=== PATIENT | female | born 1975 | race Caucasian/White ===

== ENCOUNTER 2016-03-02 18:58 | Emergency (ER) | payer MEDICARE, MEDICAID ==
--- NOTE | 2016-03-02 19:26 | Emergency Department Record ---
History of Present Illness - General Chief complaint: Female Urogenital Problem Stated complaint: R SIDE PAIN Time Seen by Provider: 03/02/16 19:21 Source: Patient Mode of Arrival: Ambulatory Limitations: No limitations - History of Present Illness Initial comments: 41 yo female presents to ED with a CC of "right sided pain". Patient reports that she was seen at [facility] yesterday, diagnosed with a kidney infection and started on Cipro, Pyridium, and Ibuprofen. Patient reports that she has not taken any of the Ibuprofen as she was [place] it would interfere with her other medications, and has not taken Ultram that she has at home for her migraines as she was unsure if it would help her symptoms. Patient denies fevers, chills, vomiting, or abdominal pain symptoms. MD Complaint: Other Onset/Timin -: Days(s) Radiation: R flank Severity: Mild Severity scale (1-10): 7 Quality: Sharp, Stabbing Consistency: Intermittent Improves with: Other Worsens with: None Associated Symptoms: Denies other symptoms - Related Data Home Medications Medication Instructions Recorded Confirmed Last Taken Bupropion HCl [Wellbutrin Sr] 150 mg PO QHS 12/17/14 03/02/16 02/17/16 Escitalopram Oxalate [Lexapro] 20 mg PO QHS 12/17/14 03/02/16 02/17/16 Loratadine [Claritin] 10 mg PO QHS 12/17/14 03/02/16 02/17/16 Tapentadol HCl [Nucynta] 75 mg PO BID PRN 06/08/15 03/02/16 02/17/16 Prazosin HCl [Minipress] 4 mg PO QHS 09/18/15 03/02/16 02/17/16 Previous Rx's Medication Instructions Recorded Azithromycin [Zithromax] 250 mg PO DAILY #4 tab 02/16/16 Allergies Allergy/AdvReac Type Severity Reaction Status Date / Time [id number] Antimigraine Allergy Severe HEADACHE Verified 03/02/16 19:07 Agents Pajfkpf-Rai-Dno Reductase Allergy Intermediate JOINT ACHES Verified 03/02/16 19: 07 Inhibitor medical tape AdvReac Mild RASH Uncoded 03/02/16 19:07 Travel Screening - Travel/Exposure Within Last 30 Days Have you traveled within the last 30 days?: No - Travel/Exposure Within Last Year Have you traveled outside the [place] in the last year?: No - Additonal Travel Details Have you been exposed to anyone with a communicable illness?: No - Travel Symptoms Symptom Screening: None Review of Systems Constitutional: Denies: Chills, Fever, Malaise, Night sweats Eyes: Denies: Eye discharge, Eye pain ENT: Denies: Congestion, Ear pain, Epistaxis Respiratory: Denies: Cough, Dyspnea Cardiovascular: Denies: Chest pain, Dyspnea on exertion, Palpitations Endocrine: Denies: Fatigue, Heat or cold intolerance Gastrointestinal: Denies: Abdominal pain, Nausea, Vomiting Genitourinary: Reports: Dysuria. Denies: Hematuria, Incontinence, Retention Musculoskeletal: Reports: Back pain (right sided flank pain). Denies: Arthralgia Skin: Denies: Bruising, Change in color Neurological: Denies: Abnormal gait, Headache Psychiatric: Denies: Anxiety Hematological/Lymphatic: Denies: Anemia, Blood Clots Past Medical History - SOCIAL HISTORY Smoking Status: Former smoker Alcohol Use: None Drug Use: None - RESPIRATORY Hx Respiratory Disorders: Yes Hx Bronchitis: Yes Hx Pneumonia: Yes Comment:: low O2 when sleeping - CARDIOVASCULAR Hx Cardio Disorders: Yes Hx Chest Pain: Yes Comment:: HYPERLIPIDEMIA - NEURO Hx Neuro Disorders: Yes Hx Headaches: Yes (complex migrane) - GI Hx GI Disorders: Yes Hx Diverticulitis: Yes Hx Reflux: Yes (upper GI) Hx Liver Disease: (Liver biopsy 7-16) Hx Nausea/Vomiting: Yes (with pain) Hx Ulcer: Yes Comment:: fatty liver - Hx Genitourinary Disorders: Yes Comment:: polycystic ovary syndrome - ENDOCRINE Hx Endocrine Disorders: Yes Hx Diabetes: Yes Hx Thyroid Disease: No - MUSCULOSKELETAL Hx Musculoskeletal Disorders: Yes Hx Fibromyalgia: Yes Hx Gout: Yes Comment:: Buldging disc in neck - PSYCH Hx Psych Problems: Yes Hx Anxiety: Yes Hx Depression: Yes Comment:: PTSD - HEMATOLOGY/ONCOLOGY Hx Hematology/Oncology Disorders: No Family Medical History Any Significant Family History?: No Hx Cancer: Mother, Grandparents *Diabetes Comment: aunt Hx Heart Disease: Brother/Sister *Heart Comment: Brother Hx Kidney Disease: Children Physical Exam - General General Appearance: Alert, Oriented x3, Cooperative, No acute distress Limitations: No limitations - Head Head exam: Atraumatic, Normocephalic, Normal inspection Head exam detail: negative: Abrasion, Contusion, Espinosa's sign, General tenderness, Hematoma, Laceration - Eye Eye exam: Normal appearance. negative: Conjunctival injection, Periorbital swelling, Periorbital tenderness, Scleral icterus - ENT Ear exam: negative: Auricular hematoma, Auricular trauma Nasal Exam: negative: Active bleeding, Discharge, Dried blood, Foreign body Mouth exam: negative: Drooling, Laceration, Muffled voice, Tongue elevation - Neck Neck exam: Normal inspection. negative: Meningismus, Tenderness - Respiratory Respiratory exam: Normal lung sounds bilaterally. negative: Rhonchi, Stridor, Wheezes - Cardiovascular Cardiovascular Exam: Regular rate, Normal rhythm, Normal heart sounds - GI/Abdominal GI/Abdominal exam: Soft. negative: Rebound, Rigid, Tenderness - Rectal Rectal exam: Deferred - exam: Deferred - Extremities Extremities exam: Normal inspection. negative: Pedal edema, Tenderness - Back Back exam: Reports: CVA tenderness (R). Denies: CVA tenderness (L) - Neurological Neurological exam: Alert, Normal gait, Oriented X3 - Psychiatric Psychiatric exam: Normal affect, Normal mood - Skin Skin exam: Normal color. negative: Abrasion Type of lesion: negative: abrasion Course Vital Signs 03/02/16 19:15 Temperature 98.0 F Pulse Rate [ 80 Pulse Ox Probe] Respiratory 20 Rate Blood Pressure 113/85 [Left Arm] Pulse Ox 96 - Reevaluation(s) Reevaluation #1: 03/02/16 19:37 UA reviewed, no bacteria, no WBCs, and no RBCs are present. Examination and UA results are not consistent with kidney stone, and CT imaging today is not felt to be indicated given the number of imaging studies the patient has undergone in the last one year alone. Patient was offered Toradol for her pain symptoms, declined stating that she will just take her Ultram at home. Patient appears stable for discharge at this time. Disposition Disposition: Discharge Clinical Impression: Acute Flank Pain Disposition: Home, Self-Care Condition: (2) Stable Instructions: Flank Pain (ED) Additional Instructions: Return to ED if your symptoms worsen or if you have any concerns. Continue your Cipro and Pyridum as directed. You may take Ultram that you have at home for your pain symptoms as directed. Follow-up with Dr. Jung in 3-5 days as directed. Forms: Patient Portal Access Time of Disposition: 19:40
[2016-03-02 19:30] LABS: URINE APPEARANCE CLEAR; URINE BILIRUBIN NEGATIVE (NEGATIVE); URINE BLOOD NEGATIVE (NEGATIVE); URINE GLUCOSE (UA) NEGATIVE (NEGATIVE); URINE KETONE NEGATIVE (NEGATIVE); URINE LEUKOCYTE ESTERASE NEGATIVE (NEGATIVE); URINE PROTEIN TRACE (NEGATIVE)
[2016-03-02 19:32] LABS: URINE BACTERIA NONE SEEN; URINE COLOR ORANGE; URINE NITRITE NEGATIVE (NEGATIVE); URINE RBC NONE SEEN (NONE SEEN); URINE WBC NONE SEEN (0-2/hpf)
== END 2016-03-02 19:49 | disposition home or self-care (01) ==
LOC: ER 18:58
DX: R10.9 Unspecified abdominal pain (principal)
CPT/HCPCS: 81001; 99282

== ENCOUNTER 2016-03-19 19:32 | Emergency (ER) | payer MEDICARE, MEDICAID ==
--- NOTE | 2016-03-19 20:15 | Emergency Department Record ---
History of Present Illness - General Chief Complaint: Headache Migraine Stated Complaint: SERVIN Time Seen by Provider: 03/19/16 20:05 Source: Patient Mode of Arrival: Ambulatory - History of Present Illness Initial Comments: Thepatient states that she gets migraine headaches about once a week for which she takes Fioricet benadryl and phenergan. This headache began around 5:30 this evening, and is associated with nausea, no vomiting, photophobia, and left sided head and neck pain, which she states is typical of her headache. She took her usual meds, but this time they have not helped. She denies f,c,unilateral weakness, vision changes, or other new complaints. MD Complaint: "Migraine" Onset/Timin -: Days(s) Location: Left, Neck, Temporal Severity scale (1-10): 10 Consistency: Constant Improves With: Nothing Worsens With: Light, Noise Associated Symptoms: Nausea, Photophobia - Related Data Home Medications Medication Instructions Recorded Confirmed Last Taken Bupropion HCl [Wellbutrin Sr] 150 mg PO QHS 12/17/14 03/19/16 02/17/16 Escitalopram Oxalate [Lexapro] 20 mg PO QHS 12/17/14 03/19/16 02/17/16 Loratadine [Claritin] 10 mg PO QHS 12/17/14 03/19/16 02/17/16 Tapentadol HCl [Nucynta] 75 mg PO BID PRN 06/08/15 03/19/16 02/17/16 Prazosin HCl [Minipress] 4 mg PO QHS 09/18/15 03/19/16 02/17/16 Clonazepam [Clonazepam] 1 mg PO QHS 03/02/16 03/19/16 Unknown Dextroamphetamine/Amphetamine 10 mg PO BID tab 03/11/16 03/19/16 Unknown [Adderall] Sulfasalazine [Sulfasalazine Dr] 500 mg PO BID tab. 03/11/16 03/19/16 Unknown Allergies Allergy/AdvReac Type Severity Reaction Status Date / Time [id number] Antimigraine Allergy Severe HEADACHE Unverified 03/19/16 13:42 Agents Gfpaluc-Qnz-Uyo Reductase Allergy Intermediate JOINT ACHES Unverified 03/19/16 13:42 Inhibitor medical tape AdvReac Mild RASH Uncoded 03/02/16 19:07 Travel Screening - Travel/Exposure Within Last 30 Days Have you traveled within the last 30 days?: No Review of Systems Reviewed: No additional complaints except as noted below Constitutional: Reports: As per HPI. Denies: Chills, Fever, Malaise, Night sweats, Weakness, Weight change Eyes: Reports: As per HPI. Denies: Eye discharge, Eye pain, Photophobia, Vision change ENT: Reports: As per HPI. Denies: Congestion, Dental pain, Ear pain, Epistaxis , Hearing loss, Throat pain Respiratory: Reports: As per HPI. Denies: Cough, Dyspnea, Hemoptysis, Stridor, Wheezes Cardiovascular: Reports: As per HPI. Denies: Arrhythmia, Chest pain, Dyspnea on exertion, Edema, Murmurs, Orthopnea, Palpitations, Paroxysmal nocturnal dyspnea, Rheumatic Fever, Syncope Endocrine: Reports: As per HPI. Denies: Fatigue, Heat or cold intolerance, Polydipsia, Polyuria Gastrointestinal: Reports: As per HPI. Denies: Abdominal pain, Constipation, Diarrhea, Hematemesis, Hematochezia, Melena, Nausea, Vomiting Genitourinary: Reports: As per HPI. Denies: Abnormal menses, Discharge, Dyspareunia, Dysuria, Frequency, Hematuria, Incontinence, Retention, Urgency Musculoskeletal: Reports: As per HPI. Denies: Arthralgia, Back pain, Gout, Joint swelling, Myalgia, Neck pain Skin: Reports: As per HPI. Denies: Bruising, Change in color, Change in hair/ nails, Lesions, Pruritus, Rash Neurological: Reports: As per HPI. Denies: Abnormal gait, Confusion, Headache, Numbness, Paresthesias, Seizure, Tingling, Tremors, Vertigo, Weakness Psychiatric: Reports: As per HPI. Denies: Anxiety, Auditory hallucinations, Depression, Homicidal thoughts, Suicidal thoughts, Visual hallucinations Hematological/Lymphatic: Reports: As per HPI. Denies: Anemia, Blood Clots, Easy bleeding, Easy bruising, Swollen glands Past Medical History - SOCIAL HISTORY Smoking Status: Former smoker Alcohol Use: None Drug Use: None - RESPIRATORY Hx Respiratory Disorders: Yes Hx Bronchitis: Yes Hx Pneumonia: Yes Comment:: low O2 when sleeping - CARDIOVASCULAR Hx Cardio Disorders: Yes Hx Chest Pain: Yes Comment:: HYPERLIPIDEMIA - NEURO Hx Neuro Disorders: Yes Hx Headaches: Yes (complex migrane) - GI Hx GI Disorders: Yes Hx Diverticulitis: Yes Hx Reflux: Yes (upper GI) Hx Liver Disease: (Liver biopsy 7-16) Hx Nausea/Vomiting: Yes (with pain) Hx Ulcer: Yes Comment:: fatty liver - Hx Genitourinary Disorders: Yes Comment:: polycystic ovary syndrome - ENDOCRINE Hx Endocrine Disorders: Yes Hx Diabetes: Yes Hx Thyroid Disease: No - MUSCULOSKELETAL Hx Musculoskeletal Disorders: Yes Hx Fibromyalgia: Yes Hx Gout: Yes Comment:: Buldging disc in neck - PSYCH Hx Psych Problems: Yes Hx Anxiety: Yes Hx Depression: Yes Comment:: PTSD - HEMATOLOGY/ONCOLOGY Hx Hematology/Oncology Disorders: No Family Medical History Any Significant Family History?: Yes Hx Cancer: Mother, Grandparents *Diabetes Comment: aunt Hx Heart Disease: Brother/Sister *Heart Comment: Brother Hx Kidney Disease: Children Physical Exam - General General Appearance: Alert, Oriented x3, Cooperative, Mild distress (holding her left head as she ambulates slowly to the bathroom) - Head Head exam: Normal inspection - Eye Eye exam: Normal appearance, PERRL Pupils: Normal accommodation - ENT ENT exam: Normal exam, Mucous membranes moist, Normal external ear exam, Normal orophraynx, TM's normal bilaterally Ear exam: Normal external inspection. negative: External canal tenderness Nasal Exam: Normal inspection. negative: Discharge, Sinus tenderness Mouth exam: Normal external inspection, Tongue normal Teeth exam: Normal inspection. negative: Dental caries Throat exam: Normal inspection. negative: Tonsillar erythema, Tonsillar exudate - Neck Neck exam: Normal inspection, Full ROM. negative: Lymphadenopathy, Meningismus , Tenderness - Respiratory Respiratory exam: Normal lung sounds bilaterally. negative: Respiratory distress - Cardiovascular Cardiovascular Exam: Regular rate, Normal rhythm - GI/Abdominal GI/Abdominal exam: Soft. negative: Tenderness - Rectal Rectal exam: Deferred - exam: Deferred - Extremities Extremities exam: Normal inspection, Full ROM, Normal capillary refill. negative: Tenderness - Back Back exam: Reports: Normal inspection, Full ROM. Denies: Muscle spasm, Rash noted, Tenderness - Neurological Neurological exam: Alert, Normal gait, Oriented X3, Reflexes normal - Psychiatric Psychiatric exam: Normal affect, Normal mood - Skin Skin exam: Dry, Intact, Normal color, Warm Course Vital Signs 03/19/16 19:41 Temperature 97.3 F L Pulse Rate [ 84 Pulse Ox Probe] Respiratory 18 Rate Blood Pressure 140/106 [Left Arm] Pulse Ox 95 - Reevaluation(s) Reevaluation #1: The patient states that her headache is still present but not as severe. Her nausea has improved. The pain goes down her left head into the left side of her neck and top of her shoulder/trap. 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 Home to bed. Take your home meds after 4 hours if still needed. Follow up blood pressure with PCP when you are not in pain. Follow up with PCP as needed. Forms: Patient Portal Access
[2016-03-19] MEDS ORDERED: DIPHENHYDRAMINE HCL IV 50 MG/ML VIAL IVP ONE (20:19)
[2016-03-19] MEDS ORDERED: KETOROLAC 30 MG/ML VIAL IVP ONE (20:19)
[2016-03-19] MEDS ORDERED: METOCLOPRAMIDE HCL 10 MG/2 ML VIAL IVP ONE (20:19)
[2016-03-19] MEDS ORDERED: 0.9 % SODIUM CHLORIDE 500ML 500 ML IV SCH (20:30)
[2016-03-19] MEDS ORDERED: ONDANSETRON HCL IV 4 MG/2 ML VIAL IVP ONE (20:51)
[2016-03-19] MEDS ORDERED: ORPHENADRINE CITRATE 60MG/2ML VIAL IM ONE (21:20)
== END 2016-03-19 22:01 | disposition home or self-care (01) ==
LOC: ER 19:32
DX: G43.009 Migraine without aura, not intractable, without status migrainosus (principal); R11.0 Nausea; M54.2 Cervicalgia
CPT/HCPCS: 99284 ×2; 96374; 96372; 96375; J1885; J2405; J1200; J2360; J2765; J7040

== ENCOUNTER 2016-03-28 22:38 | Emergency (ER) | payer MEDICARE, MEDICAID ==
[2016-03-28] MEDS ORDERED: KETOROLAC 30 MG/ML VIAL IVP ONE (23:16)
[2016-03-28] MEDS ORDERED: ORPHENADRINE CITRATE 60MG/2ML VIAL IM ONE (23:16)
[2016-03-28] MEDS ORDERED: METOCLOPRAMIDE HCL 10 MG/2 ML VIAL IVP ONE (23:16)
[2016-03-28] MEDS ORDERED: 0.9 % SODIUM CHLORIDE 1,000 ML BAG IV ONE (23:18)
--- NOTE | 2016-03-28 23:37 | Emergency Department Record ---
History of Present Illness - General Chief Complaint: Headache Migraine Stated Complaint: SERVIN Time Seen by Provider: 03/28/16 22:55 Source: Patient Mode of Arrival: Ambulatory Limitations: No limitations - History of Present Illness Initial Comments: pt has typical migraine. she states her ears also hurt. Complaint: "Migraine" Onset/Timin -: Hour(s) Onset Description: Gradual Location: Left Severity scale (1-10): 7 Quality: Similar to previous headaches Consistency: Constant Improves With: Nothing Worsens With: None Context: Other Associated Symptoms: Nausea Treatments Prior to Arrival: Migraine medication, Other - Related Data Home Medications Medication Instructions Recorded Confirmed Last Taken Bupropion HCl [Wellbutrin Sr] 150 mg PO QHS 12/17/14 03/19/16 02/17/16 Escitalopram Oxalate [Lexapro] 20 mg PO QHS 12/17/14 03/19/16 02/17/16 Loratadine [Claritin] 10 mg PO QHS 12/17/14 03/19/16 02/17/16 Tapentadol HCl [Nucynta] 75 mg PO BID PRN 06/08/15 03/19/16 02/17/16 Prazosin HCl [Minipress] 4 mg PO QHS 09/18/15 03/19/16 02/17/16 Clonazepam [Clonazepam] 1 mg PO QHS 03/02/16 03/19/16 Unknown Dextroamphetamine/Amphetamine 10 mg PO BID tab 03/11/16 03/19/16 Unknown [Adderall] Sulfasalazine [Sulfasalazine Dr] 500 mg PO BID tab. 03/11/16 03/19/16 Unknown Allergies Allergy/AdvReac Type Severity Reaction Status Date / Time [id number] Antimigraine Allergy Severe HEADACHE Unverified 03/19/16 13:42 Agents Focnkwh-Wpa-Fcq Reductase Allergy Intermediate JOINT ACHES Unverified 03/19/16 13:42 Inhibitor medical tape AdvReac Mild RASH Uncoded 03/02/16 19:07 Travel Screening - Travel/Exposure Within Last 30 Days Have you traveled within the last 30 days?: No - Travel/Exposure Within Last Year Have you traveled outside the [place] in the last year?: No - Additonal Travel Details Have you been exposed to anyone with a communicable illness?: No - Travel Symptoms Symptom Screening: None Review of Systems Reviewed: No additional complaints except as noted below Constitutional: Reports: As per HPI. Denies: Chills, Fever, Malaise, Night sweats, Weakness, Weight change Eyes: Reports: As per HPI. Denies: Eye discharge, Eye pain, Photophobia, Vision change ENT: Reports: As per HPI. Denies: Congestion, Dental pain, Ear pain, Epistaxis , Hearing loss, Throat pain Respiratory: Reports: As per HPI. Denies: Cough, Dyspnea, Hemoptysis, Stridor, Wheezes Cardiovascular: Reports: As per HPI. Denies: Arrhythmia, Chest pain, Dyspnea on exertion, Edema, Murmurs, Orthopnea, Palpitations, Paroxysmal nocturnal dyspnea, Rheumatic Fever, Syncope Endocrine: Reports: As per HPI. Denies: Fatigue, Heat or cold intolerance, Polydipsia, Polyuria Gastrointestinal: Reports: As per HPI. Denies: Abdominal pain, Constipation, Diarrhea, Hematemesis, Hematochezia, Melena, Nausea, Vomiting Genitourinary: Reports: As per HPI. Denies: Abnormal menses, Discharge, Dyspareunia, Dysuria, Frequency, Hematuria, Incontinence, Retention, Urgency Musculoskeletal: Reports: As per HPI. Denies: Arthralgia, Back pain, Gout, Joint swelling, Myalgia, Neck pain Skin: Reports: As per HPI. Denies: Bruising, Change in color, Change in hair/ nails, Lesions, Pruritus, Rash Neurological: Reports: As per HPI. Denies: Abnormal gait, Confusion, Headache, Numbness, Paresthesias, Seizure, Tingling, Tremors, Vertigo, Weakness Psychiatric: Reports: As per HPI. Denies: Anxiety, Auditory hallucinations, Depression, Homicidal thoughts, Suicidal thoughts, Visual hallucinations Hematological/Lymphatic: Reports: As per HPI. Denies: Anemia, Blood Clots, Easy bleeding, Easy bruising, Swollen glands Past Medical History - SOCIAL HISTORY Smoking Status: Former smoker Alcohol Use: None Drug Use: None - RESPIRATORY Hx Respiratory Disorders: Yes Hx Bronchitis: Yes Hx Pneumonia: Yes Comment:: low O2 when sleeping - CARDIOVASCULAR Hx Cardio Disorders: Yes Hx Chest Pain: Yes Comment:: HYPERLIPIDEMIA - NEURO Hx Neuro Disorders: Yes Hx Headaches: Yes (complex migrane) - GI Hx GI Disorders: Yes Hx Diverticulitis: Yes Hx Reflux: Yes (upper GI) Hx Liver Disease: (Liver biopsy 7-16) Hx Nausea/Vomiting: Yes (with pain) Hx Ulcer: Yes Comment:: fatty liver - Hx Genitourinary Disorders: Yes Comment:: polycystic ovary syndrome - ENDOCRINE Hx Endocrine Disorders: Yes Hx Diabetes: Yes Hx Thyroid Disease: No - MUSCULOSKELETAL Hx Musculoskeletal Disorders: Yes Hx Fibromyalgia: Yes Hx Gout: Yes Comment:: Buldging disc in neck - PSYCH Hx Psych Problems: Yes Hx Anxiety: Yes Hx Depression: Yes Comment:: PTSD - HEMATOLOGY/ONCOLOGY Hx Hematology/Oncology Disorders: No Family Medical History Any Significant Family History?: Yes Hx Cancer: Mother, Grandparents *Diabetes Comment: aunt Hx Heart Disease: Brother/Sister *Heart Comment: Brother Hx Kidney Disease: Children Physical Exam - General General Appearance: Alert, Oriented x3, Cooperative, No acute distress - Head Head exam: Normal inspection - Eye Eye exam: Normal appearance, PERRL, EOMI Pupils: Normal accommodation - ENT ENT exam: Normal exam, Mucous membranes moist, Normal external ear exam, Normal orophraynx, Other (l tm has slight erythema) Ear exam: Normal external inspection. negative: External canal tenderness Nasal Exam: Normal inspection. negative: Discharge, Sinus tenderness Mouth exam: Normal external inspection, Tongue normal Teeth exam: Normal inspection. negative: Dental caries Throat exam: Normal inspection. negative: Tonsillar erythema, Tonsillar exudate - Neck Neck exam: Normal inspection, Full ROM. negative: Tenderness - Respiratory Respiratory exam: Normal lung sounds bilaterally. negative: Respiratory distress - Cardiovascular Cardiovascular Exam: Regular rate, Normal rhythm, Normal heart sounds - GI/Abdominal GI/Abdominal exam: Soft, Normal bowel sounds. negative: Tenderness - Rectal Rectal exam: Deferred - exam: Deferred - Extremities Extremities exam: Normal inspection, Full ROM, Normal capillary refill. negative: Tenderness - Back Back exam: Reports: Normal inspection, Full ROM. Denies: Muscle spasm, Rash noted, Tenderness - Neurological Neurological exam: Alert, CN II-XII intact, Normal gait, Oriented X3 - Psychiatric Psychiatric exam: Normal affect, Normal mood - Skin Skin exam: Dry, Intact, Normal color, Warm Course Vital Signs 03/28/16 22:55 Temperature 97.9 F Pulse Rate [ 79 Pulse Ox Probe] Respiratory 16 Rate Blood Pressure 133/94 [Left Arm] Pulse Ox 97 Disposition Disposition: Discharge Clinical Impression: Migraine Qualifiers: Migraine type: unspecified Status migrainosus presence: without status migrainosus Intractability: not intractable Qualified Code(s): G43.909 - Migraine, unspecified, not intractable, without status migrainosus Disposition: Home, Self-Care Condition: (1) Good Instructions: Migraine Headache (ED) Additional Instructions: follow up with family doctor. return sooner if worse Forms: Patient Portal Access
[2016-03-29] MEDS ORDERED: DIPHENHYDRAMINE HCL IV 50 MG/ML VIAL IVP ONE (00:13)
== END 2016-03-29 00:54 | disposition home or self-care (01) ==
LOC: ER 22:38
DX: G43.909 Migraine, unspecified, not intractable, without status migrainosus (principal); R11.0 Nausea; H92.03 Otalgia, bilateral; H53.8 Other visual disturbances
CPT/HCPCS: 99284 ×2; 96374; 96372; 96375; 96361; J1885; J1200; J2360; J2765; J7030

== ENCOUNTER 2016-04-06 20:27 | Emergency (ER) | payer MEDICARE, MEDICAID ==
[2016-04-06] MEDS ORDERED: KETOROLAC 60 MG/2 ML VIAL IM STA (21:13)
[2016-04-06] MEDS ORDERED: PROMETHAZINE HCL 25 MG/ML VIAL IM ONE (21:13)
--- NOTE | 2016-04-06 21:19 | Emergency Department Record ---
History of Present Illness - General Chief Complaint: Headache Migraine Stated Complaint: HEADACHE Time Seen by Provider: 04/06/16 21:13 Source: Patient Mode of Arrival: Ambulatory Limitations: No limitations - History of Present Illness Initial Comments: 41 yo female presents to ED with a CC of "migraine headache". Patient reports that her symptoms began last night, took her phenergan, fiorcet, and benadryl last night which improved her symptoms, but patient's worsened tonight around 18 :30. Patient took benadryl at 18:30 tonight, did not help much at the time. Complaint: Headache Onset/Timin -: Days(s) Onset Description: Gradual, Awoke with symptoms Location: Diffuse Severity scale (1-10): 8 Quality: Similar to previous headaches Consistency: Constant Improves With: Nothing Worsens With: Light, Movement of head/neck, Noise Associated Symptoms: Nausea, Photophobia, Sensitivity to sound Treatments Prior to Arrival: Migraine medication, Prescription analgesic - Related Data Home Medications Medication Instructions Recorded Confirmed Last Taken Bupropion HCl [Wellbutrin Sr] 150 mg PO QHS 12/17/14 03/19/16 02/17/16 Escitalopram Oxalate [Lexapro] 20 mg PO QHS 12/17/14 03/19/16 02/17/16 Loratadine [Claritin] 10 mg PO QHS 12/17/14 03/19/16 02/17/16 Tapentadol HCl [Nucynta] 75 mg PO BID PRN 06/08/15 03/19/16 02/17/16 Prazosin HCl [Minipress] 4 mg PO QHS 09/18/15 03/19/16 02/17/16 Clonazepam [Clonazepam] 1 mg PO QHS 03/02/16 03/19/16 Unknown Dextroamphetamine/Amphetamine 10 mg PO BID tab 03/11/16 03/19/16 Unknown [Adderall] Sulfasalazine [Sulfasalazine Dr] 500 mg PO BID tab. 03/11/16 03/19/16 Unknown Allergies Allergy/AdvReac Type Severity Reaction Status Date / Time [id number] Antimigraine Allergy Severe HEADACHE Verified 04/06/16 20:55 Agents Gwyhsad-Wst-Uou Reductase Allergy Intermediate JOINT ACHES Verified 04/06/16 20: 55 Inhibitor medical tape AdvReac Mild RASH Uncoded 03/02/16 19:07 Travel Screening - Travel/Exposure Within Last 30 Days Have you traveled within the last 30 days?: No - Travel Symptoms Symptom Screening: None Review of Systems Constitutional: Denies: Chills, Fever, Malaise, Night sweats Eyes: Reports: Photophobia. Denies: Eye discharge, Eye pain ENT: Denies: Congestion, Ear pain, Epistaxis Respiratory: Denies: Cough, Dyspnea Cardiovascular: Denies: Chest pain, Dyspnea on exertion Endocrine: Denies: Fatigue, Heat or cold intolerance Gastrointestinal: Denies: Abdominal pain, Nausea, Vomiting Musculoskeletal: Denies: Arthralgia, Back pain, Neck pain Skin: Denies: Bruising, Change in color, Rash Neurological: Reports: Headache. Denies: Abnormal gait, Confusion, Seizure Psychiatric: Denies: Anxiety Hematological/Lymphatic: Denies: Anemia, Blood Clots Past Medical History - SOCIAL HISTORY Smoking Status: Former smoker - RESPIRATORY Hx Respiratory Disorders: Yes Hx Bronchitis: Yes Hx Pneumonia: Yes Comment:: low O2 when sleeping - CARDIOVASCULAR Hx Cardio Disorders: Yes Hx Chest Pain: Yes Comment:: HYPERLIPIDEMIA - NEURO Hx Neuro Disorders: Yes Hx Headaches: Yes (complex migrane) - GI Hx GI Disorders: Yes Hx Diverticulitis: Yes Hx Reflux: Yes (upper GI) Hx Liver Disease: (Liver biopsy 7-16) Hx Nausea/Vomiting: Yes (with pain) Hx Ulcer: Yes Comment:: fatty liver - Hx Genitourinary Disorders: Yes Comment:: polycystic ovary syndrome - ENDOCRINE Hx Endocrine Disorders: Yes Hx Diabetes: Yes Hx Thyroid Disease: No - MUSCULOSKELETAL Hx Musculoskeletal Disorders: Yes Hx Fibromyalgia: Yes Hx Gout: Yes Comment:: Buldging disc in neck - PSYCH Hx Psych Problems: Yes Hx Anxiety: Yes Hx Depression: Yes Comment:: PTSD - HEMATOLOGY/ONCOLOGY Hx Hematology/Oncology Disorders: No Family Medical History Any Significant Family History?: Yes Hx Cancer: Mother, Grandparents *Diabetes Comment: aunt Hx Heart Disease: Brother/Sister *Heart Comment: Brother Hx Kidney Disease: Children Physical Exam - General General Appearance: Alert, Oriented x3, Cooperative, Moderate distress Limitations: No limitations - Head Head exam: Atraumatic, Normocephalic, Normal inspection Head exam detail: negative: Abrasion, Contusion, Espinosa's sign, General tenderness, Hematoma, Laceration - Eye Eye exam: Normal appearance. negative: Conjunctival injection, Periorbital swelling, Periorbital tenderness, Scleral icterus - ENT Ear exam: negative: Auricular hematoma, Auricular trauma Nasal Exam: negative: Active bleeding, Discharge, Dried blood, Foreign body Mouth exam: negative: Drooling, Laceration, Muffled voice, Tongue elevation - Neck Neck exam: Normal inspection. negative: Meningismus, Tenderness - Respiratory Respiratory exam: Normal lung sounds bilaterally. negative: Rales, Respiratory distress, Rhonchi, Stridor - Cardiovascular Cardiovascular Exam: Regular rate, Normal rhythm, Normal heart sounds - GI/Abdominal GI/Abdominal exam: Soft. negative: Rebound, Rigid, Tenderness - Rectal Rectal exam: Deferred - exam: Deferred - Extremities Extremities exam: Normal inspection, Calf tenderness. negative: Tenderness - Back Back exam: Denies: CVA tenderness (R), CVA tenderness (L) - Neurological Neurological exam: Alert, Normal gait, Oriented X3. negative: Motor sensory deficit - Psychiatric Psychiatric exam: Anxious, Normal mood - Skin Skin exam: Normal color. negative: Abrasion Type of lesion: negative: abrasion Course Vital Signs 04/06/16 20:55 Temperature 97.8 F Pulse Rate 68 Respiratory 16 Rate Blood Pressure 135/92 Pulse Ox 98 - Reevaluation(s) Reevaluation #1: 04/06/16 21:59 Patient reassessed, reports no improvement in her headache symptoms although patient subjectively appears improved. Solumedrol ordered for continued headache pain symptoms. Reevaluation #2: 04/07/16 22:25 Patient reassessed, resting comfortably, and appears stable for discharge at this time. Disposition Disposition: Discharge Clinical Impression: Headache Qualifiers: Headache type: unspecified Headache chronicity pattern: acute headache Intractability: not intractable Qualified Code(s): R51 - Headache Disposition: Home, Self-Care Instructions: Acute Headache (ED) Additional Instructions: Return to ED if your symptoms worsen or if you have any concerns. Follow-up with Dr. Jung in 3-5 days without fail. Forms: Patient Portal Access Time of Disposition: 21:19
[2016-04-06] MEDS ORDERED: METHYLPREDNISOLONE PF 125MG/VIAL IM ONE (21:59)
== END 2016-04-06 22:29 | disposition home or self-care (01) ==
LOC: ER 20:27
DX: R51 Headache (principal); R11.0 Nausea; H53.149 Visual discomfort, unspecified
CPT/HCPCS: 96372; 99283; J1885; J2550; J2930

== ENCOUNTER 2016-04-07 11:40 | Emergency (ER) | payer MEDICARE, MEDICAID ==
--- NOTE | 2016-04-07 12:01 | Emergency Department Record ---
History of Present Illness - General Chief Complaint: Headache Migraine Stated Complaint: MIGRAINE Time Seen by Provider: 04/07/16 11:55 Source: Patient Mode of Arrival: Ambulatory Limitations: No limitations - History of Present Illness Initial Comments: pt here for migraine which she states she has had for 3 days. she was here last night as well. she states she is taking all her meds as rxd. this is just like previous migraines MD Complaint: "Migraine" Onset/Timin -: Days(s) Onset Description: Gradual Location: Frontal, Right Severity scale (1-10): 9 Quality: Aching Consistency: Constant Improves With: Nothing Worsens With: None Associated Symptoms: Nausea, Photophobia Treatments Prior to Arrival: Migraine medication - Related Data Home Medications Medication Instructions Recorded Confirmed Last Taken Bupropion HCl [Wellbutrin Sr] 150 mg PO QHS 12/17/14 04/07/16 1 Day Ago Escitalopram Oxalate [Lexapro] 20 mg PO QHS 12/17/14 04/07/16 1 Day Ago Loratadine [Claritin] 10 mg PO QHS 12/17/14 04/07/16 1 Day Ago Tapentadol HCl [Nucynta] 75 mg PO BID PRN 06/08/15 04/07/16 1 Day Ago Prazosin HCl [Minipress] 4 mg PO QHS 09/18/15 04/07/16 1 Day Ago Clonazepam [Clonazepam] 1 mg PO QHS 03/02/16 04/07/16 1 Day Ago Dextroamphetamine/Amphetamine 10 mg PO BID tab 03/11/16 04/07/16 1 Day Ago [Adderall] Sulfasalazine [Sulfasalazine Dr] 500 mg PO BID tab. 03/11/16 04/07/16 1 Day Ago Allergies Allergy/AdvReac Type Severity Reaction Status Date / Time [id number] Antimigraine Allergy Severe HEADACHE Verified 04/07/16 11:50 Agents Lvxbudo-Qrm-Xsr Reductase Allergy Intermediate JOINT ACHES Verified 04/07/16 11: 50 Inhibitor medical tape AdvReac Mild RASH Uncoded 04/07/16 11:50 Travel Screening - Travel/Exposure Within Last 30 Days Have you traveled within the last 30 days?: No - Travel/Exposure Within Last Year Have you traveled outside the [place] in the last year?: No - Additonal Travel Details Have you been exposed to anyone with a communicable illness?: No - Travel Symptoms Symptom Screening: None Review of Systems Reviewed: No additional complaints except as noted below Constitutional: Reports: As per HPI. Denies: Chills, Fever, Malaise, Night sweats, Weakness, Weight change Eyes: Reports: As per HPI. Denies: Eye discharge, Eye pain, Photophobia, Vision change ENT: Reports: As per HPI. Denies: Congestion, Dental pain, Ear pain, Epistaxis , Hearing loss, Throat pain Respiratory: Reports: As per HPI. Denies: Cough, Dyspnea, Hemoptysis, Stridor, Wheezes Cardiovascular: Reports: As per HPI. Denies: Arrhythmia, Chest pain, Dyspnea on exertion, Edema, Murmurs, Orthopnea, Palpitations, Paroxysmal nocturnal dyspnea, Rheumatic Fever, Syncope Endocrine: Reports: As per HPI. Denies: Fatigue, Heat or cold intolerance, Polydipsia, Polyuria Gastrointestinal: Reports: As per HPI. Denies: Abdominal pain, Constipation, Diarrhea, Hematemesis, Hematochezia, Melena, Nausea, Vomiting Genitourinary: Reports: As per HPI. Denies: Abnormal menses, Discharge, Dyspareunia, Dysuria, Frequency, Hematuria, Incontinence, Retention, Urgency Musculoskeletal: Reports: As per HPI. Denies: Arthralgia, Back pain, Gout, Joint swelling, Myalgia, Neck pain Skin: Reports: As per HPI. Denies: Bruising, Change in color, Change in hair/ nails, Lesions, Pruritus, Rash Neurological: Reports: As per HPI. Denies: Abnormal gait, Confusion, Headache, Numbness, Paresthesias, Seizure, Tingling, Tremors, Vertigo, Weakness Psychiatric: Reports: As per HPI. Denies: Anxiety, Auditory hallucinations, Depression, Homicidal thoughts, Suicidal thoughts, Visual hallucinations Hematological/Lymphatic: Reports: As per HPI. Denies: Anemia, Blood Clots, Easy bleeding, Easy bruising, Swollen glands Past Medical History - SOCIAL HISTORY Smoking Status: Former smoker Alcohol Use: None Drug Use: None - RESPIRATORY Hx Respiratory Disorders: Yes Hx Bronchitis: Yes Hx Pneumonia: Yes Comment:: low O2 when sleeping - CARDIOVASCULAR Hx Cardio Disorders: Yes Hx Chest Pain: Yes Comment:: HYPERLIPIDEMIA - NEURO Hx Neuro Disorders: Yes Hx Headaches: Yes (complex migrane) - GI Hx GI Disorders: Yes Hx Diverticulitis: Yes Hx Reflux: Yes (upper GI) Hx Liver Disease: (Liver biopsy 7-16) Hx Nausea/Vomiting: Yes (with pain) Hx Ulcer: Yes Comment:: fatty liver - Hx Genitourinary Disorders: Yes Comment:: polycystic ovary syndrome - ENDOCRINE Hx Endocrine Disorders: Yes Hx Diabetes: Yes Hx Thyroid Disease: No - MUSCULOSKELETAL Hx Musculoskeletal Disorders: Yes Hx Fibromyalgia: Yes Hx Gout: Yes Comment:: Buldging disc in neck - PSYCH Hx Psych Problems: Yes Hx Anxiety: Yes Hx Depression: Yes Comment:: PTSD - HEMATOLOGY/ONCOLOGY Hx Hematology/Oncology Disorders: No Family Medical History Any Significant Family History?: Yes Hx Cancer: Mother, Grandparents *Diabetes Comment: aunt Hx Heart Disease: Brother/Sister *Heart Comment: Brother Hx Kidney Disease: Children Physical Exam - General General Appearance: Alert, Oriented x3, Cooperative, Mild distress - Head Head exam: Normal inspection - Eye Eye exam: Normal appearance, PERRL, EOMI Pupils: Normal accommodation - ENT ENT exam: Normal exam, Mucous membranes moist, Normal external ear exam, Normal orophraynx, TM's normal bilaterally Ear exam: Normal external inspection. negative: External canal tenderness Nasal Exam: Normal inspection. negative: Discharge, Sinus tenderness Mouth exam: Normal external inspection, Tongue normal Teeth exam: Normal inspection. negative: Dental caries Throat exam: Normal inspection. negative: Tonsillar erythema, Tonsillar exudate - Neck Neck exam: Normal inspection, Full ROM. negative: Tenderness - Respiratory Respiratory exam: Normal lung sounds bilaterally. negative: Respiratory distress - Cardiovascular Cardiovascular Exam: Regular rate, Normal rhythm, Normal heart sounds - GI/Abdominal GI/Abdominal exam: Soft, Normal bowel sounds. negative: Tenderness - Rectal Rectal exam: Deferred - exam: Deferred - Extremities Extremities exam: Normal inspection, Full ROM, Normal capillary refill. negative: Tenderness - Back Back exam: Reports: Normal inspection, Full ROM. Denies: Muscle spasm, Rash noted, Tenderness - Neurological Neurological exam: Alert, CN II-XII intact, Normal gait, Oriented X3 - Psychiatric Psychiatric exam: Normal affect, Normal mood - Skin Skin exam: Dry, Intact, Normal color, Warm Course Vital Signs 04/07/16 11:45 Temperature 97.8 F Pulse Rate 89 Respiratory 18 Rate Blood Pressure 127/81 Pulse Ox 94 L Disposition Disposition: Discharge Clinical Impression: Migraine headache without aura Qualifiers: Status migrainosus presence: without status migrainosus Intractability: not intractable Qualified Code(s): G43.009 - Migraine without aura, not intractable , without status migrainosus Condition: (1) Good Instructions: Migraine Headache (ED) Additional Instructions: follow up with family doctor this week. return sooner if worse Forms: Patient Portal Access
[2016-04-07] MEDS ORDERED: ONDANSETRON HCL IV 4 MG/2 ML VIAL IM ONE (12:19)
[2016-04-07] MEDS ORDERED: ORPHENADRINE CITRATE 60MG/2ML VIAL IM ONE (12:19)
[2016-04-07] MEDS ORDERED: DIPHENHYDRAMINE HCL IV 50 MG/ML VIAL IM ONE (12:19)
== END 2016-04-07 12:59 | disposition home or self-care (01) ==
LOC: ER 11:40
DX: G43.009 Migraine without aura, not intractable, without status migrainosus (principal); R11.0 Nausea; H53.149 Visual discomfort, unspecified
CPT/HCPCS: 99283 ×2; 96372; J2405; J1200; J2360

== ENCOUNTER 2016-04-17 23:05 | Emergency (ER) | payer MEDICARE, MEDICAID ==
[2016-04-18] MEDS ORDERED: KETOROLAC 30 MG/ML VIAL IVP ONE (00:50)
[2016-04-18] MEDS ORDERED: METOCLOPRAMIDE HCL 10 MG/2 ML VIAL IVP ONE (00:50)
[2016-04-18] MEDS ORDERED: 0.9 % SODIUM CHLORIDE 1,000 ML BAG IV ONE (00:50)
[2016-04-18] MEDS ORDERED: DIPHENHYDRAMINE HCL IV 50 MG/ML VIAL IVP ONE (00:50)
--- NOTE | 2016-04-18 00:52 | Emergency Department Record ---
History of Present Illness - General Chief Complaint: Headache Migraine Stated Complaint: HEADACHE Time Seen by Provider: 04/18/16 00:44 Source: Patient Mode of Arrival: Ambulatory - History of Present Illness Initial Comments: The patient states that she developed "another typical migraine" just before 8 p.m. tonight. She took her usual benadryl, phenergan and fiorecet, but 4 hours later it still is bad. She denies f,c, cough, still neck, rashes. Her throat is a tiny bit sore and she thinks she is dehydrated. She is requesting an IV. MD Complaint: "Migraine" Onset/Timin -: Hour(s) Onset Description: Sudden, At rest Location: Other Severity: Severe Severity scale (1-10): 8 Quality: Sharp Consistency: Constant Improves With: Nothing, Eating Worsens With: Light, Noise Context: Occured at rest Associated Symptoms: Nausea, Sensitivity to sound Treatments Prior to Arrival: Migraine medication Treatment Prior to Arrival Comment:: Phenergan, Fiorcet, Benadryl - Related Data Home Medications Medication Instructions Recorded Confirmed Last Taken Bupropion HCl [Wellbutrin Sr] 150 mg PO QHS 12/17/14 04/07/16 1 Day Ago Escitalopram Oxalate [Lexapro] 20 mg PO QHS 12/17/14 04/07/16 1 Day Ago Loratadine [Claritin] 10 mg PO QHS 12/17/14 04/07/16 1 Day Ago Tapentadol HCl [Nucynta] 75 mg PO BID PRN 06/08/15 04/07/16 1 Day Ago Prazosin HCl [Minipress] 4 mg PO QHS 09/18/15 04/07/16 1 Day Ago Clonazepam [Clonazepam] 1 mg PO QHS 03/02/16 04/07/16 1 Day Ago Allergies Allergy/AdvReac Type Severity Reaction Status Date / Time [id number] Antimigraine Allergy Severe HEADACHE Verified 04/07/16 11:50 Agents Xjaowdu-Dti-Xca Reductase Allergy Intermediate JOINT ACHES Verified 04/07/16 11: 50 Inhibitor medical tape AdvReac Mild RASH Uncoded 04/07/16 11:50 Travel Screening - Travel/Exposure Within Last 30 Days Have you traveled within the last 30 days?: No - Travel/Exposure Within Last Year Have you traveled outside the [place] in the last year?: Yes Location Detail:: [place] - Additonal Travel Details Have you been exposed to anyone with a communicable illness?: No - Travel Symptoms Symptom Screening: Headache Review of Systems Reviewed: No additional complaints except as noted below Constitutional: Reports: As per HPI. Denies: Chills, Fever, Malaise, Night sweats, Weakness, Weight change Eyes: Reports: As per HPI. Denies: Eye discharge, Eye pain, Photophobia, Vision change ENT: Reports: As per HPI. Denies: Congestion, Dental pain, Ear pain, Epistaxis , Hearing loss, Throat pain Respiratory: Reports: As per HPI. Denies: Cough, Dyspnea, Hemoptysis, Stridor, Wheezes Cardiovascular: Reports: As per HPI. Denies: Arrhythmia, Chest pain, Dyspnea on exertion, Edema, Murmurs, Orthopnea, Palpitations, Paroxysmal nocturnal dyspnea, Rheumatic Fever, Syncope Endocrine: Reports: As per HPI. Denies: Fatigue, Heat or cold intolerance, Polydipsia, Polyuria Gastrointestinal: Reports: As per HPI. Denies: Abdominal pain, Constipation, Diarrhea, Hematemesis, Hematochezia, Melena, Nausea, Vomiting Genitourinary: Reports: As per HPI. Denies: Abnormal menses, Discharge, Dyspareunia, Dysuria, Frequency, Hematuria, Incontinence, Retention, Urgency Musculoskeletal: Reports: As per HPI. Denies: Arthralgia, Back pain, Gout, Joint swelling, Myalgia, Neck pain Skin: Reports: As per HPI. Denies: Bruising, Change in color, Change in hair/ nails, Lesions, Pruritus, Rash Neurological: Reports: As per HPI. Denies: Abnormal gait, Confusion, Headache, Numbness, Paresthesias, Seizure, Tingling, Tremors, Vertigo, Weakness Psychiatric: Reports: As per HPI. Denies: Anxiety, Auditory hallucinations, Depression, Homicidal thoughts, Suicidal thoughts, Visual hallucinations Hematological/Lymphatic: Reports: As per HPI. Denies: Anemia, Blood Clots, Easy bleeding, Easy bruising, Swollen glands Past Medical History - SOCIAL HISTORY Smoking Status: Former smoker Alcohol Use: None Drug Use: None - RESPIRATORY Hx Respiratory Disorders: Yes Hx Bronchitis: Yes Hx Pneumonia: Yes Comment:: low O2 when sleeping - CARDIOVASCULAR Hx Cardio Disorders: Yes Hx Chest Pain: Yes Comment:: HYPERLIPIDEMIA - NEURO Hx Neuro Disorders: Yes Hx Headaches: Yes (complex migrane) - GI Hx GI Disorders: Yes Hx Diverticulitis: Yes Hx Reflux: Yes (upper GI) Hx Liver Disease: (Liver biopsy 7-16) Hx Nausea/Vomiting: Yes (with pain) Hx Ulcer: Yes Comment:: fatty liver - Hx Genitourinary Disorders: Yes Comment:: polycystic ovary syndrome - ENDOCRINE Hx Endocrine Disorders: Yes Hx Diabetes: Yes Hx Thyroid Disease: No - MUSCULOSKELETAL Hx Musculoskeletal Disorders: Yes Hx Fibromyalgia: Yes Hx Gout: Yes Comment:: Buldging disc in neck - PSYCH Hx Psych Problems: Yes Hx Anxiety: Yes Hx Depression: Yes Comment:: PTSD - HEMATOLOGY/ONCOLOGY Hx Hematology/Oncology Disorders: No Family Medical History Any Significant Family History?: Yes Hx Cancer: Mother, Grandparents *Diabetes Comment: aunt Hx Heart Disease: Brother/Sister *Heart Comment: Brother Hx Kidney Disease: Children Physical Exam - General General Appearance: Alert, Oriented x3, Cooperative, Anxious (crying and talking in a very high pitched voice, crying) - Head Head exam: Normal inspection - Eye Eye exam: Normal appearance, PERRL Pupils: Normal accommodation - ENT ENT exam: Normal exam, Mucous membranes moist, Normal external ear exam, Normal orophraynx, TM's normal bilaterally Ear exam: Normal external inspection. negative: External canal tenderness Nasal Exam: Normal inspection. negative: Discharge, Sinus tenderness Mouth exam: Normal external inspection, Tongue normal Teeth exam: Normal inspection. negative: Dental caries Throat exam: Normal inspection. negative: Tonsillar erythema, Tonsillar exudate - Neck Neck exam: Normal inspection, Full ROM. negative: Tenderness - Respiratory Respiratory exam: Normal lung sounds bilaterally. negative: Respiratory distress - Cardiovascular Cardiovascular Exam: Regular rate, Normal rhythm, Normal heart sounds - GI/Abdominal GI/Abdominal exam: Soft, Normal bowel sounds. negative: Tenderness - Rectal Rectal exam: Deferred - exam: Deferred - Extremities Extremities exam: Normal inspection, Full ROM, Normal capillary refill. negative: Tenderness - Back Back exam: Reports: Normal inspection, Full ROM. Denies: Muscle spasm, Rash noted, Tenderness - Neurological Neurological exam: Alert, Normal gait, Oriented X3, Reflexes normal - Psychiatric Psychiatric exam: Normal affect, Normal mood - Skin Skin exam: Dry, Intact, Normal color, Warm Course Vital Signs 04/17/16 23:20 Temperature 98.2 F Pulse Rate 89 Respiratory 22 Rate Blood Pressure 132/80 Pulse Ox 96 - Reevaluation(s) Reevaluation #1: Feeling better. 04/18/16 01:23 Disposition Disposition: Discharge Clinical Impression: Migraine Qualifiers: Migraine type: unspecified Status migrainosus presence: without status migrainosus Intractability: not intractable Qualified Code(s): G43.909 - Migraine, unspecified, not intractable, without status migrainosus Disposition: Home, Self-Care Condition: (1) Good Instructions: Migraine Headache (ED) Additional Instructions: Home to bed. Follow up with PCP.
== END 2016-04-18 01:42 | disposition home or self-care (01) ==
LOC: ER 23:05
DX: G43.909 Migraine, unspecified, not intractable, without status migrainosus (principal); R11.0 Nausea
CPT/HCPCS: 99284 ×2; 96374; 96375; J1885; J1200; J2765

== ENCOUNTER 2016-04-21 22:46 | Emergency (ER) | payer MEDICARE, MEDICAID ==
[2016-04-21] MEDS ORDERED: ORPHENADRINE CITRATE 60MG/2ML VIAL IM ONE (23:16)
[2016-04-21] MEDS ORDERED: KETOROLAC 30 MG/ML VIAL IM ONE (23:16)
[2016-04-21] MEDS ORDERED: PROMETHAZINE HCL 25 MG/ML VIAL IM ONE (23:16)
[2016-04-21] MEDS ORDERED: AMOXICILLIN 500 MG TABLET PO ONE (23:19)
--- NOTE | 2016-04-22 | Emergency Department Record ---
History of Present Illness - General Chief Complaint: Headache Migraine Stated Complaint: HEADACHE Time Seen by Provider: 04/21/16 23:10 Mode of Arrival: Ambulatory - History of Present Illness Onset/Timin -: Hour(s) Onset Description: Sudden Location: Diffuse, Facial, Left, Neck Severity: Severe Severity scale (1-10): 8 Quality: Sharp Consistency: Constant Improves With: Nothing Worsens With: None Treatments Prior to Arrival: Migraine medication, Other Treatment Prior to Arrival Comment:: 25mg Benadryl - Related Data Home Medications Medication Instructions Recorded Confirmed Last Taken Bupropion HCl [Wellbutrin Sr] 150 mg PO QHS 12/17/14 04/07/16 1 Day Ago Escitalopram Oxalate [Lexapro] 20 mg PO QHS 12/17/14 04/07/16 1 Day Ago Loratadine [Claritin] 10 mg PO QHS 12/17/14 04/07/16 1 Day Ago Tapentadol HCl [Nucynta] 75 mg PO BID PRN 06/08/15 04/07/16 1 Day Ago Prazosin HCl [Minipress] 4 mg PO QHS 09/18/15 04/07/16 1 Day Ago Clonazepam [Clonazepam] 1 mg PO QHS 03/02/16 04/07/16 1 Day Ago Previous Rx's Medication Instructions Recorded Amoxicillin 500 mg PO BID #20 capsule 04/21/16 Allergies Allergy/AdvReac Type Severity Reaction Status Date / Time [id number] Antimigraine Allergy Severe HEADACHE Verified 04/07/16 11:50 Agents Fkzjrac-Qdl-Pln Reductase Allergy Intermediate JOINT ACHES Verified 04/07/16 11: 50 Inhibitor medical tape AdvReac Mild RASH Uncoded 04/07/16 11:50 Travel Screening - Travel/Exposure Within Last 30 Days Have you traveled within the last 30 days?: No - Travel/Exposure Within Last Year Have you traveled outside the [place] in the last year?: No - Additonal Travel Details Have you been exposed to anyone with a communicable illness?: No Review of Systems Reviewed: No additional complaints except as noted below Constitutional: Reports: As per HPI. Denies: Chills, Fever, Malaise, Night sweats, Weakness, Weight change Eyes: Reports: As per HPI. Denies: Eye discharge, Eye pain, Photophobia, Vision change ENT: Reports: As per HPI. Denies: Congestion, Dental pain, Ear pain, Epistaxis , Hearing loss, Throat pain Respiratory: Reports: As per HPI. Denies: Cough, Dyspnea, Hemoptysis, Stridor, Wheezes Cardiovascular: Reports: As per HPI. Denies: Arrhythmia, Chest pain, Dyspnea on exertion, Edema, Murmurs, Orthopnea, Palpitations, Paroxysmal nocturnal dyspnea, Rheumatic Fever, Syncope Endocrine: Reports: As per HPI. Denies: Fatigue, Heat or cold intolerance, Polydipsia, Polyuria Gastrointestinal: Reports: As per HPI. Denies: Abdominal pain, Constipation, Diarrhea, Hematemesis, Hematochezia, Melena, Nausea, Vomiting Genitourinary: Reports: As per HPI. Denies: Abnormal menses, Discharge, Dyspareunia, Dysuria, Frequency, Hematuria, Incontinence, Retention, Urgency Musculoskeletal: Reports: As per HPI. Denies: Arthralgia, Back pain, Gout, Joint swelling, Myalgia, Neck pain Skin: Reports: As per HPI. Denies: Bruising, Change in color, Change in hair/ nails, Lesions, Pruritus, Rash Neurological: Reports: As per HPI. Denies: Abnormal gait, Confusion, Headache, Numbness, Paresthesias, Seizure, Tingling, Tremors, Vertigo, Weakness Psychiatric: Reports: As per HPI. Denies: Anxiety, Auditory hallucinations, Depression, Homicidal thoughts, Suicidal thoughts, Visual hallucinations Hematological/Lymphatic: Reports: As per HPI. Denies: Anemia, Blood Clots, Easy bleeding, Easy bruising, Swollen glands Past Medical History - SOCIAL HISTORY Smoking Status: Former smoker - RESPIRATORY Hx Respiratory Disorders: Yes Hx Bronchitis: Yes Hx Pneumonia: Yes Comment:: low O2 when sleeping - CARDIOVASCULAR Hx Cardio Disorders: Yes Hx Chest Pain: Yes Comment:: HYPERLIPIDEMIA - NEURO Hx Neuro Disorders: Yes Hx Headaches: Yes (complex migrane) - GI Hx GI Disorders: Yes Hx Diverticulitis: Yes Hx Reflux: Yes (upper GI) Hx Liver Disease: (Liver biopsy 7-16) Hx Nausea/Vomiting: Yes (with pain) Hx Ulcer: Yes Comment:: fatty liver - Hx Genitourinary Disorders: Yes Comment:: polycystic ovary syndrome - ENDOCRINE Hx Endocrine Disorders: Yes Hx Diabetes: Yes Hx Thyroid Disease: No - MUSCULOSKELETAL Hx Musculoskeletal Disorders: Yes Hx Fibromyalgia: Yes Hx Gout: Yes Comment:: Buldging disc in neck - PSYCH Hx Psych Problems: Yes Hx Anxiety: Yes Hx Depression: Yes Comment:: PTSD - HEMATOLOGY/ONCOLOGY Hx Hematology/Oncology Disorders: No Family Medical History Any Significant Family History?: Yes Hx Cancer: Mother, Grandparents *Diabetes Comment: aunt Hx Heart Disease: Brother/Sister *Heart Comment: Brother Hx Kidney Disease: Children Physical Exam - General General Appearance: Alert, Oriented x3, Cooperative, Mild distress - Head Head exam: Normal inspection - Eye Eye exam: Normal appearance, PERRL, EOMI Pupils: Normal accommodation - ENT ENT exam: Normal exam, Mucous membranes moist, Normal external ear exam, Normal orophraynx, Other (ltm erythematous) Ear exam: Normal external inspection. negative: External canal tenderness Nasal Exam: Normal inspection. negative: Discharge, Sinus tenderness Mouth exam: Normal external inspection, Tongue normal Teeth exam: Normal inspection. negative: Dental caries Throat exam: Normal inspection. negative: Tonsillar erythema, Tonsillar exudate - Neck Neck exam: Normal inspection, Full ROM. negative: Tenderness - Respiratory Respiratory exam: Normal lung sounds bilaterally. negative: Respiratory distress - Cardiovascular Cardiovascular Exam: Regular rate, Normal rhythm, Normal heart sounds - GI/Abdominal GI/Abdominal exam: Soft, Normal bowel sounds. negative: Tenderness - Rectal Rectal exam: Deferred - exam: Deferred - Extremities Extremities exam: Normal inspection, Full ROM, Normal capillary refill. negative: Tenderness - Back Back exam: Reports: Normal inspection, Full ROM. Denies: Muscle spasm, Rash noted, Tenderness - Neurological Neurological exam: Alert, CN II-XII intact, Normal gait, Oriented X3 - Psychiatric Psychiatric exam: Normal affect, Normal mood - Skin Skin exam: Dry, Intact, Normal color, Warm Course Vital Signs 04/21/16 22:56 Temperature 98.4 F Pulse Rate 77 Respiratory 20 Rate Blood Pressure 137/88 Pulse Ox 97 Disposition Disposition: Discharge Clinical Impression: Migraine Qualifiers: Migraine type: unspecified Status migrainosus presence: without status migrainosus Intractability: not intractable Qualified Code(s): G43.909 - Migraine, unspecified, not intractable, without status migrainosus Otitis media Qualifiers: Otitis media type: unspecified Laterality: left Chronicity: unspecified Qualified Code(s): H66.92 - Otitis media, unspecified, left ear Disposition: Home, Self-Care Condition: (1) Good Instructions: Migraine Headache (ED), Otitis Media (ED) Additional Instructions: follow up with family doctor. return sooner if worse. Prescriptions: Amoxicillin 500 mg PO BID #20 capsule Forms: Patient Portal Access
--- NOTE | 2016-04-22 00:33 | Emergency Department Record ---
History of Present Illness - General Chief Complaint: Headache Migraine Stated Complaint: HEADACHE Time Seen by Provider: 04/21/16 23:10 Mode of Arrival: Ambulatory - History of Present Illness Onset/Timin -: Hour(s) Onset Description: Sudden Location: Diffuse, Facial, Left, Neck Severity: Severe Severity scale (1-10): 8 Quality: Sharp Consistency: Constant Improves With: Nothing Worsens With: None Treatments Prior to Arrival: Migraine medication, Other Treatment Prior to Arrival Comment:: 25mg Benadryl - Related Data Home Medications Medication Instructions Recorded Confirmed Last Taken Bupropion HCl [Wellbutrin Sr] 150 mg PO QHS 12/17/14 04/21/16 1 Day Ago Escitalopram Oxalate [Lexapro] 20 mg PO QHS 12/17/14 04/21/16 1 Day Ago Loratadine [Claritin] 10 mg PO QHS 12/17/14 04/21/16 1 Day Ago Tapentadol HCl [Nucynta] 75 mg PO BID PRN 06/08/15 04/21/16 1 Day Ago Prazosin HCl [Minipress] 4 mg PO QHS 09/18/15 04/21/16 1 Day Ago Clonazepam [Clonazepam] 1 mg PO QHS 03/02/16 04/21/16 1 Day Ago Previous Rx's Medication Instructions Recorded Amoxicillin 500 mg PO BID #20 capsule 04/21/16 Allergies Allergy/AdvReac Type Severity Reaction Status Date / Time [id number] Antimigraine Allergy Severe HEADACHE Verified 04/07/16 11:50 Agents Onqybeg-Ztk-Nns Reductase Allergy Intermediate JOINT ACHES Verified 04/07/16 11: 50 Inhibitor medical tape AdvReac Mild RASH Uncoded 04/07/16 11:50 Travel Screening - Travel/Exposure Within Last 30 Days Have you traveled within the last 30 days?: No - Travel/Exposure Within Last Year Have you traveled outside the [place] in the last year?: No - Additonal Travel Details Have you been exposed to anyone with a communicable illness?: No Review of Systems Constitutional: Reports: As per HPI. Denies: Chills, Fever, Malaise, Night sweats, Weakness, Weight change Eyes: Reports: As per HPI. Denies: Eye discharge, Eye pain, Photophobia, Vision change ENT: Reports: As per HPI. Denies: Congestion, Dental pain, Ear pain, Epistaxis , Hearing loss, Throat pain Respiratory: Reports: As per HPI. Denies: Cough, Dyspnea, Hemoptysis, Stridor, Wheezes Cardiovascular: Reports: As per HPI. Denies: Arrhythmia, Chest pain, Dyspnea on exertion, Edema, Murmurs, Orthopnea, Palpitations, Paroxysmal nocturnal dyspnea, Rheumatic Fever, Syncope Endocrine: Reports: As per HPI. Denies: Fatigue, Heat or cold intolerance, Polydipsia, Polyuria Gastrointestinal: Reports: As per HPI. Denies: Abdominal pain, Constipation, Diarrhea, Hematemesis, Hematochezia, Melena, Nausea, Vomiting Genitourinary: Reports: As per HPI. Denies: Abnormal menses, Discharge, Dyspareunia, Dysuria, Frequency, Hematuria, Incontinence, Retention, Urgency Musculoskeletal: Reports: As per HPI. Denies: Arthralgia, Back pain, Gout, Joint swelling, Myalgia, Neck pain Skin: Reports: As per HPI. Denies: Bruising, Change in color, Change in hair/ nails, Lesions, Pruritus, Rash Neurological: Reports: As per HPI. Denies: Abnormal gait, Confusion, Headache, Numbness, Paresthesias, Seizure, Tingling, Tremors, Vertigo, Weakness Psychiatric: Reports: As per HPI. Denies: Anxiety, Auditory hallucinations, Depression, Homicidal thoughts, Suicidal thoughts, Visual hallucinations Hematological/Lymphatic: Reports: As per HPI. Denies: Anemia, Blood Clots, Easy bleeding, Easy bruising, Swollen glands Past Medical History - SOCIAL HISTORY Smoking Status: Former smoker - RESPIRATORY Hx Respiratory Disorders: Yes Hx Bronchitis: Yes Hx Pneumonia: Yes Comment:: low O2 when sleeping - CARDIOVASCULAR Hx Cardio Disorders: Yes Hx Chest Pain: Yes Comment:: HYPERLIPIDEMIA - NEURO Hx Neuro Disorders: Yes Hx Headaches: Yes (complex migrane) - GI Hx GI Disorders: Yes Hx Diverticulitis: Yes Hx Reflux: Yes (upper GI) Hx Liver Disease: (Liver biopsy 7-16) Hx Nausea/Vomiting: Yes (with pain) Hx Ulcer: Yes Comment:: fatty liver - Hx Genitourinary Disorders: Yes Comment:: polycystic ovary syndrome - ENDOCRINE Hx Endocrine Disorders: Yes Hx Diabetes: Yes Hx Thyroid Disease: No - MUSCULOSKELETAL Hx Musculoskeletal Disorders: Yes Hx Fibromyalgia: Yes Hx Gout: Yes Comment:: Buldging disc in neck - PSYCH Hx Psych Problems: Yes Hx Anxiety: Yes Hx Depression: Yes Comment:: PTSD - HEMATOLOGY/ONCOLOGY Hx Hematology/Oncology Disorders: No Family Medical History Any Significant Family History?: Yes Hx Cancer: Mother, Grandparents *Diabetes Comment: aunt Hx Heart Disease: Brother/Sister *Heart Comment: Brother Hx Kidney Disease: Children Course Vital Signs 04/21/16 04/22/16 22:56 00:14 Temperature 98.4 F 97.6 F Pulse Rate 77 84 Respiratory 20 20 Rate Blood Pressure 137/88 108/77 Pulse Ox 97 97 - Reevaluation(s) Reevaluation #1: 04/22/16 00:24 pt given same meds she usually receives in ed for her migraines. she wanted them given in an iv. it was explained to pt that she didnt require an iv as she was not vomiting and was not dehydrated.pt wanted more meds then the 4 she received. she stated to nurse she was going to tell dr kelley and going to go home and take her husbands morphine. nurse advised her not to and to talk to her re this. pt has been here many many times and has been educated on the use of opiates and rebound headaches. Disposition Clinical Impression: Migraine Qualifiers: Migraine type: unspecified Status migrainosus presence: without status migrainosus Intractability: not intractable Qualified Code(s): G43.909 - Migraine, unspecified, not intractable, without status migrainosus Otitis media Qualifiers: Otitis media type: unspecified Laterality: left Chronicity: unspecified Qualified Code(s): H66.92 - Otitis media, unspecified, left ear Disposition: Home, Self-Care Instructions: Migraine Headache (ED), Otitis Media (ED) Additional Instructions: follow up with family doctor. return sooner if worse. Prescriptions: Amoxicillin 500 mg PO BID #20 capsule Forms: Patient Portal Access
== END 2016-04-22 00:18 | disposition home or self-care (01) ==
LOC: ER 22:46
DX: G43.909 Migraine, unspecified, not intractable, without status migrainosus (principal); H66.92 Otitis media, unspecified, left ear; M54.2 Cervicalgia
CPT/HCPCS: 99283 ×2; 96372; J1885; J2360; J2550

== ENCOUNTER 2016-04-23 13:39 | Emergency (ER) | payer MEDICARE, MEDICAID ==
--- NOTE | 2016-04-23 13:50 | Emergency Department Record ---
History of Present Illness - General Chief Complaint: Abdominal Pain Stated Complaint: RT SIDE ABD PAIN Time Seen by Provider: 04/23/16 13:49 Source: Patient Mode of Arrival: Ambulatory Limitations: No limitations - History of Present Illness Initial Comments: The patient is here due to a 5 hour hx of RUQ AP. The pain is sharp and crampy and she is nauseated and did vomit once. She also did have an episode of diarrhea this AM. She denies any fever, chills, dysuria, or back pain. The patient was over in the [facility] and was sent to the ER for further eval. 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 She has no hx of ulcer dz and has had an EGD recently. MD Complaint: Abdominal pain Onset/Timin -: Hour(s) Location: RUQ Radiation: Back Migration to: RUQ Severity: Mild Quality: Sharp Consistency: Intermittent Improves With: Nothing Worsens With: Nothing Associated Symptoms: Nausea - Related Data Patient : No Hx Age of Menopause: 37 Home Medications Medication Instructions Recorded Confirmed Last Taken Bupropion HCl [Wellbutrin Sr] 150 mg PO QHS 12/17/14 04/23/16 1 Day Ago Escitalopram Oxalate [Lexapro] 20 mg PO QHS 12/17/14 04/23/16 1 Day Ago Loratadine [Claritin] 10 mg PO QHS 12/17/14 04/23/16 1 Day Ago Tapentadol HCl [Nucynta] 75 mg PO BID PRN 06/08/15 04/23/16 1 Day Ago Prazosin HCl [Minipress] 4 mg PO QHS 09/18/15 04/23/16 1 Day Ago Clonazepam [Clonazepam] 1 mg PO QHS 03/02/16 04/23/16 1 Day Ago Previous Rx's Medication Instructions Recorded Amoxicillin 500 mg PO BID #20 capsule 04/21/16 Dicyclomine HCl [Bentyl] 10 mg PO Q8H #15 cap 04/23/16 Allergies Allergy/AdvReac Type Severity Reaction Status Date / Time [id number] Antimigraine Allergy Severe HEADACHE Verified 04/23/16 13:46 Agents Zxqsixu-Opp-Swn Reductase Allergy Intermediate JOINT ACHES Verified 04/23/16 13: 46 Inhibitor medical tape AdvReac Mild RASH Uncoded 04/07/16 11:50 Travel Screening - Travel/Exposure Within Last 30 Days Have you traveled within the last 30 days?: No Review of Systems Constitutional: Denies: Chills, Fever Eyes: Denies: Eye discharge ENT: Denies: Congestion Respiratory: Denies: Cough, Dyspnea Past Medical History - SOCIAL HISTORY Smoking Status: Former smoker Alcohol Use: None Drug Use: None - RESPIRATORY Hx Respiratory Disorders: Yes Hx Bronchitis: Yes Hx Pneumonia: Yes Comment:: low O2 when sleeping - CARDIOVASCULAR Hx Cardio Disorders: Yes Hx Chest Pain: Yes Comment:: HYPERLIPIDEMIA - NEURO Hx Neuro Disorders: Yes Hx Headaches: Yes (complex migrane) - GI Hx GI Disorders: Yes Hx Diverticulitis: Yes Hx Reflux: Yes (upper GI) Hx Liver Disease: (Liver biopsy 7-16) Hx Nausea/Vomiting: Yes (with pain) Hx Ulcer: Yes Comment:: fatty liver - Hx Genitourinary Disorders: Yes Comment:: polycystic ovary syndrome - ENDOCRINE Hx Endocrine Disorders: Yes Hx Diabetes: Yes Hx Thyroid Disease: No - MUSCULOSKELETAL Hx Musculoskeletal Disorders: Yes Hx Fibromyalgia: Yes Hx Gout: Yes Comment:: Buldging disc in neck - PSYCH Hx Psych Problems: Yes Hx Anxiety: Yes Hx Depression: Yes Comment:: PTSD - HEMATOLOGY/ONCOLOGY Hx Hematology/Oncology Disorders: No Family Medical History Any Significant Family History?: Yes Hx Cancer: Mother, Grandparents *Diabetes Comment: aunt Hx Heart Disease: Brother/Sister *Heart Comment: Brother Hx Kidney Disease: Children Physical Exam - General General Appearance: Alert, Oriented x3, Cooperative, No acute distress - Head Head exam: Atraumatic, Normocephalic, Normal inspection - Eye Eye exam: Normal appearance, PERRL - ENT ENT exam: Normal exam, Mucous membranes moist, Normal external ear exam, Normal orophraynx, TM's normal bilaterally - Neck Neck exam: Normal inspection, Full ROM. negative: Tenderness - Respiratory Respiratory exam: Normal lung sounds bilaterally. negative: Respiratory distress - Cardiovascular Cardiovascular Exam: Regular rate, Normal rhythm, Normal heart sounds - GI/Abdominal GI/Abdominal exam: Soft, Normal bowel sounds, Tenderness (There is mild RUQ tenderness.). negative: Diminished bowel sounds, Distended, Hypoactive bowel sounds, Rebound, Rigid Course Vital Signs 04/23/16 13:44 Temperature 97.7 F Pulse Rate [ 79 Pulse Ox Probe] Respiratory 18 Rate Blood Pressure 112/94 [Left Arm] Pulse Ox 97 - Reevaluation(s) Reevaluation #1: The patient is resting comfortably at this time but is still having pain. I explained to her that her tests are all WNL and that I do believe her issues are related to her chronic pain syndrome. I did discuss the case with her PCP Dr. Dominique and she would like the patient on Bentyl and will see her in the office next week. The patient is also to return to the ER if not better in 12 hours. 04/23/16 15:04 Medical Decision Making - Data Complexity MDM Data: Labs Ordered and/or Reviewed, X-Ray Ordered and/or Reviewed - Radiology Data Radiology results: Report reviewed (Abd CT: Neg per rad.) Disposition Disposition: Discharge Clinical Impression: Chronic pain Qualifiers: Chronic pain type: other chronic pain Qualified Code(s): G89.29 - Other chronic pain Disposition: Home, Self-Care Condition: (2) Stable Instructions: Abdominal Pain (ED) Additional Instructions: Please continue your regular medicines. Please add the Bentyl as directed. Please see your PCP next week for recheck and return to the ER in 12 hours for any persistent pain, fever, vomiting, or urinary issues. Prescriptions: Dicyclomine HCl [Bentyl] 10 mg PO Q8H #15 cap Forms: Patient Portal Access Time of Disposition: 15:08
[2016-04-23] MEDS ORDERED: ACETAMINOPHEN 325 MG TAB PO ONE (13:53)
[2016-04-23] MEDS ORDERED: SUCRALFATE 1 G/10 ML UD PO ONE (13:53)
[2016-04-23] MEDS ORDERED: ONDANSETRON 4 MG ODT TABLET SL ONE (13:53)
[2016-04-23 14:02] LABS: URINE APPEARANCE CLEAR; URINE BILIRUBIN NEGATIVE (NEGATIVE); URINE BLOOD NEGATIVE (NEGATIVE); URINE COLOR YELLOW; URINE GLUCOSE (UA) NEGATIVE (NEGATIVE); URINE KETONE NEGATIVE (NEGATIVE); URINE LEUKOCYTE ESTERASE NEGATIVE (NEGATIVE); URINE NITRITE NEGATIVE (NEGATIVE); URINE PROTEIN TRACE (NEGATIVE); URINE UROBILINOGEN 0.2 E.U./dL (0.20 - 1.00)
== END 2016-04-23 15:15 | disposition home or self-care (01) ==
LOC: ER 13:39
DX: G89.29 Other chronic pain (principal); R10.11 Right upper quadrant pain; R11.2 Nausea with vomiting, unspecified; R19.7 Diarrhea, unspecified; R35.0 Frequency of micturition
CPT/HCPCS: 74176; 80053; 81003; 82150; 83690; 85027; 99283; 99284

== ENCOUNTER 2016-04-27 23:45 | Emergency (ER) | payer MEDICARE, MEDICAID ==
[2016-04-28] MEDS ORDERED: KETOROLAC 60 MG/2 ML VIAL IM STA (00:08)
[2016-04-28] MEDS ORDERED: PROMETHAZINE HCL 25 MG/ML VIAL IM ONE (00:08)
[2016-04-28] MEDS ORDERED: DIPHENHYDRAMINE HCL IV 50 MG/ML VIAL IM ONE (00:08)
--- NOTE | 2016-04-28 00:15 | Emergency Department Record ---
History of Present Illness - General Chief Complaint: Headache Migraine Stated Complaint: HEADACHE Time Seen by Provider: 04/28/16 00:08 Source: Patient Mode of Arrival: Ambulatory Limitations: No limitations - History of Present Illness Initial Comments: 41 yo female presents to ED with a CC of recurrent headache. Patient reports daily headaches but has recently started medical marijuana for her symptoms which she reports has helped. Patient reports that the marijuana did not help today, but she did not take any of her home medications as she was not sure what was safe for her to take. Patient denies fevers, chills, neck stiffness, or numbness/tingling to the extremities. MD Complaint: Headache Onset/Timin -: Hour(s) Onset Description: Gradual Location: Diffuse, Neck Severity scale (1-10): 7 Quality: Similar to previous headaches Consistency: Constant Improves With: Other Worsens With: Light, Movement of head/neck, Noise Associated Symptoms: Nausea, Photophobia, Sensitivity to sound Treatments Prior to Arrival: Other Treatment Prior to Arrival Comment:: medical marijuana e-cig. - Related Data Home Medications Medication Instructions Recorded Confirmed Last Taken Bupropion HCl [Wellbutrin Sr] 150 mg PO QHS 12/17/14 04/23/16 1 Day Ago Escitalopram Oxalate [Lexapro] 20 mg PO QHS 12/17/14 04/23/16 1 Day Ago Loratadine [Claritin] 10 mg PO QHS 12/17/14 04/23/16 1 Day Ago Tapentadol HCl [Nucynta] 75 mg PO BID PRN 06/08/15 04/23/16 1 Day Ago Prazosin HCl [Minipress] 4 mg PO QHS 09/18/15 04/23/16 1 Day Ago Clonazepam [Clonazepam] 1 mg PO QHS 03/02/16 04/23/16 1 Day Ago Previous Rx's Medication Instructions Recorded Amoxicillin 500 mg PO BID #20 capsule 04/21/16 Dicyclomine HCl [Bentyl] 10 mg PO Q8H #15 cap 04/23/16 Allergies Allergy/AdvReac Type Severity Reaction Status Date / Time [id number] Antimigraine Allergy Severe HEADACHE Verified 04/23/16 13:46 Agents Fbzwpbj-Obv-Nrz Reductase Allergy Intermediate JOINT ACHES Verified 04/23/16 13: 46 Inhibitor medical tape AdvReac Mild RASH Uncoded 04/07/16 11:50 Travel Screening - Travel/Exposure Within Last 30 Days Have you traveled within the last 30 days?: No - Travel Symptoms Symptom Screening: None Review of Systems Constitutional: Denies: Chills, Fever, Malaise, Night sweats Eyes: Denies: Eye discharge, Eye pain ENT: Denies: Congestion, Ear pain, Epistaxis Respiratory: Denies: Cough, Dyspnea Cardiovascular: Denies: Chest pain, Dyspnea on exertion Endocrine: Denies: Fatigue, Heat or cold intolerance Gastrointestinal: Denies: Abdominal pain, Nausea, Vomiting Genitourinary: Denies: Dysuria, Hematuria Musculoskeletal: Denies: Arthralgia, Back pain, Gout, Joint swelling Skin: Denies: Bruising, Change in color, Rash Neurological: Reports: Headache. Denies: Abnormal gait, Confusion, Seizure Psychiatric: Denies: Anxiety Hematological/Lymphatic: Denies: Anemia, Blood Clots Past Medical History - SOCIAL HISTORY Smoking Status: Former smoker Drug Use Detail:: Marijuana - RESPIRATORY Hx Respiratory Disorders: Yes Hx Bronchitis: Yes Hx Pneumonia: Yes Comment:: low O2 when sleeping - CARDIOVASCULAR Hx Cardio Disorders: Yes Hx Chest Pain: Yes Comment:: HYPERLIPIDEMIA - NEURO Hx Neuro Disorders: Yes Hx Headaches: Yes (complex migrane) - GI Hx GI Disorders: Yes Hx Diverticulitis: Yes Hx Reflux: Yes (upper GI) Hx Liver Disease: (Liver biopsy 7-16) Hx Nausea/Vomiting: Yes (with pain) Hx Ulcer: Yes Comment:: fatty liver - Hx Genitourinary Disorders: Yes Comment:: polycystic ovary syndrome - ENDOCRINE Hx Endocrine Disorders: Yes Hx Diabetes: Yes Hx Thyroid Disease: No - MUSCULOSKELETAL Hx Musculoskeletal Disorders: Yes Hx Fibromyalgia: Yes Hx Gout: Yes Comment:: Buldging disc in neck - PSYCH Hx Psych Problems: Yes Hx Anxiety: Yes Hx Depression: Yes Comment:: PTSD - HEMATOLOGY/ONCOLOGY Hx Hematology/Oncology Disorders: No Family Medical History Any Significant Family History?: Yes Hx Cancer: Mother, Grandparents *Diabetes Comment: aunt Hx Heart Disease: Brother/Sister *Heart Comment: Brother Hx Kidney Disease: Children Physical Exam - General General Appearance: Alert, Oriented x3, Cooperative, No acute distress Limitations: No limitations - Head Head exam: Atraumatic, Normocephalic, Normal inspection Head exam detail: negative: Abrasion, Contusion, Espinosa's sign, General tenderness, Hematoma, Laceration - Eye Eye exam: Normal appearance. negative: Conjunctival injection, Periorbital swelling, Periorbital tenderness, Scleral icterus - ENT Ear exam: negative: Auricular hematoma, Auricular trauma Nasal Exam: negative: Active bleeding, Discharge, Dried blood, Foreign body Mouth exam: negative: Drooling, Laceration, Muffled voice, Tongue elevation - Neck Neck exam: Normal inspection. negative: Meningismus, Tenderness - Respiratory Respiratory exam: Normal lung sounds bilaterally. negative: Rales, Respiratory distress, Rhonchi, Stridor - Cardiovascular Cardiovascular Exam: Regular rate, Normal rhythm, Normal heart sounds - GI/Abdominal GI/Abdominal exam: Soft. negative: Rebound, Rigid, Tenderness - Rectal Rectal exam: Deferred - exam: Deferred - Extremities Extremities exam: Normal inspection. negative: Calf tenderness, Pedal edema, Tenderness - Neurological Neurological exam: Alert, Normal gait, Oriented X3 - Psychiatric Psychiatric exam: Normal affect, Normal mood - Skin Skin exam: Normal color. negative: Abrasion Type of lesion: negative: abrasion Course Vital Signs 04/27/16 23:49 Temperature 97.9 F Pulse Rate [ 86 Pulse Ox Probe] Respiratory 20 Rate Blood Pressure 147/92 [Left Arm] Pulse Ox 96 - Reevaluation(s) Reevaluation #1: 04/28/16 00:56 Patient reassessed, reports that her headache symptoms are improved and appears stable for discharge at this time. Disposition Disposition: Discharge Clinical Impression: Headache Qualifiers: Headache type: unspecified Headache chronicity pattern: acute headache Intractability: not intractable Qualified Code(s): R51 - Headache Disposition: Home, Self-Care Condition: (2) Stable Instructions: Acute Headache (ED) Additional Instructions: Return to ED if your symptoms worsen or if you have any concerns. Follow-up with Dr. Dominique in 1-3 days to determine what home medications are safe for you to take at home if your medical marijuana fails to help your chronic headache symptoms. Forms: Patient Portal Access Time of Disposition: 00:57
== END 2016-04-28 01:03 | disposition home or self-care (01) ==
LOC: ER 23:45
DX: R51 Headache (principal); R11.0 Nausea; H53.149 Visual discomfort, unspecified
CPT/HCPCS: 96372; 99283; J1200; J1885; J2550

== ENCOUNTER 2016-05-12 04:46 | Emergency (ER) | payer MEDICARE, MEDICAID ==
[2016-05-12] MEDS ORDERED: KETOROLAC 60 MG/2 ML VIAL IVP STA (05:29)
[2016-05-12 05:37] LABS: BASO % 0.3 % (0-6); EOS % 1.3 % (0-6); GRAN % 70.5 % (47-80); HEMATOCRIT 36.3 % (35.0-47.0); HEMOGLOBIN 12.4 gm/dl (11.6-16.0); MEAN CELL VOLUME 90.1 fl (81-97); MEAN CORPUSCULAR HEMOGLOBIN 30.8 pg (27-33); MEAN CORPUSCULAR HGB CONC 34.2 g/dl (32-36); MEAN PLATELET VOLUME 9.4 fl (7.4-10.4); MONO % 5.9 % (0-9); PLATELET COUNT 352 K/uL (130-400); RED BLOOD COUNT 4.03 M/uL (3.80-5.40); RED CELL DISTRIBUTION WIDTH 13.3 % (11.5-14.5)
--- NOTE | 2016-05-12 05:37 | Emergency Department Record ---
History of Present Illness - General Chief complaint: Nausea, Vomiting, Diarrhea Stated complaint: DEHYDRATION Time Seen by Provider: 05/12/16 05:18 Source: Patient Mode of Arrival: Ambulatory Limitations: No limitations - History of Present Illness Initial comments: pt state she has had nonstop vomiting and diarrhea since wednesday. pt states she cant even keep water down and then today she developed llq pain. she thought it might be her diverticulitis flaring up. she was unable to sleep because of the pain MD complaint: Abdominal pain, Diarrhea, Nausea, Vomiting Onset/Timin -: Days(s) Associated Abdominal Pain: Yes Location: LLQ Radiation: None Severity: Mild Severity scale (1-10): 7 Consistency: Intermittent Improves with: Rest Worsens with: None Associated Symptoms: Denies other symptoms, Nausea/vomiting, Weakness - Related Data Home Medications Medication Instructions Recorded Confirmed Last Taken Tapentadol HCl [Nucynta] 75 mg PO BID PRN 06/08/15 05/12/16 1 Day Ago Prazosin HCl [Minipress] 4 mg PO QHS 09/18/15 05/12/16 1 Day Ago Clonazepam [Clonazepam] 1 mg PO QHS 03/02/16 05/12/16 1 Day Ago Previous Rx's Medication Instructions Recorded Ondansetron [Zofran Odt] 4 mg PO Q8H #7 tab.rapdis 05/12/16 Allergies Allergy/AdvReac Type Severity Reaction Status Date / Time [id number] Antimigraine Allergy Severe HEADACHE Verified 05/12/16 04:58 Agents Qwcjxhh-Lfz-Kqr Reductase Allergy Intermediate JOINT ACHES Verified 05/12/16 04: 58 Inhibitor medical tape AdvReac Mild RASH Uncoded 05/12/16 04:58 Travel Screening - Travel/Exposure Within Last 30 Days Have you traveled within the last 30 days?: No - Travel/Exposure Within Last Year Have you traveled outside the [place] in the last year?: No - Additonal Travel Details Have you been exposed to anyone with a communicable illness?: No - Travel Symptoms Symptom Screening: None Review of Systems Reviewed: No additional complaints except as noted below Constitutional: Reports: As per HPI. Denies: Chills, Fever, Malaise, Night sweats, Weakness, Weight change Eyes: Reports: As per HPI. Denies: Eye discharge, Eye pain, Photophobia, Vision change ENT: Reports: As per HPI. Denies: Congestion, Dental pain, Ear pain, Epistaxis , Hearing loss, Throat pain Respiratory: Reports: As per HPI. Denies: Cough, Dyspnea, Hemoptysis, Stridor, Wheezes Cardiovascular: Reports: As per HPI. Denies: Arrhythmia, Chest pain, Dyspnea on exertion, Edema, Murmurs, Orthopnea, Palpitations, Paroxysmal nocturnal dyspnea, Rheumatic Fever, Syncope Endocrine: Reports: As per HPI. Denies: Fatigue, Heat or cold intolerance, Polydipsia, Polyuria Gastrointestinal: Reports: As per HPI. Denies: Abdominal pain, Constipation, Diarrhea, Hematemesis, Hematochezia, Melena, Nausea, Vomiting Genitourinary: Reports: As per HPI. Denies: Abnormal menses, Discharge, Dyspareunia, Dysuria, Frequency, Hematuria, Incontinence, Retention, Urgency Musculoskeletal: Reports: As per HPI. Denies: Arthralgia, Back pain, Gout, Joint swelling, Myalgia, Neck pain Skin: Reports: As per HPI. Denies: Bruising, Change in color, Change in hair/ nails, Lesions, Pruritus, Rash Neurological: Reports: As per HPI. Denies: Abnormal gait, Confusion, Headache, Numbness, Paresthesias, Seizure, Tingling, Tremors, Vertigo, Weakness Psychiatric: Reports: As per HPI. Denies: Anxiety, Auditory hallucinations, Depression, Homicidal thoughts, Suicidal thoughts, Visual hallucinations Hematological/Lymphatic: Reports: As per HPI. Denies: Anemia, Blood Clots, Easy bleeding, Easy bruising, Swollen glands Past Medical History - SOCIAL HISTORY Smoking Status: Current every day smoker Alcohol Use: None Drug Use: Occassional Drug Use Detail:: Marijuana - RESPIRATORY Hx Respiratory Disorders: Yes Hx Bronchitis: Yes Hx Pneumonia: Yes Comment:: low O2 when sleeping - CARDIOVASCULAR Hx Cardio Disorders: Yes Hx Chest Pain: Yes Comment:: HYPERLIPIDEMIA - NEURO Hx Neuro Disorders: Yes Hx Headaches: Yes (complex migrane) - GI Hx GI Disorders: Yes Hx Diverticulitis: Yes Hx Reflux: Yes (upper GI) Hx Liver Disease: (Liver biopsy 7-16) Hx Nausea/Vomiting: Yes (with pain) Hx Ulcer: Yes Comment:: fatty liver - Hx Genitourinary Disorders: Yes Comment:: polycystic ovary syndrome - ENDOCRINE Hx Endocrine Disorders: Yes Hx Diabetes: Yes Hx Thyroid Disease: No - MUSCULOSKELETAL Hx Musculoskeletal Disorders: Yes Hx Fibromyalgia: Yes Hx Gout: Yes Comment:: Buldging disc in neck - PSYCH Hx Psych Problems: Yes Hx Anxiety: Yes Hx Depression: Yes Comment:: PTSD - HEMATOLOGY/ONCOLOGY Hx Hematology/Oncology Disorders: No Family Medical History Any Significant Family History?: No Hx Cancer: Mother, Grandparents *Diabetes Comment: aunt Hx Heart Disease: Brother/Sister *Heart Comment: Brother Hx Kidney Disease: Children Physical Exam - General General Appearance: Alert, Oriented x3, Cooperative, Mild distress - Head Head exam: Normal inspection - Eye Eye exam: Normal appearance, PERRL, EOMI Pupils: Normal accommodation - ENT ENT exam: Normal exam, Mucous membranes moist, Normal external ear exam, Normal orophraynx, TM's normal bilaterally Ear exam: Normal external inspection. negative: External canal tenderness Nasal Exam: Normal inspection. negative: Discharge, Sinus tenderness Mouth exam: Normal external inspection, Tongue normal Teeth exam: Normal inspection. negative: Dental caries Throat exam: Normal inspection. negative: Tonsillar erythema, Tonsillar exudate - Neck Neck exam: Normal inspection, Full ROM. negative: Tenderness - Respiratory Respiratory exam: Normal lung sounds bilaterally. negative: Respiratory distress - Cardiovascular Cardiovascular Exam: Regular rate, Normal rhythm, Normal heart sounds - GI/Abdominal GI/Abdominal exam: Soft, Normal bowel sounds, Tenderness (llq) - Rectal Rectal exam: Deferred - exam: Deferred - Extremities Extremities exam: Normal inspection, Full ROM, Normal capillary refill. negative: Tenderness - Back Back exam: Reports: Normal inspection, Full ROM. Denies: Muscle spasm, Rash noted, Tenderness - Neurological Neurological exam: Alert, CN II-XII intact, Normal gait, Oriented X3 - Psychiatric Psychiatric exam: Normal affect, Normal mood - Skin Skin exam: Dry, Intact, Normal color, Warm Course Vital Signs 05/12/16 04:50 Temperature 97.4 F L Pulse Rate [ 88 Pulse Ox Probe] Respiratory 16 Rate Blood Pressure 115/74 [Left Arm] Pulse Ox 96 Medical Decision Making - Management Options MDM Management: No Additional Work-up Planned - Data Complexity MDM Data: Labs Ordered and/or Reviewed, X-Ray Ordered and/or Reviewed - Lab Data Result diagrams: 05/12/16 05:30 05/12/16 05:30 - Radiology Data Radiology results: Report reviewed, Image reviewed Disposition Disposition: Discharge Clinical Impression: Elevated liver enzymes Vomiting Qualifiers: Vomiting type: unspecified Vomiting Intractability: non-intractable Nausea presence: with nausea Qualified Code(s): R11.2 - Nausea with vomiting, unspecified Diarrhea Qualifiers: Diarrhea type: unspecified type Qualified Code(s): R19.7 - Diarrhea, unspecified Abdominal pain Qualifiers: Abdominal location: right upper quadrant Qualified Code(s): R10.11 - Right upper quadrant pain Disposition: Home, Self-Care Condition: (1) Good Instructions: Acute Nausea and Vomiting (ED), Acute Diarrhea (ED) Additional Instructions: follow up with family doctor. return sooner if worse. push fluids. avoid tylenol until liver enzymes improve. have liver enzymes rechecked. Prescriptions: Ondansetron [Zofran Odt] 4 mg PO Q8H #7 tab.rapdis Forms: Patient Portal Access
[2016-05-12] MEDS: ONDANSETRON HCL IV 4 MG/2 ML VIAL IVP ONE (05:39)
[2016-05-12] MEDS: KETOROLAC 30 MG/ML VIAL IVP ONE (05:39)
[2016-05-12] MEDS: 0.9 % SODIUM CHLORIDE 1,000 ML BAG IV ONE (05:39)
[2016-05-12 05:47] LABS: ALB/GLOB RATIO 1.5 (1.1-1.8); ALBUMIN 4.4 gm/dL (3.5-5.0); ALKALINE PHOSPHATASE 158 U/L (38-126); ALT/SGPT 102 U/L (9-52); ANION GAP 8.8 (7-16); AST/SGOT 77 U/L (14-36); BILIRUBIN,TOTAL 0.51 mg/dL (0.2-1.3); BLOOD UREA NITROGEN 10 mg/dL (7-17); CARBON DIOXIDE 20.2 mmol/L (22-30); CREATININE 0.8 mg/dL (0.52-1.04); EST GLOMERULAR FILTRATION RATE > 60 ml/min; GLUCOSE,RANDOM 146 mg/dL (70-110); LIPASE 89 U/L (23-300); TOTAL PROTEIN 7.3 gm/dL (6.3-8.2)
[2016-05-12 06:33] LABS: URINE APPEARANCE CLEAR; URINE BILIRUBIN SMALL (NEGATIVE); URINE BLOOD NEGATIVE (NEGATIVE); URINE COLOR YELLOW; URINE GLUCOSE (UA) NEGATIVE (NEGATIVE); URINE KETONE NEGATIVE (NEGATIVE); URINE LEUKOCYTE ESTERASE NEGATIVE (NEGATIVE); URINE NITRITE NEGATIVE (NEGATIVE); URINE PROTEIN TRACE (NEGATIVE); URINE UROBILINOGEN 0.2 E.U./dL (0.20 - 1.00)
[2016-05-12 06:46] LABS: URINE BACTERIA FEW; URINE MUCUS LIGHT; URINE RBC 0 - 2 (NONE SEEN); URINE SQUAMOUS EPITHELIAL CELL 0 - 2 /hpf; URINE WBC 0 - 2 (0-2/hpf)
--- NOTE | 2016-05-14 08:52 | CT SCAN REPORT ---
EXAM: ABDOMEN AND PELVIS CT WITHOUT CONTRAST HISTORY: ACUTE LEFT LOWER QUADRANT ABDOMINAL PAIN. TECHNIQUE: Contiguous axial images from the lung bases to the symphysis pubis were obtained without IV contrast. Comparison: Abdomen and pelvis CT 04/23/16. FINDINGS: The lung bases are clear. Evaluation of the solid abdominal visceral organs is compromised due to lack of IV contrast. Decreased attenuation throughout the liver consistent with mild fatty infiltration. The spleen is not enlarged and appears homogeneous. The kidneys, adrenals and pancreas are normal. The gallbladder is absent. The visualized loops of small bowel are of normal caliber with no bowel wall thickening. The colon is decompressed and not optimally evaluated. mild diverticulosis of the descending colon with no evidence of acute diverticulitis. The uterus is absent. No free intraperitoneal fluid or adenopathy. No lytic or blastic osseous lesion. IMPRESSION: NO ACUTE PROCESS OF THE ABDOMEN OR PELVIS. JOB NUMBER: [id number] [facility]
== END 2016-05-12 06:58 | disposition home or self-care (01) ==
LOC: ER 04:46
DX: R94.5 Abnormal results of liver function studies (principal); R11.2 Nausea with vomiting, unspecified; R19.7 Diarrhea, unspecified; R10.32 Left lower quadrant pain; G43.909 Migraine, unspecified, not intractable, without status migrainosus; H53.149 Visual discomfort, unspecified
CPT/HCPCS: 99283 ×2; 99284 ×2; 96374; 96372; 96375; 96361; 83690; 85025; 80053; 81001; 74176; J1885; J2405; J1200; J2360; J2550; J7030

== ENCOUNTER 2016-05-12 19:26 | Emergency (ER) | payer MEDICARE, MEDICAID ==
[2016-05-12] MEDS: KETOROLAC 30 MG/ML VIAL IM ONE (21:36)
--- NOTE | 2016-05-12 21:36 | Emergency Department Record ---
History of Present Illness - General Chief Complaint: Headache Migraine Stated Complaint: schreiber Time Seen by Provider: 05/12/16 21:21 Source: Patient Mode of Arrival: Ambulatory Limitations: No limitations - History of Present Illness Initial Comments: pt having her typical migraine that started shortly after she left the emergency dept this morning. she was here for abd pain and had a negative workup and then went home and slept a little while and then woke up with a migraine. she states she vomited. Complaint: "Migraine" -: Hour(s) Onset Description: Gradual Location: Occipital Quality: Similar to previous headaches Consistency: Constant Improves With: Nothing Worsens With: Light Associated Symptoms: Nausea, Photophobia, Vomiting Treatments Prior to Arrival: Migraine medication - Related Data Home Medications Medication Instructions Recorded Confirmed Last Taken Tapentadol HCl [Nucynta] 75 mg PO BID PRN 06/08/15 05/12/16 05/12/16 Prazosin HCl [Minipress] 4 mg PO QHS 09/18/15 05/12/16 05/12/16 Clonazepam [Clonazepam] 1 mg PO QHS 03/02/16 05/12/16 05/12/16 Previous Rx's Medication Instructions Recorded Ondansetron [Zofran Odt] 4 mg PO Q8H #7 tab.rapdis 05/12/16 Allergies Allergy/AdvReac Type Severity Reaction Status Date / Time [id number] Antimigraine Allergy Severe HEADACHE Verified 05/12/16 21:26 Agents Wkslfvl-Dzz-Fmd Reductase Allergy Intermediate JOINT ACHES Verified 05/12/16 21: 26 Inhibitor medical tape AdvReac Mild RASH Uncoded 05/12/16 21:26 Review of Systems Reviewed: No additional complaints except as noted below Constitutional: Reports: As per HPI. Denies: Chills, Fever, Malaise, Night sweats, Weakness, Weight change Eyes: Reports: As per HPI. Denies: Eye discharge, Eye pain, Photophobia, Vision change ENT: Reports: As per HPI. Denies: Congestion, Dental pain, Ear pain, Epistaxis , Hearing loss, Throat pain Respiratory: Reports: As per HPI. Denies: Cough, Dyspnea, Hemoptysis, Stridor, Wheezes Cardiovascular: Reports: As per HPI. Denies: Arrhythmia, Chest pain, Dyspnea on exertion, Edema, Murmurs, Orthopnea, Palpitations, Paroxysmal nocturnal dyspnea, Rheumatic Fever, Syncope Endocrine: Reports: As per HPI. Denies: Fatigue, Heat or cold intolerance, Polydipsia, Polyuria Gastrointestinal: Reports: As per HPI. Denies: Abdominal pain, Constipation, Diarrhea, Hematemesis, Hematochezia, Melena, Nausea, Vomiting Genitourinary: Reports: As per HPI. Denies: Abnormal menses, Discharge, Dyspareunia, Dysuria, Frequency, Hematuria, Incontinence, Retention, Urgency Musculoskeletal: Reports: As per HPI. Denies: Arthralgia, Back pain, Gout, Joint swelling, Myalgia, Neck pain Skin: Reports: As per HPI. Denies: Bruising, Change in color, Change in hair/ nails, Lesions, Pruritus, Rash Neurological: Reports: As per HPI. Denies: Abnormal gait, Confusion, Headache, Numbness, Paresthesias, Seizure, Tingling, Tremors, Vertigo, Weakness Psychiatric: Reports: As per HPI. Denies: Anxiety, Auditory hallucinations, Depression, Homicidal thoughts, Suicidal thoughts, Visual hallucinations Hematological/Lymphatic: Reports: As per HPI. Denies: Anemia, Blood Clots, Easy bleeding, Easy bruising, Swollen glands Past Medical History - SOCIAL HISTORY Smoking Status: Current every day smoker Drug Use: Occassional Drug Use Detail:: Marijuana - RESPIRATORY Hx Respiratory Disorders: Yes Hx Bronchitis: Yes Hx Pneumonia: Yes Comment:: low O2 when sleeping - CARDIOVASCULAR Hx Cardio Disorders: Yes Hx Chest Pain: Yes Comment:: HYPERLIPIDEMIA - NEURO Hx Neuro Disorders: Yes Hx Headaches: Yes (complex migrane) - GI Hx GI Disorders: Yes Hx Diverticulitis: Yes Hx Reflux: Yes (upper GI) Hx Liver Disease: (Liver biopsy 7-16) Hx Nausea/Vomiting: Yes (with pain) Hx Ulcer: Yes Comment:: fatty liver - Hx Genitourinary Disorders: Yes Comment:: polycystic ovary syndrome - ENDOCRINE Hx Endocrine Disorders: Yes Hx Diabetes: Yes Hx Thyroid Disease: No - MUSCULOSKELETAL Hx Musculoskeletal Disorders: Yes Hx Fibromyalgia: Yes Hx Gout: Yes Comment:: Buldging disc in neck - PSYCH Hx Psych Problems: Yes Hx Anxiety: Yes Hx Depression: Yes Comment:: PTSD - HEMATOLOGY/ONCOLOGY Hx Hematology/Oncology Disorders: No Family Medical History Hx Cancer: Mother, Grandparents *Diabetes Comment: aunt Hx Heart Disease: Brother/Sister *Heart Comment: Brother Hx Kidney Disease: Children Physical Exam - General General Appearance: Alert, Oriented x3, Cooperative, Mild distress - Head Head exam: Normal inspection - Eye Eye exam: Normal appearance, PERRL, EOMI Pupils: Normal accommodation - ENT ENT exam: Normal exam, Mucous membranes moist, Normal external ear exam, Normal orophraynx Ear exam: Normal external inspection. negative: External canal tenderness Nasal Exam: Normal inspection. negative: Discharge, Sinus tenderness Mouth exam: Normal external inspection, Tongue normal Teeth exam: Normal inspection. negative: Dental caries Throat exam: Normal inspection. negative: Tonsillar erythema, Tonsillar exudate - Neck Neck exam: Normal inspection, Full ROM. negative: Tenderness - Respiratory Respiratory exam: Normal lung sounds bilaterally. negative: Respiratory distress - Cardiovascular Cardiovascular Exam: Regular rate, Normal rhythm, Normal heart sounds - GI/Abdominal GI/Abdominal exam: Soft, Normal bowel sounds. negative: Tenderness - Rectal Rectal exam: Deferred - exam: Deferred - Extremities Extremities exam: Normal inspection, Full ROM, Normal capillary refill. negative: Tenderness - Back Back exam: Reports: Normal inspection, Full ROM. Denies: Muscle spasm, Rash noted, Tenderness - Neurological Neurological exam: Alert, CN II-XII intact, Normal gait, Oriented X3 - Psychiatric Psychiatric exam: Normal affect, Normal mood - Skin Skin exam: Dry, Intact, Normal color, Warm Course Vital Signs 05/12/16 21:12 Temperature 98.2 F Pulse Rate [ 69 Pulse Ox Probe] Respiratory 18 Rate Blood Pressure 133/86 [Left Arm] Pulse Ox 95 - Reevaluation(s) Reevaluation #1: 05/12/16 21:38 d/w dr kelley Disposition Disposition: Discharge Clinical Impression: Migraine Qualifiers: Migraine type: unspecified Status migrainosus presence: without status migrainosus Intractability: not intractable Qualified Code(s): G43.909 - Migraine, unspecified, not intractable, without status migrainosus Disposition: Home, Self-Care Condition: (1) Good Instructions: Migraine Headache (ED) Additional Instructions: follow up with family doctor. return sooner if worse Forms: Patient Portal Access
[2016-05-12] MEDS: ORPHENADRINE CITRATE 60MG/2ML VIAL IM ONE (21:37)
[2016-05-12] MEDS: PROMETHAZINE HCL 25 MG/ML VIAL IM ONE (21:37)
[2016-05-12] MEDS: DIPHENHYDRAMINE HCL IV 50 MG/ML VIAL IM ONE (21:37)
== END 2016-05-12 22:02 | disposition home or self-care (01) ==
LOC: ER 19:26
DX: G43.909 Migraine, unspecified, not intractable, without status migrainosus (principal); R11.2 Nausea with vomiting, unspecified; H53.149 Visual discomfort, unspecified
CPT/HCPCS: J1200; J1885; J2360; J2550

== ENCOUNTER 2016-06-20 03:19 | Emergency (ER) | payer MEDICARE, MEDICAID ==
[2016-06-20] MEDS ORDERED: HALOPERIDOL LACTATE 5 MG/ML VIAL IM ONE (03:26)
--- NOTE | 2016-06-20 03:29 | Emergency Department Record ---
Anxiety - General Chief Complaint: Anxiety Stated Complaint: ANXIETY Time Seen by Provider: 06/20/16 03:24 Source: Patient Mode of Arrival: Ambulatory Limitations: No limitations - History of Present Illness Initial Comments: 41 yo female presents to ED with a CC of "a panic attack that began 4 hours ago ", reports that she tool Klonopin x 2 at home that have not helped. Patient reports that she ran out of her Abilify 1 week ago and has not had it refilled by her psychiatrist. Patient reports that she has an appointment next with her psychiatrist. MD Complaint: Anxiety Onset/Timin -: Hour(s) Symptoms: Sense of impending doom Place: Home Previous History of Same: Yes Severity: Moderate Quality: Constant Provoking factors: Medication change Improves With: Nothing Worsens With: Nothing Associated symptoms: Denies other symptoms - Related Data Home Medications: Home Medications Medication Instructions Recorded Confirmed Last Taken Tapentadol HCl [Nucynta] 75 mg PO BID PRN 06/08/15 05/12/16 05/12/16 Prazosin HCl [Minipress] 4 mg PO QHS 09/18/15 05/12/16 05/12/16 Clonazepam [Clonazepam] 1 mg PO QHS 03/02/16 05/12/16 05/12/16 Previous Rx's Medication Instructions Recorded Ondansetron [Zofran Odt] 4 mg PO Q8H #7 tab.rapdis 05/12/16 Aripiprazole [Abilify] 10 mg PO QHS #5 tablet 06/20/16 Allergies/Adverse Reactions: Allergies Allergy/AdvReac Type Severity Reaction Status Date / Time [id number] Antimigraine Allergy Severe HEADACHE Verified 05/12/16 21:26 Agents Rgmolns-Yjs-Wcj Reductase Allergy Intermediate JOINT ACHES Verified 05/12/16 21: 26 Inhibitor medical tape AdvReac Mild RASH Uncoded 05/12/16 21:26 Review of Systems Constitutional: Denies: Chills, Fever, Malaise, Night sweats Eyes: Denies: Eye discharge, Eye pain ENT: Denies: Congestion, Ear pain, Epistaxis Respiratory: Denies: Cough, Dyspnea Cardiovascular: Denies: Chest pain, Dyspnea on exertion Endocrine: Denies: Fatigue, Heat or cold intolerance Gastrointestinal: Denies: Abdominal pain, Nausea, Vomiting Genitourinary: Denies: Dysuria, Frequency Musculoskeletal: Denies: Arthralgia, Back pain, Gout, Joint swelling Skin: Denies: Bruising, Change in color Neurological: Denies: Abnormal gait, Confusion, Headache, Seizure Psychiatric: Reports: Anxiety Hematological/Lymphatic: Denies: Anemia, Blood Clots Past Medical History - SOCIAL HISTORY Smoking Status: Current every day smoker Drug Use: Occassional Drug Use Detail:: Marijuana - RESPIRATORY Hx Respiratory Disorders: Yes Hx Bronchitis: Yes Hx Pneumonia: Yes Comment:: low O2 when sleeping - CARDIOVASCULAR Hx Cardio Disorders: Yes Hx Chest Pain: Yes Comment:: HYPERLIPIDEMIA - NEURO Hx Neuro Disorders: Yes Hx Headaches: Yes (complex migrane) - GI Hx GI Disorders: Yes Hx Diverticulitis: Yes Hx Reflux: Yes (upper GI) Hx Liver Disease: (Liver biopsy 7-16) Hx Nausea/Vomiting: Yes (with pain) Hx Ulcer: Yes Comment:: fatty liver - Hx Genitourinary Disorders: Yes Comment:: polycystic ovary syndrome - ENDOCRINE Hx Endocrine Disorders: Yes Hx Diabetes: Yes Hx Thyroid Disease: No - MUSCULOSKELETAL Hx Musculoskeletal Disorders: Yes Hx Fibromyalgia: Yes Hx Gout: Yes Comment:: Buldging disc in neck - PSYCH Hx Psych Problems: Yes Hx Anxiety: Yes Hx Depression: Yes Comment:: PTSD - HEMATOLOGY/ONCOLOGY Hx Hematology/Oncology Disorders: No Family Medical History Hx Cancer: Mother, Grandparents *Diabetes Comment: aunt Hx Heart Disease: Brother/Sister *Heart Comment: Brother Hx Kidney Disease: Children Physical Exam - General General Appearance: Alert, Oriented x3, Cooperative, Anxious, Other (patient is able to relax while talking with her, then becomes tearful again) Limitations: No limitations - Head Head exam: Atraumatic, Normocephalic, Normal inspection Head exam detail: negative: Abrasion, Contusion, General tenderness, Hematoma, Laceration - Eye Eye exam: Normal appearance. negative: Conjunctival injection, Periorbital swelling, Periorbital tenderness, Scleral icterus - ENT Ear exam: negative: Auricular hematoma, Auricular trauma Nasal Exam: negative: Active bleeding, Discharge, Dried blood, Foreign body Mouth exam: negative: Drooling, Laceration, Muffled voice, Tongue elevation - Neck Neck exam: Normal inspection. negative: Meningismus, Tenderness - Respiratory Respiratory exam: Normal lung sounds bilaterally. negative: Rales, Respiratory distress, Rhonchi, Stridor - Cardiovascular Cardiovascular Exam: Regular rate, Normal rhythm, Normal heart sounds - Rectal Rectal exam: Deferred - exam: Deferred - Extremities Extremities exam: negative: Calf tenderness, Pedal edema, Tenderness - Back Back exam: Denies: CVA tenderness (R), CVA tenderness (L) - Neurological Neurological exam: Alert, Normal gait, Oriented X3 - Psychiatric Psychiatric exam: Anxious - Skin Skin exam: Normal color. negative: Abrasion Type of lesion: negative: abrasion Course - Reevaluation(s) Reevaluation #1: 06/20/16 03:57 Patient reassessed following Haldol administration, reports that she is feeling much better and appears stable for discharge at this time. Will prescribe 5 days of Ability until the patient can follow-up with her psychiatrist. Disposition Disposition: Discharge Clinical Impression: Medication withdrawal Qualifiers: Substance type: sedative, hypnotic or anxiolytic Qualified Code(s): F13.239 - Sedative, hypnotic or anxiolytic dependence with withdrawal, unspecified Disposition: Home, Self-Care Condition: (2) Stable Instructions: Generalized Anxiety Disorder (ED) Additional Instructions: Return to ED if your symptoms worsen or if you have any concerns. Kirsten as directed. Follow-up with Dr. Dominique in 3-5 days as directed. Prescriptions: Aripiprazole [Abilify] 10 mg PO QHS #5 tablet Forms: Patient Portal Access Time of Disposition: 03:58
== END 2016-06-20 03:59 | disposition home or self-care (01) ==
LOC: ER 03:19
DX: F13.239 Sedative, hypnotic or anxiolytic dependence with withdrawal, unspecified (principal); F41.9 Anxiety disorder, unspecified; T42.6X5A Adverse effect of other antiepileptic and sedative-hypnotic drugs, initial encounter
CPT/HCPCS: 96372; 99283; J1630

== ENCOUNTER 2016-07-01 00:19 | Emergency (ER) | payer MEDICARE, MEDICAID ==
[2016-07-01] MEDS ORDERED: KETOROLAC 60 MG/2 ML VIAL IM STA (00:33)
[2016-07-01] MEDS ORDERED: PROMETHAZINE HCL 25 MG/ML VIAL IM ONE (00:33)
--- NOTE | 2016-07-01 00:38 | Emergency Department Record ---
History of Present Illness - General Chief Complaint: Headache Migraine Stated Complaint: HEADACHE Time Seen by Provider: 07/01/16 00:33 Source: Patient Mode of Arrival: Ambulatory Limitations: No limitations - History of Present Illness Initial Comments: 41 yo female presents to ED with a 6-7 hour history of "migraine headache" to the left side of the head and neck similar to previous. Patient denies fevers, chills, or recent illness. Patient denies neck pain or stiffness. Patient reports taking medical marijuana, fiorcet, and stadol prior to coming to the ED for evaluation. Complaint: Headache Onset/Timin -: Hour(s) Onset Description: Gradual Location: Left, Neck, Retro-orbital Severity: Moderate Severity scale (1-10): 7 Quality: Sharp Consistency: Constant Improves With: Nothing Worsens With: Light Treatments Prior to Arrival: Migraine medication - Related Data Home Medications Medication Instructions Recorded Confirmed Last Taken Tapentadol HCl [Nucynta] 75 mg PO BID PRN 06/08/15 05/12/16 05/12/16 Prazosin HCl [Minipress] 4 mg PO QHS 09/18/15 05/12/16 05/12/16 Clonazepam [Clonazepam] 1 mg PO QHS 03/02/16 05/12/16 05/12/16 Previous Rx's Medication Instructions Recorded Ondansetron [Zofran Odt] 4 mg PO Q8H #7 tab.rapdis 05/12/16 Aripiprazole [Abilify] 10 mg PO QHS #5 tablet 06/20/16 Allergies Allergy/AdvReac Type Severity Reaction Status Date / Time [id number] Antimigraine Allergy Severe HEADACHE Verified 05/12/16 21:26 Agents Nkbbziq-Vsb-Fdv Reductase Allergy Intermediate JOINT ACHES Verified 05/12/16 21: 26 Inhibitor medical tape AdvReac Mild RASH Uncoded 05/12/16 21:26 Travel Screening - Travel/Exposure Within Last 30 Days Have you traveled within the last 30 days?: No - Travel/Exposure Within Last Year Have you traveled outside the [place] in the last year?: No - Additonal Travel Details Have you been exposed to anyone with a communicable illness?: No - Travel Symptoms Symptom Screening: None Review of Systems Constitutional: Denies: Chills, Fever, Malaise, Night sweats Eyes: Denies: Eye discharge, Eye pain ENT: Denies: Congestion, Ear pain, Epistaxis Respiratory: Denies: Cough, Dyspnea Cardiovascular: Denies: Chest pain, Dyspnea on exertion Endocrine: Denies: Fatigue, Heat or cold intolerance Gastrointestinal: Denies: Abdominal pain, Nausea, Vomiting Genitourinary: Denies: Dysuria, Frequency, Hematuria, Incontinence Musculoskeletal: Reports: Neck pain. Denies: Arthralgia, Back pain, Gout, Joint swelling Skin: Denies: Bruising, Change in color, Rash Neurological: Reports: Headache. Denies: Abnormal gait, Confusion, Seizure Psychiatric: Denies: Anxiety Hematological/Lymphatic: Denies: Anemia, Blood Clots Past Medical History - SOCIAL HISTORY Smoking Status: Current every day smoker Alcohol Use: None Drug Use Detail:: Marijuana - RESPIRATORY Hx Respiratory Disorders: Yes Hx Bronchitis: Yes Hx Pneumonia: Yes Comment:: low O2 when sleeping - CARDIOVASCULAR Hx Cardio Disorders: Yes Hx Chest Pain: Yes Comment:: HYPERLIPIDEMIA - NEURO Hx Neuro Disorders: Yes Hx Headaches: Yes (complex migrane) - GI Hx GI Disorders: Yes Hx Diverticulitis: Yes Hx Reflux: Yes (upper GI) Hx Liver Disease: (Liver biopsy 7-16) Hx Nausea/Vomiting: Yes (with pain) Hx Ulcer: Yes Comment:: fatty liver - Hx Genitourinary Disorders: Yes Comment:: polycystic ovary syndrome - ENDOCRINE Hx Endocrine Disorders: Yes Hx Diabetes: Yes Hx Thyroid Disease: No - MUSCULOSKELETAL Hx Musculoskeletal Disorders: Yes Hx Fibromyalgia: Yes Hx Gout: Yes Comment:: Buldging disc in neck - PSYCH Hx Psych Problems: Yes Hx Anxiety: Yes Hx Depression: Yes Comment:: PTSD - HEMATOLOGY/ONCOLOGY Hx Hematology/Oncology Disorders: No Family Medical History Any Significant Family History?: No Hx Cancer: Mother, Grandparents *Diabetes Comment: aunt Hx Heart Disease: Brother/Sister *Heart Comment: Brother Hx Kidney Disease: Children Physical Exam - General General Appearance: Alert, Oriented x3, Cooperative, Mild distress Limitations: No limitations - Head Head exam: Atraumatic, Normocephalic, Normal inspection Head exam detail: negative: Abrasion, Contusion, Espinosa's sign, General tenderness, Hematoma, Laceration - Eye Eye exam: Normal appearance. negative: Conjunctival injection, Periorbital swelling, Periorbital tenderness, Scleral icterus - ENT Ear exam: negative: Auricular hematoma, Auricular trauma Nasal Exam: negative: Active bleeding, Discharge, Dried blood, Foreign body Mouth exam: negative: Drooling, Laceration, Muffled voice, Tongue elevation - Neck Neck exam: Normal inspection. negative: Meningismus, Tenderness - Respiratory Respiratory exam: Normal lung sounds bilaterally. negative: Rales, Respiratory distress, Rhonchi, Stridor - Cardiovascular Cardiovascular Exam: Regular rate, Normal rhythm, Normal heart sounds - GI/Abdominal GI/Abdominal exam: Soft. negative: Rebound, Rigid, Tenderness - Rectal Rectal exam: Deferred - exam: Deferred - Extremities Extremities exam: Normal inspection. negative: Pedal edema, Tenderness - Back Back exam: Denies: CVA tenderness (R), CVA tenderness (L) - Neurological Neurological exam: Alert, Normal gait, Oriented X3 - Psychiatric Psychiatric exam: Normal affect, Normal mood - Skin Skin exam: Normal color. negative: Abrasion Type of lesion: negative: abrasion Course Vital Signs 07/01/16 00:23 Temperature 98.2 F Pulse Rate 85 Respiratory 20 Rate Blood Pressure 113/74 Pulse Ox 96 - Reevaluation(s) Reevaluation #1: 07/01/16 01:18 Patient reports improvement in her headache symptoms, and appears stable for discharge at this time. Disposition Disposition: Discharge Clinical Impression: Headache Qualifiers: Headache type: unspecified Headache chronicity pattern: acute headache Intractability: not intractable Qualified Code(s): R51 - Headache Disposition: Home, Self-Care Condition: (2) Stable Instructions: Acute Headache (ED) Additional Instructions: Return to ED if your symptoms worsen or if you have any concerns. Follow-up with Dr. Dominique in 3-5 days as directed. Forms: Patient Portal Access Time of Disposition: :19
== END 2016-07-01 01:29 | disposition home or self-care (01) ==
LOC: ER 00:19
DX: R51 Headache (principal); M54.2 Cervicalgia
CPT/HCPCS: 96372; 99283; J1885; J2550

== ENCOUNTER 2016-07-20 18:26 | Emergency (ER) | payer MEDICARE, MEDICAID ==
--- NOTE | 2016-07-20 18:38 | Emergency Department Record ---
History of Present Illness - General Chief complaint: Rash Stated complaint: RASH Time Seen by Provider: 07/20/16 18:31 Source: Patient Mode of Arrival: Ambulatory Limitations: No limitations - History of Present Illness Initial comments: 41 yo female presents with a rash on the left breast for about 2 weeks. Is is annular in nature and very slowly increasing in size. It has central clearing. No pus or drainage. No fevers or chills. No pain. Mild itch. MD complaint: Rash -: Week(s) (2) Hx Tetanus Toxoid Vaccination: No Year of Tetanus Vaccination: unknown Severity: Mild Consistency: Constant Improves with: None Worsens with: None Associated symptoms: Denies other symptoms Treatments Prior to Arrival: None - Related Data Home Medications Medication Instructions Recorded Confirmed Last Taken Tapentadol HCl [Nucynta] 75 mg PO BID PRN 06/08/15 07/20/16 1 Day Ago ~07/19/16 Prazosin HCl [Minipress] 4 mg PO QHS 09/18/15 07/20/16 1 Day Ago ~07/19/16 Clonazepam [Clonazepam] 1 mg PO QHS 03/02/16 07/20/16 1 Day Ago ~07/19/16 Previous Rx's Medication Instructions Recorded Ondansetron [Zofran Odt] 4 mg PO Q8H #7 tab.rapdis 05/12/16 Aripiprazole [Abilify] 10 mg PO QHS #5 tablet 06/20/16 Clotrimazole [Lotrimin AF] 1 gm TP BID #1 tube 07/20/16 Allergies Allergy/AdvReac Type Severity Reaction Status Date / Time [id number] Antimigraine Allergy Severe HEADACHE Verified 07/20/16 18:33 Agents Guflfes-Wsf-Uba Reductase Allergy Intermediate JOINT ACHES Verified 07/20/16 18: 33 Inhibitor medical tape AdvReac Mild RASH Uncoded 07/20/16 18:33 Review of Systems Constitutional: Denies: Chills, Fever, Malaise, Weakness Eyes: Denies: Eye discharge ENT: Denies: Congestion, Throat pain Respiratory: Denies: Cough Cardiovascular: Denies: Syncope Endocrine: Denies: Fatigue Gastrointestinal: Denies: Abdominal pain, Diarrhea, Nausea, Vomiting Genitourinary: Denies: Dysuria, Urgency Skin: Reports: As per HPI, Change in color, Rash. Denies: Bruising Neurological: Denies: Headache Psychiatric: Denies: Anxiety Hematological/Lymphatic: Denies: Easy bleeding, Easy bruising, Swollen glands Past Medical History - SOCIAL HISTORY Smoking Status: Current every day smoker Drug Use Detail:: Marijuana - RESPIRATORY Hx Respiratory Disorders: Yes Hx Bronchitis: Yes Hx Pneumonia: Yes Comment:: low O2 when sleeping - CARDIOVASCULAR Hx Cardio Disorders: Yes Hx Chest Pain: Yes Comment:: HYPERLIPIDEMIA - NEURO Hx Neuro Disorders: Yes Hx Headaches: Yes (complex migrane) - GI Hx GI Disorders: Yes Hx Diverticulitis: Yes Hx Reflux: Yes (upper GI) Hx Liver Disease: (Liver biopsy 7-16) Hx Nausea/Vomiting: Yes (with pain) Hx Ulcer: Yes Comment:: fatty liver - Hx Genitourinary Disorders: Yes Comment:: polycystic ovary syndrome - ENDOCRINE Hx Endocrine Disorders: Yes Hx Diabetes: Yes Hx Thyroid Disease: No - MUSCULOSKELETAL Hx Musculoskeletal Disorders: Yes Hx Fibromyalgia: Yes Hx Gout: Yes Comment:: Buldging disc in neck - PSYCH Hx Psych Problems: Yes Hx Anxiety: Yes Hx Depression: Yes Comment:: PTSD - HEMATOLOGY/ONCOLOGY Hx Hematology/Oncology Disorders: No Family Medical History Hx Cancer: Mother, Grandparents *Diabetes Comment: aunt Hx Heart Disease: Brother/Sister *Heart Comment: Brother Hx Kidney Disease: Children Physical Exam - General General Appearance: Alert, Oriented x3, Cooperative, No acute distress - Head Head exam: Normal inspection - Eye Eye exam: Normal appearance - ENT ENT exam: Normal exam - Neck Neck exam: Normal inspection - Rectal Rectal exam: Deferred - exam: Deferred - Extremities Extremities exam: Normal inspection Image of Full Body: 1 - 3cm rash, ring shaped, annular with central clearing - Back Back exam: Reports: Normal inspection - Neurological Neurological exam: Alert, Normal gait, Oriented X3. negative: Altered - Psychiatric Psychiatric exam: negative: Agitated, Anxious - Skin Skin exam: Erythema Distribution of rash: Chest Description of rash: Erythematous, Macular (annular ring with central clearing consistent CW tinea). negative: Blisters, Bullous, Confluent, Crusting, Discharge, Fluctuant, Indurated, Papular, Petechial, Swelling, Tenderness, Urticarial, Vesicular Disposition Disposition: Discharge Clinical Impression: Tinea corporis Disposition: Home, Self-Care Condition: (1) Good Instructions: Tinea Corporis (ED) Additional Instructions: Keep the area clean and dry apply the anti-fungal cream as directed return if worse, fever, drainage or concerns follow up with your doctor to ensure it resolves Prescriptions: Clotrimazole [Lotrimin AF] 1 gm TP BID #1 tube Forms: Patient Portal Access Time of Disposition: 18:39
== END 2016-07-20 18:46 | disposition home or self-care (01) ==
LOC: ER 18:26
DX: B35.4 Tinea corporis (principal)
CPT/HCPCS: 99282

== ENCOUNTER 2016-07-28 21:51 | Emergency (ER) | payer MEDICARE, MEDICAID ==
[2016-07-28] MEDS ORDERED: PROMETHAZINE HCL 25 MG/ML VIAL IM ONE (21:59)
[2016-07-28] MEDS ORDERED: KETOROLAC 60 MG/2 ML VIAL IM STA (21:59)
--- NOTE | 2016-07-28 22:05 | Emergency Department Record ---
History of Present Illness - General Chief Complaint: Headache Migraine Stated Complaint: SERVIN Time Seen by Provider: 07/28/16 21:53 Source: Patient Mode of Arrival: Ambulatory Limitations: No limitations - History of Present Illness Initial Comments: 41 yo female presents with a migraine headache that started at 6pm. She took her Benadryl and Fioricet without relief. She has light and noise sensitivity. She has nausea without vomiting. No fevers or trauma. No vision changes. She has been in her usual state of health. She gets a few migraines a month. She has a long history of migraines. This is typical. Her PCP is Dr Dominique. Complaint: "Migraine" -: Hour(s) (4) Onset Description: Gradual Location: Left Severity: Severe Quality: Aching Consistency: Constant Improves With: Nothing Worsens With: Light, Noise Associated Symptoms: Nausea Treatments Prior to Arrival: Migraine medication - Related Data Home Medications Medication Instructions Recorded Confirmed Last Taken Tapentadol HCl [Nucynta] 75 mg PO BID PRN 06/08/15 07/28/16 1 Day Ago ~07/19/16 Prazosin HCl [Minipress] 4 mg PO QHS 09/18/15 07/28/16 1 Day Ago ~07/19/16 Clonazepam [Clonazepam] 1 mg PO QHS 03/02/16 07/28/16 1 Day Ago ~07/19/16 Previous Rx's Medication Instructions Recorded Ondansetron [Zofran Odt] 4 mg PO Q8H #7 tab.rapdis 05/12/16 Aripiprazole [Abilify] 10 mg PO QHS #5 tablet 06/20/16 Clotrimazole [Lotrimin AF] 1 gm TP BID #1 tube 07/20/16 Allergies Allergy/AdvReac Type Severity Reaction Status Date / Time [id number] Antimigraine Allergy Severe HEADACHE Verified 07/20/16 18:33 Agents Lzecxbt-Pye-Joh Reductase Allergy Intermediate JOINT ACHES Verified 07/20/16 18: 33 Inhibitor medical tape AdvReac Mild RASH Uncoded 07/20/16 18:33 Review of Systems Constitutional: Denies: Chills, Fever, Malaise, Weakness Eyes: Reports: Photophobia. Denies: Eye discharge, Eye pain, Vision change ENT: Denies: Congestion, Throat pain Respiratory: Denies: Cough, Dyspnea, Hemoptysis, Stridor, Wheezes Cardiovascular: Denies: Chest pain, Palpitations, Syncope Endocrine: Denies: Fatigue, Polydipsia, Polyuria Gastrointestinal: Reports: Nausea. Denies: Abdominal pain, Diarrhea, Vomiting Genitourinary: Denies: Dysuria, Urgency Musculoskeletal: Denies: Arthralgia, Back pain, Myalgia, Neck pain, Other Skin: Denies: Bruising, Change in color, Rash Neurological: Reports: Headache. Denies: Confusion, Numbness, Paresthesias, Seizure, Tingling, Tremors, Vertigo, Weakness Psychiatric: Reports: Anxiety Hematological/Lymphatic: Denies: Blood Clots, Easy bleeding, Easy bruising, Swollen glands Past Medical History - SOCIAL HISTORY Smoking Status: Current every day smoker Drug Use Detail:: Marijuana - RESPIRATORY Hx Respiratory Disorders: Yes Hx Bronchitis: Yes Hx Pneumonia: Yes Comment:: low O2 when sleeping - CARDIOVASCULAR Hx Cardio Disorders: Yes Hx Chest Pain: Yes Comment:: HYPERLIPIDEMIA - NEURO Hx Neuro Disorders: Yes Hx Headaches: Yes (complex migrane) - GI Hx GI Disorders: Yes Hx Diverticulitis: Yes Hx Reflux: Yes (upper GI) Hx Liver Disease: (Liver biopsy 7-16) Hx Nausea/Vomiting: Yes (with pain) Hx Ulcer: Yes Comment:: fatty liver - Hx Genitourinary Disorders: Yes Comment:: polycystic ovary syndrome - ENDOCRINE Hx Endocrine Disorders: Yes Hx Diabetes: Yes Hx Thyroid Disease: No - MUSCULOSKELETAL Hx Musculoskeletal Disorders: Yes Hx Fibromyalgia: Yes Hx Gout: Yes Comment:: Buldging disc in neck - PSYCH Hx Psych Problems: Yes Hx Anxiety: Yes Hx Depression: Yes Comment:: PTSD - HEMATOLOGY/ONCOLOGY Hx Hematology/Oncology Disorders: No Family Medical History Hx Cancer: Mother, Grandparents *Diabetes Comment: aunt Hx Heart Disease: Brother/Sister *Heart Comment: Brother Hx Kidney Disease: Children Physical Exam - General General Appearance: Alert, Oriented x3, Cooperative, No acute distress Limitations: No limitations - Head Head exam: Atraumatic, Normocephalic, Normal inspection - Eye Eye exam: Normal appearance, PERRL. negative: Conjunctival injection, Periorbital swelling - ENT ENT exam: Normal exam, Mucous membranes moist Ear exam: Normal external inspection Nasal Exam: Normal inspection Mouth exam: Normal external inspection Teeth exam: Normal inspection Throat exam: Normal inspection - Neck Neck exam: Normal inspection, Full ROM. negative: Tenderness - Respiratory Respiratory exam: Normal lung sounds bilaterally. negative: Respiratory distress - Cardiovascular Cardiovascular Exam: Regular rate, Normal rhythm, Normal heart sounds Peripheral Pulses: 2+: Radial (R), Radial (L) - GI/Abdominal GI/Abdominal exam: Soft. negative: Tenderness - Rectal Rectal exam: Deferred - exam: Deferred - Extremities Extremities exam: Normal inspection, Full ROM, Normal capillary refill. negative: Joint swelling, Pedal edema, Tenderness - Back Back exam: Reports: Normal inspection, Full ROM. Denies: CVA tenderness (R), CVA tenderness (L), Muscle spasm, Rash noted, Tenderness - Neurological Neurological exam: Alert, CN II-XII intact, Normal gait, Oriented X3. negative : Motor sensory deficit - Psychiatric Psychiatric exam: Normal affect, Normal mood - Skin Skin exam: Dry, Intact, Normal color, Warm Course Vital Signs 07/28/16 21:56 Temperature 98.4 F Pulse Rate [ 89 Pulse Ox Probe] Respiratory 18 Rate Blood Pressure 136/90 [Left Arm] Pulse Ox 96 Disposition Disposition: Discharge Clinical Impression: Migraines Qualifiers: Migraine type: unspecified Status migrainosus presence: without status migrainosus Intractability: not intractable Qualified Code(s): G43.909 - Migraine, unspecified, not intractable, without status migrainosus Disposition: Home, Self-Care Condition: (1) Good Instructions: Migraine Headache (ED) Additional Instructions: Rest and stay well hydrated Call your doctor tomorrow to discuss your recent ER visits for migraines Forms: Patient Portal Access Time of Disposition: 22:21
[2016-07-28] MEDS ORDERED: DIPHENHYDRAMINE HCL IV 50 MG/ML VIAL IM ONE (22:37)
== END 2016-07-28 23:04 | disposition home or self-care (01) ==
LOC: ER 21:51
DX: G43.909 Migraine, unspecified, not intractable, without status migrainosus (principal)
CPT/HCPCS: 96372; 99283; J1200; J1885; J2550

== ENCOUNTER 2016-07-29 22:17 | Emergency (ER) | payer MEDICARE, MEDICAID ==
[2016-07-29 23:12] LABS: URINE APPEARANCE CLEAR; URINE BILIRUBIN NEGATIVE (NEGATIVE); URINE BLOOD NEGATIVE (NEGATIVE); URINE COLOR YELLOW; URINE GLUCOSE (UA) NEGATIVE (NEGATIVE); URINE KETONE NEGATIVE (NEGATIVE); URINE LEUKOCYTE ESTERASE NEGATIVE (NEGATIVE); URINE NITRITE NEGATIVE (NEGATIVE); URINE PROTEIN NEGATIVE (NEGATIVE); URINE UROBILINOGEN 0.2 E.U./dL (0.20 - 1.00)
[2016-07-29] MEDS ORDERED: 0.9 % SODIUM CHLORIDE 1,000 ML BAG IV ONE (23:17)
[2016-07-29] MEDS ORDERED: KETOROLAC 30 MG/ML VIAL IVP ONE (23:21)
[2016-07-29 23:49] LABS: BASO % 0.4 % (0-6); EOS % 1.2 % (0-6); HEMATOCRIT 38.5 % (35.0-47.0); HEMOGLOBIN 12.3 gm/dl (11.6-16.0); LYMPH % 25.6 % (16-45); MEAN CELL VOLUME 90.2 fl (81-97); MEAN CORPUSCULAR HEMOGLOBIN 28.8 pg (27-33); MEAN CORPUSCULAR HGB CONC 31.9 g/dl (32-36); MEAN PLATELET VOLUME 9.5 fl (7.4-10.4); MONO % 5.8 % (0-9); PLATELET COUNT 412 K/uL (130-400); RED BLOOD COUNT 4.27 M/uL (3.80-5.40); RED CELL DISTRIBUTION WIDTH 13.3 % (11.5-14.5); WHITE BLOOD COUNT W/O DIFF 11.3 K/uL (4.2-12.2)
[2016-07-29 23:58] LABS: ALB/GLOB RATIO 1.4 (1.1-1.8); ALBUMIN 4.2 gm/dL (3.5-5.0); ALKALINE PHOSPHATASE 138 U/L (38-126); ALT/SGPT 56 U/L (9-52); ANION GAP 8.4 (7-16); AST/SGOT 37 U/L (14-36); BILIRUBIN,TOTAL 0.38 mg/dL (0.2-1.3); BLOOD UREA NITROGEN 7 mg/dL (7-17); CARBON DIOXIDE 20.6 mmol/L (22-30); CREATININE 0.8 mg/dL (0.52-1.04); EST GLOMERULAR FILTRATION RATE > 60 ml/min; GLUCOSE,RANDOM 96 mg/dL (70-110); LIPASE 119 U/L (23-300); TOTAL PROTEIN 7.3 gm/dL (6.3-8.2)
--- NOTE | 2016-07-30 01:04 | Emergency Department Record ---
History of Present Illness - General Chief Complaint: Abdominal Pain Stated Complaint: SIDE PAIN Time Seen by Provider: 07/29/16 23:10 Source: Patient Mode of Arrival: Ambulatory Limitations: No limitations - History of Present Illness Initial Comments: pt has r sided abd pain that is constant for 5 hrs and is getting worse. no n/v /c. nothing makes it better or worse. Complaint: Abdominal pain Onset/Timin -: Hour(s) Location: RLQ Radiation: None Migration to: No migration Quality: Sharp, Stabbing Consistency: Constant, Getting worse Improves With: Nothing Worsens With: Movement, Other Associated Symptoms: Denies other symptoms - Related Data Patient : No Hx Age of Menopause: 37 Home Medications Medication Instructions Recorded Confirmed Last Taken Tapentadol HCl [Nucynta] 75 mg PO BID PRN 06/08/15 07/28/16 1 Day Ago ~07/19/16 Prazosin HCl [Minipress] 4 mg PO QHS 09/18/15 07/28/16 1 Day Ago ~07/19/16 Clonazepam [Clonazepam] 1 mg PO QHS 03/02/16 07/28/16 1 Day Ago ~07/19/16 Previous Rx's Medication Instructions Recorded Ondansetron [Zofran Odt] 4 mg PO Q8H #7 tab.rapdis 05/12/16 Aripiprazole [Abilify] 10 mg PO QHS #5 tablet 06/20/16 Clotrimazole [Lotrimin AF] 1 gm TP BID #1 tube 07/20/16 Allergies Allergy/AdvReac Type Severity Reaction Status Date / Time [id number] Antimigraine Allergy Severe HEADACHE Verified 07/20/16 18:33 Agents Hlmqsri-Wix-Bcn Reductase Allergy Intermediate JOINT ACHES Verified 07/20/16 18: 33 Inhibitor medical tape AdvReac Mild RASH Uncoded 07/20/16 18:33 Travel Screening - Travel/Exposure Within Last 30 Days Have you traveled within the last 30 days?: No - Travel Symptoms Symptom Screening: None Review of Systems Reviewed: No additional complaints except as noted below Constitutional: Reports: As per HPI. Denies: Chills, Fever, Malaise, Night sweats, Weakness, Weight change Eyes: Reports: As per HPI. Denies: Eye discharge, Eye pain, Photophobia, Vision change ENT: Reports: As per HPI. Denies: Congestion, Dental pain, Ear pain, Epistaxis , Hearing loss, Throat pain Respiratory: Reports: As per HPI. Denies: Cough, Dyspnea, Hemoptysis, Stridor, Wheezes Cardiovascular: Reports: As per HPI. Denies: Arrhythmia, Chest pain, Dyspnea on exertion, Edema, Murmurs, Orthopnea, Palpitations, Paroxysmal nocturnal dyspnea, Rheumatic Fever, Syncope Endocrine: Reports: As per HPI. Denies: Fatigue, Heat or cold intolerance, Polydipsia, Polyuria Gastrointestinal: Reports: As per HPI. Denies: Abdominal pain, Constipation, Diarrhea, Hematemesis, Hematochezia, Melena, Nausea, Vomiting Genitourinary: Reports: As per HPI. Denies: Abnormal menses, Discharge, Dyspareunia, Dysuria, Frequency, Hematuria, Incontinence, Retention, Urgency Musculoskeletal: Reports: As per HPI. Denies: Arthralgia, Back pain, Gout, Joint swelling, Myalgia, Neck pain Skin: Reports: As per HPI. Denies: Bruising, Change in color, Change in hair/ nails, Lesions, Pruritus, Rash Neurological: Reports: As per HPI. Denies: Abnormal gait, Confusion, Headache, Numbness, Paresthesias, Seizure, Tingling, Tremors, Vertigo, Weakness Psychiatric: Reports: As per HPI. Denies: Anxiety, Auditory hallucinations, Depression, Homicidal thoughts, Suicidal thoughts, Visual hallucinations Hematological/Lymphatic: Reports: As per HPI. Denies: Anemia, Blood Clots, Easy bleeding, Easy bruising, Swollen glands Past Medical History - SOCIAL HISTORY Smoking Status: Current every day smoker - RESPIRATORY Hx Respiratory Disorders: Yes Hx Bronchitis: Yes Hx Pneumonia: Yes Comment:: low O2 when sleeping - CARDIOVASCULAR Hx Cardio Disorders: Yes Hx Chest Pain: Yes Comment:: HYPERLIPIDEMIA - NEURO Hx Neuro Disorders: Yes Hx Headaches: Yes (complex migrane) - GI Hx GI Disorders: Yes Hx Diverticulitis: Yes Hx Reflux: Yes (upper GI) Hx Liver Disease: (Liver biopsy 7-16) Hx Nausea/Vomiting: Yes (with pain) Hx Ulcer: Yes Comment:: fatty liver - Hx Genitourinary Disorders: Yes Comment:: polycystic ovary syndrome - ENDOCRINE Hx Endocrine Disorders: Yes Hx Diabetes: Yes Hx Thyroid Disease: No - MUSCULOSKELETAL Hx Musculoskeletal Disorders: Yes Hx Fibromyalgia: Yes Hx Gout: Yes Comment:: Buldging disc in neck - PSYCH Hx Psych Problems: Yes Hx Anxiety: Yes Hx Depression: Yes Comment:: PTSD - HEMATOLOGY/ONCOLOGY Hx Hematology/Oncology Disorders: No Family Medical History Any Significant Family History?: Yes Hx Cancer: Mother, Grandparents *Diabetes Comment: aunt Hx Heart Disease: Brother/Sister *Heart Comment: Brother Hx Kidney Disease: Children Physical Exam - General General Appearance: Alert, Oriented x3, Cooperative - Head Head exam: Normal inspection - Eye Eye exam: Normal appearance, PERRL, EOMI Pupils: Normal accommodation - ENT ENT exam: Normal exam, Mucous membranes moist, Normal external ear exam, Normal orophraynx Ear exam: Normal external inspection. negative: External canal tenderness Nasal Exam: Normal inspection. negative: Discharge, Sinus tenderness Mouth exam: Normal external inspection, Tongue normal Teeth exam: Normal inspection. negative: Dental caries Throat exam: Normal inspection. negative: Tonsillar erythema, Tonsillar exudate - Neck Neck exam: Normal inspection, Full ROM. negative: Tenderness - Respiratory Respiratory exam: Normal lung sounds bilaterally. negative: Respiratory distress - Cardiovascular Cardiovascular Exam: Regular rate, Normal rhythm, Normal heart sounds - GI/Abdominal GI/Abdominal exam: Soft, Normal bowel sounds, Tenderness - Rectal Rectal exam: Deferred - exam: Deferred - Extremities Extremities exam: Normal inspection, Full ROM, Normal capillary refill. negative: Tenderness - Back Back exam: Reports: Normal inspection, Full ROM. Denies: Muscle spasm, Rash noted, Tenderness - Neurological Neurological exam: Alert, CN II-XII intact, Normal gait, Oriented X3 - Psychiatric Psychiatric exam: Normal affect, Normal mood - Skin Skin exam: Dry, Intact, Normal color, Warm Course Vital Signs 07/29/16 07/30/16 22:40 00:45 Temperature 97.9 F 98.1 F Pulse Rate [ 81 79 Pulse Ox Probe] Respiratory 24 18 Rate Blood Pressure 148/97 111/90 [Left Arm] Pulse Ox 96 98 Medical Decision Making - Lab Data Result diagrams: 07/29/16 23:40 07/29/16 23:40 Lab Results 07/29/16 07/29/16 07/29/16 Range/Units 22:15 23:40 23:40 WBC 11.3 (4.2-12.2) K/uL RBC 4.27 (3.80-5.40) M/uL Hgb 12.3 (11.6-16.0) gm/dl Hct 38.5 (35.0-47.0) % MCV 90.2 (81-97) fl MCH 28.8 (27-33) pg MCHC 31.9 L (32-36) g/dl RDW 13.3 (11.5-14.5) % Plt Count 412 H (130-400) K/uL MPV 9.5 (7.4-10.4) fl Gran % 67.0 (47-80) % Lymphocytes % 25.6 (16-45) % Monocytes % 5.8 (0-9) % Eosinophils % 1.2 (0-6) % Basophils % 0.4 (0-6) % Sodium 143 (136-145) mmol/L Potassium 3.9 (3.5-5.1) mmol/L Chloride 114 H (98-107) mmol/L Carbon Dioxide 20.6 L (22-30) mmol/L Anion Gap 8.4 (7-16) BUN 7 (7-17) mg/dL Creatinine 0.8 (0.52-1.04) mg/dL Estimated GFR > 60 ml/min Random Glucose 96 (70-110) mg/dL Calcium 9.0 (8.5-10.1) mg/dL Total Bilirubin 0.38 (0.2-1.3) mg/dL AST 37 H (14-36) U/L ALT 56 H (9-52) U/L Alkaline Phosphatase 138 H (38-126) U/L Total Protein 7.3 (6.3-8.2) gm/dL Albumin 4.2 (3.5-5.0) gm/dL Globulin 3.1 (1.4-4.8) gm/dL Albumin/Globulin Ratio 1.4 (1.1-1.8) Lipase 119 (23-300) U/L Urine Color Yellow Urine Appearance Clear Urine pH 6.5 (5.0-8.0) Ur Specific [place] <= 1.005 (1.002-1.030) Urine Protein Negative (NEGATIVE) Urine Glucose (UA) Negative (NEGATIVE) Urine Ketones Negative (NEGATIVE) Urine Blood Negative (NEGATIVE) Urine Nitrite Negative (NEGATIVE) Urine Bilirubin Negative (NEGATIVE) Urine Urobilinogen 0.2 (0.20 - 1.00) E.U./dL Ur Leukocyte Esterase Negative (NEGATIVE) Disposition Disposition: Discharge Clinical Impression: Abdominal pain Qualifiers: Abdominal location: right lower quadrant Qualified Code(s): R10.31 - Right lower quadrant pain Disposition: Home, Self-Care Condition: (1) Good Instructions: Abdominal Pain (ED) Additional Instructions: follow up with family doctor. return sooner if worse. Forms: Patient Portal Access
--- NOTE | 2016-08-01 08:16 | CT SCAN REPORT ---
EXAM: CT SCAN ABDOMEN/PELVIS WO CONTRAST HISTORY: RIGHT UPPER QUADRANT PAIN. TECHNIQUE: CT of the abdomen and pelvis was performed without oral or IV contrast. This limits evaluation of bowel and solid visceral organs. COMPARISON: 05/12/16 CT. FINDINGS: Limited evaluation of the lung bases is unremarkable. Osseous structures are grossly intact. Probable fatty infiltrative change to the liver. Status post cholecystectomy. The visualized spleen, adrenal glands, pancreas, and kidneys are unremarkable. Negative for urinary tract calculus or hydronephrosis. No gross evidence for bowel obstruction. No free air or free fluid. Status post appendectomy and hysterectomy. IMPRESSION: PROBABLY FAINT INFILTRATIVE CHANGE TO THE LIVER. POST SURGICAL CHANGES. NEGATIVE FOR URINARY TRACT CALCULUS OR HYDRONEPHROSIS. JOB NUMBER: [id number] [facility]
== END 2016-07-30 01:16 | disposition home or self-care (01) ==
LOC: ER 22:17
DX: R10.31 Right lower quadrant pain (principal)
CPT/HCPCS: 99283 ×2; 96374; 83690; 85025; 80053; 81003; 74176; J1885; J7030

== ENCOUNTER 2016-08-11 23:48 | Emergency (ER) | payer MEDICARE, MEDICAID ==
[2016-08-12] MEDS ORDERED: KETOROLAC 30 MG/ML VIAL IVP ONE (00:56)
[2016-08-12] MEDS ORDERED: DICYCLOMINE HCL 10 MG/ML AMPUL IM ONE ×2 (00:56→01:55)
[2016-08-12] MEDS ORDERED: 0.9 % SODIUM CHLORIDE 1,000 ML BAG IV ONE (00:56)
[2016-08-12 01:24] LABS: BASO % 0.3 % (0-6); EOS % 0.8 % (0-6); GRAN % 69.3 % (47-80); HEMATOCRIT 39.4 % (35.0-47.0); HEMOGLOBIN 12.8 gm/dl (11.6-16.0); LYMPH % 23.4 % (16-45); MEAN CELL VOLUME 89.1 fl (81-97); MEAN CORPUSCULAR HGB CONC 32.5 g/dl (32-36); MEAN PLATELET VOLUME 9.3 fl (7.4-10.4); MONO % 6.2 % (0-9); PLATELET COUNT 484 K/uL (130-400); RED BLOOD COUNT 4.42 M/uL (3.80-5.40); RED CELL DISTRIBUTION WIDTH 13.2 % (11.5-14.5); WHITE BLOOD COUNT W/O DIFF 13.9 K/uL (4.2-12.2)
[2016-08-12 01:26] LABS: URINE APPEARANCE CLEAR; URINE BILIRUBIN NEGATIVE (NEGATIVE); URINE BLOOD NEGATIVE (NEGATIVE); URINE COLOR YELLOW; URINE GLUCOSE (UA) NEGATIVE (NEGATIVE); URINE KETONE NEGATIVE (NEGATIVE); URINE LEUKOCYTE ESTERASE NEGATIVE (NEGATIVE); URINE NITRITE NEGATIVE (NEGATIVE); URINE PROTEIN NEGATIVE (NEGATIVE); URINE UROBILINOGEN 0.2 E.U./dL (0.20 - 1.00)
[2016-08-12 01:35] LABS: ALB/GLOB RATIO 1.4 (1.1-1.8); ALBUMIN 4.5 gm/dL (3.5-5.0); ALKALINE PHOSPHATASE 134 U/L (38-126); ALT/SGPT 39 U/L (9-52); AST/SGOT 23 U/L (14-36); BILIRUBIN,TOTAL 0.32 mg/dL (0.2-1.3); BLOOD UREA NITROGEN 16 mg/dL (7-17); CREATININE 0.9 mg/dL (0.52-1.04); EST GLOMERULAR FILTRATION RATE > 60 ml/min; GLUCOSE,RANDOM 155 mg/dL (70-110); LIPASE 139 U/L (23-300); TOTAL PROTEIN 7.8 gm/dL (6.3-8.2)
[2016-08-12] MEDS ORDERED: PROMETHAZINE HCL 25 MG/ML VIAL IVP ONE (01:55)
--- NOTE | 2016-08-12 02:40 | Emergency Department Record ---
History of Present Illness - General Chief Complaint: Abdominal Pain Stated Complaint: ABDOMINAL PAIN Time Seen by Provider: 08/12/16 00:50 Source: Patient Mode of Arrival: Ambulatory Limitations: No limitations - History of Present Illness Initial Comments: pt had ice cream at 10 tonight and then developed rug abd pain. pt denies lactose intolerance. she has had a cholecystectomy.she has had no n/v/c. she had 1 bout of diarrhea but that is not unusual MD Complaint: Abdominal pain Onset/Timin -: Hour(s) Location: RUQ Radiation: None Migration to: No migration Severity: Moderate Quality: Sharp, Stabbing Consistency: Constant Improves With: Nothing Worsens With: Nothing Context: Other Associated Symptoms: Nausea - Related Data LMP (females 10-50): other Patient : No Hx Age of Menopause: 37 Home Medications Medication Instructions Recorded Confirmed Last Taken Tapentadol HCl [Nucynta] 75 mg PO BID PRN 06/08/15 07/28/16 1 Day Ago ~07/19/16 Prazosin HCl [Minipress] 4 mg PO QHS 09/18/15 07/28/16 1 Day Ago ~07/19/16 Clonazepam [Clonazepam] 1 mg PO QHS 03/02/16 07/28/16 1 Day Ago ~07/19/16 Previous Rx's Medication Instructions Recorded Clotrimazole [Lotrimin AF] 1 gm TP BID #1 tube 07/20/16 Allergies Allergy/AdvReac Type Severity Reaction Status Date / Time [id number] Antimigraine Allergy Severe HEADACHE Unverified 08/04/16 17:15 Agents Lkbfdvd-Wub-Wxb Reductase Allergy Intermediate JOINT ACHES Unverified 08/04/16 17:15 Inhibitor medical tape AdvReac Mild RASH Uncoded 07/20/16 18:33 Travel Screening - Travel/Exposure Within Last 30 Days Have you traveled within the last 30 days?: No - Travel/Exposure Within Last Year Have you traveled outside the [place] in the last year?: No - Additonal Travel Details Have you been exposed to anyone with a communicable illness?: No - Travel Symptoms Symptom Screening: None Review of Systems Reviewed: No additional complaints except as noted below Constitutional: Reports: As per HPI. Denies: Chills, Fever, Malaise, Night sweats, Weakness, Weight change Eyes: Reports: As per HPI. Denies: Eye discharge, Eye pain, Photophobia, Vision change ENT: Reports: As per HPI. Denies: Congestion, Dental pain, Ear pain, Epistaxis , Hearing loss, Throat pain Respiratory: Reports: As per HPI. Denies: Cough, Dyspnea, Hemoptysis, Stridor, Wheezes Cardiovascular: Reports: As per HPI. Denies: Arrhythmia, Chest pain, Dyspnea on exertion, Edema, Murmurs, Orthopnea, Palpitations, Paroxysmal nocturnal dyspnea, Rheumatic Fever, Syncope Endocrine: Reports: As per HPI. Denies: Fatigue, Heat or cold intolerance, Polydipsia, Polyuria Gastrointestinal: Reports: As per HPI. Denies: Abdominal pain, Constipation, Diarrhea, Hematemesis, Hematochezia, Melena, Nausea, Vomiting Genitourinary: Reports: As per HPI. Denies: Abnormal menses, Discharge, Dyspareunia, Dysuria, Frequency, Hematuria, Incontinence, Retention, Urgency Musculoskeletal: Reports: As per HPI. Denies: Arthralgia, Back pain, Gout, Joint swelling, Myalgia, Neck pain Skin: Reports: As per HPI. Denies: Bruising, Change in color, Change in hair/ nails, Lesions, Pruritus, Rash Neurological: Reports: As per HPI. Denies: Abnormal gait, Confusion, Headache, Numbness, Paresthesias, Seizure, Tingling, Tremors, Vertigo, Weakness Psychiatric: Reports: As per HPI. Denies: Anxiety, Auditory hallucinations, Depression, Homicidal thoughts, Suicidal thoughts, Visual hallucinations Hematological/Lymphatic: Reports: As per HPI. Denies: Anemia, Blood Clots, Easy bleeding, Easy bruising, Swollen glands Past Medical History - SOCIAL HISTORY Smoking Status: Current every day smoker Alcohol Use: None Drug Use: None - RESPIRATORY Hx Respiratory Disorders: Yes Hx Bronchitis: Yes Hx Pneumonia: Yes Comment:: low O2 when sleeping - CARDIOVASCULAR Hx Cardio Disorders: Yes Hx Chest Pain: Yes Comment:: HYPERLIPIDEMIA - NEURO Hx Neuro Disorders: Yes Hx Headaches: Yes (complex migrane) - GI Hx GI Disorders: Yes Hx Diverticulitis: Yes Hx Reflux: Yes (upper GI) Hx Liver Disease: (Liver biopsy 7-16) Hx Nausea/Vomiting: Yes (with pain) Hx Ulcer: Yes Comment:: fatty liver - Hx Genitourinary Disorders: Yes Comment:: polycystic ovary syndrome - ENDOCRINE Hx Endocrine Disorders: Yes Hx Diabetes: Yes Hx Thyroid Disease: No - MUSCULOSKELETAL Hx Musculoskeletal Disorders: Yes Hx Fibromyalgia: Yes Hx Gout: Yes Comment:: Buldging disc in neck - PSYCH Hx Psych Problems: Yes Hx Anxiety: Yes Hx Depression: Yes Comment:: PTSD - HEMATOLOGY/ONCOLOGY Hx Hematology/Oncology Disorders: No Family Medical History Any Significant Family History?: Yes Hx Cancer: Mother, Grandparents *Diabetes Comment: aunt Hx Heart Disease: Brother/Sister *Heart Comment: Brother Hx Kidney Disease: Children Physical Exam - General General Appearance: Alert, Oriented x3, Cooperative, Mild distress - Head Head exam: Normal inspection - Eye Eye exam: Normal appearance, PERRL, EOMI Pupils: Normal accommodation - ENT ENT exam: Normal exam, Mucous membranes moist, Normal external ear exam, Normal orophraynx, TM's normal bilaterally Ear exam: Normal external inspection. negative: External canal tenderness Nasal Exam: Normal inspection. negative: Discharge, Sinus tenderness Mouth exam: Normal external inspection, Tongue normal Teeth exam: Normal inspection. negative: Dental caries Throat exam: Normal inspection. negative: Tonsillar erythema, Tonsillar exudate - Neck Neck exam: Normal inspection, Full ROM. negative: Tenderness - Respiratory Respiratory exam: Normal lung sounds bilaterally. negative: Respiratory distress - Cardiovascular Cardiovascular Exam: Regular rate, Normal rhythm, Normal heart sounds - GI/Abdominal GI/Abdominal exam: Soft, Normal bowel sounds, Tenderness - Rectal Rectal exam: Deferred - exam: Deferred - Extremities Extremities exam: Normal inspection, Full ROM, Normal capillary refill. negative: Tenderness - Back Back exam: Reports: Normal inspection, Full ROM. Denies: Muscle spasm, Rash noted, Tenderness - Neurological Neurological exam: Alert, Normal gait, Oriented X3, Reflexes normal - Psychiatric Psychiatric exam: Normal affect, Normal mood - Skin Skin exam: Dry, Intact, Normal color, Warm Course Vital Signs 08/12/16 00:00 Temperature 98.8 F Pulse Rate 82 Respiratory 22 Rate Blood Pressure 105/77 Pulse Ox 96 - Reevaluation(s) Reevaluation #1: 08/12/16 02:53 pt feels better Medical Decision Making - Lab Data Result diagrams: 08/12/16 01:15 08/12/16 01:15 Lab Results 08/12/16 08/12/16 08/12/16 Range/Units 01:15 01:15 01:15 WBC 13.9 H (4.2-12.2) K/uL RBC 4.42 (3.80-5.40) M/uL Hgb 12.8 (11.6-16.0) gm/dl Hct 39.4 (35.0-47.0) % MCV 89.1 (81-97) fl MCH 29.0 (27-33) pg MCHC 32.5 (32-36) g/dl RDW 13.2 (11.5-14.5) % Plt Count 484 H (130-400) K/uL MPV 9.3 (7.4-10.4) fl Gran % 69.3 (47-80) % Lymphocytes % 23.4 (16-45) % Monocytes % 6.2 (0-9) % Eosinophils % 0.8 (0-6) % Basophils % 0.3 (0-6) % Sodium 141 (136-145) mmol/L Potassium 3.9 (3.5-5.1) mmol/L Chloride 108 H (98-107) mmol/L Carbon Dioxide 20.0 L (22-30) mmol/L Anion Gap 13.0 (7-16) BUN 16 (7-17) mg/dL Creatinine 0.9 (0.52-1.04) mg/dL Estimated GFR > 60 ml/min Random Glucose 155 H (70-110) mg/dL Calcium 9.4 (8.5-10.1) mg/dL Total Bilirubin 0.32 (0.2-1.3) mg/dL AST 23 (14-36) U/L ALT 39 (9-52) U/L Alkaline Phosphatase 134 H (38-126) U/L Total Protein 7.8 (6.3-8.2) gm/dL Albumin 4.5 (3.5-5.0) gm/dL Globulin 3.3 (1.4-4.8) gm/dL Albumin/Globulin Ratio 1.4 (1.1-1.8) Lipase 139 (23-300) U/L Urine Color Yellow Urine Appearance Clear Urine pH 6.0 (5.0-8.0) Ur Specific [place] 1.010 (1.002-1.030) Urine Protein Negative (NEGATIVE) Urine Glucose (UA) Negative (NEGATIVE) Urine Ketones Negative (NEGATIVE) Urine Blood Negative (NEGATIVE) Urine Nitrite Negative (NEGATIVE) Urine Bilirubin Negative (NEGATIVE) Urine Urobilinogen 0.2 (0.20 - 1.00) E.U./dL Ur Leukocyte Esterase Negative (NEGATIVE) Disposition Disposition: Discharge Clinical Impression: Abdominal pain Qualifiers: Abdominal location: generalized Qualified Code(s): R10.84 - Generalized abdominal pain Disposition: Home, Self-Care Condition: (1) Good Instructions: Abdominal Pain (ED) Additional Instructions: follow up with family doctor. return sooner if worse. recheck in 12-24 hrs if still having abd pain Forms: Patient Portal Access
--- NOTE | 2016-08-13 12:33 | RADIOLOGY REPORT ---
EXAM: ABDOMEN, TWO VIEWS HISTORY: PATIENT HAS A SHARP STABBING PAIN IN THE RIGHT UPPER QUADRANT WHICH BEGAN ABOUT FOUR HOURS AGO. TECHNIQUE: Two views of the abdomen were provided along with the CT scan of the abdomen and pelvis dated 07/29/16. FINDINGS: The bowel gas pattern is nonspecific and nonobstructive. There is no radiographic evidence of free intraperitoneal air. No abnormal calculi are noted. Post surgical changes are identified within the right upper quadrant of the abdomen. IMPRESSION: NONSPECIFIC, NONOBSTRUCTIVE BOWEL GAS PATTERN. JOB NUMBER: [id number] [facility]
== END 2016-08-12 03:05 | disposition home or self-care (01) ==
LOC: ER 23:48
DX: R10.11 Right upper quadrant pain (principal); R11.0 Nausea; R19.7 Diarrhea, unspecified
CPT/HCPCS: 99284 ×2; 96374; 96372; 96375; 96361; 83605; 83690; 85025; 80053; 81003; 74000; J1885; J2550; J7030

== ENCOUNTER 2016-08-15 21:42 | Emergency (ER) | payer MEDICARE, MEDICAID ==
--- NOTE | 2016-08-15 22:19 | Emergency Department Record ---
History of Present Illness - General Chief Complaint: Abdominal Pain Stated Complaint: R SIDE ABD PAIN Time Seen by Provider: 08/15/16 22:04 Source: Patient Mode of Arrival: Ambulatory Limitations: No limitations - History of Present Illness Initial Comments: The patient is here due to worsening of her chronic R sided AP. She has had the pain multiple times and has been to the ER dozens of times for the same issues. She last were here at [facility] on 08/11 and 07/29 for the same thing and had normal labs, plain xray films and a CT on 07/29. Now the pain has returned along with nausea. She denies any vomiting or diarrhea. The patient has had a GILL, APPY, and CHOLY. MD Complaint: Abdominal pain Onset/Timin -: Hour(s) Location: RLQ Radiation: None Migration to: No migration Severity: Moderate Quality: Dull, Sharp, Stabbing Consistency: Constant, Getting worse Improves With: Nothing Worsens With: Nothing Associated Symptoms: Denies other symptoms - Related Data Hx Age of Menopause: 37 Home Medications Medication Instructions Recorded Confirmed Last Taken Tapentadol HCl [Nucynta] 75 mg PO BID PRN 06/08/15 08/15/16 08/14/16 Prazosin HCl [Minipress] 4 mg PO QHS 09/18/15 08/15/16 08/14/16 Clonazepam [Clonazepam] 1 mg PO QHS 03/02/16 08/15/16 08/14/16 Previous Rx's Medication Instructions Recorded Clotrimazole [Lotrimin AF] 1 gm TP BID #1 tube 07/20/16 Allergies Allergy/AdvReac Type Severity Reaction Status Date / Time [id number] Antimigraine Allergy Severe HEADACHE Verified 08/15/16 21:56 Agents Hbdokfh-Apu-Yzz Reductase Allergy Intermediate JOINT ACHES Verified 08/15/16 21: 56 Inhibitor medical tape AdvReac Mild RASH Uncoded 07/20/16 18:33 Travel Screening - Travel/Exposure Within Last 30 Days Have you traveled within the last 30 days?: No - Travel/Exposure Within Last Year Have you traveled outside the [place] in the last year?: No - Additonal Travel Details Have you been exposed to anyone with a communicable illness?: No - Travel Symptoms Symptom Screening: None Review of Systems Constitutional: Denies: Chills, Fever Eyes: Denies: Eye discharge ENT: Denies: Congestion Respiratory: Denies: Cough, Dyspnea Past Medical History - SOCIAL HISTORY Smoking Status: Current every day smoker Alcohol Use: None Drug Use: Occassional Drug Use Detail:: Marijuana - RESPIRATORY Hx Respiratory Disorders: Yes Hx Bronchitis: Yes Hx Pneumonia: Yes Comment:: low O2 when sleeping - CARDIOVASCULAR Hx Cardio Disorders: Yes Hx Chest Pain: Yes Comment:: HYPERLIPIDEMIA - NEURO Hx Neuro Disorders: Yes Hx Headaches: Yes (complex migrane) - GI Hx GI Disorders: Yes Hx Diverticulitis: Yes Hx Reflux: Yes (upper GI) Hx Liver Disease: (Liver biopsy 7-16) Hx Nausea/Vomiting: Yes (with pain) Hx Ulcer: Yes Comment:: fatty liver - Hx Genitourinary Disorders: Yes Comment:: polycystic ovary syndrome - ENDOCRINE Hx Endocrine Disorders: Yes Hx Diabetes: Yes Hx Thyroid Disease: No - MUSCULOSKELETAL Hx Musculoskeletal Disorders: Yes Hx Fibromyalgia: Yes Hx Gout: Yes Comment:: Buldging disc in neck - PSYCH Hx Psych Problems: Yes Hx Anxiety: Yes Hx Depression: Yes Comment:: PTSD - HEMATOLOGY/ONCOLOGY Hx Hematology/Oncology Disorders: No Family Medical History Any Significant Family History?: No Hx Cancer: Mother, Grandparents *Diabetes Comment: aunt Hx Heart Disease: Brother/Sister *Heart Comment: Brother Hx Kidney Disease: Children Physical Exam - General General Appearance: Alert, Oriented x3, Cooperative, No acute distress - Head Head exam: Atraumatic, Normocephalic, Normal inspection - Eye Eye exam: Normal appearance, PERRL - Neck Neck exam: Normal inspection, Full ROM. negative: Tenderness - Respiratory Respiratory exam: Normal lung sounds bilaterally. negative: Respiratory distress - Cardiovascular Cardiovascular Exam: Regular rate, Normal rhythm, Normal heart sounds - GI/Abdominal GI/Abdominal exam: Soft, Normal bowel sounds, Tenderness (There is mild RLQ tenderness.). negative: Distended, Guarding, Rebound, Rigid - Extremities Extremities exam: Normal inspection, Full ROM, Normal capillary refill. negative: Tenderness Course Vital Signs 08/15/16 22:04 Temperature 97.9 F Pulse Rate [ 82 Pulse Ox Probe] Respiratory 18 Rate Blood Pressure 127/89 [Left Arm] Pulse Ox 93 L - Reevaluation(s) Reevaluation #1: The patient is doing better at this time. She feels her pain is resolving and would like to go home. On exam her abdomen is very soft and nontender in all 4 quads. She denies any new issues or problems. 08/15/16 23:08 Medical Decision Making - Lab Data Result diagrams: 08/15/16 22:31 08/15/16 22:31 Disposition Disposition: Discharge Clinical Impression: Chronic pain Qualifiers: Chronic pain type: other chronic pain Qualified Code(s): G89.29 - Other chronic pain Disposition: Home, Self-Care Condition: (1) Good Instructions: Abdominal Pain (ED) Additional Instructions: Please continue your regular medicines and rest. Please see your PCP next week if not better. Return to the ER for any increasing pain, fever, or vomiting. Forms: Patient Portal Access Time of Disposition: 23:08
[2016-08-15] MEDS ORDERED: PROMETHAZINE HCL 25 MG/ML VIAL IVP ONE (22:22)
[2016-08-15] MEDS ORDERED: 0.9 % SODIUM CHLORIDE 1,000 ML BAG IV ONE (22:22)
[2016-08-15] MEDS ORDERED: KETOROLAC 30 MG/ML VIAL IVP ONE (22:22)
[2016-08-15] MEDS ORDERED: DICYCLOMINE HCL 10 MG/ML AMPUL IM ONE (22:22)
[2016-08-15 22:48] LABS: BASO % 0.4 % (0-6); GRAN % 69.7 % (47-80); HEMOGLOBIN 12.5 gm/dl (11.6-16.0); LYMPH % 22.6 % (16-45); MEAN CELL VOLUME 90.3 fl (81-97); MEAN CORPUSCULAR HEMOGLOBIN 28.9 pg (27-33); MEAN CORPUSCULAR HGB CONC 32.1 g/dl (32-36); MEAN PLATELET VOLUME 9.5 fl (7.4-10.4); MONO % 6.3 % (0-9); PLATELET COUNT 488 K/uL (130-400); RED BLOOD COUNT 4.32 M/uL (3.80-5.40); RED CELL DISTRIBUTION WIDTH 13.4 % (11.5-14.5); WHITE BLOOD COUNT W/O DIFF 13.9 K/uL (4.2-12.2)
[2016-08-15 22:49] LABS: URINE APPEARANCE CLEAR; URINE BILIRUBIN NEGATIVE (NEGATIVE); URINE BLOOD NEGATIVE (NEGATIVE); URINE COLOR YELLOW; URINE GLUCOSE (UA) NEGATIVE (NEGATIVE); URINE KETONE NEGATIVE (NEGATIVE); URINE LEUKOCYTE ESTERASE NEGATIVE (NEGATIVE); URINE NITRITE NEGATIVE (NEGATIVE); URINE PROTEIN NEGATIVE (NEGATIVE); URINE UROBILINOGEN 0.2 E.U./dL (0.20 - 1.00)
[2016-08-15 22:55] LABS: ALBUMIN 4.6 gm/dL (3.5-5.0); ALKALINE PHOSPHATASE 141 U/L (38-126); ALT/SGPT 37 U/L (9-52); ANION GAP 10.8 (7-16); AST/SGOT 23 U/L (14-36); BILIRUBIN,TOTAL 0.31 mg/dL (0.2-1.3); BLOOD UREA NITROGEN 12 mg/dL (7-17); CARBON DIOXIDE 23.2 mmol/L (22-30); CREATININE 0.9 mg/dL (0.52-1.04); EST GLOMERULAR FILTRATION RATE > 60 ml/min; GLUCOSE,RANDOM 100 mg/dL (70-110); LIPASE 171 U/L (23-300)
== END 2016-08-15 23:27 | disposition home or self-care (01) ==
LOC: ER 21:42
DX: G89.29 Other chronic pain (principal); R10.31 Right lower quadrant pain; R11.0 Nausea
CPT/HCPCS: 99284 ×2; 96374; 96372; 96375; 83690; 85025; 80076; 80048; 81003; J1885; J2550; J7030

== ENCOUNTER 2016-08-21 22:41 | Emergency (ER) | payer MEDICARE, MEDICAID ==
--- NOTE | 2016-08-21 22:48 | Emergency Department Record ---
History of Present Illness - General Chief Complaint: Abdominal Pain Stated Complaint: RT SIDE ABD CRAMPS Source: Patient - History of Present Illness Initial Comments: The patient states she has more pain of the exact type and location for which she was just recently seen and had a CT scan for. She is not sure what is causing the pain, "they didn't tell me." She denies f,c,n,v,constipation, cp, ana or other problems. She has been seen at this facility this month 5 times now for the same complaint. She has had numerous CT scans for her abdominal pain. Complaint: Abdominal pain - Related Data Hx Age of Menopause: 37 Home Medications Medication Instructions Recorded Confirmed Last Taken Tapentadol HCl [Nucynta] 75 mg PO BID PRN 06/08/15 08/15/16 08/14/16 Prazosin HCl [Minipress] 4 mg PO QHS 09/18/15 08/15/16 08/14/16 Clonazepam [Clonazepam] 1 mg PO QHS 03/02/16 08/15/16 08/14/16 Previous Rx's Medication Instructions Recorded Clotrimazole [Lotrimin AF] 1 gm TP BID #1 tube 07/20/16 Allergies Allergy/AdvReac Type Severity Reaction Status Date / Time [id number] Antimigraine Allergy Severe HEADACHE Verified 08/15/16 21:56 Agents Rdyunba-Dmy-Voy Reductase Allergy Intermediate JOINT ACHES Verified 08/15/16 21: 56 Inhibitor medical tape AdvReac Mild RASH Uncoded 07/20/16 18:33 Review of Systems Reviewed: No additional complaints except as noted below Constitutional: Reports: As per HPI. Denies: Chills, Fever, Malaise, Night sweats, Weakness, Weight change Eyes: Reports: As per HPI. Denies: Eye discharge, Eye pain, Photophobia, Vision change ENT: Reports: As per HPI. Denies: Congestion, Dental pain, Ear pain, Epistaxis , Hearing loss, Throat pain Respiratory: Reports: As per HPI. Denies: Cough, Dyspnea, Hemoptysis, Stridor, Wheezes Cardiovascular: Reports: As per HPI. Denies: Arrhythmia, Chest pain, Dyspnea on exertion, Edema, Murmurs, Orthopnea, Palpitations, Paroxysmal nocturnal dyspnea, Rheumatic Fever, Syncope Endocrine: Reports: As per HPI. Denies: Fatigue, Heat or cold intolerance, Polydipsia, Polyuria Gastrointestinal: Reports: As per HPI. Denies: Abdominal pain, Constipation, Diarrhea, Hematemesis, Hematochezia, Melena, Nausea, Vomiting Genitourinary: Reports: As per HPI. Denies: Abnormal menses, Discharge, Dyspareunia, Dysuria, Frequency, Hematuria, Incontinence, Retention, Urgency Musculoskeletal: Reports: As per HPI. Denies: Arthralgia, Back pain, Gout, Joint swelling, Myalgia, Neck pain Skin: Reports: As per HPI. Denies: Bruising, Change in color, Change in hair/ nails, Lesions, Pruritus, Rash Neurological: Reports: As per HPI. Denies: Abnormal gait, Confusion, Headache, Numbness, Paresthesias, Seizure, Tingling, Tremors, Vertigo, Weakness Psychiatric: Reports: As per HPI. Denies: Anxiety, Auditory hallucinations, Depression, Homicidal thoughts, Suicidal thoughts, Visual hallucinations Hematological/Lymphatic: Reports: As per HPI. Denies: Anemia, Blood Clots, Easy bleeding, Easy bruising, Swollen glands Past Medical History - SOCIAL HISTORY Smoking Status: Current every day smoker Drug Use: Occassional Drug Use Detail:: Marijuana - RESPIRATORY Hx Respiratory Disorders: Yes Hx Bronchitis: Yes Hx Pneumonia: Yes Comment:: low O2 when sleeping - CARDIOVASCULAR Hx Cardio Disorders: Yes Hx Chest Pain: Yes Comment:: HYPERLIPIDEMIA - NEURO Hx Neuro Disorders: Yes Hx Headaches: Yes (complex migrane) - GI Hx GI Disorders: Yes Hx Diverticulitis: Yes Hx Reflux: Yes (upper GI) Hx Liver Disease: (Liver biopsy 7-16) Hx Nausea/Vomiting: Yes (with pain) Hx Ulcer: Yes Comment:: fatty liver - Hx Genitourinary Disorders: Yes Comment:: polycystic ovary syndrome - ENDOCRINE Hx Endocrine Disorders: Yes Hx Diabetes: Yes Hx Thyroid Disease: No - MUSCULOSKELETAL Hx Musculoskeletal Disorders: Yes Hx Fibromyalgia: Yes Hx Gout: Yes Comment:: Buldging disc in neck - PSYCH Hx Psych Problems: Yes Hx Anxiety: Yes Hx Depression: Yes Comment:: PTSD - HEMATOLOGY/ONCOLOGY Hx Hematology/Oncology Disorders: No Family Medical History Hx Cancer: Mother, Grandparents *Diabetes Comment: aunt Hx Heart Disease: Brother/Sister *Heart Comment: Brother Hx Kidney Disease: Children Physical Exam - General General Appearance: Alert, Oriented x3, Cooperative, No acute distress - Head Head exam: Normal inspection - Eye Eye exam: Normal appearance, PERRL Pupils: Normal accommodation - ENT ENT exam: Normal exam, Mucous membranes moist, Normal external ear exam, Normal orophraynx, TM's normal bilaterally Ear exam: Normal external inspection. negative: External canal tenderness Nasal Exam: Normal inspection. negative: Discharge, Sinus tenderness Mouth exam: Normal external inspection, Tongue normal Teeth exam: Normal inspection. negative: Dental caries Throat exam: Normal inspection. negative: Tonsillar erythema, Tonsillar exudate - Neck Neck exam: Normal inspection, Full ROM. negative: Tenderness - Respiratory Respiratory exam: Normal lung sounds bilaterally. negative: Respiratory distress - Cardiovascular Cardiovascular Exam: Regular rate, Normal rhythm, Normal heart sounds - GI/Abdominal GI/Abdominal exam: Soft, Normal bowel sounds, Tenderness (RUQ and RMQ abdominal tenderness on palpation). negative: Distended, Guarding, Hernia, Pulsatile mass , Rebound, Rigid - Rectal Rectal exam: Deferred - exam: Deferred - Extremities Extremities exam: Normal inspection, Full ROM, Normal capillary refill. negative: Tenderness - Back Back exam: Reports: Normal inspection, Full ROM. Denies: Muscle spasm, Rash noted, Tenderness - Neurological Neurological exam: Alert, Normal gait, Oriented X3, Reflexes normal - Psychiatric Psychiatric exam: Normal affect, Normal mood - Skin Skin exam: Dry, Intact, Normal color, Warm Course - Reevaluation(s) Reevaluation #1: all labs normal, nausea has improved. Still hurts right side. 08/21/16 23:44 Reevaluation #2: Patient states she will take a bentyl shot and have her drive her home. She will call him. All labs normal. Nausea resolved. 08/22/16 01:38 08/22/16 01:38 Medical Decision Making - Management Options MDM Management: No Additional Work-up Planned - Data Complexity MDM Data: Labs Ordered and/or Reviewed, Decision to Obtain Old Record, Review and Summary of Old Record Discussed - Lab Data Result diagrams: 08/21/16 23:17 08/21/16 23:17 Disposition Disposition: Discharge Clinical Impression: Abdominal pain, recurrent Disposition: Home, Self-Care Condition: (2) Stable Instructions: Abdominal Pain (ED) Additional Instructions: Follow up with your PCP for further care. Push fluids. Continue present meds as before. Forms: Patient Portal Access
[2016-08-21] MEDS ORDERED: 0.9 % SODIUM CHLORIDE 1,000 ML BAG IV ONE (22:55)
[2016-08-21] MEDS ORDERED: ONDANSETRON HCL IV 4 MG/2 ML VIAL IV ONE (22:55)
[2016-08-21 23:29] LABS: BASO % 0.4 % (0-6); EOS % 1.1 % (0-6); GRAN % 65.9 % (47-80); LYMPH % 24.9 % (16-45); MEAN CELL VOLUME 89.8 fl (81-97); MEAN CORPUSCULAR HEMOGLOBIN 29.1 pg (27-33); MEAN CORPUSCULAR HGB CONC 32.4 g/dl (32-36); MEAN PLATELET VOLUME 9.3 fl (7.4-10.4); MONO % 7.7 % (0-9); PLATELET COUNT 442 K/uL (130-400); RED BLOOD COUNT 4.12 M/uL (3.80-5.40); RED CELL DISTRIBUTION WIDTH 13.1 % (11.5-14.5); WHITE BLOOD COUNT W/O DIFF 10.5 K/uL (4.2-12.2)
[2016-08-21 23:39] LABS: ALBUMIN 4.4 gm/dL (3.5-5.0); ALKALINE PHOSPHATASE 128 U/L (38-126); ALT/SGPT 31 U/L (9-52); AST/SGOT 19 U/L (14-36); BILIRUBIN,TOTAL 0.34 mg/dL (0.2-1.3); BLOOD UREA NITROGEN 12 mg/dL (7-17); EST GLOMERULAR FILTRATION RATE > 60 ml/min; GLUCOSE,RANDOM 114 mg/dL (70-110); LIPASE 127 U/L (23-300); TOTAL PROTEIN 7.4 gm/dL (6.3-8.2)
[2016-08-21] MEDS ORDERED: KETOROLAC 30 MG/ML VIAL IVP ONE (23:44)
[2016-08-21] MEDS ORDERED: PROMETHAZINE HCL 25 MG in 0.9 % SODIUM CHLORIDE 100ML 50 ML IVP ONE (23:44)
[2016-08-22] MEDS ORDERED: DICYCLOMINE HCL 10 MG/ML AMPUL IM ONE (01:33)
== END 2016-08-22 02:05 | disposition home or self-care (01) ==
LOC: ER 22:41
DX: R10.9 Unspecified abdominal pain (principal); R11.0 Nausea
CPT/HCPCS: 99284 ×2; 96374; 96372; 96375; 83690; 85025; 80076; 80048; J1885; J2405; J2550; J7030

== ENCOUNTER 2016-08-26 23:44 | Emergency (ER) | payer MEDICARE, MEDICAID ==
[2016-08-27] MEDS ORDERED: PROMETHAZINE HCL 25 MG/ML VIAL IM ONE (00:48)
[2016-08-27] MEDS ORDERED: KETOROLAC 30 MG/ML VIAL IM ONE (00:48)
[2016-08-27] MEDS ORDERED: ORPHENADRINE CITRATE 60MG/2ML VIAL IM ONE (00:48)
--- NOTE | 2016-08-27 01:15 | Emergency Department Record ---
History of Present Illness - General Chief Complaint: Headache Migraine Stated Complaint: MIGRAINE SINCE YESTERDAY AFTERNOON Time Seen by Provider: 08/27/16 00:36 Source: Patient Mode of Arrival: Ambulatory Limitations: No limitations - History of Present Illness Initial Comments: pt has had a migraine since yesterday which is getting worse. it is just like her typical migraine. she has taken her home meds without relief Complaint: "Migraine" Onset/Timin -: Hour(s) Location: Left Severity: Moderate Severity scale (1-10): 8 Quality: Similar to previous headaches Consistency: Constant Improves With: Nothing Worsens With: None Associated Symptoms: Nausea, Vomiting Treatments Prior to Arrival: Migraine medication - Related Data Home Medications Medication Instructions Recorded Confirmed Last Taken Tapentadol HCl [Nucynta] 75 mg PO BID PRN 06/08/15 08/15/16 08/14/16 Prazosin HCl [Minipress] 4 mg PO QHS 09/18/15 08/15/16 08/14/16 Clonazepam [Clonazepam] 1 mg PO QHS 03/02/16 08/15/16 08/14/16 Previous Rx's Medication Instructions Recorded Clotrimazole [Lotrimin AF] 1 gm TP BID #1 tube 07/20/16 Allergies Allergy/AdvReac Type Severity Reaction Status Date / Time [id number] Antimigraine Allergy Severe HEADACHE Verified 08/15/16 21:56 Agents Wiplsgb-Gbw-Wvd Reductase Allergy Intermediate JOINT ACHES Verified 08/15/16 21: 56 Inhibitor medical tape AdvReac Mild RASH Uncoded 07/20/16 18:33 Travel Screening - Travel/Exposure Within Last 30 Days Have you traveled within the last 30 days?: No - Travel/Exposure Within Last Year Have you traveled outside the [place] in the last year?: No - Additonal Travel Details Have you been exposed to anyone with a communicable illness?: No - Travel Symptoms Symptom Screening: None Review of Systems Reviewed: No additional complaints except as noted below Constitutional: Reports: As per HPI. Denies: Chills, Fever, Malaise, Night sweats, Weakness, Weight change Eyes: Reports: As per HPI. Denies: Eye discharge, Eye pain, Photophobia, Vision change ENT: Reports: As per HPI. Denies: Congestion, Dental pain, Ear pain, Epistaxis , Hearing loss, Throat pain Respiratory: Reports: As per HPI. Denies: Cough, Dyspnea, Hemoptysis, Stridor, Wheezes Cardiovascular: Reports: As per HPI. Denies: Arrhythmia, Chest pain, Dyspnea on exertion, Edema, Murmurs, Orthopnea, Palpitations, Paroxysmal nocturnal dyspnea, Rheumatic Fever, Syncope Endocrine: Reports: As per HPI. Denies: Fatigue, Heat or cold intolerance, Polydipsia, Polyuria Gastrointestinal: Reports: As per HPI. Denies: Abdominal pain, Constipation, Diarrhea, Hematemesis, Hematochezia, Melena, Nausea, Vomiting Genitourinary: Reports: As per HPI. Denies: Abnormal menses, Discharge, Dyspareunia, Dysuria, Frequency, Hematuria, Incontinence, Retention, Urgency Musculoskeletal: Reports: As per HPI. Denies: Arthralgia, Back pain, Gout, Joint swelling, Myalgia, Neck pain Skin: Reports: As per HPI. Denies: Bruising, Change in color, Change in hair/ nails, Lesions, Pruritus, Rash Neurological: Reports: As per HPI. Denies: Abnormal gait, Confusion, Headache, Numbness, Paresthesias, Seizure, Tingling, Tremors, Vertigo, Weakness Psychiatric: Reports: As per HPI. Denies: Anxiety, Auditory hallucinations, Depression, Homicidal thoughts, Suicidal thoughts, Visual hallucinations Hematological/Lymphatic: Reports: As per HPI. Denies: Anemia, Blood Clots, Easy bleeding, Easy bruising, Swollen glands Past Medical History - SOCIAL HISTORY Smoking Status: Current every day smoker Alcohol Use: None Drug Use: None - RESPIRATORY Hx Respiratory Disorders: Yes Hx Bronchitis: Yes Hx Pneumonia: Yes Comment:: low O2 when sleeping - CARDIOVASCULAR Hx Cardio Disorders: Yes Hx Chest Pain: Yes Comment:: HYPERLIPIDEMIA - NEURO Hx Neuro Disorders: Yes Hx Headaches: Yes (complex migrane) - GI Hx GI Disorders: Yes Hx Diverticulitis: Yes Hx Reflux: Yes (upper GI) Hx Liver Disease: (Liver biopsy 7-16) Hx Nausea/Vomiting: Yes (with pain) Hx Ulcer: Yes Comment:: fatty liver - Hx Genitourinary Disorders: Yes Comment:: polycystic ovary syndrome - ENDOCRINE Hx Endocrine Disorders: Yes Hx Diabetes: Yes Hx Thyroid Disease: No - MUSCULOSKELETAL Hx Musculoskeletal Disorders: Yes Hx Fibromyalgia: Yes Hx Gout: Yes Comment:: Buldging disc in neck - PSYCH Hx Psych Problems: Yes Hx Anxiety: Yes Hx Depression: Yes Comment:: PTSD - HEMATOLOGY/ONCOLOGY Hx Hematology/Oncology Disorders: No Family Medical History Any Significant Family History?: Yes Hx Cancer: Mother, Grandparents *Diabetes Comment: aunt Hx Heart Disease: Brother/Sister *Heart Comment: Brother Hx Kidney Disease: Children Physical Exam - General General Appearance: Alert, Oriented x3, Cooperative, Mild distress - Head Head exam: Normal inspection - Eye Eye exam: Normal appearance, PERRL, EOMI Pupils: Normal accommodation - ENT ENT exam: Normal exam, Mucous membranes moist, Normal external ear exam, Normal orophraynx Ear exam: Normal external inspection. negative: External canal tenderness Nasal Exam: Normal inspection. negative: Discharge, Sinus tenderness Mouth exam: Normal external inspection, Tongue normal Teeth exam: Normal inspection. negative: Dental caries Throat exam: Normal inspection. negative: Tonsillar erythema, Tonsillar exudate - Neck Neck exam: Normal inspection, Full ROM. negative: Tenderness - Respiratory Respiratory exam: Normal lung sounds bilaterally. negative: Respiratory distress - Cardiovascular Cardiovascular Exam: Regular rate, Normal rhythm, Normal heart sounds - GI/Abdominal GI/Abdominal exam: Soft, Normal bowel sounds. negative: Tenderness - Rectal Rectal exam: Deferred - exam: Deferred - Extremities Extremities exam: Normal inspection, Full ROM, Normal capillary refill. negative: Tenderness - Back Back exam: Reports: Normal inspection, Full ROM. Denies: Muscle spasm, Rash noted, Tenderness - Neurological Neurological exam: Alert, CN II-XII intact, Normal gait, Oriented X3 - Psychiatric Psychiatric exam: Normal affect, Normal mood - Skin Skin exam: Dry, Intact, Normal color, Warm Course Vital Signs 08/26/16 08/27/16 23:57 00:00 Temperature 98.3 F 98.3 F Pulse Rate [ 82 Pulse Ox Probe] Respiratory 24 24 Rate Blood Pressure 141/95 [Left Arm] Pulse Ox 99 99 Disposition Disposition: Discharge Clinical Impression: Migraine Qualifiers: Migraine type: unspecified Status migrainosus presence: without status migrainosus Intractability: not intractable Qualified Code(s): G43.909 - Migraine, unspecified, not intractable, without status migrainosus Disposition: Home, Self-Care Condition: (1) Good Instructions: Migraine Headache (ED) Additional Instructions: follow up with family doctor. return sooner if worse Forms: Patient Portal Access
== END 2016-08-27 01:46 | disposition home or self-care (01) ==
LOC: ER 23:44
DX: G43.909 Migraine, unspecified, not intractable, without status migrainosus (principal); R11.2 Nausea with vomiting, unspecified
CPT/HCPCS: 99283 ×2; 96372; J1885; J2360; J2550

== ENCOUNTER 2016-08-29 21:45 | Emergency (ER) | payer MEDICARE, MEDICAID ==
[2016-08-29] MEDS ORDERED: PROMETHAZINE HCL 25 MG in 0.9 % SODIUM CHLORIDE 100ML 50 ML IVP ONE (23:51)
[2016-08-29] MEDS ORDERED: 0.9 % SODIUM CHLORIDE 1,000 ML BAG IV ONE (23:51)
[2016-08-30 00:24] LABS: BASO % 0.4 % (0-6); EOS % 1.2 % (0-6); GRAN % 71.8 % (47-80); HEMATOCRIT 36.7 % (35.0-47.0); HEMOGLOBIN 12.3 gm/dl (11.6-16.0); LYMPH % 21.2 % (16-45); MEAN CELL VOLUME 90.2 fl (81-97); MEAN CORPUSCULAR HEMOGLOBIN 30.2 pg (27-33); MEAN CORPUSCULAR HGB CONC 33.5 g/dl (32-36); MEAN PLATELET VOLUME 9.7 fl (7.4-10.4); MONO % 5.4 % (0-9); PLATELET COUNT 371 K/uL (130-400); RED BLOOD COUNT 4.07 M/uL (3.80-5.40); RED CELL DISTRIBUTION WIDTH 13.5 % (11.5-14.5); WHITE BLOOD COUNT W/O DIFF 13.7 K/uL (4.2-12.2)
[2016-08-30 00:33] LABS: ANION GAP 10.3 (7-16); BLOOD UREA NITROGEN 10 mg/dL (7-17); CARBON DIOXIDE 21.7 mmol/L (22-30); CREATININE 0.9 mg/dL (0.52-1.04); EST GLOMERULAR FILTRATION RATE > 60 ml/min; GLUCOSE,RANDOM 94 mg/dL (70-110)
[2016-08-30] MEDS ORDERED: KETOROLAC 30 MG/ML VIAL IVP ONE (01:01)
--- NOTE | 2016-08-30 01:03 | Emergency Department Record ---
History of Present Illness - General Chief Complaint: Headache Migraine Stated Complaint: MIGRAINE Time Seen by Provider: 08/29/16 23:32 Source: Patient Mode of Arrival: Ambulatory Limitations: No limitations - History of Present Illness Initial Comments: pt states she has had a migraine since 08/25. she was here earlier in the week for it. she states this is lasting longer then usual and feels different as it goes down her neck. she has dry heaves. Complaint: "Migraine" Onset/Timin -: Days(s) Onset Description: Gradual, Other Location: Diffuse Severity scale (1-10): 10 Quality: Aching Consistency: Constant Improves With: Nothing Worsens With: Light, Movement of head/neck, Noise Associated Symptoms: Nausea, Photophobia Treatments Prior to Arrival: Prescription analgesic - Related Data Home Medications Medication Instructions Recorded Confirmed Last Taken Tapentadol HCl [Nucynta] 75 mg PO BID PRN 06/08/15 08/29/16 08/14/16 Prazosin HCl [Minipress] 4 mg PO QHS 09/18/15 08/29/16 08/14/16 Clonazepam [Clonazepam] 1 mg PO QHS 03/02/16 08/29/16 08/14/16 Previous Rx's Medication Instructions Recorded Clotrimazole [Lotrimin AF] 1 gm TP BID #1 tube 07/20/16 Allergies Allergy/AdvReac Type Severity Reaction Status Date / Time [id number] Antimigraine Allergy Severe HEADACHE Verified 08/29/16 23:33 Agents Qbhaodl-Wpb-Irc Reductase Allergy Intermediate JOINT ACHES Verified 08/29/16 23: 33 Inhibitor medical tape AdvReac Mild RASH Uncoded 08/29/16 23:33 Travel Screening - Travel/Exposure Within Last 30 Days Have you traveled within the last 30 days?: No - Travel/Exposure Within Last Year Have you traveled outside the [place] in the last year?: No - Additonal Travel Details Have you been exposed to anyone with a communicable illness?: No - Travel Symptoms Symptom Screening: None Review of Systems Reviewed: No additional complaints except as noted below Constitutional: Reports: As per HPI. Denies: Chills, Fever, Malaise, Night sweats, Weakness, Weight change Eyes: Reports: As per HPI. Denies: Eye discharge, Eye pain, Photophobia, Vision change ENT: Reports: As per HPI. Denies: Congestion, Dental pain, Ear pain, Epistaxis , Hearing loss, Throat pain Respiratory: Reports: As per HPI. Denies: Cough, Dyspnea, Hemoptysis, Stridor, Wheezes Cardiovascular: Reports: As per HPI. Denies: Arrhythmia, Chest pain, Dyspnea on exertion, Edema, Murmurs, Orthopnea, Palpitations, Paroxysmal nocturnal dyspnea, Rheumatic Fever, Syncope Endocrine: Reports: As per HPI. Denies: Fatigue, Heat or cold intolerance, Polydipsia, Polyuria Gastrointestinal: Reports: As per HPI. Denies: Abdominal pain, Constipation, Diarrhea, Hematemesis, Hematochezia, Melena, Nausea, Vomiting Genitourinary: Reports: As per HPI. Denies: Abnormal menses, Discharge, Dyspareunia, Dysuria, Frequency, Hematuria, Incontinence, Retention, Urgency Musculoskeletal: Reports: As per HPI. Denies: Arthralgia, Back pain, Gout, Joint swelling, Myalgia, Neck pain Skin: Reports: As per HPI. Denies: Bruising, Change in color, Change in hair/ nails, Lesions, Pruritus, Rash Neurological: Reports: As per HPI. Denies: Abnormal gait, Confusion, Headache, Numbness, Paresthesias, Seizure, Tingling, Tremors, Vertigo, Weakness Psychiatric: Reports: As per HPI. Denies: Anxiety, Auditory hallucinations, Depression, Homicidal thoughts, Suicidal thoughts, Visual hallucinations Hematological/Lymphatic: Reports: As per HPI. Denies: Anemia, Blood Clots, Easy bleeding, Easy bruising, Swollen glands Past Medical History - SOCIAL HISTORY Smoking Status: Current every day smoker Alcohol Use: None Drug Use: None - RESPIRATORY Hx Respiratory Disorders: Yes Hx Bronchitis: Yes Hx Pneumonia: Yes Comment:: low O2 when sleeping - CARDIOVASCULAR Hx Cardio Disorders: Yes Hx Chest Pain: Yes Comment:: HYPERLIPIDEMIA - NEURO Hx Neuro Disorders: Yes Hx Headaches: Yes (complex migrane) - GI Hx GI Disorders: Yes Hx Diverticulitis: Yes Hx Reflux: Yes (upper GI) Hx Liver Disease: (Liver biopsy 7-16) Hx Nausea/Vomiting: Yes (with pain) Hx Ulcer: Yes Comment:: fatty liver - Hx Genitourinary Disorders: Yes Comment:: polycystic ovary syndrome - ENDOCRINE Hx Endocrine Disorders: Yes Hx Diabetes: Yes Hx Thyroid Disease: No - MUSCULOSKELETAL Hx Musculoskeletal Disorders: Yes Hx Fibromyalgia: Yes Hx Gout: Yes Comment:: Buldging disc in neck - PSYCH Hx Psych Problems: Yes Hx Anxiety: Yes Hx Depression: Yes Comment:: PTSD - HEMATOLOGY/ONCOLOGY Hx Hematology/Oncology Disorders: No Family Medical History Any Significant Family History?: No Hx Cancer: Mother, Grandparents *Diabetes Comment: aunt Hx Heart Disease: Brother/Sister *Heart Comment: Brother Hx Kidney Disease: Children Physical Exam - General General Appearance: Alert, Oriented x3, Cooperative, Mild distress - Head Head exam: Normal inspection - Eye Eye exam: Normal appearance, PERRL, EOMI Pupils: Normal accommodation - ENT ENT exam: Normal exam, Mucous membranes moist, Normal external ear exam, Normal orophraynx Ear exam: Normal external inspection. negative: External canal tenderness Nasal Exam: Normal inspection. negative: Discharge, Sinus tenderness Mouth exam: Normal external inspection, Tongue normal Teeth exam: Normal inspection. negative: Dental caries Throat exam: Normal inspection. negative: Tonsillar erythema, Tonsillar exudate - Neck Neck exam: Normal inspection, Full ROM. negative: Tenderness - Respiratory Respiratory exam: Normal lung sounds bilaterally. negative: Respiratory distress - Cardiovascular Cardiovascular Exam: Regular rate, Normal rhythm, Normal heart sounds - GI/Abdominal GI/Abdominal exam: Soft, Normal bowel sounds. negative: Tenderness - Rectal Rectal exam: Deferred - exam: Deferred - Extremities Extremities exam: Normal inspection, Full ROM, Normal capillary refill. negative: Tenderness - Back Back exam: Reports: Normal inspection, Full ROM. Denies: Muscle spasm, Rash noted, Tenderness - Neurological Neurological exam: Alert, CN II-XII intact, Normal gait, Oriented X3 - Psychiatric Psychiatric exam: Normal affect, Normal mood - Skin Skin exam: Dry, Intact, Normal color, Warm Course Vital Signs 08/29/16 08/30/16 23:11 00:47 Temperature 97.7 F Pulse Rate [ 72 78 Pulse Ox Probe] Respiratory 20 18 Rate Blood Pressure 131/86 121/73 [Left Arm] Pulse Ox 97 95 - Reevaluation(s) Reevaluation #1: 08/30/16 01:46 cts neg. pt conts to have schreiber. d/w pt lp for further eval. pt refused Medical Decision Making - Lab Data Result diagrams: 08/30/16 00:00 08/30/16 00:00 Lab Results 08/30/16 08/30/16 Range/Units 00:00 00:00 WBC 13.7 H (4.2-12.2) K/uL RBC 4.07 (3.80-5.40) M/uL Hgb 12.3 (11.6-16.0) gm/dl Hct 36.7 (35.0-47.0) % MCV 90.2 (81-97) fl MCH 30.2 (27-33) pg MCHC 33.5 (32-36) g/dl RDW 13.5 (11.5-14.5) % Plt Count 371 (130-400) K/uL MPV 9.7 (7.4-10.4) fl Gran % 71.8 (47-80) % Lymphocytes % 21.2 (16-45) % Monocytes % 5.4 (0-9) % Eosinophils % 1.2 (0-6) % Basophils % 0.4 (0-6) % Sodium 142 (136-145) mmol/L Potassium 3.7 (3.5-5.1) mmol/L Chloride 110 H (98-107) mmol/L Carbon Dioxide 21.7 L (22-30) mmol/L Anion Gap 10.3 (7-16) BUN 10 (7-17) mg/dL Creatinine 0.9 (0.52-1.04) mg/dL Estimated GFR > 60 ml/min Random Glucose 94 (70-110) mg/dL Calcium 9.1 (8.5-10.1) mg/dL Disposition Disposition: Discharge Clinical Impression: Migraine Qualifiers: Migraine type: unspecified Status migrainosus presence: with status migrainosus Intractability: intractable Qualified Code(s): G43.911 - Migraine, unspecified, intractable, with status migrainosus Disposition: Home, Self-Care Condition: (1) Good Instructions: Migraine Headache (ED) Additional Instructions: follow up with family doctor on wednesday. return sooner if worse Forms: Patient Portal Access Quality - Quality Measures Quality Measures: Headache - Headache: Neuroimaging Quality Measure: Measure #419: Overuse of Neuroimaging Headache: Use of Neuroimaging: CTA, CT, MRA or MRI Ordered w/Medical Reason [ G9536] Neurological Exam: Patient had a normal neurological exam. [G9535] Medical Reason for Exam: Change in Type of Headache, Recent Onset of Severe Headache - Blood Pressure Screening Blood Pressure Classification: Normal BP Reading Systolic Measurement: 110 Diastolic Measurement: 66 Screening for High Blood Pressure: < Normal BP, F/U Not Required > [G8783] Normal BP Follow-up Interventions: No follow-up required
[2016-08-30] MEDS ORDERED: 0.9 % SODIUM CHLORIDE 1,000 ML BAG IV ONE (01:18)
[2016-08-30] MEDS ORDERED: ORPHENADRINE CITRATE 60MG/2ML VIAL IM ONE (01:18)
[2016-08-30] MEDS ORDERED: DIPHENHYDRAMINE HCL IV 50 MG/ML VIAL IVP ONE (01:48)
--- NOTE | 2016-09-01 06:05 | CT SCAN REPORT ---
DATE: 08/29/2016. EXAM: CT OF THE CERVICAL SPINE. HISTORY: Neck pain. TECHNIQUE: Axial CT images of the cervical spine with coronal and sagittal reconstructions. COMPARISON: None. FINDINGS: The C7 level was not entirely included on the examination. Evaluation of spinal canal contents limited due to CT technique. However, as visualized, vertebral body height and alignment is preserved. The atlantoaxial space is preserved. The lateral masses are not displaced. Limited evaluation of extraspinal anatomic structures is unremarkable. IMPRESSION: NEGATIVE FOR ACUTE CERVICAL SPINE ABNORMALITY. JOB NUMBER: [id number] [facility]
--- NOTE | 2016-09-01 06:12 | CT SCAN REPORT ---
DATE: 08/29/2016. EXAM: CT OF THE BRAIN. HISTORY: Injury. TECHNIQUE: CT of the brain without contrast. COMPARISON: Prior CT of the brain from 10/18/2014. FINDINGS: The globes are intact. The paranasal sinuses and mastoid air cells are unremarkable. No displaced or depressed skull fracture. No intra- or extraaxial hemorrhage. CT is limited for the evaluation of acute infarct. No CT evidence for large or territorial acute infarct. No mass, mass effect, or midline shift. The ventricles are symmetric. IMPRESSION: NEGATIVE EXAMINATION. JOB NUMBER: [id number] [facility]
== END 2016-08-30 02:57 | disposition home or self-care (01) ==
LOC: ER 21:45
DX: G43.911 Migraine, unspecified, intractable, with status migrainosus (principal); R11.0 Nausea; H53.149 Visual discomfort, unspecified
CPT/HCPCS: 99284 ×2; 96374; 96372; 96375; 85025; 80048; 72125; 70450; J1885; J1200; J2360; J2550; J7030

== ENCOUNTER 2016-08-31 20:08 | Emergency (ER) | payer MEDICARE, MEDICAID ==
[2016-08-31] MEDS ORDERED: PROMETHAZINE HCL 25 MG/ML VIAL IM ONE (20:32)
[2016-08-31] MEDS ORDERED: HALOPERIDOL LACTATE 5 MG/ML VIAL IM ONE (20:32)
--- NOTE | 2016-08-31 20:39 | Emergency Department Record ---
History of Present Illness - General Chief Complaint: Headache Migraine Stated Complaint: SERVIN Time Seen by Provider: 08/31/16 20:28 Source: Patient Mode of Arrival: Ambulatory Limitations: No limitations - History of Present Illness Initial Comments: 41 yo female returns to ED for recurrent headache symptoms, reports that her migraine headache has been present since August 25. Patient denies fevers, chills, or neck stiffness symptoms. Patient underwent CT imaging 08/30/16 of the head and cervical spine which were grossly unremarkable for an acute process. Patient reports that her headache symptoms are similar to previous. MD Complaint: "Migraine" Onset/Timin -: Days(s) Onset Description: Gradual Location: Diffuse Severity scale (1-10): 10 Quality: Sharp, Throbbing Consistency: Constant Improves With: Nothing Worsens With: Light, Movement of head/neck, Noise Associated Symptoms: Sensitivity to sound Treatments Prior to Arrival: Migraine medication, Prescription analgesic - Symptoms of Stroke Baseline State: Baseline State - Related Data Home Medications Medication Instructions Recorded Confirmed Last Taken Tapentadol HCl [Nucynta] 75 mg PO BID PRN 06/08/15 08/31/16 08/14/16 Prazosin HCl [Minipress] 4 mg PO QHS 09/18/15 08/31/16 08/14/16 Clonazepam [Clonazepam] 1 mg PO QHS 03/02/16 08/31/16 08/14/16 Previous Rx's Medication Instructions Recorded Clotrimazole [Lotrimin AF] 1 gm TP BID #1 tube 07/20/16 Allergies Allergy/AdvReac Type Severity Reaction Status Date / Time [id number] Antimigraine Allergy Severe HEADACHE Verified 08/31/16 20:14 Agents Xrkdoct-Uys-Bsc Reductase Allergy Intermediate JOINT ACHES Verified 08/31/16 20: 14 Inhibitor medical tape AdvReac Mild RASH Uncoded 08/31/16 20:14 Travel Screening - Travel/Exposure Within Last 30 Days Have you traveled within the last 30 days?: No - Travel/Exposure Within Last Year Have you traveled outside the [place] in the last year?: No - Additonal Travel Details Have you been exposed to anyone with a communicable illness?: No - Travel Symptoms Symptom Screening: None Review of Systems Constitutional: Denies: Chills, Fever, Malaise, Night sweats Eyes: Denies: Eye discharge, Eye pain ENT: Denies: Congestion, Ear pain Respiratory: Denies: Cough, Dyspnea Cardiovascular: Denies: Chest pain, Dyspnea on exertion Endocrine: Denies: Fatigue, Heat or cold intolerance Gastrointestinal: Reports: Nausea. Denies: Abdominal pain, Vomiting Genitourinary: Denies: Incontinence, Retention Musculoskeletal: Denies: Arthralgia, Back pain, Gout, Joint swelling Skin: Denies: Bruising, Change in color Neurological: Reports: Headache. Denies: Abnormal gait, Confusion, Seizure Psychiatric: Denies: Anxiety Hematological/Lymphatic: Denies: Anemia, Blood Clots Past Medical History - SOCIAL HISTORY Smoking Status: Current every day smoker Alcohol Use: None Drug Use: Occassional Drug Use Detail:: Marijuana - RESPIRATORY Hx Respiratory Disorders: Yes Hx Bronchitis: Yes Hx Pneumonia: Yes Comment:: low O2 when sleeping - CARDIOVASCULAR Hx Cardio Disorders: Yes Hx Chest Pain: Yes Comment:: HYPERLIPIDEMIA - NEURO Hx Neuro Disorders: Yes Hx Headaches: Yes (complex migrane) - GI Hx GI Disorders: Yes Hx Diverticulitis: Yes Hx Reflux: Yes (upper GI) Hx Liver Disease: (Liver biopsy 7-16) Hx Nausea/Vomiting: Yes (with pain) Hx Ulcer: Yes Comment:: fatty liver - Hx Genitourinary Disorders: Yes Comment:: polycystic ovary syndrome - ENDOCRINE Hx Endocrine Disorders: Yes Hx Diabetes: Yes Hx Thyroid Disease: No - MUSCULOSKELETAL Hx Musculoskeletal Disorders: Yes Hx Fibromyalgia: Yes Hx Gout: Yes Comment:: Buldging disc in neck - PSYCH Hx Psych Problems: Yes Hx Anxiety: Yes Hx Depression: Yes Comment:: PTSD - HEMATOLOGY/ONCOLOGY Hx Hematology/Oncology Disorders: No Family Medical History Any Significant Family History?: No Hx Cancer: Mother, Grandparents *Diabetes Comment: aunt Hx Heart Disease: Brother/Sister *Heart Comment: Brother Hx Kidney Disease: Children Physical Exam - General General Appearance: Alert, Oriented x3, Cooperative, Other (patient is tearful on examination, emotional regarding her headache pain symptoms) Limitations: No limitations - Head Head exam: Atraumatic, Normocephalic, Normal inspection Head exam detail: negative: Abrasion, Contusion, Espinosa's sign, General tenderness, Hematoma, Laceration - Eye Eye exam: Normal appearance. negative: Conjunctival injection, Periorbital swelling, Periorbital tenderness, Scleral icterus - ENT Ear exam: negative: Auricular hematoma, Auricular trauma Nasal Exam: negative: Active bleeding, Discharge, Dried blood, Foreign body Mouth exam: negative: Drooling, Laceration, Muffled voice, Tongue elevation - Neck Neck exam: Normal inspection. negative: Meningismus, Tenderness - Respiratory Respiratory exam: Normal lung sounds bilaterally. negative: Rales, Respiratory distress, Rhonchi, Stridor - Cardiovascular Cardiovascular Exam: Regular rate, Normal rhythm, Normal heart sounds - GI/Abdominal GI/Abdominal exam: Soft. negative: Rebound, Rigid, Tenderness - Rectal Rectal exam: Deferred - exam: Deferred - Extremities Extremities exam: Normal inspection. negative: Pedal edema, Tenderness - Back Back exam: Denies: CVA tenderness (R), CVA tenderness (L) - Neurological Neurological exam: Alert, Normal gait, Oriented X3 - Psychiatric Psychiatric exam: Normal affect, Normal mood - Skin Skin exam: Normal color. negative: Abrasion Type of lesion: negative: abrasion Course Vital Signs 08/31/16 20:12 Temperature 98.4 F Pulse Rate 77 Respiratory 20 Rate Blood Pressure 126/85 Pulse Ox 99 - Reevaluation(s) Reevaluation #1: 08/31/16 22:17 Patient reassessed and reports that she is feeling much better. Patient appears stable for discharge at this time with instructions to follow-up with her PCP in 3-5 days as directed. Disposition Disposition: Discharge Clinical Impression: Headache Qualifiers: Headache type: unspecified Headache chronicity pattern: acute headache Intractability: not intractable Qualified Code(s): R51 - Headache Disposition: Home, Self-Care Condition: (2) Stable Instructions: Acute Headache (ED) Additional Instructions: Return to ED if your symptoms worsen or if you have any concerns. Follow-up with Dr. Dominique in 3-5 days as directed. Forms: Patient Portal Access Time of Disposition: 20:39 Quality - Quality Measures Quality Measures: N/A - Blood Pressure Screening Blood Pressure Classification: Pre-Hypertensive BP Reading Systolic Measurement: 126 Diastolic Measurement: 85 Screening for High Blood Pressure: < Pre-Hypertensive BP, F/U Documented > [ G8950] Pre-Hypertensive Follow-up Interventions: Referral to alternative/primary care provider.
[2016-08-31] MEDS ORDERED: KETOROLAC 30 MG/ML VIAL IM ONE (21:25)
== END 2016-08-31 22:22 | disposition home or self-care (01) ==
LOC: ER 20:08
DX: R51 Headache (principal)
CPT/HCPCS: 99283 ×2; 96372; J1885; J1630; J2550

== ENCOUNTER 2016-09-04 02:46 | Emergency (ER) | payer MEDICARE, MEDICAID ==
[2016-09-04] MEDS ORDERED: HYOSCYAMINE SULFATE ODT 0.125 MG TAB.SUBL SL ONE (02:55)
--- NOTE | 2016-09-04 03:02 | Emergency Department Record ---
History of Present Illness - General Chief Complaint: Abdominal Pain Stated Complaint: RIGHT SIDE PAIN Time Seen by Provider: 09/04/16 02:47 Source: Patient Mode of Arrival: Ambulatory Limitations: No limitations - History of Present Illness Initial Comments: 41 yo female presents with right sided pain after a bowel movement. She reports having a bowel movement at 00:30. A crampy right sided pain started after that. No fever or vomiting. No diarrhea. No blood in the stools. She has had prior appy, cholecystectomy, histerectiomy. She had a CT in July that was normal at that time. She has IBS. MD Complaint: Abdominal pain -: Hour(s) (2) Location: RUQ Radiation: RUQ Migration to: RUQ Severity: Moderate Quality: Cramping Consistency: Constant Improves With: Nothing Worsens With: Other (bowel movement) Associated Symptoms: Denies other symptoms - Related Data Hx Age of Menopause: 37 Home Medications Medication Instructions Recorded Confirmed Last Taken Tapentadol HCl [Nucynta] 75 mg PO BID PRN 06/08/15 09/04/16 08/14/16 Prazosin HCl [Minipress] 4 mg PO QHS 09/18/15 09/04/16 08/14/16 Clonazepam [Clonazepam] 1 mg PO QHS 03/02/16 09/04/16 08/14/16 Previous Rx's Medication Instructions Recorded Clotrimazole [Lotrimin AF] 1 gm TP BID #1 tube 07/20/16 Allergies Allergy/AdvReac Type Severity Reaction Status Date / Time [id number] Antimigraine Allergy Severe HEADACHE Verified 08/31/16 20:14 Agents Wrmfilv-Smd-Xzj Reductase Allergy Intermediate JOINT ACHES Verified 08/31/16 20: 14 Inhibitor medical tape AdvReac Mild RASH Uncoded 08/31/16 20:14 Review of Systems Constitutional: Denies: Chills, Fever, Malaise, Weakness Eyes: Denies: Eye discharge ENT: Denies: Congestion, Throat pain Respiratory: Denies: Cough, Dyspnea, Wheezes Cardiovascular: Denies: Chest pain, Palpitations, Syncope Endocrine: Denies: Fatigue Gastrointestinal: Reports: As per HPI, Abdominal pain. Denies: Constipation, Diarrhea, Hematemesis, Hematochezia, Nausea, Vomiting Genitourinary: Denies: Dysuria, Hematuria Musculoskeletal: Denies: Arthralgia, Back pain, Neck pain Skin: Denies: Bruising, Change in color, Rash Neurological: Denies: Headache, Numbness, Vertigo, Weakness Psychiatric: Reports: Anxiety Hematological/Lymphatic: Denies: Blood Clots, Easy bleeding, Easy bruising, Swollen glands Past Medical History - SOCIAL HISTORY Drug Use: Occasional - RESPIRATORY Hx Respiratory Disorders: Yes Hx Bronchitis: Yes Hx Pneumonia: Yes Comment:: low O2 when sleeping - CARDIOVASCULAR Hx Cardio Disorders: Yes Hx Chest Pain: Yes Comment:: HYPERLIPIDEMIA - NEURO Hx Neuro Disorders: Yes Hx Headaches: Yes (complex migrane) - GI Hx GI Disorders: Yes Hx Diverticulitis: Yes Hx Reflux: Yes (upper GI) Hx Liver Disease: (Liver biopsy 7-16) Hx Nausea/Vomiting: Yes (with pain) Hx Ulcer: Yes Comment:: fatty liver - Hx Genitourinary Disorders: Yes Comment:: polycystic ovary syndrome - ENDOCRINE Hx Endocrine Disorders: Yes Hx Diabetes: Yes Hx Thyroid Disease: No - MUSCULOSKELETAL Hx Musculoskeletal Disorders: Yes Hx Fibromyalgia: Yes Hx Gout: Yes Comment:: Buldging disc in neck - PSYCH Hx Psych Problems: Yes Hx Anxiety: Yes Hx Depression: Yes Comment:: PTSD - HEMATOLOGY/ONCOLOGY Hx Hematology/Oncology Disorders: No Family Medical History Hx Cancer: Mother, Grandparents *Diabetes Comment: aunt Hx Heart Disease: Brother/Sister *Heart Comment: Brother Hx Kidney Disease: Children Physical Exam - General General Appearance: Alert, Oriented x3, Cooperative, No acute distress Limitations: No limitations - Head Head exam: Normal inspection - Eye Eye exam: Normal appearance. negative: Conjunctival injection, Scleral icterus - ENT ENT exam: Normal exam Ear exam: Normal external inspection Nasal Exam: Normal inspection Mouth exam: Normal external inspection - Neck Neck exam: Normal inspection, Full ROM. negative: Tenderness - Respiratory Respiratory exam: Normal lung sounds bilaterally. negative: Respiratory distress - Cardiovascular Cardiovascular Exam: Regular rate, Normal rhythm, Normal heart sounds - GI/Abdominal GI/Abdominal exam: Soft, Normal bowel sounds. negative: Diminished bowel sounds , Distended, Guarding, Hernia, Hyperactive bowel sounds, Hypoactive bowel sounds , Rigid, Tenderness - Rectal Rectal exam: Deferred - exam: Deferred - Extremities Extremities exam: Normal inspection, Full ROM, Normal capillary refill. negative: Tenderness - Neurological Neurological exam: Alert, Normal gait, Oriented X3 - Psychiatric Psychiatric exam: Normal affect, Normal mood. negative: Agitated, Anxious - Skin Skin exam: Dry, Intact, Normal color, Warm Course - Reevaluation(s) Reevaluation #1: EMR reviewed Most recent of [address]'s was in July. No acute process. No stones at that time. Vitals reviewed No fever. 09/04/16 03:01 09/04/16 03:03 I discusses with the patient labs and UA initially Given her prior CT radiation exposure this should only be performed with great caution or if high risk signs develop Reevaluation #2: 09/04/16 03:40 The labs were reviewed On the CBC the WBC is 11 The CMP and lipase were reviewed Alk Phos is 140 Medical Decision Making - Lab Data Result diagrams: 09/04/16 03:05 09/04/16 03:05 Disposition Disposition: Discharge Clinical Impression: Abdominal pain Qualifiers: Abdominal location: right upper quadrant Qualified Code(s): R10.11 - Right upper quadrant pain Condition: (1) Good Instructions: Abdominal Pain (ED) Additional Instructions: Call your doctor tomorrow morning to schedule a close follow up Return to the ER if worse, fever, vomiting or concerns Avoid fried or fatty foods for the next 1-2 days. Stay well hydrated. Forms: Patient Portal Access Time of Disposition: 03:51 Quality - Quality Measures Quality Measures: N/A - Blood Pressure Screening View Details: Yes Blood Pressure Classification: Pre-Hypertensive BP Reading Systolic Measurement: 130 Diastolic Measurement: 85 Screening for High Blood Pressure: < Pre-Hypertensive BP, F/U Documented > [ G8950] Pre-Hypertensive Follow-up Interventions: Referral to alternative/primary care provider.
[2016-09-04 03:23] LABS: BASO % 0.3 % (0-6); GRAN % 68.5 % (47-80); HEMOGLOBIN 12.8 gm/dl (11.6-16.0); LYMPH % 24.5 % (16-45); MEAN CELL VOLUME 89.8 fl (81-97); MEAN CORPUSCULAR HEMOGLOBIN 30.3 pg (27-33); MEAN CORPUSCULAR HGB CONC 33.7 g/dl (32-36); MEAN PLATELET VOLUME 9.2 fl (7.4-10.4); MONO % 5.7 % (0-9); PLATELET COUNT 447 K/uL (130-400); RED BLOOD COUNT 4.23 M/uL (3.80-5.40); RED CELL DISTRIBUTION WIDTH 13.5 % (11.5-14.5); WHITE BLOOD COUNT W/O DIFF 11.4 K/uL (4.2-12.2)
[2016-09-04 03:35] LABS: ALB/GLOB RATIO 1.4 (1.1-1.8); ALBUMIN 4.5 gm/dL (3.5-5.0); ALKALINE PHOSPHATASE 140 U/L (38-126); ALT/SGPT 47 U/L (9-52); ANION GAP 14.9 (7-16); AST/SGOT 22 U/L (14-36); BILIRUBIN,TOTAL 0.67 mg/dL (0.2-1.3); BLOOD UREA NITROGEN 8 mg/dL (7-17); CARBON DIOXIDE 21.1 mmol/L (22-30); CREATININE 0.8 mg/dL (0.52-1.04); EST GLOMERULAR FILTRATION RATE > 60 ml/min; GLUCOSE,RANDOM 105 mg/dL (70-110); LIPASE 81 U/L (23-300); TOTAL PROTEIN 7.7 gm/dL (6.3-8.2)
[2016-09-04 03:38] LABS: URINE APPEARANCE CLEAR; URINE BILIRUBIN NEGATIVE (NEGATIVE); URINE BLOOD NEGATIVE (NEGATIVE); URINE COLOR YELLOW; URINE GLUCOSE (UA) NEGATIVE (NEGATIVE); URINE KETONE NEGATIVE (NEGATIVE); URINE LEUKOCYTE ESTERASE NEGATIVE (NEGATIVE); URINE NITRITE NEGATIVE (NEGATIVE); URINE PROTEIN NEGATIVE (NEGATIVE); URINE UROBILINOGEN 0.2 E.U./dL (0.20 - 1.00)
[2016-09-04] MEDS ORDERED: KETOROLAC 30 MG/ML VIAL IM ONE (03:53)
== END 2016-09-04 04:13 | disposition home or self-care (01) ==
LOC: ER 02:46
DX: R10.11 Right upper quadrant pain (principal)
CPT/HCPCS: 99283; 96372; 99284; 83690; 85025; 80053; 81003; J1980; J1885

== ENCOUNTER 2016-09-11 02:18 | Emergency (ER) | payer MEDICARE, MEDICAID ==
[2016-09-11] MEDS ORDERED: PROMETHAZINE HCL 25 MG/ML VIAL IM ONE (02:32)
--- NOTE | 2016-09-11 02:32 | Emergency Department Record ---
History of Present Illness - General Chief complaint: Nausea, Vomiting, Diarrhea Stated complaint: NAUSEA/VOMITING Time Seen by Provider: 09/11/16 02:19 Source: Patient, Family Mode of Arrival: Ambulatory Limitations: No limitations - History of Present Illness Initial comments: 41 yo female presents with nausea and vomiting this morning. She expresses a worry that she ate bad chocolate snickers bar. No blood in the vomit. The onset was about 1 hour prior to arrival. No diarrhea. No other sick contacts at home. She did not try any treatments at home prior to arrival. The snicker bars did were not but had an odd dried appearance. She was asymptomatic prior to eating the bar. PCP Catina. complaint: Nausea, Vomiting Description of Vomiting: Watery Location: Epigastric Radiation: None Severity: Moderate Quality: Aching, Cramping Consistency: Constant Improves with: None Worsens with: Eating Context: Possible food poisoning, Other Associated Symptoms: Nausea/vomiting - Related Data Home Medications Medication Instructions Recorded Confirmed Last Taken Tapentadol HCl [Nucynta] 75 mg PO BID PRN 06/08/15 09/11/16 08/14/16 Prazosin HCl [Minipress] 4 mg PO QHS 09/18/15 09/11/16 08/14/16 Clonazepam [Clonazepam] 1 mg PO QHS 03/02/16 09/11/16 08/14/16 Previous Rx's Medication Instructions Recorded Clotrimazole [Lotrimin AF] 1 gm TP BID #1 tube 07/20/16 Promethazine HCl [Phenergan] 12.5 mg PO 1-2XD PRN #30 tab 09/11/16 Allergies Allergy/AdvReac Type Severity Reaction Status Date / Time [id number] Antimigraine Allergy Severe HEADACHE Verified 08/31/16 20:14 Agents Turyfpr-Kdh-Cim Reductase Allergy Intermediate JOINT ACHES Verified 08/31/16 20: 14 Inhibitor medical tape AdvReac Mild RASH Uncoded 08/31/16 20:14 Review of Systems Constitutional: Denies: Chills, Fever, Malaise, Weakness Eyes: Denies: Eye discharge, Eye pain, Photophobia ENT: Denies: Congestion, Throat pain Respiratory: Denies: Cough, Dyspnea, Hemoptysis, Stridor, Wheezes Cardiovascular: Denies: Chest pain, Syncope Endocrine: Denies: Fatigue Gastrointestinal: Reports: Nausea, Vomiting Genitourinary: Denies: Dysuria, Urgency Musculoskeletal: Denies: Arthralgia, Back pain, Myalgia, Neck pain Skin: Denies: Bruising, Change in color, Rash Neurological: Reports: Headache (migraine W[place]ell frequently). Denies: Numbness, Weakness Psychiatric: Reports: Anxiety Hematological/Lymphatic: Denies: Blood Clots, Easy bleeding, Easy bruising, Swollen glands Past Medical History - SOCIAL HISTORY Drug Use: Occasional - RESPIRATORY Hx Respiratory Disorders: Yes Hx Bronchitis: Yes Hx Pneumonia: Yes Comment:: low O2 when sleeping - CARDIOVASCULAR Hx Cardio Disorders: Yes Hx Chest Pain: Yes Comment:: HYPERLIPIDEMIA - NEURO Hx Neuro Disorders: Yes Hx Headaches: Yes (complex migrane) - GI Hx GI Disorders: Yes Hx Diverticulitis: Yes Hx Reflux: Yes (upper GI) Hx Liver Disease: (Liver biopsy 7-16) Hx Nausea/Vomiting: Yes (with pain) Hx Ulcer: Yes Comment:: fatty liver - Hx Genitourinary Disorders: Yes Comment:: polycystic ovary syndrome - ENDOCRINE Hx Endocrine Disorders: Yes Hx Diabetes: Yes Hx Thyroid Disease: No - MUSCULOSKELETAL Hx Musculoskeletal Disorders: Yes Hx Fibromyalgia: Yes Hx Gout: Yes Comment:: Buldging disc in neck - PSYCH Hx Psych Problems: Yes Hx Anxiety: Yes Hx Depression: Yes Comment:: PTSD - HEMATOLOGY/ONCOLOGY Hx Hematology/Oncology Disorders: No Family Medical History Hx Cancer: Mother, Grandparents *Diabetes Comment: aunt Hx Heart Disease: Brother/Sister *Heart Comment: Brother Hx Kidney Disease: Children Physical Exam - General General Appearance: Alert, Oriented x3, Cooperative, No acute distress Limitations: No limitations - Head Head exam: Atraumatic, Normal inspection - Eye Eye exam: Normal appearance. negative: Conjunctival injection, Scleral icterus - ENT ENT exam: Normal exam, Mucous membranes moist Ear exam: Normal external inspection Nasal Exam: Normal inspection Mouth exam: Normal external inspection Teeth exam: Normal inspection - Neck Neck exam: Normal inspection, Full ROM. negative: Tenderness - Respiratory Respiratory exam: Normal lung sounds bilaterally. negative: Respiratory distress - Cardiovascular Cardiovascular Exam: Regular rate, Normal rhythm, Normal heart sounds - GI/Abdominal GI/Abdominal exam: Soft, Normal bowel sounds. negative: Distended, Guarding, Rebound - Rectal Rectal exam: Deferred - exam: Deferred - Extremities Extremities exam: Normal inspection, Full ROM, Normal capillary refill. negative: Tenderness - Back Back exam: Reports: Normal inspection, Full ROM. Denies: Muscle spasm, Rash noted, Tenderness - Neurological Neurological exam: Alert, Normal gait, Oriented X3, Reflexes normal - Psychiatric Psychiatric exam: Normal affect, Normal mood - Skin Skin exam: Dry, Intact, Normal color, Warm Course - Reevaluation(s) Reevaluation #1: IM Phenergan given. The patient typically has Phenergan at home but had run out. Rx for a refill of her Phenergan was sent 09/11/16 02:54 Reevaluation #2: The patient is dong much better without nausea. She tolerated PO without bring on the symptoms. DC home with one Zofran SL if needed and her Phenergan Rx 09/11/16 03:10 Disposition Disposition: Discharge Clinical Impression: Vomiting Qualifiers: Vomiting type: unspecified Vomiting Intractability: non-intractable Nausea presence: with nausea Qualified Code(s): R11.2 - Nausea with vomiting, unspecified Disposition: Home, Self-Care Condition: (1) Good Instructions: Acute Nausea and Vomiting (ED) Additional Instructions: Call your doctor today for close follow up Return if worse, unable to keep down fluids, fever, blood in the vomit or stools Rest and stay well hydrated Prescriptions: Promethazine HCl [Phenergan] 12.5 mg PO 1-2XD PRN #30 tab PRN Reason: Nausea Forms: Patient Portal Access Time of Disposition: 03:10 Quality - Quality Measures Quality Measures: N/A - Blood Pressure Screening Blood Pressure Classification: Pre-Hypertensive BP Reading Systolic Measurement: 134 Diastolic Measurement: 80 Screening for High Blood Pressure: < Pre-Hypertensive BP, F/U Documented > [ G8950] Pre-Hypertensive Follow-up Interventions: Referral to alternative/primary care provider.
[2016-09-11] MEDS ORDERED: ONDANSETRON 4 MG ODT TABLET SL ONE (03:09)
== END 2016-09-11 03:15 | disposition home or self-care (01) ==
LOC: ER 02:18
DX: R11.2 Nausea with vomiting, unspecified (principal); R10.13 Epigastric pain
CPT/HCPCS: 96372; 99283; J2550

== ENCOUNTER 2016-09-26 00:08 | Emergency (ER) | payer MEDICARE, MEDICAID ==
[2016-09-26] MEDS ORDERED: PREDNISONE 20 MG TAB PO ONE (00:50)
--- NOTE | 2016-09-26 00:53 | Emergency Department Record ---
History of Present Illness - General Chief complaint: Rash Stated complaint: BUG BITE/RASH ON NECK Time Seen by Provider: 09/26/16 00:50 Source: Patient Mode of Arrival: Ambulatory Limitations: No limitations - History of Present Illness Initial comments: 41 yo female presents to ED for evaluation of a bug bite to the right neck that occurred 6 days ago, patient reports "swelling and hives" to the neck since that time. Patient reports taking Benadryl for her symptoms that have not improved. Patient denies fevers, chills, or recent illness. MD complaint: Insect bite/sting Onset/Timin -: Days(s) Hx Tetanus Toxoid Vaccination: No Year of Tetanus Vaccination: unknown Location: Neck Severity: Moderate Consistency: Constant Improves with: None Worsens with: None Context: None Associated symptoms: Denies other symptoms Treatments Prior to Arrival: Benadryl Treatment Prior to Arrival Comment:: pt took benedryl last dose 09/25/16 - Related Data Home Medications Medication Instructions Recorded Confirmed Last Taken Tapentadol HCl [Nucynta] 75 mg PO BID PRN 06/08/15 09/11/16 08/14/16 Prazosin HCl [Minipress] 4 mg PO QHS 09/18/15 09/11/16 08/14/16 Clonazepam [Clonazepam] 1 mg PO QHS 03/02/16 09/11/16 08/14/16 Previous Rx's Medication Instructions Recorded Clotrimazole [Lotrimin AF] 1 gm TP BID #1 tube 07/20/16 Prednisone [Prednisone 20Mg] 20 mg PO TID #14 tab 09/26/16 Allergies Allergy/AdvReac Type Severity Reaction Status Date / Time [id number] Antimigraine Allergy Severe HEADACHE Verified 09/26/16 00:21 Agents Bubszsy-Qbb-Lgi Reductase Allergy Intermediate JOINT ACHES Verified 09/26/16 00: 21 Inhibitor medical tape AdvReac Mild RASH Uncoded 09/26/16 00:21 Travel Screening - Travel/Exposure Within Last 30 Days Have you traveled within the last 30 days?: No Review of Systems Constitutional: Denies: Chills, Fever, Malaise, Night sweats Eyes: Denies: Eye discharge, Eye pain ENT: Denies: Congestion, Ear pain, Epistaxis Respiratory: Denies: Cough, Dyspnea Cardiovascular: Denies: Chest pain, Dyspnea on exertion Endocrine: Denies: Fatigue, Heat or cold intolerance Gastrointestinal: Denies: Abdominal pain, Nausea, Vomiting Genitourinary: Denies: Incontinence, Retention Musculoskeletal: Denies: Arthralgia, Back pain, Gout, Joint swelling Skin: Reports: Rash. Denies: Bruising, Change in color Neurological: Denies: Abnormal gait, Confusion, Headache, Seizure Psychiatric: Denies: Anxiety Hematological/Lymphatic: Denies: Anemia, Blood Clots Past Medical History - SOCIAL HISTORY Smoking Status: Current every day smoker Alcohol Use: None Drug Use: Rare Drug Use Detail:: Marijuana - RESPIRATORY Hx Respiratory Disorders: Yes Hx Bronchitis: Yes Hx Pneumonia: Yes Comment:: low O2 when sleeping - CARDIOVASCULAR Hx Cardio Disorders: Yes Hx Chest Pain: Yes Comment:: HYPERLIPIDEMIA - NEURO Hx Neuro Disorders: Yes Hx Headaches: Yes (complex migrane) - GI Hx GI Disorders: Yes Hx Diverticulitis: Yes Hx Reflux: Yes (upper GI) Hx Liver Disease: (Liver biopsy 7-16) Hx Nausea/Vomiting: Yes (with pain) Hx Ulcer: Yes Comment:: fatty liver - Hx Genitourinary Disorders: Yes Comment:: polycystic ovary syndrome - ENDOCRINE Hx Endocrine Disorders: Yes Hx Diabetes: Yes Hx Thyroid Disease: No - MUSCULOSKELETAL Hx Musculoskeletal Disorders: Yes Hx Fibromyalgia: Yes Hx Gout: Yes Comment:: Buldging disc in neck - PSYCH Hx Psych Problems: Yes Hx Anxiety: Yes Hx Depression: Yes Comment:: PTSD - HEMATOLOGY/ONCOLOGY Hx Hematology/Oncology Disorders: No Family Medical History Any Significant Family History?: Yes Hx Cancer: Mother, Grandparents *Diabetes Comment: aunt Hx Heart Disease: Brother/Sister *Heart Comment: Brother Hx Kidney Disease: Children Physical Exam - General General Appearance: Alert, Oriented x3, Cooperative, No acute distress Limitations: No limitations - Head Head exam: Atraumatic, Normocephalic, Normal inspection Head exam detail: negative: Abrasion, Contusion, Espinosa's sign, General tenderness, Hematoma, Laceration - Eye Eye exam: Normal appearance. negative: Conjunctival injection, Periorbital swelling, Periorbital tenderness, Scleral icterus - ENT Ear exam: negative: Auricular hematoma, Auricular trauma Nasal Exam: negative: Active bleeding, Discharge, Dried blood, Foreign body Mouth exam: negative: Drooling, Laceration, Muffled voice, Tongue elevation - Neck Neck exam: Normal inspection. negative: Meningismus, Tenderness - Respiratory Respiratory exam: Normal lung sounds bilaterally. negative: Rales, Respiratory distress, Rhonchi, Stridor - Cardiovascular Cardiovascular Exam: Regular rate, Normal rhythm, Normal heart sounds - GI/Abdominal GI/Abdominal exam: Soft. negative: Rebound, Rigid, Tenderness - Rectal Rectal exam: Deferred - exam: Deferred - Extremities Extremities exam: Normal inspection. negative: Calf tenderness, Pedal edema, Tenderness - Back Back exam: Denies: CVA tenderness (R), CVA tenderness (L) - Neurological Neurological exam: Alert, Normal gait, Oriented X3 - Psychiatric Psychiatric exam: Normal affect, Normal mood - Skin Skin exam: Normal color. negative: Abrasion Type of lesion: Other (? mild hives to the neck on examination) Course - Reevaluation(s) Reevaluation #1: 09/26/16 01:12 On examination, patient appears to have a localized reaction/possible small hives to the neck area. Will treat with prednisone for possible localized reaction. Patient appears stable for discharge at this time. Disposition Disposition: Discharge Clinical Impression: Insect bite Qualifiers: Encounter type: initial encounter Qualified Code(s): W57.XXXA - Bitten or stung by nonvenomous insect and other nonvenomous arthropods, initial encounter Disposition: Home, Self-Care Condition: (2) Stable Instructions: Insect Bite or Sting (ED) Additional Instructions: Return to ED if your symptoms worsen or if you have any concerns. Prednisone as directed. Follow-up with your family doctor in 3-5 days as directed. Prescriptions: Prednisone [Prednisone 20Mg] 20 mg PO TID #14 tab Forms: Patient Portal Access Time of Disposition: 00:52 Quality - Quality Measures Quality Measures: N/A - Blood Pressure Screening Blood Pressure Classification: Pre-Hypertensive BP Reading Systolic Measurement: 121 Diastolic Measurement: 83 Screening for High Blood Pressure: < Pre-Hypertensive BP, F/U Documented > [ G8950] Pre-Hypertensive Follow-up Interventions: Referral to alternative/primary care provider.
== END 2016-09-26 01:01 | disposition home or self-care (01) ==
LOC: ER 00:08
DX: S10.96XA Insect bite of unspecified part of neck, initial encounter (principal); L50.0 Allergic urticaria; W57.XXXA Bitten or stung by nonvenomous insect and other nonvenomous arthropods, initial encounter
CPT/HCPCS: 99282; J7512

== ENCOUNTER 2016-09-30 21:32 | Emergency (ER) | payer MEDICARE, MEDICAID ==
[2016-09-30] MEDS ORDERED: PROMETHAZINE HCL 25 MG/ML VIAL IM ONE (22:39)
[2016-09-30] MEDS ORDERED: KETOROLAC 30 MG/ML VIAL IM ONE (22:39)
[2016-09-30] MEDS ORDERED: ORPHENADRINE CITRATE 60MG/2ML VIAL IM ONE (22:39)
--- NOTE | 2016-09-30 23:19 | Emergency Department Record ---
History of Present Illness - General Chief Complaint: Headache Migraine Stated Complaint: SERVIN Time Seen by Provider: 09/30/16 22:27 Source: Patient Mode of Arrival: Ambulatory Limitations: No limitations - History of Present Illness Initial Comments: pt is having typical migraine MD Complaint: "Migraine" Onset/Timin -: Hour(s) Onset Description: Gradual Location: Diffuse Severity scale (1-10): 8 Quality: Similar to previous headaches Consistency: Constant Improves With: Nothing Worsens With: Light Treatments Prior to Arrival: Antiemetic, Migraine medication, Prescription analgesic Treatment Prior to Arrival Comment:: took fiorecet, benadryl and phenergan FORECLOSURE PAR[place]GAL - Symptoms of Stroke Onset of Symptoms Date: 09/30/16 Onset of Symptoms Time: 18:00 - Related Data Home Medications Medication Instructions Recorded Confirmed Last Taken Tapentadol HCl [Nucynta] 75 mg PO BID PRN 06/08/15 09/11/16 08/14/16 Prazosin HCl [Minipress] 4 mg PO QHS 09/18/15 09/11/16 08/14/16 Clonazepam [Clonazepam] 1 mg PO QHS 03/02/16 09/11/16 08/14/16 Previous Rx's Medication Instructions Recorded Clotrimazole [Lotrimin AF] 1 gm TP BID #1 tube 07/20/16 Prednisone [Prednisone 20Mg] 20 mg PO TID #14 tab 09/26/16 Allergies Allergy/AdvReac Type Severity Reaction Status Date / Time [id number]-8-[id number] Antimigraine Allergy Severe HEADACHE Verified 09/30/16 22:10 Agents Fatawud-Iic-Gog Reductase Allergy Intermediate JOINT ACHES Verified 09/30/16 22: 10 Inhibitor medical tape AdvReac Mild RASH Uncoded 09/30/16 22:10 Travel Screening - Travel/Exposure Within Last 30 Days Have you traveled within the last 30 days?: No - Travel/Exposure Within Last Year Have you traveled outside the [place] in the last year?: No - Additonal Travel Details Have you been exposed to anyone with a communicable illness?: No Review of Systems Reviewed: No additional complaints except as noted below Constitutional: Reports: As per HPI. Denies: Chills, Fever, Malaise, Night sweats, Weakness, Weight change Eyes: Reports: As per HPI. Denies: Eye discharge, Eye pain, Photophobia, Vision change ENT: Reports: As per HPI. Denies: Congestion, Dental pain, Ear pain, Epistaxis , Hearing loss, Throat pain Respiratory: Reports: As per HPI. Denies: Cough, Dyspnea, Hemoptysis, Stridor, Wheezes Cardiovascular: Reports: As per HPI. Denies: Arrhythmia, Chest pain, Dyspnea on exertion, Edema, Murmurs, Orthopnea, Palpitations, Paroxysmal nocturnal dyspnea, Rheumatic Fever, Syncope Endocrine: Reports: As per HPI. Denies: Fatigue, Heat or cold intolerance, Polydipsia, Polyuria Gastrointestinal: Reports: As per HPI. Denies: Abdominal pain, Constipation, Diarrhea, Hematemesis, Hematochezia, Melena, Nausea, Vomiting Genitourinary: Reports: As per HPI. Denies: Abnormal menses, Discharge, Dyspareunia, Dysuria, Frequency, Hematuria, Incontinence, Retention, Urgency Musculoskeletal: Reports: As per HPI. Denies: Arthralgia, Back pain, Gout, Joint swelling, Myalgia, Neck pain Skin: Reports: As per HPI. Denies: Bruising, Change in color, Change in hair/ nails, Lesions, Pruritus, Rash Neurological: Reports: As per HPI. Denies: Abnormal gait, Confusion, Headache, Numbness, Paresthesias, Seizure, Tingling, Tremors, Vertigo, Weakness Psychiatric: Reports: As per HPI. Denies: Anxiety, Auditory hallucinations, Depression, Homicidal thoughts, Suicidal thoughts, Visual hallucinations Hematological/Lymphatic: Reports: As per HPI. Denies: Anemia, Blood Clots, Easy bleeding, Easy bruising, Swollen glands Past Medical History - SOCIAL HISTORY Smoking Status: Current every day smoker Alcohol Use: None Drug Use: Rare Drug Use Detail:: Marijuana - RESPIRATORY Hx Respiratory Disorders: Yes Hx Bronchitis: Yes Hx Pneumonia: Yes Comment:: low O2 when sleeping - CARDIOVASCULAR Hx Cardio Disorders: Yes Hx Chest Pain: Yes Comment:: HYPERLIPIDEMIA - NEURO Hx Neuro Disorders: Yes Hx Headaches: Yes (complex migrane) - GI Hx GI Disorders: Yes Hx Diverticulitis: Yes Hx Reflux: Yes (upper GI) Hx Liver Disease: (Liver biopsy 7-16) Hx Nausea/Vomiting: Yes (with pain) Hx Ulcer: Yes Comment:: fatty liver - Hx Genitourinary Disorders: Yes Comment:: polycystic ovary syndrome - ENDOCRINE Hx Endocrine Disorders: Yes Hx Diabetes: Yes Hx Thyroid Disease: No - MUSCULOSKELETAL Hx Musculoskeletal Disorders: Yes Hx Fibromyalgia: Yes Hx Gout: Yes Comment:: Buldging disc in neck - PSYCH Hx Psych Problems: Yes Hx Anxiety: Yes Hx Depression: Yes Comment:: PTSD - HEMATOLOGY/ONCOLOGY Hx Hematology/Oncology Disorders: No Family Medical History Any Significant Family History?: No Hx Cancer: Mother, Grandparents *Diabetes Comment: aunt Hx Heart Disease: Brother/Sister *Heart Comment: Brother Hx Kidney Disease: Children Physical Exam - General General Appearance: Alert, Oriented x3, Cooperative, Mild distress - Head Head exam: Normal inspection - Eye Eye exam: Normal appearance, PERRL, EOMI Pupils: Normal accommodation - ENT ENT exam: Normal exam, Mucous membranes moist, Normal external ear exam, Normal orophraynx Ear exam: Normal external inspection. negative: External canal tenderness Nasal Exam: Normal inspection. negative: Discharge, Sinus tenderness Mouth exam: Normal external inspection, Tongue normal Teeth exam: Normal inspection. negative: Dental caries Throat exam: Normal inspection. negative: Tonsillar erythema, Tonsillar exudate - Neck Neck exam: Normal inspection, Full ROM. negative: Tenderness - Respiratory Respiratory exam: Normal lung sounds bilaterally. negative: Respiratory distress - Cardiovascular Cardiovascular Exam: Regular rate, Normal rhythm, Normal heart sounds - GI/Abdominal GI/Abdominal exam: Soft, Normal bowel sounds. negative: Tenderness - Rectal Rectal exam: Deferred - exam: Deferred - Extremities Extremities exam: Normal inspection, Full ROM, Normal capillary refill. negative: Tenderness - Back Back exam: Reports: Normal inspection, Full ROM. Denies: Muscle spasm, Rash noted, Tenderness - Neurological Neurological exam: Alert, Normal gait, Oriented X3, Reflexes normal - Psychiatric Psychiatric exam: Normal affect, Normal mood - Skin Skin exam: Dry, Intact, Normal color, Warm Course Vital Signs 09/30/16 09/30/16 21:47 22:45 Temperature 98.3 F 98.1 F Pulse Rate [ 70 75 [employer] ] Respiratory 16 18 Rate Blood Pressure 123/82 113/81 [Right Arm] Pulse Ox 98 96 Disposition Disposition: Discharge Clinical Impression: Migraine Qualifiers: Migraine type: unspecified Status migrainosus presence: without status migrainosus Intractability: not intractable Qualified Code(s): G43.909 - Migraine, unspecified, not intractable, without status migrainosus Disposition: Home, Self-Care Condition: (1) Good Instructions: Migraine Headache (ED) Additional Instructions: follow up with family doctor. return sooner if worse Forms: Patient Portal Access Quality - Quality Measures Quality Measures: N/A - Blood Pressure Screening Does Patient Have Any of the Following: No Blood Pressure Classification: Pre-Hypertensive BP Reading Systolic Measurement: 113 Diastolic Measurement: 81 Screening for High Blood Pressure: < Pre-Hypertensive BP, F/U Documented > [ G8950] Pre-Hypertensive Follow-up Interventions: Follow-up with rescreen every year.
[2016-09-30] MEDS ORDERED: HALOPERIDOL LACTATE 5 MG/ML VIAL IM ONE (23:38)
== END 2016-10-01 00:10 | disposition home or self-care (01) ==
LOC: ER 21:32
DX: G43.909 Migraine, unspecified, not intractable, without status migrainosus (principal)
CPT/HCPCS: 96372; 99283; J1630; J1885; J2360; J2550

== ENCOUNTER 2016-10-05 12:05 | Emergency (ER) | payer MEDICARE, MEDICAID ==
--- NOTE | 2016-10-05 12:31 | Emergency Department Record ---
History of Present Illness - General Chief Complaint: Headache Migraine Stated Complaint: migraine Time Seen by Provider: 10/05/16 12:20 Source: Patient Mode of Arrival: Ambulatory Limitations: No limitations - History of Present Illness Initial Comments: The patient woke up with her typical migraine SERVIN 3 hours ago. The pain is sharp and throbbing over the L eye and head. She is nauseated and the light does bother her eyes. The patient denies any weakness, numbness, or balance issues. She has a LONG hx of migraines and states this is her typical migraine SERVIN. Complaint: Headache Onset/Timin -: Hour(s) Onset Description: Gradual Location: Left Severity: Moderate Severity scale (1-10): 8 Quality: Sharp, Similar to previous headaches Consistency: Constant Treatments Prior to Arrival: Migraine medication, Other Treatment Prior to Arrival Comment:: rita - Symptoms of Stroke Onset of Symptoms Date: 10/05/16 Onset of Symptoms Time: 09:45 Symptom Onset Unknown: No - Related Data Home Medications Medication Instructions Recorded Confirmed Last Taken Tapentadol HCl [Nucynta] 75 mg PO BID PRN 06/08/15 10/05/16 08/14/16 Prazosin HCl [Minipress] 4 mg PO QHS 09/18/15 10/05/16 08/14/16 Clonazepam [Clonazepam] 1 mg PO QHS 03/02/16 10/05/16 08/14/16 Previous Rx's Medication Instructions Recorded Clotrimazole [Lotrimin AF] 1 gm TP BID #1 tube 07/20/16 Prednisone [Prednisone 20Mg] 20 mg PO TID #14 tab 09/26/16 Allergies Allergy/AdvReac Type Severity Reaction Status Date / Time Vspgsgfz-[id number] Antimigraine Allergy Severe HEADACHE Verified 10/05/16 12:43 Agents Baekqcv-Psw-Jai Reductase Allergy Intermediate JOINT ACHES Verified 10/05/16 12: 43 Inhibitor medical tape AdvReac Mild RASH Uncoded 10/05/16 12:43 Travel Screening - Travel/Exposure Within Last 30 Days Have you traveled within the last 30 days?: No - Travel/Exposure Within Last Year Have you traveled outside the [place] in the last year?: No Review of Systems Constitutional: Denies: Chills, Fever Eyes: Denies: Eye discharge ENT: Denies: Congestion Respiratory: Denies: Cough, Dyspnea Past Medical History - SOCIAL HISTORY Smoking Status: Current every day smoker Drug Use: Occasional - RESPIRATORY Hx Respiratory Disorders: Yes Hx Bronchitis: Yes Hx Pneumonia: Yes Comment:: low O2 when sleeping - CARDIOVASCULAR Hx Cardio Disorders: Yes Hx Chest Pain: Yes Comment:: HYPERLIPIDEMIA - NEURO Hx Neuro Disorders: Yes Hx Headaches: Yes (complex migrane) - GI Hx GI Disorders: Yes Hx Diverticulitis: Yes Hx Reflux: Yes (upper GI) Hx Liver Disease: (Liver biopsy 7-16) Hx Nausea/Vomiting: Yes (with pain) Hx Ulcer: Yes Comment:: fatty liver - Hx Genitourinary Disorders: Yes Comment:: polycystic ovary syndrome - ENDOCRINE Hx Endocrine Disorders: Yes Hx Diabetes: Yes Hx Thyroid Disease: No - MUSCULOSKELETAL Hx Musculoskeletal Disorders: Yes Hx Fibromyalgia: Yes Hx Gout: Yes Comment:: Buldging disc in neck - PSYCH Hx Psych Problems: Yes Hx Anxiety: Yes Hx Depression: Yes Comment:: PTSD - HEMATOLOGY/ONCOLOGY Hx Hematology/Oncology Disorders: No Family Medical History Any Significant Family History?: No Hx Cancer: Mother, Grandparents *Diabetes Comment: aunt Hx Heart Disease: Brother/Sister *Heart Comment: Brother Hx Kidney Disease: Children Physical Exam - General General Appearance: Alert, Oriented x3, Cooperative, Mild distress (due to the SERVIN.) - Head Head exam: Atraumatic, Normocephalic, Normal inspection - Eye Eye exam: Normal appearance, PERRL, EOMI. negative: Nystagmus - Neck Neck exam: Normal inspection, Full ROM. negative: Lymphadenopathy, Meningismus (The neck is very supple.), Tenderness - Respiratory Respiratory exam: Normal lung sounds bilaterally. negative: Respiratory distress - Cardiovascular Cardiovascular Exam: Regular rate, Normal rhythm, Normal heart sounds - GI/Abdominal GI/Abdominal exam: Soft, Normal bowel sounds. negative: Tenderness - Extremities Extremities exam: Normal inspection, Full ROM, Normal capillary refill. negative: Tenderness - Neurological Neurological exam: Alert, Normal gait, Oriented X3, Other (Neg Drift and [place]omberg.). negative: Abnormal gait, Altered, Motor sensory deficit - Psychiatric Psychiatric exam: negative: Anxious, Depressed Course Vital Signs 10/05/16 12:09 Temperature 97.8 F Pulse Rate 83 Respiratory 20 Rate Blood Pressure 111/75 Pulse Ox 95 - Reevaluation(s) Reevaluation #1: The patient is doing a lot better at this time. Her pain is resolving and she would like to go home. 10/05/16 13:14 Disposition Disposition: Discharge Clinical Impression: Migraines Qualifiers: Migraine type: unspecified Status migrainosus presence: without status migrainosus Intractability: not intractable Qualified Code(s): G43.909 - Migraine, unspecified, not intractable, without status migrainosus Disposition: Home, Self-Care Condition: (1) Good Instructions: Migraine Headache (ED) Additional Instructions: Please continue your regular medicines. Please see your PCP if needed this week. Return to the ER if worse. Forms: Patient Portal Access Time of Disposition: 13:15 Quality - Quality Measures Quality Measures: N/A - Blood Pressure Screening View Details: Yes Does Patient Have Any of the Following: No Blood Pressure Classification: Normal BP Reading Systolic Measurement: 111 Diastolic Measurement: 75 Screening for High Blood Pressure: < Normal BP, F/U Not Required > [G8783] Pre-Hypertensive Follow-up Interventions: Referral to alternative/primary care provider.
[2016-10-05] MEDS: PROMETHAZINE HCL 25 MG/ML VIAL IM ONE (12:34)
[2016-10-05] MEDS: KETOROLAC 30 MG/ML VIAL IM ONE (12:35)
== END 2016-10-05 13:32 | disposition home or self-care (01) ==
LOC: ER 12:05
DX: G43.909 Migraine, unspecified, not intractable, without status migrainosus (principal); R11.0 Nausea; H53.149 Visual discomfort, unspecified
CPT/HCPCS: 99283 ×2; 96372; J1885; J2550

== ENCOUNTER 2016-10-09 18:17 | Emergency (ER) | payer MEDICARE, MEDICAID ==
[2016-10-09] MEDS ORDERED: PROMETHAZINE HCL 25 MG/ML VIAL IM ONE (19:26)
[2016-10-09] MEDS ORDERED: KETOROLAC 30 MG/ML VIAL IM ONE (19:26)
--- NOTE | 2016-10-09 19:28 | Emergency Department Record ---
History of Present Illness - General Chief Complaint: Headache Migraine Stated Complaint: SERVIN Time Seen by Provider: 10/09/16 19:21 Source: Patient Mode of Arrival: Ambulatory Limitations: No limitations - History of Present Illness Initial Comments: 41 yo female presents with a migraine since 3pm. She has frequent headaches. This is left sided with some ear pain. She is light sensitive as well. No fever. No trauma. This is typical for her. She has nausea without vomiting. She has been referred for Botox but it is too expensive to treat her migraines. PCP Hers[place]. LOVETT Complaint: "Migraine" Onset/Timin -: Hour(s) Onset Description: Gradual Severity: Moderate Severity scale (1-10): 9 Quality: Similar to previous headaches Consistency: Constant Improves With: Nothing Worsens With: Light Associated Symptoms: Nausea, Photophobia Other Symptoms: Other (ear pain) Treatment Prior to Arrival Comment:: benadryl fiorocet and phenergan at 3pm - Related Data Home Medications Medication Instructions Recorded Confirmed Last Taken Tapentadol HCl [Nucynta] 75 mg PO BID PRN 06/08/15 10/05/16 08/14/16 Prazosin HCl [Minipress] 4 mg PO QHS 09/18/15 10/05/16 08/14/16 Clonazepam [Clonazepam] 1 mg PO QHS 03/02/16 10/05/16 08/14/16 Previous Rx's Medication Instructions Recorded Clotrimazole [Lotrimin AF] 1 gm TP BID #1 tube 07/20/16 Prednisone [Prednisone 20Mg] 20 mg PO TID #14 tab 09/26/16 Allergies Allergy/AdvReac Type Severity Reaction Status Date / Time [id number] Antimigraine Allergy Severe HEADACHE Verified 10/05/16 12:43 Agents Awyvnpx-Sno-Sdp Reductase Allergy Intermediate JOINT ACHES Verified 10/05/16 12: 43 Inhibitor medical tape AdvReac Mild RASH Uncoded 10/05/16 12:43 Travel Screening - Travel/Exposure Within Last 30 Days Have you traveled within the last 30 days?: No - Travel/Exposure Within Last Year Have you traveled outside the [place] in the last year?: No - Additonal Travel Details Have you been exposed to anyone with a communicable illness?: No - Travel Symptoms Symptom Screening: None Review of Systems Constitutional: Denies: Chills, Fever, Malaise, Weakness Eyes: Denies: Eye discharge ENT: Reports: Ear pain. Denies: Congestion, Throat pain Respiratory: Denies: Cough, Hemoptysis, Stridor, Wheezes Cardiovascular: Denies: Chest pain, Syncope Endocrine: Denies: Fatigue Gastrointestinal: Denies: Abdominal pain, Diarrhea, Nausea, Vomiting Genitourinary: Denies: Dysuria, Urgency Musculoskeletal: Denies: Arthralgia, Back pain, Myalgia Skin: Denies: Bruising, Change in color, Rash Neurological: Reports: Headache. Denies: Abnormal gait, Confusion, Numbness, Paresthesias, Tingling, Tremors, Vertigo, Weakness Psychiatric: Reports: Anxiety Hematological/Lymphatic: Denies: Blood Clots, Easy bleeding, Easy bruising Past Medical History - SOCIAL HISTORY Smoking Status: Current every day smoker Alcohol Use: None Drug Use: None - RESPIRATORY Hx Respiratory Disorders: Yes Hx Bronchitis: Yes Hx Pneumonia: Yes Comment:: low O2 when sleeping - CARDIOVASCULAR Hx Cardio Disorders: Yes Hx Chest Pain: Yes Comment:: HYPERLIPIDEMIA - NEURO Hx Neuro Disorders: Yes Hx Headaches: Yes (complex migrane) - GI Hx GI Disorders: Yes Hx Diverticulitis: Yes Hx Reflux: Yes (upper GI) Hx Liver Disease: (Liver biopsy 7-16) Hx Nausea/Vomiting: Yes (with pain) Hx Ulcer: Yes Comment:: fatty liver - Hx Genitourinary Disorders: Yes Comment:: polycystic ovary syndrome - ENDOCRINE Hx Endocrine Disorders: Yes Hx Diabetes: Yes Hx Thyroid Disease: No - MUSCULOSKELETAL Hx Musculoskeletal Disorders: Yes Hx Fibromyalgia: Yes Hx Gout: Yes Comment:: Buldging disc in neck - PSYCH Hx Psych Problems: Yes Hx Anxiety: Yes Hx Depression: Yes Comment:: PTSD - HEMATOLOGY/ONCOLOGY Hx Hematology/Oncology Disorders: No Family Medical History Any Significant Family History?: Yes Hx Cancer: Mother, Grandparents *Diabetes Comment: aunt Hx Heart Disease: Brother/Sister *Heart Comment: Brother Hx Kidney Disease: Children Physical Exam - General General Appearance: Alert, Oriented x3, Cooperative, No acute distress Limitations: No limitations - Head Head exam: Atraumatic, Normocephalic, Normal inspection - Eye Eye exam: Normal appearance, PERRL, EOMI. negative: Conjunctival injection, Periorbital swelling, Scleral icterus - ENT ENT exam: Normal exam. negative: Mucous membranes moist Ear exam: Normal external inspection Nasal Exam: Normal inspection Mouth exam: Normal external inspection Teeth exam: Normal inspection - Neck Neck exam: Normal inspection, Full ROM. negative: Tenderness - Respiratory Respiratory exam: Normal lung sounds bilaterally. negative: Respiratory distress - Cardiovascular Cardiovascular Exam: Regular rate, Normal rhythm, Normal heart sounds Peripheral Pulses: 2+: Radial (R), Radial (L) - GI/Abdominal GI/Abdominal exam: Soft. negative: Tenderness - Rectal Rectal exam: Deferred - exam: Deferred - Extremities Extremities exam: Normal inspection, Full ROM, Normal capillary refill. negative: Pedal edema, Tenderness - Back Back exam: Reports: Normal inspection, Full ROM. Denies: Muscle spasm, Rash noted, Tenderness - Neurological Neurological exam: Alert, CN II-XII intact, Normal gait, Oriented X3, Reflexes normal. negative: Altered, Motor sensory deficit - Psychiatric Psychiatric exam: Normal affect, Normal mood - Skin Skin exam: Dry, Intact, Normal color, Warm Course Vital Signs 10/09/16 19:18 Temperature 97.6 F Pulse Rate [ 79 Pulse Ox Probe] Respiratory 18 Rate Blood Pressure 108/61 [Left Arm] Pulse Ox 99 Disposition Disposition: Discharge Clinical Impression: Migraines Qualifiers: Migraine type: unspecified Status migrainosus presence: without status migrainosus Intractability: not intractable Qualified Code(s): G43.909 - Migraine, unspecified, not intractable, without status migrainosus Disposition: Home, Self-Care Condition: (1) Good Instructions: Migraine Headache (ED) Additional Instructions: Call your doctor Wednesday for close follow up Return if you have any concerns or uncontrolled symptoms Forms: Patient Portal Access Time of Disposition: 20:38 Quality - Quality Measures Quality Measures: N/A - Blood Pressure Screening Does Patient Have Any of the Following: No Blood Pressure Classification: Normal BP Reading Systolic Measurement: 91 Diastolic Measurement: 61 Screening for High Blood Pressure: < Normal BP, F/U Not Required > [G8783]
[2016-10-09] MEDS ORDERED: ORPHENADRINE CITRATE 60MG/2ML VIAL IM ONE (20:26)
== END 2016-10-09 20:50 | disposition home or self-care (01) ==
LOC: ER 18:17
DX: G43.909 Migraine, unspecified, not intractable, without status migrainosus (principal); R11.0 Nausea
CPT/HCPCS: 99283 ×2; 96372; J1885; J2360; J2550

== ENCOUNTER 2016-10-12 03:52 | Emergency (ER) | payer MEDICARE, MEDICAID ==
--- NOTE | 2016-10-12 04:14 | Emergency Department Record ---
History of Present Illness - General Chief Complaint: Abdominal Pain Stated Complaint: LEFT SIDE PAIN Time Seen by Provider: 10/12/16 04:05 Source: Patient Mode of Arrival: Ambulatory - History of Present Illness Initial Comments: The patient states that around 12 midnight her LMQ abdomen began to hurt. She is having frequency and oliguria. The pain does not radiate to her back, and is not associated with f,c, nausea, vomiting, diarrhea, or constipation. Onset/Timin -: Hour(s) Location: LUQ Radiation: None Migration to: No migration Severity: Mild Quality: Dull Consistency: Constant Improves With: Nothing Worsens With: Nothing Associated Symptoms: Denies other symptoms - Related Data LMP (females 10-50): other Hx Age of Menopause: 37 Home Medications Medication Instructions Recorded Confirmed Last Taken Tapentadol HCl [Nucynta] 75 mg PO BID PRN 06/08/15 10/05/16 08/14/16 Prazosin HCl [Minipress] 4 mg PO QHS 09/18/15 10/05/16 08/14/16 Clonazepam [Clonazepam] 1 mg PO QHS 03/02/16 10/05/16 08/14/16 Previous Rx's Medication Instructions Recorded Clotrimazole [Lotrimin AF] 1 gm TP BID #1 tube 07/20/16 Prednisone [Prednisone 20Mg] 20 mg PO TID #14 tab 09/26/16 Allergies Allergy/AdvReac Type Severity Reaction Status Date / Time [id number] Antimigraine Allergy Severe HEADACHE Verified 10/05/16 12:43 Agents Qxlhdhm-Drx-Ddi Reductase Allergy Intermediate JOINT ACHES Verified 10/05/16 12: 43 Inhibitor medical tape AdvReac Mild RASH Uncoded 10/05/16 12:43 Travel Screening - Travel/Exposure Within Last 30 Days Have you traveled within the last 30 days?: No - Travel/Exposure Within Last Year Have you traveled outside the [place] in the last year?: No - Additonal Travel Details Have you been exposed to anyone with a communicable illness?: No - Travel Symptoms Symptom Screening: None Review of Systems Reviewed: No additional complaints except as noted below Constitutional: Reports: As per HPI. Denies: Chills, Fever, Malaise, Night sweats, Weakness, Weight change Eyes: Reports: As per HPI. Denies: Eye discharge, Eye pain, Photophobia, Vision change ENT: Reports: As per HPI. Denies: Congestion, Dental pain, Ear pain, Epistaxis , Hearing loss, Throat pain Respiratory: Reports: As per HPI. Denies: Cough, Dyspnea, Hemoptysis, Stridor, Wheezes Cardiovascular: Reports: As per HPI. Denies: Arrhythmia, Chest pain, Dyspnea on exertion, Edema, Murmurs, Orthopnea, Palpitations, Paroxysmal nocturnal dyspnea, Rheumatic Fever, Syncope Endocrine: Reports: As per HPI. Denies: Fatigue, Heat or cold intolerance, Polydipsia, Polyuria Gastrointestinal: Reports: As per HPI. Denies: Abdominal pain, Constipation, Diarrhea, Hematemesis, Hematochezia, Melena, Nausea, Vomiting Genitourinary: Reports: As per HPI. Denies: Abnormal menses, Discharge, Dyspareunia, Dysuria, Frequency, Hematuria, Incontinence, Retention, Urgency Musculoskeletal: Reports: As per HPI. Denies: Arthralgia, Back pain, Gout, Joint swelling, Myalgia, Neck pain Skin: Reports: As per HPI. Denies: Bruising, Change in color, Change in hair/ nails, Lesions, Pruritus, Rash Neurological: Reports: As per HPI. Denies: Abnormal gait, Confusion, Headache, Numbness, Paresthesias, Seizure, Tingling, Tremors, Vertigo, Weakness Psychiatric: Reports: As per HPI. Denies: Anxiety, Auditory hallucinations, Depression, Homicidal thoughts, Suicidal thoughts, Visual hallucinations Hematological/Lymphatic: Reports: As per HPI. Denies: Anemia, Blood Clots, Easy bleeding, Easy bruising, Swollen glands Past Medical History - SOCIAL HISTORY Smoking Status: Current every day smoker Alcohol Use: None Drug Use: None - RESPIRATORY Hx Respiratory Disorders: Yes Hx Bronchitis: Yes Hx Pneumonia: Yes Comment:: low O2 when sleeping - CARDIOVASCULAR Hx Cardio Disorders: Yes Hx Chest Pain: Yes Comment:: HYPERLIPIDEMIA - NEURO Hx Neuro Disorders: Yes Hx Headaches: Yes (complex migrane) - GI Hx GI Disorders: Yes Hx Diverticulitis: Yes Hx Reflux: Yes (upper GI) Hx Liver Disease: (Liver biopsy 7-16) Hx Nausea/Vomiting: Yes (with pain) Hx Ulcer: Yes Comment:: fatty liver - Hx Genitourinary Disorders: Yes Comment:: polycystic ovary syndrome - ENDOCRINE Hx Endocrine Disorders: Yes Hx Diabetes: Yes Hx Thyroid Disease: No - MUSCULOSKELETAL Hx Musculoskeletal Disorders: Yes Hx Fibromyalgia: Yes Hx Gout: Yes Comment:: Buldging disc in neck - PSYCH Hx Psych Problems: Yes Hx Anxiety: Yes Hx Depression: Yes Comment:: PTSD - HEMATOLOGY/ONCOLOGY Hx Hematology/Oncology Disorders: No Family Medical History Any Significant Family History?: Yes Hx Cancer: Mother, Grandparents *Diabetes Comment: aunt Hx Heart Disease: Brother/Sister *Heart Comment: Brother Hx Kidney Disease: Children Physical Exam - General General Appearance: Alert, Oriented x3, Cooperative, Mild distress - Head Head exam: Normal inspection - Eye Eye exam: Normal appearance, PERRL Pupils: Normal accommodation - ENT ENT exam: Normal exam, Mucous membranes moist, Normal external ear exam, Normal orophraynx, TM's normal bilaterally Ear exam: Normal external inspection. negative: External canal tenderness Nasal Exam: Normal inspection. negative: Discharge, Sinus tenderness Mouth exam: Normal external inspection, Tongue normal Teeth exam: Normal inspection. negative: Dental caries Throat exam: Normal inspection. negative: Tonsillar erythema, Tonsillar exudate - Neck Neck exam: Normal inspection, Full ROM. negative: Tenderness - Respiratory Respiratory exam: Normal lung sounds bilaterally. negative: Respiratory distress - Cardiovascular Cardiovascular Exam: Regular rate, Normal rhythm, Normal heart sounds - GI/Abdominal GI/Abdominal exam: Soft, Normal bowel sounds, Tenderness (LMQ tender on palpation). negative: Distended, Rebound, Rigid - Rectal Rectal exam: Deferred - exam: Deferred - Extremities Extremities exam: Normal inspection, Full ROM, Normal capillary refill. negative: Calf tenderness, Pedal edema, Tenderness - Back Back exam: Reports: Normal inspection, Full ROM. Denies: CVA tenderness (R), CVA tenderness (L), Muscle spasm, Rash noted, Tenderness - Neurological Neurological exam: Alert, Normal gait, Oriented X3, Reflexes normal - Psychiatric Psychiatric exam: Normal affect, Normal mood - Skin Skin exam: Dry, Intact, Normal color, Warm Course Vital Signs 10/12/16 03:57 Temperature 97.9 F Pulse Rate [ 70 Pulse Ox Probe] Respiratory 22 Rate Blood Pressure 119/57 [Left Arm] Pulse Ox 97 - Reevaluation(s) Reevaluation #1: Patient holding a fleets enema and awaiting results. 10/12/16 06:34 Reevaluation #2: No results with fleets. Will try mgcitrate bottle for home. Agrees to call PCP this morning for recheck tomorrow if not improved. Also aware she may return here if worse. 10/12/16 06:52 Medical Decision Making - Management Options MDM Management: No Additional Work-up Planned - Data Complexity MDM Data: Labs Ordered and/or Reviewed, X-Ray Ordered and/or Reviewed ( Abdominal series: Moderate stool in colon, no free air, no obstructive pattern, few AF levels small bowel.) - Lab Data Result diagrams: 10/12/16 04:50 10/12/16 04:50 Disposition Disposition: Discharge Clinical Impression: Abdominal pain, left lateral Constipation Qualifiers: Constipation type: unspecified constipation type Qualified Code(s): K59.00 - Constipation, unspecified Disposition: Home, Self-Care Condition: (1) Good Instructions: Constipation (ED), Abdominal Pain (ED) Additional Instructions: Magnesium citrate for home for constipation. Drink 1/2 bottle when you get home , and repeat in 6-12 hours if no results. Increase fluids. High fiber diet. Miralax as directed. Follow up with PCP in office tomorrow if pain persists. Call today to make that appointment. Quality - Quality Measures Quality Measures: N/A - Blood Pressure Screening Does Patient Have Any of the Following: No Blood Pressure Classification: Normal BP Reading Systolic Measurement: 119 Diastolic Measurement: 57 Screening for High Blood Pressure: < Normal BP, F/U Not Required > [G8783]
[2016-10-12 04:26] LABS: URINE APPEARANCE CLEAR; URINE BILIRUBIN NEGATIVE (NEGATIVE); URINE BLOOD NEGATIVE (NEGATIVE); URINE COLOR YELLOW; URINE GLUCOSE (UA) NEGATIVE (NEGATIVE); URINE KETONE NEGATIVE (NEGATIVE); URINE LEUKOCYTE ESTERASE NEGATIVE (NEGATIVE); URINE NITRITE NEGATIVE (NEGATIVE); URINE PROTEIN NEGATIVE (NEGATIVE); URINE UROBILINOGEN 0.2 E.U./dL (0.20 - 1.00)
[2016-10-12] MEDS ORDERED: ONDANSETRON 4 MG ODT TABLET SL ONE (04:32)
[2016-10-12] MEDS ORDERED: 0.9 % SODIUM CHLORIDE 1,000 ML BAG IV ONE (04:44)
[2016-10-12 04:59] LABS: BASO % 0.4 % (0-6); EOS % 1.2 % (0-6); GRAN % 67.5 % (47-80); LYMPH % 24.8 % (16-45); MEAN CELL VOLUME 90.7 fl (81-97); MEAN CORPUSCULAR HEMOGLOBIN 30.2 pg (27-33); MEAN CORPUSCULAR HGB CONC 33.3 g/dl (32-36); MEAN PLATELET VOLUME 9.1 fl (7.4-10.4); MONO % 6.1 % (0-9); PLATELET COUNT 424 K/uL (130-400); RED BLOOD COUNT 3.97 M/uL (3.80-5.40); RED CELL DISTRIBUTION WIDTH 13.6 % (11.5-14.5); WHITE BLOOD COUNT W/O DIFF 12.1 K/uL (4.2-12.2)
[2016-10-12 05:10] LABS: ALBUMIN 4.2 gm/dL (3.5-5.0); ALKALINE PHOSPHATASE 118 U/L (38-126); ALT/SGPT 56 U/L (9-52); ANION GAP 10.4 (7-16); AST/SGOT 30 U/L (14-36); BILIRUBIN,TOTAL 0.29 mg/dL (0.2-1.3); BLOOD UREA NITROGEN 15 mg/dL (7-17); CARBON DIOXIDE 21.6 mmol/L (22-30); EST GLOMERULAR FILTRATION RATE > 60 ml/min; GLUCOSE,RANDOM 123 mg/dL (70-110); LIPASE 121 U/L (23-300); TOTAL PROTEIN 7.1 gm/dL (6.3-8.2)
[2016-10-12] MEDS ORDERED: DICYCLOMINE HCL 10 MG/ML AMPUL IM ONE (05:46)
[2016-10-12] MEDS ORDERED: PROMETHAZINE HCL 25 MG/ML VIAL IM ONE (05:46)
[2016-10-12] MEDS ORDERED: MAGNESIUM CITRATE 296 ML BTL PO ONE (06:50)
--- NOTE | 2016-10-13 11:30 | RADIOLOGY REPORT ---
EXAM: ACUTE ABDOMEN SERIES HISTORY: ABDOMINAL PAIN. TECHNIQUE: A single PA view of the chest and supine and upright views of the abdomen were performed. FINDINGS: The heart size is normal. The lung sifuentes are clear. Nonspecific, nonobstructive bowel gas pattern. No evidence of free air. Postop surgical clips in the right upper quadrant. There is degenerative change in the sclerotic curvature of the thoracolumbar spine. IMPRESSION: NEGATIVE ACUTE ABDOMEN SERIES. JOB NUMBER: [id number] MTDD
== END 2016-10-12 07:02 | disposition home or self-care (01) ==
LOC: ER 03:52
DX: K59.00 Constipation, unspecified (principal); R10.12 Left upper quadrant pain; R35.0 Frequency of micturition
CPT/HCPCS: 74022; 80048; 80076; 81003; 83690; 85025; 96372; 99283; 99284; J2550; J7030

== ENCOUNTER 2016-11-02 22:54 | Emergency (ER) | payer MEDICARE, MEDICAID ==
[2016-11-02] MEDS ORDERED: KETOROLAC 30 MG/ML VIAL IM ONE (23:03)
[2016-11-02] MEDS ORDERED: PROMETHAZINE HCL 25 MG/ML VIAL IM ONE (23:03)
--- NOTE | 2016-11-02 23:10 | Emergency Department Record ---
History of Present Illness - General Chief Complaint: Headache Migraine Stated Complaint: SERVIN Source: Patient Mode of Arrival: Ambulatory Limitations: No limitations - History of Present Illness Initial Comments: 41 yo female presents to ED with a CC of headache that began 1.5 hours prior to arrival, denies taking anything at home for her symptoms prior to arrival as the headache symptoms "hit me like a wall". Patient reports that her headache symptoms are similar to previous, denies fevers, chills, or recent illness. MD Complaint: Headache Onset/Timin -: Minutes(s) Onset Description: Sudden Location: Diffuse Severity: Moderate Quality: Aching Consistency: Constant Improves With: Nothing Worsens With: None Associated Symptoms: Nausea, Vomiting (x 1) - Related Data Previous Rx's Medication Instructions Recorded Clotrimazole [Lotrimin AF] 1 gm TP BID #1 tube 07/20/16 Allergies Allergy/AdvReac Type Severity Reaction Status Date / Time [id number] Antimigraine Allergy Severe HEADACHE Unverified 10/27/16 10:22 Agents Jdodilh-Lly-Bih Reductase Allergy Intermediate JOINT ACHES Unverified 10/27/16 10:22 Inhibitor medical tape AdvReac Mild RASH Uncoded 10/05/16 12:43 Review of Systems Constitutional: Denies: Chills, Fever, Malaise, Night sweats Eyes: Denies: Eye discharge, Eye pain ENT: Denies: Congestion, Ear pain, Epistaxis Respiratory: Denies: Cough, Dyspnea Cardiovascular: Denies: Chest pain, Dyspnea on exertion Endocrine: Denies: Fatigue, Heat or cold intolerance Gastrointestinal: Reports: Nausea, Vomiting (x 1). Denies: Abdominal pain Genitourinary: Denies: Incontinence, Retention Musculoskeletal: Denies: Arthralgia, Back pain, Gout, Joint swelling Skin: Denies: Bruising, Change in color Neurological: Reports: Headache. Denies: Abnormal gait, Confusion, Seizure Psychiatric: Denies: Anxiety Hematological/Lymphatic: Denies: Anemia, Blood Clots Past Medical History - SOCIAL HISTORY Smoking Status: Current every day smoker Drug Use: None - RESPIRATORY Hx Respiratory Disorders: Yes Hx Bronchitis: Yes Hx Pneumonia: Yes Comment:: low O2 when sleeping - CARDIOVASCULAR Hx Cardio Disorders: Yes Hx Chest Pain: Yes Comment:: HYPERLIPIDEMIA - NEURO Hx Neuro Disorders: Yes Hx Headaches: Yes (complex migrane) - GI Hx GI Disorders: Yes Hx Diverticulitis: Yes Hx Reflux: Yes (upper GI) Hx Liver Disease: (Liver biopsy 7-16) Hx Nausea/Vomiting: Yes (with pain) Hx Ulcer: Yes Comment:: fatty liver - Hx Genitourinary Disorders: Yes Comment:: polycystic ovary syndrome - ENDOCRINE Hx Endocrine Disorders: Yes Hx Diabetes: Yes Hx Thyroid Disease: No - MUSCULOSKELETAL Hx Musculoskeletal Disorders: Yes Hx Fibromyalgia: Yes Hx Gout: Yes Comment:: Buldging disc in neck - PSYCH Hx Psych Problems: Yes Hx Anxiety: Yes Hx Depression: Yes Comment:: PTSD - HEMATOLOGY/ONCOLOGY Hx Hematology/Oncology Disorders: No Family Medical History Hx Cancer: Mother, Grandparents *Diabetes Comment: aunt Hx Heart Disease: Brother/Sister *Heart Comment: Brother Hx Kidney Disease: Children Physical Exam - General General Appearance: Alert, Oriented x3, Cooperative, Moderate distress Limitations: No limitations - Head Head exam: Atraumatic, Normocephalic, Normal inspection Head exam detail: negative: Abrasion, Contusion, Espinosa's sign, General tenderness, Hematoma, Laceration - Eye Eye exam: Normal appearance. negative: Conjunctival injection, Periorbital swelling, Periorbital tenderness, Scleral icterus - ENT Ear exam: negative: Auricular hematoma, Auricular trauma Nasal Exam: negative: Active bleeding, Discharge, Dried blood, Foreign body Mouth exam: negative: Drooling, Laceration, Muffled voice, Tongue elevation - Neck Neck exam: Normal inspection. negative: Meningismus, Tenderness - Respiratory Respiratory exam: Normal lung sounds bilaterally. negative: Rales, Respiratory distress, Rhonchi, Stridor - Cardiovascular Cardiovascular Exam: Regular rate, Normal rhythm, Normal heart sounds - GI/Abdominal GI/Abdominal exam: Soft. negative: Rebound, Rigid, Tenderness - Rectal Rectal exam: Deferred - exam: Deferred - Extremities Extremities exam: Normal inspection. negative: Pedal edema, Tenderness - Back Back exam: Denies: CVA tenderness (R), CVA tenderness (L) - Neurological Neurological exam: Alert, Normal gait, Oriented X3 - Psychiatric Psychiatric exam: Normal affect, Normal mood - Skin Skin exam: Normal color. negative: Abrasion Type of lesion: negative: abrasion Course Vital Signs 11/02/16 23:01 Temperature 98.3 F Pulse Rate [ 82 Pulse Ox Probe] Respiratory 20 Rate Blood Pressure 127/85 [Left Arm] Pulse Ox 96 - Reevaluation(s) Reevaluation #1: 11/02/16 23:52 Patient reassessed and reports that her symptoms have improved, appears stable for discharge at this time. Disposition Disposition: Discharge Clinical Impression: Headache Qualifiers: Headache type: unspecified Headache chronicity pattern: acute headache Intractability: not intractable Qualified Code(s): R51 - Headache Disposition: Home, Self-Care Condition: (2) Stable Instructions: Acute Headache (ED) Additional Instructions: Return to ED if your symptoms worsen or if you have any concerns. Call Dr. Dominique tomorrow for a follow-up appointment in 1-3 days. Forms: Patient Portal Access Time of Disposition: 23:53 Quality - Quality Measures Quality Measures: N/A - Blood Pressure Screening Does Patient Have Any of the Following: No Blood Pressure Classification: Pre-Hypertensive BP Reading Systolic Measurement: 121 Diastolic Measurement: 82 Screening for High Blood Pressure: < Pre-Hypertensive BP, F/U Documented > [ G8950] Pre-Hypertensive Follow-up Interventions: Referral to alternative/primary care provider.
== END 2016-11-03 00:15 | disposition home or self-care (01) ==
LOC: ER 22:54
DX: R51 Headache (principal); R11.2 Nausea with vomiting, unspecified
CPT/HCPCS: 99283 ×2; 96372; J1885; J2550

== ENCOUNTER 2016-11-30 17:57 | Emergency (ER) | payer MEDICARE, MEDICAID ==
[2016-11-30] MEDS: KETOROLAC 30 MG/ML VIAL IM ONE (18:36)
[2016-11-30] MEDS: ORPHENADRINE CITRATE 60MG/2ML VIAL IM ONE (18:36)
--- NOTE | 2016-11-30 18:37 | Emergency Department Record ---
History of Present Illness - General Chief Complaint: Neck Injury/Pain Stated Complaint: PAIN IN NECK/SHOULDERS, SHOTS DISK OUT 6DAYS AGO Time Seen by Provider: 11/30/16 18:28 Source: Patient Mode of Arrival: Ambulatory Limitations: No limitations - History of Present Illness Initial Comments: 41 yo female presents with neck pain. She has chronic neck pain. She has known disc disease. She had injections on the 4th. She has not gotten relief from her chronic machuca at this point. The pain is in the neck and goes to the shoulders. No fevers. No redness at the injection sites. No numbness or tingling. No other new or atypical symptoms. No nausea, vomiting. Her pain specialist is Dr Reinoso at [facility] [place]. Her PCP is the [facility]. She has otherwise been in her usual state of health. MD Complaint: Neck pain Onset/Timin -: Days(s) Place: Other Radiation: Head, Left shoulder, Right shoulder Severity: Severe Severity scale (1-10): 10 Quality: Aching Consistency: Constant Improves With: None Worsens With: None Associated Symptoms: None Treatments Prior to Arrival: None - Related Data Previous Rx's Medication Instructions Recorded Clotrimazole [Lotrimin AF] 1 gm TP BID #1 tube 07/20/16 Allergies Allergy/AdvReac Type Severity Reaction Status Date / Time [id number] Antimigraine Allergy Severe HEADACHE Verified 11/30/16 18:26 Agents Agatill-Idn-Zgr Reductase Allergy Intermediate JOINT ACHES Verified 11/30/16 18: 26 Inhibitor medical tape AdvReac Mild RASH Uncoded 10/05/16 12:43 Travel Screening - Travel/Exposure Within Last 30 Days Have you traveled within the last 30 days?: No Review of Systems Constitutional: Denies: Chills, Fever, Malaise, Weakness Eyes: Denies: Eye discharge, Eye pain ENT: Denies: Congestion, Dental pain, Ear pain, Epistaxis, Hearing loss Respiratory: Denies: Cough, Dyspnea, Hemoptysis, Stridor, Wheezes Cardiovascular: Denies: Chest pain, Palpitations, Syncope Endocrine: Denies: Fatigue Gastrointestinal: Denies: Diarrhea Genitourinary: Denies: Dysuria, Urgency Musculoskeletal: Reports: As per HPI, Arthralgia, Back pain, Neck pain. Denies : Myalgia Skin: Denies: Change in color Neurological: Denies: Confusion, Headache, Numbness, Paresthesias, Tingling, Tremors, Vertigo, Weakness Psychiatric: Reports: Anxiety (chronic intermittent) Hematological/Lymphatic: Denies: Blood Clots, Easy bleeding, Easy bruising Past Medical History - SOCIAL HISTORY Smoking Status: Current every day smoker Alcohol Use: None Drug Use: None - RESPIRATORY Hx Respiratory Disorders: Yes Hx Bronchitis: Yes Hx Pneumonia: Yes Comment:: low O2 when sleeping - CARDIOVASCULAR Hx Cardio Disorders: Yes Hx Chest Pain: Yes Comment:: HYPERLIPIDEMIA - NEURO Hx Neuro Disorders: Yes Hx Headaches: Yes (complex migrane) - GI Hx GI Disorders: Yes Hx Diverticulitis: Yes Hx Reflux: Yes (upper GI) Hx Liver Disease: (Liver biopsy 7-16) Hx Nausea/Vomiting: Yes (with pain) Hx Ulcer: Yes Comment:: fatty liver - Hx Genitourinary Disorders: Yes Comment:: polycystic ovary syndrome - ENDOCRINE Hx Endocrine Disorders: Yes Hx Diabetes: Yes Hx Thyroid Disease: No - MUSCULOSKELETAL Hx Musculoskeletal Disorders: Yes Hx Fibromyalgia: Yes Hx Gout: Yes Comment:: Buldging disc in neck - PSYCH Hx Psych Problems: Yes Hx Anxiety: Yes Hx Depression: Yes Comment:: PTSD - HEMATOLOGY/ONCOLOGY Hx Hematology/Oncology Disorders: No Family Medical History Any Significant Family History?: Yes Hx Cancer: Mother, Grandparents *Diabetes Comment: aunt Hx Heart Disease: Brother/Sister *Heart Comment: Brother Hx Kidney Disease: Children Physical Exam - General General Appearance: Alert, Oriented x3, Cooperative, No acute distress Limitations: No limitations - Head Head exam: Atraumatic, Normocephalic, Normal inspection - Eye Eye exam: Normal appearance, PERRL. negative: Conjunctival injection, Periorbital swelling - ENT ENT exam: Normal exam, Mucous membranes moist Ear exam: Normal external inspection Nasal Exam: Normal inspection Mouth exam: Normal external inspection - Neck Neck exam: Normal inspection, Full ROM, Tenderness, Other (normal inspection, no redness or swelling, full ROM without limitation). negative: Lymphadenopathy , Meningismus, Thyromegaly - Respiratory Respiratory exam: Normal lung sounds bilaterally. negative: Respiratory distress - Cardiovascular Cardiovascular Exam: Regular rate, Normal rhythm, Normal heart sounds Peripheral Pulses: 2+: Radial (R), Radial (L) - GI/Abdominal GI/Abdominal exam: Soft - Rectal Rectal exam: Deferred - exam: Deferred - Extremities Extremities exam: Normal inspection, Full ROM, Normal capillary refill. negative: Pedal edema, Tenderness - Back Back exam: Reports: Normal inspection, Full ROM. Denies: CVA tenderness (R), CVA tenderness (L), Muscle spasm, Paraspinal tenderness, Rash noted, Tenderness , Vertebral tenderness - Neurological Neurological exam: Alert, CN II-XII intact, Normal gait, Oriented X3, Reflexes normal, Other (card filer and biceps with 5/5, no PND, sensation intact, reflexed of biceps and triceps 2/2 and symmentric). negative: Motor sensory deficit - Psychiatric Psychiatric exam: Normal affect, Normal mood - Skin Skin exam: Dry, Intact, Normal color, Warm. negative: Cyanosis, Diaphoretic, Erythema, Mottled Course Vital Signs 11/30/16 18:22 Temperature 98.4 F Pulse Rate 82 Respiratory 18 Rate Blood Pressure 109/75 Pulse Ox 96 - Reevaluation(s) Reevaluation #1: 11/30/16 18:37 The vitals were reviewed No acute changes The examination was unremarkable for signs of infection or neurologic involvement 11/30/16 18:38 EMR August [address] was negative for acute process. Prior MRI not on [facility] system 11/30/16 18:47 The patient has follow up with Dr Reinoso Starr I do not see any emergent problems or complications No signs of infection or neurologic signs or symptoms I feel she is OK for DC home to follow up in the morning She is to return or go directly to [facility] if the symptoms increase or any new symptoms prior to tomorrow AM. Disposition Disposition: Discharge Clinical Impression: Neck pain, chronic Disposition: Home, Self-Care Condition: (1) Good Instructions: Cervical Sprain (ED) Additional Instructions: Call your pain specialist tomorrow to discuss your continued pain since the injections Return or go to the hospital immediately if you have fever, weak, numb, tingling or any new concerns Forms: Patient Portal Access Time of Disposition: 18:41 Quality - Quality Measures Quality Measures: N/A - Blood Pressure Screening Does Patient Have Any of the Following: No Blood Pressure Classification: Normal BP Reading Systolic Measurement: 109 Diastolic Measurement: 75 Screening for High Blood Pressure: < Normal BP, F/U Not Required > [G8783]
[2016-11-30] MEDS: DIAZEPAM 5 MG TABLET PO ONE (18:56)
== END 2016-11-30 19:03 | disposition home or self-care (01) ==
LOC: ER 17:57
DX: G89.29 Other chronic pain (principal); M50.30 Other cervical disc degeneration, unspecified cervical region; R51 Headache; M25.512 Pain in left shoulder; M25.511 Pain in right shoulder; E11.9 Type 2 diabetes mellitus without complications
CPT/HCPCS: 99283; 96372; 99284; J3490; J1885; J2360

== ENCOUNTER 2016-12-16 20:58 | Emergency (ER) | payer MEDICARE, MEDICAID ==
--- NOTE | 2016-12-16 22:28 | Emergency Department Record ---
History of Present Illness - General Chief Complaint: Headache Migraine Stated Complaint: MIGRAINE,VOMITTING BLOOD Time Seen by Provider: 12/16/16 22:27 Source: Patient Mode of Arrival: Ambulatory Limitations: No limitations - History of Present Illness Initial Comments: 41 yo female presents with a migraine headache that lead to nausea and vomiting. The migraine started early this morning. The nausea and vomiting started later in the day. She did see what she thought was streaked of blood with the emesis. No blood in the stools. PCP is the [facility] MD Complaint: "Migraine", Other (nausea vomiting) Onset/Timin -: Days(s) Onset Description: Gradual Location: Diffuse Severity: Moderate Severity scale (1-10): 8 Quality: Other Consistency: Constant, Getting worse Improves With: Nothing Worsens With: None Context: Other Associated Symptoms: Vomiting Treatment Prior to Arrival Comment:: NUCENTA/FIOROCET/PHENERGAN - Related Data Home Medications Medication Instructions Recorded Confirmed Last Taken Cyclobenzaprine HCl [Flexeril] 10 mg PO TID 12/16/16 12/16/16 Unknown Previous Rx's Medication Instructions Recorded Clotrimazole [Lotrimin AF] 1 gm TP BID #1 tube 07/20/16 Allergies Allergy/AdvReac Type Severity Reaction Status Date / Time [id number] Antimigraine Allergy Severe HEADACHE Verified 11/30/16 18:26 Agents Qvpcmmn-Wfz-Luu Reductase Allergy Intermediate JOINT ACHES Verified 11/30/16 18: 26 Inhibitor medical tape AdvReac Mild RASH Uncoded 10/05/16 12:43 Travel Screening - Travel/Exposure Within Last 30 Days Have you traveled within the last 30 days?: No - Travel/Exposure Within Last Year Have you traveled outside the [place] in the last year?: No - Additonal Travel Details Have you been exposed to anyone with a communicable illness?: No - Travel Symptoms Symptom Screening: None Review of Systems Constitutional: Denies: Chills, Fever, Malaise, Weakness Eyes: Denies: Eye discharge ENT: Denies: Congestion, Throat pain Respiratory: Denies: Cough Cardiovascular: Denies: Chest pain, Syncope Endocrine: Denies: Fatigue, Polydipsia, Polyuria Gastrointestinal: Reports: Abdominal pain, Hematochezia, Nausea, Vomiting Genitourinary: Denies: Dysuria, Frequency, Urgency Musculoskeletal: Denies: Arthralgia, Back pain, Myalgia Skin: Denies: Bruising, Change in color, Rash Neurological: Reports: As per HPI, Headache Psychiatric: Denies: Anxiety Hematological/Lymphatic: Denies: Anemia, Blood Clots, Easy bleeding, Easy bruising, Swollen glands Past Medical History - SOCIAL HISTORY Smoking Status: Current every day smoker Alcohol Use: None Drug Use: None - RESPIRATORY Hx Respiratory Disorders: Yes Hx Bronchitis: Yes Hx Pneumonia: Yes Comment:: low O2 when sleeping - CARDIOVASCULAR Hx Cardio Disorders: Yes Hx Chest Pain: Yes Comment:: HYPERLIPIDEMIA - NEURO Hx Neuro Disorders: Yes Hx Headaches: Yes (complex migrane) - GI Hx GI Disorders: Yes Hx Diverticulitis: Yes Hx Reflux: Yes (upper GI) Hx Liver Disease: (Liver biopsy 7-16) Hx Nausea/Vomiting: Yes (with pain) Hx Ulcer: Yes Comment:: fatty liver - Hx Genitourinary Disorders: Yes Comment:: polycystic ovary syndrome - ENDOCRINE Hx Endocrine Disorders: Yes Hx Diabetes: Yes Hx Thyroid Disease: No - MUSCULOSKELETAL Hx Musculoskeletal Disorders: Yes Hx Fibromyalgia: Yes Hx Gout: Yes Comment:: Buldging disc in neck - PSYCH Hx Psych Problems: Yes Hx Anxiety: Yes Hx Depression: Yes Comment:: PTSD - HEMATOLOGY/ONCOLOGY Hx Hematology/Oncology Disorders: No Family Medical History Any Significant Family History?: Yes Hx Cancer: Mother, Grandparents *Diabetes Comment: aunt Hx Heart Disease: Brother/Sister *Heart Comment: Brother Hx Kidney Disease: Children Physical Exam - General General Appearance: Alert, Oriented x3, Cooperative, No acute distress - Head Head exam: Atraumatic, Normal inspection - Eye Eye exam: Normal appearance, PERRL. negative: Conjunctival injection, Scleral icterus - ENT ENT exam: Normal exam, Mucous membranes moist Ear exam: Normal external inspection Nasal Exam: Normal inspection Mouth exam: Normal external inspection - Neck Neck exam: Normal inspection, Full ROM. negative: Tenderness - Respiratory Respiratory exam: Normal lung sounds bilaterally. negative: Respiratory distress - Cardiovascular Cardiovascular Exam: Regular rate, Normal rhythm, Normal heart sounds - GI/Abdominal GI/Abdominal exam: Soft, Tenderness. negative: Distended, Guarding, Rebound, Rigid - Rectal Rectal exam: Deferred - exam: Deferred - Extremities Extremities exam: Normal inspection, Full ROM, Normal capillary refill. negative: Tenderness - Back Back exam: Reports: Normal inspection, Full ROM. Denies: CVA tenderness (R), CVA tenderness (L), Muscle spasm, Rash noted, Tenderness - Neurological Neurological exam: Alert, CN II-XII intact, Normal gait, Oriented X3, Reflexes normal. negative: Motor sensory deficit - Psychiatric Psychiatric exam: Normal affect, Normal mood - Skin Skin exam: Dry, Intact, Normal color, Warm Course Vital Signs 12/16/16 22:15 Temperature 99.0 F Pulse Rate 75 Respiratory 20 Rate Blood Pressure 106/75 Pulse Ox 95 - Reevaluation(s) Reevaluation #1: 12/16/16 23:15 No acute changes on the patient's labs The Hgb is 13.2 The patient is on Omeprazole already She is to continue this. If she has any return of symptoms or ongoing symptoms she may require GI referral. Medical Decision Making - Lab Data Result diagrams: 12/16/16 22:54 12/16/16 22:54 Disposition Disposition: Discharge Clinical Impression: Migraine, Nausea & vomiting Disposition: Home, Self-Care Condition: (1) Good Instructions: Gastritis (ED), Migraine Headache (ED) Additional Instructions: Call your doctor for close follow up this week Return if the vomiting returns with any blood Continue your Omeprazole daily Forms: Patient Portal Access Time of Disposition: 23:15 Quality - Quality Measures Quality Measures: N/A - Blood Pressure Screening Does Patient Have Any of the Following: No Blood Pressure Classification: Normal BP Reading Systolic Measurement: 93 Diastolic Measurement: 57 Screening for High Blood Pressure: < Normal BP, F/U Not Required > [G8783]
[2016-12-16] MEDS: SODIUM CHLORIDE 0.9% 500 ML IV ONE (22:49)
[2016-12-16] MEDS: PROMETHAZINE HCL 25 MG/ML VIAL IVP ONE (22:49)
[2016-12-16] MEDS: PANTOPRAZOLE SODIUM IV 40 MG VIAL IVP ONE (22:50)
[2016-12-16 22:55] LABS: BASO % 0.4 % (0-6); EOS % 1.3 % (0-6); HEMATOCRIT 39.3 % (35.0-47.0); HEMOGLOBIN 13.2 gm/dl (11.6-16.0); LYMPH % 29.2 % (16-45); MEAN CELL VOLUME 88.3 fl (81-97); MEAN CORPUSCULAR HEMOGLOBIN 29.7 pg (27-33); MEAN CORPUSCULAR HGB CONC 33.6 g/dl (32-36); MEAN PLATELET VOLUME 9.3 fl (7.4-10.4); MONO % 8.1 % (0-9); PLATELET COUNT 487 K/uL (130-400); RED BLOOD COUNT 4.45 M/uL (3.80-5.40); RED CELL DISTRIBUTION WIDTH 13.4 % (11.5-14.5); WHITE BLOOD COUNT W/O DIFF 10.2 K/uL (4.2-12.2)
[2016-12-16 23:11] LABS: ALB/GLOB RATIO 1.3 (1.1-1.8); ALBUMIN 4.2 g/dL (4.0-5.0); ALKALINE PHOSPHATASE 147 U/L (35-104); ALT/SGPT 27 U/L (<33); AST/SGOT 22 U/L (10.0-35.0); BLOOD UREA NITROGEN 8 mg/dL (6-20); CREATININE 0.8 mg/dL (0.5-0.9); EST GLOMERULAR FILTRATION RATE > 60 mL/min; GLUCOSE,RANDOM 102 mg/dL (74-109); TOTAL PROTEIN 7.4 g/dL (6.6-8.7)
[2016-12-16] MEDS: ORPHENADRINE CITRATE 60MG/2ML VIAL IM ONE (23:30)
== END 2016-12-16 23:54 | disposition home or self-care (01) ==
LOC: ER 20:58
DX: G43.909 Migraine, unspecified, not intractable, without status migrainosus (principal); R11.2 Nausea with vomiting, unspecified
CPT/HCPCS: 80053; 85025; 96361; 96372; 96374; 96375; 99284; C9113; J2360; J2550

== ENCOUNTER 2016-12-18 20:22 | Emergency (ER) | payer MEDICARE, MEDICAID ==
[2016-12-18] MEDS ORDERED: PROMETHAZINE HCL 25 MG/ML VIAL IM ONE (20:33)
[2016-12-18] MEDS ORDERED: ORPHENADRINE CITRATE 60MG/2ML VIAL IM ONE (20:33)
--- NOTE | 2016-12-18 20:39 | Emergency Department Record ---
History of Present Illness - General Chief Complaint: Headache Migraine Stated Complaint: HEAD/NECK PAIN Time Seen by Provider: 12/18/16 20:23 Source: Patient Mode of Arrival: Ambulatory Limitations: No limitations - History of Present Illness Initial Comments: 41 yo female presents to ED with a CC of recurrent headache symptoms that began this morning upon awakening. Patient reports taking [place], Phenergan, Benadryl , and Nucinta without improvement. Patient denies fevers, chills, or recent illness. Patient reports that her headache symptoms are similar to previous. Patient reports that Norflex and Phenergan improved her symptoms several days ago. Complaint: Headache Onset/Timin -: Hour(s) Onset Description: Awoke with symptoms Location: Neck, Temporal Severity: Severe Severity scale (1-10): 10 Quality: Similar to previous headaches Consistency: Constant Improves With: Nothing Worsens With: Light, Movement of head/neck, Noise Associated Symptoms: Photophobia, Sensitivity to sound Treatments Prior to Arrival: Antiemetic, Migraine medication, Prescription analgesic - Symptoms of Stroke Baseline State: Baseline State - Related Data Previous Rx's Medication Instructions Recorded Clotrimazole [Lotrimin AF] 1 gm TP BID #1 tube 07/20/16 Allergies Allergy/AdvReac Type Severity Reaction Status Date / Time [id number] Antimigraine Allergy Severe HEADACHE Verified 11/30/16 18:26 Agents Voquglc-Euc-Ghr Reductase Allergy Intermediate JOINT ACHES Verified 11/30/16 18: 26 Inhibitor medical tape AdvReac Mild RASH Uncoded 10/05/16 12:43 Travel Screening - Travel/Exposure Within Last 30 Days Have you traveled within the last 30 days?: No - Travel/Exposure Within Last Year Have you traveled outside the [place] in the last year?: No - Additonal Travel Details Have you been exposed to anyone with a communicable illness?: No - Travel Symptoms Symptom Screening: None Review of Systems Constitutional: Denies: Chills, Fever, Malaise, Night sweats Eyes: Denies: Eye discharge, Eye pain ENT: Denies: Congestion, Ear pain, Epistaxis Respiratory: Denies: Cough, Dyspnea Cardiovascular: Denies: Chest pain, Dyspnea on exertion Endocrine: Denies: Fatigue, Heat or cold intolerance Gastrointestinal: Reports: Nausea. Denies: Abdominal pain, Constipation Genitourinary: Denies: Incontinence, Retention Musculoskeletal: Reports: Neck pain. Denies: Arthralgia, Back pain, Gout, Joint swelling Skin: Denies: Bruising, Change in color Neurological: Reports: Headache. Denies: Abnormal gait, Confusion, Seizure Psychiatric: Denies: Anxiety Hematological/Lymphatic: Denies: Anemia, Blood Clots Past Medical History - SOCIAL HISTORY Smoking Status: Current every day smoker Alcohol Use: None Drug Use: None - RESPIRATORY Hx Respiratory Disorders: Yes Hx Bronchitis: Yes Hx Pneumonia: Yes Comment:: low O2 when sleeping - CARDIOVASCULAR Hx Cardio Disorders: Yes Hx Chest Pain: Yes Comment:: HYPERLIPIDEMIA - NEURO Hx Neuro Disorders: Yes Hx Headaches: Yes (complex migrane) - GI Hx GI Disorders: Yes Hx Diverticulitis: Yes Hx Reflux: Yes (upper GI) Hx Liver Disease: (Liver biopsy 7-16) Hx Nausea/Vomiting: Yes (with pain) Hx Ulcer: Yes Comment:: fatty liver - Hx Genitourinary Disorders: Yes Comment:: polycystic ovary syndrome - ENDOCRINE Hx Endocrine Disorders: Yes Hx Diabetes: Yes Hx Thyroid Disease: No - MUSCULOSKELETAL Hx Musculoskeletal Disorders: Yes Hx Fibromyalgia: Yes Hx Gout: Yes Comment:: Buldging disc in neck - PSYCH Hx Psych Problems: Yes Hx Anxiety: Yes Hx Depression: Yes Comment:: PTSD - HEMATOLOGY/ONCOLOGY Hx Hematology/Oncology Disorders: No Family Medical History Any Significant Family History?: No Hx Cancer: Mother, Grandparents *Diabetes Comment: aunt Hx Heart Disease: Brother/Sister *Heart Comment: Brother Hx Kidney Disease: Children Physical Exam - General General Appearance: Alert, Oriented x3, Cooperative, Moderate distress, Anxious , Other (tearful on examination but is calms when speaking with her further) Limitations: No limitations - Head Head exam: Atraumatic, Normocephalic, Normal inspection Head exam detail: negative: Abrasion, Contusion, Espinosa's sign, General tenderness, Hematoma, Laceration - Eye Eye exam: Normal appearance. negative: Conjunctival injection, Periorbital swelling, Periorbital tenderness, Scleral icterus - ENT Ear exam: negative: Auricular hematoma, Auricular trauma Nasal Exam: negative: Active bleeding, Discharge, Dried blood, Foreign body Mouth exam: negative: Drooling, Laceration, Muffled voice, Tongue elevation - Neck Neck exam: Normal inspection. negative: Meningismus, Tenderness - Respiratory Respiratory exam: Normal lung sounds bilaterally. negative: Rales, Respiratory distress, Rhonchi, Stridor - Cardiovascular Cardiovascular Exam: Regular rate, Normal rhythm, Normal heart sounds - GI/Abdominal GI/Abdominal exam: Soft. negative: Rebound, Rigid, Tenderness - Rectal Rectal exam: Deferred - exam: Deferred - Extremities Extremities exam: Normal inspection. negative: Calf tenderness, Pedal edema, Tenderness - Back Back exam: Denies: CVA tenderness (R), CVA tenderness (L) - Neurological Neurological exam: Alert, Normal gait, Oriented X3 - Psychiatric Psychiatric exam: Anxious - Skin Skin exam: Normal color. negative: Abrasion Type of lesion: negative: abrasion Course Vital Signs 12/18/16 20:25 Temperature 98.6 F Pulse Rate [ 64 Pulse Ox Probe] Respiratory 22 Rate Blood Pressure 151/84 [Left Arm] Pulse Ox 98 - Reevaluation(s) Reevaluation #1: 12/18/16 22:02 Patient reassessed and reports that her symptoms are improved following Toradol and Norflex. Patient appears stable for discharge at this time, Disposition Disposition: Discharge Clinical Impression: Headache Qualifiers: Headache type: unspecified Headache chronicity pattern: acute headache Intractability: not intractable Qualified Code(s): R51 - Headache Disposition: Home, Self-Care Condition: (2) Stable Instructions: Acute Headache (ED) Additional Instructions: Return to ED if your symptoms worsen or if you have any concerns. Follow-up with your family doctor in 3-5 days as directed. Forms: Patient Portal Access Time of Disposition: 22:03 Quality - Quality Measures Quality Measures: N/A - Blood Pressure Screening Does Patient Have Any of the Following: No Blood Pressure Classification: Pre-Hypertensive BP Reading Systolic Measurement: 125 Diastolic Measurement: 71 Screening for High Blood Pressure: < Pre-Hypertensive BP, F/U Documented > [ G8950] Pre-Hypertensive Follow-up Interventions: Referral to alternative/primary care provider.
[2016-12-18] MEDS ORDERED: KETOROLAC 30 MG/ML VIAL IM ONE (21:24)
== END 2016-12-18 22:08 | disposition home or self-care (01) ==
LOC: ER 20:22
DX: R51 Headache (principal); M54.2 Cervicalgia; H53.149 Visual discomfort, unspecified
CPT/HCPCS: 99283 ×2; 96372; J1885; J2360; J2550

== ENCOUNTER 2016-12-31 20:42 | Emergency (ER) | payer MEDICARE, MEDICAID ==
--- NOTE | 2016-12-31 21:04 | Emergency Department Record ---
History of Present Illness - General Chief Complaint: Headache Migraine Stated Complaint: SERVIN Time Seen by Provider: 12/31/16 20:58 Source: Patient Mode of Arrival: Ambulatory Limitations: No limitations - History of Present Illness Initial Comments: 41 yo female returns to ED for evaluation of her headache symptoms which began around 12 hours ago, worsened into a "migraine" 4 hours ago. Patient reports that her symptoms are similar to previous headaches. Patient denies fevers, chills, or neck stiffness symptoms, and does not take anticoagulation medications. Patient reports taking her Fiorcet, phenergan, and Benadryl without improvement. Complaint: Headache Onset/Timin -: Hour(s) Onset Description: Awoke with symptoms Location: Retro-orbital, Right, Temporal Severity scale (1-10): 8 Quality: Sharp, Similar to previous headaches Consistency: Constant, Getting worse Improves With: Nothing Worsens With: Light, Movement of head/neck, Noise Associated Symptoms: Photophobia, Sensitivity to sound Treatments Prior to Arrival: Migraine medication - Related Data Previous Rx's Medication Instructions Recorded Clotrimazole [Lotrimin AF] 1 gm TP BID #1 tube 07/20/16 Allergies Allergy/AdvReac Type Severity Reaction Status Date / Time [id number] Antimigraine Allergy Severe HEADACHE Verified 11/30/16 18:26 Agents Qfdsphl-Fda-Nob Reductase Allergy Intermediate JOINT ACHES Verified 11/30/16 18: 26 Inhibitor medical tape AdvReac Mild RASH Uncoded 10/05/16 12:43 Travel Screening - Travel/Exposure Within Last 30 Days Have you traveled within the last 30 days?: No - Travel Symptoms Symptom Screening: None Review of Systems Constitutional: Denies: Chills, Fever, Malaise, Night sweats Eyes: Reports: Photophobia. Denies: Eye discharge, Eye pain ENT: Denies: Congestion, Ear pain, Epistaxis Respiratory: Denies: Cough, Dyspnea Cardiovascular: Denies: Chest pain, Dyspnea on exertion Endocrine: Denies: Fatigue, Heat or cold intolerance Gastrointestinal: Denies: Abdominal pain, Nausea, Vomiting Genitourinary: Denies: Incontinence, Retention Musculoskeletal: Denies: Arthralgia, Joint swelling Skin: Denies: Bruising, Change in color Neurological: Reports: Headache. Denies: Abnormal gait, Confusion, Seizure Psychiatric: Denies: Anxiety Hematological/Lymphatic: Denies: Anemia, Blood Clots Past Medical History - SOCIAL HISTORY Smoking Status: Current every day smoker - RESPIRATORY Hx Respiratory Disorders: Yes Hx Bronchitis: Yes Hx Pneumonia: Yes Comment:: low O2 when sleeping - CARDIOVASCULAR Hx Cardio Disorders: Yes Hx Chest Pain: Yes Comment:: HYPERLIPIDEMIA - NEURO Hx Neuro Disorders: Yes Hx Headaches: Yes (complex migrane) - GI Hx GI Disorders: Yes Hx Diverticulitis: Yes Hx Reflux: Yes (upper GI) Hx Liver Disease: (Liver biopsy 7-16) Hx Nausea/Vomiting: Yes (with pain) Hx Ulcer: Yes Comment:: fatty liver - Hx Genitourinary Disorders: Yes Comment:: polycystic ovary syndrome - ENDOCRINE Hx Endocrine Disorders: Yes Hx Diabetes: Yes Hx Thyroid Disease: No - MUSCULOSKELETAL Hx Musculoskeletal Disorders: Yes Hx Fibromyalgia: Yes Hx Gout: Yes Comment:: Buldging disc in neck - PSYCH Hx Psych Problems: Yes Hx Anxiety: Yes Hx Depression: Yes Comment:: PTSD - HEMATOLOGY/ONCOLOGY Hx Hematology/Oncology Disorders: No Family Medical History Any Significant Family History?: Yes Hx Cancer: Mother, Grandparents *Diabetes Comment: aunt Hx Heart Disease: Brother/Sister *Heart Comment: Brother Hx Kidney Disease: Children Physical Exam - General General Appearance: Alert, Oriented x3, Cooperative, Moderate distress Limitations: No limitations - Head Head exam: Atraumatic, Normocephalic, Normal inspection Head exam detail: negative: Abrasion, Contusion, Espinosa's sign, General tenderness, Hematoma, Laceration - Eye Eye exam: Normal appearance. negative: Conjunctival injection, Periorbital swelling, Periorbital tenderness, Scleral icterus - ENT Ear exam: negative: Auricular hematoma, Auricular trauma Nasal Exam: negative: Active bleeding, Discharge, Dried blood, Foreign body Mouth exam: negative: Drooling, Laceration, Muffled voice, Tongue elevation - Neck Neck exam: Normal inspection. negative: Meningismus, Tenderness - Respiratory Respiratory exam: Normal lung sounds bilaterally. negative: Rales, Respiratory distress, Rhonchi, Stridor - Cardiovascular Cardiovascular Exam: Regular rate, Normal rhythm, Normal heart sounds - GI/Abdominal GI/Abdominal exam: Soft. negative: Rebound, Rigid, Tenderness - Rectal Rectal exam: Deferred - exam: Deferred - Extremities Extremities exam: Normal inspection. negative: Calf tenderness, Pedal edema, Tenderness - Back Back exam: Reports: Normal inspection. Denies: CVA tenderness (R), CVA tenderness (L) - Neurological Neurological exam: Alert, Normal gait, Oriented X3 - Psychiatric Psychiatric exam: Anxious - Skin Skin exam: Normal color. negative: Abrasion Type of lesion: negative: abrasion Course Vital Signs 12/31/16 20:47 Temperature 98.3 F Pulse Rate [ 85 Pulse Ox Probe] Respiratory 20 Rate Blood Pressure 123/82 [Left Arm] Pulse Ox 99 - Reevaluation(s) Reevaluation #1: 12/31/16 21:31 Patient reassessed, reports that her headache pain symptoms are improved however patient still complains of neck spasms. Will place a lidoderm patch for continued symptoms, but appears stable for discharge following administration. Disposition Disposition: Discharge Clinical Impression: Headache Qualifiers: Headache type: unspecified Headache chronicity pattern: acute headache Intractability: not intractable Qualified Code(s): R51 - Headache Disposition: Home, Self-Care Condition: (2) Stable Instructions: Acute Headache (ED) Additional Instructions: Return to ED if your symptoms worsen or if you have any concerns. Follow-up with your family doctor in 3-5 days as directed. Forms: Patient Portal Access Time of Disposition: 21:32 Quality - Quality Measures Quality Measures: N/A - Blood Pressure Screening Does Patient Have Any of the Following: No Blood Pressure Classification: Pre-Hypertensive BP Reading Systolic Measurement: 123 Diastolic Measurement: 82 Screening for High Blood Pressure: < Pre-Hypertensive BP, F/U Documented > [ G8950] Pre-Hypertensive Follow-up Interventions: Referral to alternative/primary care provider.
[2016-12-31] MEDS: PROCHLORPERAZINE 10 MG/2 ML VIAL IM ONE (21:12)
[2016-12-31] MEDS: KETOROLAC 60 MG/2 ML VIAL IM STA (21:12)
[2016-12-31] MEDS: LIDOCAINE 5% PATCH TOP ONE (21:45)
== END 2016-12-31 21:47 | disposition home or self-care (01) ==
LOC: ER 20:42
DX: R51 Headache (principal); H53.149 Visual discomfort, unspecified
CPT/HCPCS: 96372; 99283; J0780; J1885

== ENCOUNTER 2017-01-06 21:47 | Emergency (ER) | payer MEDICARE, MEDICAID ==
[2017-01-06] MEDS: PROMETHAZINE HCL 25 MG/ML VIAL IM ONE (22:19)
[2017-01-06] MEDS: ORPHENADRINE CITRATE 60MG/2ML VIAL IM ONE (22:19)
[2017-01-06] MEDS: KETOROLAC 30 MG/ML VIAL IM ONE (22:20)
--- NOTE | 2017-01-06 22:42 | Emergency Department Record ---
History of Present Illness - General Chief Complaint: Headache Migraine Stated Complaint: MIGRAINE,SORE NECK Time Seen by Provider: 01/06/17 21:59 Source: Patient Mode of Arrival: Ambulatory Limitations: No limitations - History of Present Illness Initial Comments: pt c/o of neck pain and a migraine. she states she has had neck pain ever since she had injections in it. she has an appt with the dr again tomorrow and she has seen him since she had the injections and has told him about the neck pain. she states the migraine is her typical migraine MD Complaint: "Migraine" Onset/Timin -: Hour(s) Onset Description: Gradual Location: Diffuse, Neck Quality: Similar to previous headaches Consistency: Constant Improves With: Nothing Worsens With: Light Associated Symptoms: Photophobia Treatments Prior to Arrival: Migraine medication - Related Data Previous Rx's Medication Instructions Recorded Clotrimazole [Lotrimin AF] 1 gm TP BID #1 tube 07/20/16 Allergies Allergy/AdvReac Type Severity Reaction Status Date / Time [id number] Antimigraine Allergy Severe HEADACHE Verified 11/30/16 18:26 Agents Zuxwcug-Oet-Fdk Reductase Allergy Intermediate JOINT ACHES Verified 11/30/16 18: 26 Inhibitor medical tape AdvReac Mild RASH Uncoded 10/05/16 12:43 Travel Screening - Travel/Exposure Within Last 30 Days Have you traveled within the last 30 days?: No - Travel/Exposure Within Last Year Have you traveled outside the [place] in the last year?: No - Additonal Travel Details Have you been exposed to anyone with a communicable illness?: No - Travel Symptoms Symptom Screening: None Review of Systems Reviewed: No additional complaints except as noted below Constitutional: Reports: As per HPI. Denies: Chills, Fever, Malaise, Night sweats, Weakness, Weight change Eyes: Reports: As per HPI. Denies: Eye discharge, Eye pain, Photophobia, Vision change ENT: Reports: As per HPI. Denies: Congestion, Dental pain, Ear pain, Epistaxis , Hearing loss, Throat pain Respiratory: Reports: As per HPI. Denies: Cough, Dyspnea, Hemoptysis, Stridor, Wheezes Cardiovascular: Reports: As per HPI. Denies: Arrhythmia, Chest pain, Dyspnea on exertion, Edema, Murmurs, Orthopnea, Palpitations, Paroxysmal nocturnal dyspnea, Rheumatic Fever, Syncope Endocrine: Reports: As per HPI. Denies: Fatigue, Heat or cold intolerance, Polydipsia, Polyuria Gastrointestinal: Reports: As per HPI. Denies: Abdominal pain, Constipation, Diarrhea, Hematemesis, Hematochezia, Melena, Nausea, Vomiting Genitourinary: Reports: As per HPI. Denies: Abnormal menses, Discharge, Dyspareunia, Dysuria, Frequency, Hematuria, Incontinence, Retention, Urgency Musculoskeletal: Reports: As per HPI. Denies: Arthralgia, Back pain, Gout, Joint swelling, Myalgia, Neck pain Skin: Reports: As per HPI. Denies: Bruising, Change in color, Change in hair/ nails, Lesions, Pruritus, Rash Neurological: Reports: As per HPI. Denies: Abnormal gait, Confusion, Headache, Numbness, Paresthesias, Seizure, Tingling, Tremors, Vertigo, Weakness Psychiatric: Reports: As per HPI. Denies: Anxiety, Auditory hallucinations, Depression, Homicidal thoughts, Suicidal thoughts, Visual hallucinations Hematological/Lymphatic: Reports: As per HPI. Denies: Anemia, Blood Clots, Easy bleeding, Easy bruising, Swollen glands Past Medical History - SOCIAL HISTORY Smoking Status: Current every day smoker Alcohol Use: None Drug Use: None - RESPIRATORY Hx Respiratory Disorders: Yes Hx Bronchitis: Yes Hx Pneumonia: Yes Comment:: low O2 when sleeping - CARDIOVASCULAR Hx Cardio Disorders: Yes Hx Chest Pain: Yes Comment:: HYPERLIPIDEMIA - NEURO Hx Neuro Disorders: Yes Hx Headaches: Yes (complex migrane) - GI Hx GI Disorders: Yes Hx Diverticulitis: Yes Hx Reflux: Yes (upper GI) Hx Liver Disease: (Liver biopsy 7-16) Hx Nausea/Vomiting: Yes (with pain) Hx Ulcer: Yes Comment:: fatty liver - Hx Genitourinary Disorders: Yes Comment:: polycystic ovary syndrome - ENDOCRINE Hx Endocrine Disorders: Yes Hx Diabetes: Yes Hx Thyroid Disease: No - MUSCULOSKELETAL Hx Musculoskeletal Disorders: Yes Hx Fibromyalgia: Yes Hx Gout: Yes Comment:: Buldging disc in neck - PSYCH Hx Psych Problems: Yes Hx Anxiety: Yes Hx Depression: Yes Comment:: PTSD - HEMATOLOGY/ONCOLOGY Hx Hematology/Oncology Disorders: No Family Medical History Any Significant Family History?: No Hx Cancer: Mother, Grandparents *Diabetes Comment: aunt Hx Heart Disease: Brother/Sister *Heart Comment: Brother Hx Kidney Disease: Children Physical Exam - General General Appearance: Alert, Oriented x3, Cooperative, Mild distress - Head Head exam: Normal inspection - Eye Eye exam: Normal appearance, PERRL, EOMI Pupils: Normal accommodation - ENT ENT exam: Normal exam, Mucous membranes moist, Normal external ear exam, Normal orophraynx Ear exam: Normal external inspection. negative: External canal tenderness Nasal Exam: Normal inspection. negative: Discharge, Sinus tenderness Mouth exam: Normal external inspection, Tongue normal Teeth exam: Normal inspection. negative: Dental caries Throat exam: Normal inspection. negative: Tonsillar erythema, Tonsillar exudate - Neck Neck exam: Normal inspection, Full ROM. negative: Tenderness - Respiratory Respiratory exam: Normal lung sounds bilaterally. negative: Respiratory distress - Cardiovascular Cardiovascular Exam: Regular rate, Normal rhythm, Normal heart sounds - GI/Abdominal GI/Abdominal exam: Soft, Normal bowel sounds. negative: Tenderness - Rectal Rectal exam: Deferred - exam: Deferred - Extremities Extremities exam: Normal inspection, Full ROM, Normal capillary refill. negative: Tenderness - Back Back exam: Reports: Normal inspection, Full ROM. Denies: Muscle spasm, Rash noted, Tenderness - Neurological Neurological exam: Alert, CN II-XII intact, Normal gait, Oriented X3 - Psychiatric Psychiatric exam: Normal affect, Normal mood - Skin Skin exam: Dry, Intact, Normal color, Warm Course Vital Signs 01/06/17 21:54 Temperature 97.6 F Pulse Rate [ 82 Pulse Ox Probe] Respiratory 20 Rate Blood Pressure 119/76 [Left Arm] Pulse Ox 99 Disposition Disposition: Discharge Clinical Impression: Migraine Qualifiers: Migraine type: unspecified Status migrainosus presence: without status migrainosus Intractability: not intractable Qualified Code(s): G43.909 - Migraine, unspecified, not intractable, without status migrainosus Disposition: Home, Self-Care Condition: (1) Good Instructions: Migraine Headache (ED) Additional Instructions: follow up with family doctor. return sooner if worse. Forms: Patient Portal Access Quality - Quality Measures Quality Measures: N/A - Blood Pressure Screening Does Patient Have Any of the Following: No Blood Pressure Classification: Normal BP Reading Systolic Measurement: 118 Diastolic Measurement: 64 Screening for High Blood Pressure: < Normal BP, F/U Not Required > [G8783]
[2017-01-06] MEDS: METHYLPREDNISOLONE PF 125MG/VIAL IVP ONE (23:00)
[2017-01-06] MEDS: 0.9 % SODIUM CHLORIDE 1,000 ML BAG IV ONE (23:00)
[2017-01-06] MEDS: DIPHENHYDRAMINE HCL IV 50 MG/ML VIAL IVP ONE (23:09)
== END 2017-01-06 23:58 | disposition home or self-care (01) ==
LOC: ER 21:47
DX: G43.909 Migraine, unspecified, not intractable, without status migrainosus (principal); M54.2 Cervicalgia; H53.149 Visual discomfort, unspecified
CPT/HCPCS: 99284 ×2; 96374; 96372; 96375; 96361; J1885; J1200; J2360; J2550; J2930; J7030

== ENCOUNTER 2017-01-11 02:00 | Emergency (ER) | payer MEDICARE, MEDICAID ==
[2017-01-11] MEDS ORDERED: PROMETHAZINE HCL 25 MG/ML VIAL IM ONE (02:16)
[2017-01-11] MEDS ORDERED: ORPHENADRINE CITRATE 60MG/2ML VIAL IM ONE (02:16)
[2017-01-11] MEDS ORDERED: HALOPERIDOL LACTATE 5 MG/ML VIAL IM ONE (02:16)
--- NOTE | 2017-01-11 02:23 | Emergency Department Record ---
History of Present Illness - General Chief Complaint: Headache Migraine Stated Complaint: HEADACHE Time Seen by Provider: 01/11/17 02:01 Source: Patient Mode of Arrival: Ambulatory Limitations: No limitations - History of Present Illness Initial Comments: 42 yo female returns to ED for evaluation of her chronic headache symptoms. Patient reports that her symptoms began approximately 4 hours ago, reports taking her home migraine therapy without improvement. Patient reports that her headache symptoms are affecting the left face, left head, and left neck. Patient denies fevers, chills, or neck stiffness symptoms. Patient had been seeing Dr. Reinoso (pain specialist) for cervical injections, was supposed to follow -up with him last week but did not have "the $20.00 to see him". Patient will be seeing Dr. Friedman later this week. Complaint: Headache Onset/Timin -: Hour(s) Onset Description: Sudden Location: Facial, Left, Neck, Retro-orbital, Temporal Severity scale (1-10): 8 Quality: Sharp, Similar to previous headaches Consistency: Constant, Getting worse Improves With: Nothing Worsens With: Light, Movement of head/neck, Noise Associated Symptoms: Nausea, Photophobia, Sensitivity to sound Treatments Prior to Arrival: Migraine medication - Related Data Previous Rx's Medication Instructions Recorded Clotrimazole [Lotrimin AF] 1 gm TP BID #1 tube 07/20/16 Allergies Allergy/AdvReac Type Severity Reaction Status Date / Time [id number] Antimigraine Allergy Severe HEADACHE Verified 11/30/16 18:26 Agents Tveeopy-Whv-Jbi Reductase Allergy Intermediate JOINT ACHES Verified 11/30/16 18: 26 Inhibitor medical tape AdvReac Mild RASH Uncoded 10/05/16 12:43 Travel Screening - Travel/Exposure Within Last 30 Days Have you traveled within the last 30 days?: No - Travel Symptoms Symptom Screening: None Review of Systems Constitutional: Denies: Chills, Fever, Malaise, Night sweats Eyes: Denies: Eye discharge, Eye pain ENT: Denies: Congestion, Ear pain, Epistaxis Respiratory: Denies: Cough, Dyspnea Cardiovascular: Denies: Chest pain, Dyspnea on exertion Endocrine: Denies: Fatigue, Heat or cold intolerance Gastrointestinal: Reports: Nausea. Denies: Abdominal pain, Vomiting Genitourinary: Denies: Incontinence, Retention Musculoskeletal: Reports: Neck pain. Denies: Arthralgia, Back pain, Gout, Joint swelling Skin: Denies: Bruising, Change in color Neurological: Reports: Headache. Denies: Abnormal gait, Confusion, Seizure Psychiatric: Denies: Anxiety Hematological/Lymphatic: Denies: Anemia, Blood Clots Past Medical History - SOCIAL HISTORY Smoking Status: Current every day smoker - RESPIRATORY Hx Respiratory Disorders: Yes Hx Bronchitis: Yes Hx Pneumonia: Yes Comment:: low O2 when sleeping - CARDIOVASCULAR Hx Cardio Disorders: Yes Hx Chest Pain: Yes Comment:: HYPERLIPIDEMIA - NEURO Hx Neuro Disorders: Yes Hx Headaches: Yes (complex migrane) - GI Hx GI Disorders: Yes Hx Diverticulitis: Yes Hx Reflux: Yes (upper GI) Hx Liver Disease: (Liver biopsy 7-16) Hx Nausea/Vomiting: Yes (with pain) Hx Ulcer: Yes Comment:: fatty liver - Hx Genitourinary Disorders: Yes Comment:: polycystic ovary syndrome - ENDOCRINE Hx Endocrine Disorders: Yes Hx Diabetes: Yes Hx Thyroid Disease: No - MUSCULOSKELETAL Hx Musculoskeletal Disorders: Yes Hx Fibromyalgia: Yes Hx Gout: Yes Comment:: Buldging disc in neck - PSYCH Hx Psych Problems: Yes Hx Anxiety: Yes Hx Depression: Yes Comment:: PTSD - HEMATOLOGY/ONCOLOGY Hx Hematology/Oncology Disorders: No Family Medical History Any Significant Family History?: Yes Hx Cancer: Mother, Grandparents *Diabetes Comment: aunt Hx Heart Disease: Brother/Sister *Heart Comment: Brother Hx Kidney Disease: Children Physical Exam - General General Appearance: Alert, Oriented x3, Cooperative, Moderate distress, Other ( tearful on examination) Limitations: No limitations - Head Head exam: Atraumatic, Normocephalic, Normal inspection Head exam detail: negative: Abrasion, Contusion, Espinosa's sign, General tenderness, Hematoma, Laceration - Eye Eye exam: Normal appearance. negative: Conjunctival injection, Periorbital swelling, Periorbital tenderness, Scleral icterus - ENT Ear exam: negative: Auricular hematoma, Auricular trauma Nasal Exam: negative: Active bleeding, Discharge, Dried blood, Foreign body Mouth exam: negative: Drooling, Laceration, Muffled voice, Tongue elevation - Neck Neck exam: Normal inspection. negative: Meningismus, Tenderness - Respiratory Respiratory exam: Normal lung sounds bilaterally. negative: Rales, Respiratory distress, Rhonchi, Stridor, Wheezes - Cardiovascular Cardiovascular Exam: Regular rate, Normal rhythm, Normal heart sounds - GI/Abdominal GI/Abdominal exam: Soft. negative: Rebound, Rigid, Tenderness - Rectal Rectal exam: Deferred - exam: Deferred - Extremities Extremities exam: Normal inspection. negative: Calf tenderness, Pedal edema, Tenderness - Back Back exam: Denies: CVA tenderness (R), CVA tenderness (L) - Neurological Neurological exam: Alert, Normal gait, Oriented X3 - Psychiatric Psychiatric exam: Normal affect, Normal mood - Skin Skin exam: Normal color. negative: Abrasion Type of lesion: negative: abrasion Course Vital Signs 01/11/17 02:04 Temperature 97.9 F Pulse Rate [ 78 Pulse Ox Probe] Respiratory 20 Rate Blood Pressure 125/85 [Left Arm] Pulse Ox 99 - Reevaluation(s) Reevaluation #1: 01/11/17 03:24 Patient reassessed and reports that her pain symptoms are down to a "low 5", appears much more relaxed and stable for discharge at this time. Disposition Disposition: Discharge Clinical Impression: Headache Qualifiers: Headache type: unspecified Headache chronicity pattern: acute headache Intractability: not intractable Qualified Code(s): R51 - Headache Disposition: Home, Self-Care Condition: (2) Stable Instructions: Acute Headache (ED) Additional Instructions: Return to ED if your symptoms worsen or if you have any concerns. Follow-up with Dr. Friedman as scheduled this week. Forms: Patient Portal Access Time of Disposition: 02:24 Quality - Quality Measures Quality Measures: N/A - Blood Pressure Screening Does Patient Have Any of the Following: No Blood Pressure Classification: Pre-Hypertensive BP Reading Systolic Measurement: 125 Diastolic Measurement: 85 Screening for High Blood Pressure: < Pre-Hypertensive BP, F/U Documented > [ G8950] Pre-Hypertensive Follow-up Interventions: Referral to alternative/primary care provider.
== END 2017-01-11 03:29 | disposition home or self-care (01) ==
LOC: ER 02:00
DX: R51 Headache (principal); M54.2 Cervicalgia; R11.0 Nausea; F17.210 Nicotine dependence, cigarettes, uncomplicated
CPT/HCPCS: 96372; 99283; J1630; J2360; J2550

== ENCOUNTER 2017-01-17 03:40 | Emergency (ER) | payer MEDICARE, MEDICAID ==
[2017-01-17] MEDS ORDERED: HALOPERIDOL LACTATE 5 MG/ML VIAL IM ONE (04:10)
[2017-01-17] MEDS ORDERED: PROMETHAZINE HCL 25 MG/ML VIAL IM ONE (04:10)
[2017-01-17] MEDS ORDERED: ORPHENADRINE CITRATE 60MG/2ML VIAL IM ONE (04:10)
[2017-01-17] MEDS ORDERED: KETOROLAC 30 MG/ML VIAL IM ONE (04:10)
--- NOTE | 2017-01-17 04:18 | Emergency Department Record ---
History of Present Illness - General Chief Complaint: Headache Migraine Stated Complaint: BACK PAIN, MIGRAIN, VOMITING Time Seen by Provider: 01/17/17 03:58 Source: Patient Mode of Arrival: Ambulatory Limitations: No limitations - History of Present Illness Initial Comments: pt is having her typical migraine and a backache. she couldnt get comfortable so she came in. she has nausea and vomited so she couldnt keep her oral meds down. she started vomiting in the last few hours. Onset/Timin -: Hour(s) Onset Description: Gradual, At rest Location: Left, Right Severity scale (1-10): 7 Quality: Sharp, Similar to previous headaches Consistency: Constant Improves With: Rest Worsens With: Noise Associated Symptoms: Nausea, Photophobia, Vomiting Treatments Prior to Arrival: Migraine medication, Prescription analgesic - Symptoms of Stroke Baseline State: Baseline State - Related Data Previous Rx's Medication Instructions Recorded Clotrimazole [Lotrimin AF] 1 gm TP BID #1 tube 07/20/16 Allergies Allergy/AdvReac Type Severity Reaction Status Date / Time [id number] Antimigraine Allergy Severe HEADACHE Verified 01/17/17 03:44 Agents Cqtajnf-Vzl-Pns Reductase Allergy Intermediate JOINT ACHES Verified 01/17/17 03: 44 Inhibitor medical tape AdvReac Mild RASH Uncoded 01/17/17 03:44 Travel Screening - Travel/Exposure Within Last 30 Days Have you traveled within the last 30 days?: No - Travel/Exposure Within Last Year Have you traveled outside the [place] in the last year?: No - Additonal Travel Details Have you been exposed to anyone with a communicable illness?: No - Travel Symptoms Symptom Screening: None Review of Systems Reviewed: No additional complaints except as noted below Constitutional: Reports: As per HPI. Denies: Chills, Fever, Malaise, Night sweats, Weakness, Weight change Eyes: Reports: As per HPI. Denies: Eye discharge, Eye pain, Photophobia, Vision change ENT: Reports: As per HPI. Denies: Congestion, Dental pain, Ear pain, Epistaxis , Hearing loss, Throat pain Respiratory: Reports: As per HPI. Denies: Cough, Dyspnea, Hemoptysis, Stridor, Wheezes Cardiovascular: Reports: As per HPI. Denies: Arrhythmia, Chest pain, Dyspnea on exertion, Edema, Murmurs, Orthopnea, Palpitations, Paroxysmal nocturnal dyspnea, Rheumatic Fever, Syncope Endocrine: Reports: As per HPI. Denies: Fatigue, Heat or cold intolerance, Polydipsia, Polyuria Gastrointestinal: Reports: As per HPI. Denies: Abdominal pain, Constipation, Diarrhea, Hematemesis, Hematochezia, Melena, Nausea, Vomiting Genitourinary: Reports: As per HPI. Denies: Abnormal menses, Discharge, Dyspareunia, Dysuria, Frequency, Hematuria, Incontinence, Retention, Urgency Musculoskeletal: Reports: As per HPI. Denies: Arthralgia, Back pain, Gout, Joint swelling, Myalgia, Neck pain Skin: Reports: As per HPI. Denies: Bruising, Change in color, Change in hair/ nails, Lesions, Pruritus, Rash Neurological: Reports: As per HPI. Denies: Abnormal gait, Confusion, Headache, Numbness, Paresthesias, Seizure, Tingling, Tremors, Vertigo, Weakness Psychiatric: Reports: As per HPI. Denies: Anxiety, Auditory hallucinations, Depression, Homicidal thoughts, Suicidal thoughts, Visual hallucinations Hematological/Lymphatic: Reports: As per HPI. Denies: Anemia, Blood Clots, Easy bleeding, Easy bruising, Swollen glands Past Medical History - SOCIAL HISTORY Smoking Status: Current every day smoker Alcohol Use: None Drug Use: None - RESPIRATORY Hx Respiratory Disorders: Yes Hx Bronchitis: Yes Hx Pneumonia: Yes Comment:: low O2 when sleeping - CARDIOVASCULAR Hx Cardio Disorders: Yes Hx Chest Pain: Yes Comment:: HYPERLIPIDEMIA - NEURO Hx Neuro Disorders: Yes Hx Headaches: Yes (complex migrane) - GI Hx GI Disorders: Yes Hx Diverticulitis: Yes Hx Reflux: Yes (upper GI) Hx Liver Disease: (Liver biopsy 7-16) Hx Nausea/Vomiting: Yes (with pain) Hx Ulcer: Yes Comment:: fatty liver - Hx Genitourinary Disorders: Yes Comment:: polycystic ovary syndrome - ENDOCRINE Hx Endocrine Disorders: Yes Hx Diabetes: Yes Hx Thyroid Disease: No - MUSCULOSKELETAL Hx Musculoskeletal Disorders: Yes Hx Fibromyalgia: Yes Hx Gout: Yes Comment:: Buldging disc in neck - PSYCH Hx Psych Problems: Yes Hx Anxiety: Yes Hx Depression: Yes Comment:: PTSD - HEMATOLOGY/ONCOLOGY Hx Hematology/Oncology Disorders: No Family Medical History Any Significant Family History?: No Hx Cancer: Mother, Grandparents *Diabetes Comment: aunt Hx Heart Disease: Brother/Sister *Heart Comment: Brother Hx Kidney Disease: Children Course Vital Signs 01/17/17 03:48 Temperature 97.5 F L Pulse Rate [ 69 Pulse Ox Probe] Respiratory 18 Rate Blood Pressure 124/90 [Left Arm] Pulse Ox 96 Disposition Disposition: Discharge Clinical Impression: Migraine Qualifiers: Migraine type: without aura Status migrainosus presence: without status migrainosus Intractability: not intractable Qualified Code(s): G43.009 - Migraine without aura, not intractable, without status migrainosus Disposition: Home, Self-Care Condition: (1) Good Instructions: Migraine Headache (ED) Additional Instructions: follow up with family doctor. return sooner if worse. rest Quality - Quality Measures Quality Measures: Headache - Headache: Neuroimaging Quality Measure: Measure #419: Overuse of Neuroimaging Neurological Exam: Patient had a normal neurological exam. [G9535] Headache: Use of Neuroimaging: < CTA, CT, MRA or MRI was NOT ordered > [G9534] - Blood Pressure Screening Does Patient Have Any of the Following: No Blood Pressure Classification: Hypertensive Reading Systolic Measurement: 124 Diastolic Measurement: 90 Screening for High Blood Pressure: < Pre-Hypertensive BP, F/U Documented > [ G8950] Pre-Hypertensive Follow-up Interventions: Follow-up with rescreen every year.
== END 2017-01-17 05:22 | disposition home or self-care (01) ==
LOC: ER 03:40
DX: G43.009 Migraine without aura, not intractable, without status migrainosus (principal); R11.2 Nausea with vomiting, unspecified; M54.2 Cervicalgia
CPT/HCPCS: 99283 ×2; 96372; J1885; J1630; J2360; J2550

== ENCOUNTER 2017-01-23 16:36 | Emergency (ER) | payer MEDICARE, MEDICAID ==
[2017-01-23] MEDS ORDERED: 0.9 % SODIUM CHLORIDE 1,000 ML BAG IV ONE (17:16)
[2017-01-23] MEDS ORDERED: ONDANSETRON HCL IV 4 MG/2 ML VIAL IV ONE (17:16)
--- NOTE | 2017-01-23 17:20 | Emergency Department Record ---
History of Present Illness - General Chief complaint: Vomiting Stated complaint: CHILLS,VOMITING Time Seen by Provider: 01/23/17 17:09 Source: Patient Mode of Arrival: Ambulatory Limitations: No limitations - History of Present Illness Initial comments: The patient is here due to a 4 day hx of mild nausea, vomiting and diarrhea. The vomiting was only 4 days ago and since she has had watery diarrhea multiple times a day. She denies any AP, fever, blood in the stools, or recent Abx use. She has been very nauseated but that is a chronic problem. She believes she is dehydrated and needs fluid in the IV. MD complaint: Diarrhea, Nausea Onset/Timin -: Days(s) Description of Vomiting: Watery Description of Diarrhea: Mucous, Water Severity: Moderate Severity scale (1-10): 2 Quality: Aching - Related Data Home Medications Medication Instructions Recorded Confirmed Last Taken Aripiprazole [Abilify] 2 mg PO DAILY 01/23/17 01/23/17 1 Day Ago ~01/22/17 Previous Rx's Medication Instructions Recorded Clotrimazole [Lotrimin AF] 1 gm TP BID #1 tube 07/20/16 Allergies Allergy/AdvReac Type Severity Reaction Status Date / Time [id number] Antimigraine Allergy Severe HEADACHE Verified 01/23/17 17:09 Agents Vfakulj-Yzf-Xyk Reductase Allergy Intermediate JOINT ACHES Verified 01/23/17 17: 09 Inhibitor medical tape AdvReac Mild RASH Uncoded 01/23/17 17:09 Travel Screening - Travel/Exposure Within Last 30 Days Have you traveled within the last 30 days?: No - Travel/Exposure Within Last Year Have you traveled outside the [place] in the last year?: No - Additonal Travel Details Have you been exposed to anyone with a communicable illness?: No - Travel Symptoms Symptom Screening: None Review of Systems Constitutional: Reports: Chills, Malaise. Denies: Fever Eyes: Denies: Eye discharge ENT: Denies: Congestion Respiratory: Denies: Cough, Dyspnea Cardiovascular: Denies: Arrhythmia, Chest pain Endocrine: Reports: Fatigue Past Medical History - SOCIAL HISTORY Smoking Status: Current every day smoker Alcohol Use: None Drug Use: None - RESPIRATORY Hx Respiratory Disorders: Yes Hx Bronchitis: Yes Hx Pneumonia: Yes Comment:: low O2 when sleeping - CARDIOVASCULAR Hx Cardio Disorders: Yes Hx Chest Pain: Yes Comment:: HYPERLIPIDEMIA - NEURO Hx Neuro Disorders: Yes Hx Headaches: Yes (complex migrane) - GI Hx GI Disorders: Yes Hx Diverticulitis: Yes Hx Reflux: Yes (upper GI) Hx Liver Disease: (Liver biopsy 7-16) Hx Nausea/Vomiting: Yes (with pain) Hx Ulcer: Yes Comment:: fatty liver - Hx Genitourinary Disorders: Yes Comment:: polycystic ovary syndrome - ENDOCRINE Hx Endocrine Disorders: Yes Hx Diabetes: Yes Hx Thyroid Disease: No - MUSCULOSKELETAL Hx Musculoskeletal Disorders: Yes Hx Fibromyalgia: Yes Hx Gout: Yes Comment:: Buldging disc in neck - PSYCH Hx Psych Problems: Yes Hx Anxiety: Yes Hx Depression: Yes Comment:: PTSD - HEMATOLOGY/ONCOLOGY Hx Hematology/Oncology Disorders: No Family Medical History Any Significant Family History?: Yes Hx Cancer: Mother, Grandparents *Diabetes Comment: aunt Hx Heart Disease: Brother/Sister *Heart Comment: Brother Hx Kidney Disease: Children Physical Exam - General General Appearance: Alert, Oriented x3, Cooperative, No acute distress - Head Head exam: Atraumatic, Normocephalic, Normal inspection - Eye Eye exam: Normal appearance, PERRL - ENT Throat exam: Normal inspection. negative: Tonsillar erythema, Tonsillar exudate - Neck Neck exam: Normal inspection, Full ROM. negative: Tenderness - Respiratory Respiratory exam: Normal lung sounds bilaterally. negative: Respiratory distress - Cardiovascular Cardiovascular Exam: Regular rate, Normal rhythm, Normal heart sounds - GI/Abdominal GI/Abdominal exam: Soft, Normal bowel sounds. negative: Tenderness - Extremities Extremities exam: Normal inspection, Full ROM, Normal capillary refill. negative: Tenderness - Neurological Neurological exam: Alert, Normal gait. negative: Abnormal gait, Motor sensory deficit Course Vital Signs 01/23/17 17:00 Temperature 98.1 F Pulse Rate 91 H Respiratory 18 Rate Blood Pressure 109/68 Pulse Ox 99 - Reevaluation(s) Reevaluation #1: The patient is doing very well. She has had no further vomiting or diarrhea in the ED. She feels improved and ready for home. 01/23/17 18:29 Medical Decision Making - Lab Data Result diagrams: 01/23/17 17:27 01/23/17 17:27 Disposition Disposition: Discharge Clinical Impression: Diarrhea Qualifiers: Diarrhea type: unspecified type Qualified Code(s): R19.7 - Diarrhea, unspecified Disposition: Home, Self-Care Condition: (2) Stable Instructions: Acute Nausea and Vomiting (ED) Additional Instructions: Please drink plenty of fluids. Please see your PCP next week if not better and return to the ER for any worsening symptoms. Forms: Patient Portal Access Time of Disposition: 18:30 Quality - Quality Measures Quality Measures: N/A - Blood Pressure Screening View Details: Yes Does Patient Have Any of the Following: No Blood Pressure Classification: Normal BP Reading Systolic Measurement: 109 Diastolic Measurement: 68 Screening for High Blood Pressure: < Normal BP, F/U Not Required > [G8783]
[2017-01-23 17:48] LABS: BASO % 0.3 % (0-6); EOS % 0.8 % (0-6); GRAN % 69.8 % (47-80); HEMATOCRIT 37.3 % (35.0-47.0); HEMOGLOBIN 12.6 gm/dl (11.6-16.0); LYMPH % 22.3 % (16-45); MEAN CELL VOLUME 88.8 fl (81-97); MEAN CORPUSCULAR HGB CONC 33.8 g/dl (32-36); MEAN PLATELET VOLUME 9.5 fl (7.4-10.4); MONO % 6.8 % (0-9); PLATELET COUNT 461 K/uL (130-400); RED CELL DISTRIBUTION WIDTH 13.7 % (11.5-14.5); WHITE BLOOD COUNT W/O DIFF 10.7 K/uL (4.2-12.2)
[2017-01-23 18:19] LABS: ALB/GLOB RATIO 1.4 (1.1-1.8); ALBUMIN 4.2 g/dL (4.0-5.0); ALKALINE PHOSPHATASE 152 U/L (35-104); ALT/SGPT 57 U/L (<33); AST/SGOT 31 U/L (10.0-35.0); BLOOD UREA NITROGEN 9 mg/dL (6-20); CREATININE 0.8 mg/dL (0.5-0.9); EST GLOMERULAR FILTRATION RATE > 60 mL/min; GLUCOSE,RANDOM 113 mg/dL (74-109); TOTAL PROTEIN 7.2 g/dL (6.6-8.7)
== END 2017-01-23 18:48 | disposition home or self-care (01) ==
LOC: ER 16:36
DX: R19.7 Diarrhea, unspecified (principal); R11.2 Nausea with vomiting, unspecified
CPT/HCPCS: 80053; 85025; 96361; 96374; 99284; J2405; J7030

== ENCOUNTER 2017-03-16 22:18 | Emergency (ER) | payer MEDICARE, MEDICAID ==
[2017-03-16] MEDS ORDERED: KETOROLAC 60 MG/2 ML VIAL IM STA (22:41)
--- NOTE | 2017-03-16 22:47 | Emergency Department Record ---
History of Present Illness - General Chief Complaint: Back Pain/Injury Stated Complaint: BACK PAIN Time Seen by Provider: 03/16/17 22:41 Source: Patient Mode of Arrival: Ambulatory Limitations: No limitations - History of Present Illness Initial Comments: 89 yo female presents to ED for evaluation of right sided low back pain after helping her flipping a kadie-size mattress 90 minutes ago. Patient reports "tingling" to the right leg, denies groin numbness, weakness to the lower extremities, or urinary retention symptoms. Patient reports taking Flexeril for her pain symptoms without improvement in her pain symptoms. MD Complaint: Back pain Onset/Timin -: Minutes(s) Similar Symptoms Previously: No Place: Home Radiation: Right leg Severity: Severe Severity scale (1-10): 10 Quality: Sharp Consistency: Constant, Getting worse Improves With: None Worsens With: Movement, Walking Context: Turning/twisting, While lifting Associated Symptoms: Difficulty walking Treatments Prior to Arrival: Cold therapy, Other medications Treatment Prior to Arrival Comment:: flexeril - Related Data Previous Rx's Medication Instructions Recorded Clotrimazole [Lotrimin AF] 1 gm TP BID #1 tube 07/20/16 Ibuprofen [Motrin] 800 mg PO Q6H PRN #30 tab 03/16/17 Allergies Allergy/AdvReac Type Severity Reaction Status Date / Time [id number] Antimigraine Allergy Severe HEADACHE Unverified 02/05/17 13:00 Agents Qzufktc-Acu-Wwy Reductase Allergy Intermediate JOINT ACHES Unverified 02/05/17 13:00 Inhibitor medical tape AdvReac Mild RASH Uncoded 01/23/17 17:09 Travel Screening - Travel/Exposure Within Last 30 Days Have you traveled within the last 30 days?: No - Travel Symptoms Symptom Screening: None Review of Systems Constitutional: Denies: Chills, Fever, Malaise, Night sweats Eyes: Denies: Eye discharge, Eye pain ENT: Denies: Congestion, Ear pain, Epistaxis Respiratory: Denies: Cough, Dyspnea Cardiovascular: Denies: Chest pain, Dyspnea on exertion Endocrine: Denies: Fatigue, Heat or cold intolerance Gastrointestinal: Denies: Abdominal pain, Nausea, Vomiting Genitourinary: Denies: Incontinence, Retention Musculoskeletal: Reports: Back pain. Denies: Arthralgia, Gout Skin: Denies: Bruising, Change in color Neurological: Denies: Abnormal gait, Confusion, Headache, Seizure Psychiatric: Denies: Anxiety Hematological/Lymphatic: Denies: Anemia, Blood Clots Past Medical History - SOCIAL HISTORY Smoking Status: Current every day smoker Drug Use: None - RESPIRATORY Hx Respiratory Disorders: Yes Hx Bronchitis: Yes Hx Pneumonia: Yes Comment:: low O2 when sleeping - CARDIOVASCULAR Hx Cardio Disorders: Yes Hx Chest Pain: Yes Comment:: HYPERLIPIDEMIA - NEURO Hx Neuro Disorders: Yes Hx Headaches: Yes (complex migrane) - GI Hx GI Disorders: Yes Hx Diverticulitis: Yes Hx Reflux: Yes (upper GI) Hx Liver Disease: (Liver biopsy 7-16) Hx Nausea/Vomiting: Yes (with pain) Hx Ulcer: Yes Comment:: fatty liver - Hx Genitourinary Disorders: Yes Comment:: polycystic ovary syndrome - ENDOCRINE Hx Endocrine Disorders: Yes Hx Diabetes: Yes Hx Thyroid Disease: No - MUSCULOSKELETAL Hx Musculoskeletal Disorders: Yes Hx Fibromyalgia: Yes Hx Gout: Yes Comment:: Buldging disc in neck - PSYCH Hx Psych Problems: Yes Hx Anxiety: Yes Hx Depression: Yes Comment:: PTSD - HEMATOLOGY/ONCOLOGY Hx Hematology/Oncology Disorders: No Family Medical History Hx Cancer: Mother, Grandparents *Diabetes Comment: aunt Hx Heart Disease: Brother/Sister *Heart Comment: Brother Hx Kidney Disease: Children Physical Exam - General General Appearance: Alert, Oriented x3, Cooperative, Moderate distress Limitations: No limitations - Head Head exam: Atraumatic, Normocephalic, Normal inspection Head exam detail: negative: Abrasion, Contusion, Espinosa's sign, General tenderness, Hematoma, Laceration - Eye Eye exam: Normal appearance. negative: Conjunctival injection, Periorbital swelling, Periorbital tenderness, Scleral icterus - ENT Ear exam: negative: Auricular hematoma, Auricular trauma Nasal Exam: negative: Active bleeding, Discharge, Dried blood, Foreign body Mouth exam: negative: Drooling, Laceration, Muffled voice, Tongue elevation - Neck Neck exam: Normal inspection. negative: Meningismus, Tenderness - Respiratory Respiratory exam: Normal lung sounds bilaterally. negative: Rales, Respiratory distress, Rhonchi, Stridor - Cardiovascular Cardiovascular Exam: Regular rate, Normal rhythm, Normal heart sounds - GI/Abdominal GI/Abdominal exam: Soft. negative: Rebound, Rigid, Tenderness - Rectal Rectal exam: Deferred - exam: Deferred - Extremities Extremities exam: Normal inspection. negative: Calf tenderness, Pedal edema, Tenderness - Back Back exam: Reports: Paraspinal tenderness (TTP over the right SI joint on examination, no midline TTP on examination.). Denies: CVA tenderness (R), CVA tenderness (L) - Neurological Neurological exam: Alert, Normal gait, Oriented X3 - Psychiatric Psychiatric exam: Normal affect, Normal mood - Skin Skin exam: Normal color. negative: Abrasion Type of lesion: negative: abrasion Course Vital Signs 03/16/17 22:21 Pulse Rate 74 Respiratory 20 Rate Blood Pressure 117/77 Pulse Ox 97 - Reevaluation(s) Reevaluation #1: 03/16/17 22:46 Patient was seen and examined, no direct blow/high velocity injury to the back, patient is <50 years of age, radiographs are not indicated given her history and examination. Will treat symptomatically and reassess. Reevaluation #2: 03/16/17 23:20 Patient reassessed and reports improvement in her pain symptoms, patient appears stable for discharge at this time with Motrin 800 for her recurrent back pain symptoms. Disposition Disposition: Discharge Clinical Impression: Lumbar strain Qualifiers: Encounter type: initial encounter Qualified Code(s): S39.012A - Strain of muscle, fascia and tendon of lower back, initial encounter Disposition: Home, Self-Care Condition: (2) Stable Instructions: Low Back Strain (ED) Additional Instructions: Return to ED if your symptoms worsen or if you have any concerns. Motrin 800 mg as directed. Follow-up with you family doctor in 3-5 days as directed. Prescriptions: Ibuprofen [Motrin] 800 mg PO Q6H PRN #30 tab PRN Reason: Pain - Moderate (5-7) Forms: Patient Portal Access Time of Disposition: 22:49 Quality - Quality Measures Quality Measures: N/A - Blood Pressure Screening Does Patient Have Any of the Following: No Blood Pressure Classification: Normal BP Reading Systolic Measurement: 117 Diastolic Measurement: 77 Screening for High Blood Pressure: < Normal BP, F/U Not Required > [G8783]
== END 2017-03-16 23:28 | disposition home or self-care (01) ==
LOC: ER 22:18
DX: S39.012A Strain of muscle, fascia and tendon of lower back, initial encounter (principal); X50.0XXA Overexertion from strenuous movement or load, initial encounter; Y92.003 Bedroom of unspecified non-institutional (private) residence as the place of occurrence of the external cause
CPT/HCPCS: 96372; 99283; J1885

== ENCOUNTER 2017-04-04 19:10 | Emergency (ER) | payer MEDICARE, MEDICAID ==
[2017-04-04] MEDS ORDERED: METHYLPREDNISOLONE PF 125MG/VIAL IVP ONE (19:37)
--- NOTE | 2017-04-04 19:43 | Emergency Department Record ---
History of Present Illness - General Chief Complaint: Back Pain/Injury Stated Complaint: LOWER BACK PAIN Time Seen by Provider: 04/04/17 19:37 Source: Patient Mode of Arrival: Ambulatory Limitations: No limitations - History of Present Illness Initial Comments: 42 yo female returns to ED for re-evaluation of her back pain symptoms after helping her flip a mattress several weeks ago. Patient reports that she has taken her Ultram and Motrin without relief. Patient reports that she has seen her hand paint mixer for her symptoms, reports that her sciatic nerve is inflamed and the patient is scheduled for a nerve block in 4 days. Patient denies urinary retention symptoms, lower extremity weakness, or groin numbness symptoms. MD Complaint: Back pain Onset/Timin -: Week(s) Similar Symptoms Previously: Yes Place: Home Radiation: None Severity: Moderate Quality: Aching Consistency: Constant Improves With: None Worsens With: None Context: Unknown Associated Symptoms: Denies other symptoms Treatments Prior to Arrival: NSAIDS - Related Data Home Medications Medication Instructions Recorded Confirmed Last Taken Tramadol HCl [Tramadol HCl] 50 mg PO TID PRN 04/04/17 04/04/17 Unknown Previous Rx's Medication Instructions Recorded Ibuprofen [Motrin] 800 mg PO Q6H PRN #30 tab 03/16/17 Prednisone [Prednisone 20Mg] 20 mg PO TID #15 tab 04/04/17 Allergies Allergy/AdvReac Type Severity Reaction Status Date / Time [id number]-5-[id number] Antimigraine Allergy Severe HEADACHE Unverified 02/05/17 13:00 Agents Jdprvgr-Lvj-Abm Reductase Allergy Intermediate JOINT ACHES Unverified 02/05/17 13:00 Inhibitor medical tape AdvReac Mild RASH Uncoded 01/23/17 17:09 Review of Systems Constitutional: Denies: Chills, Fever, Malaise, Night sweats Eyes: Denies: Eye discharge, Eye pain ENT: Denies: Congestion, Ear pain, Epistaxis Respiratory: Denies: Cough, Dyspnea Cardiovascular: Denies: Chest pain, Dyspnea on exertion Endocrine: Denies: Fatigue, Heat or cold intolerance Gastrointestinal: Denies: Abdominal pain, Vomiting Genitourinary: Denies: Abnormal menses, Incontinence, Retention Musculoskeletal: Reports: Back pain. Denies: Arthralgia, Gout, Joint swelling Skin: Denies: Bruising, Change in color Neurological: Denies: Abnormal gait, Confusion, Headache, Seizure Psychiatric: Denies: Anxiety Hematological/Lymphatic: Denies: Anemia, Blood Clots Past Medical History - SOCIAL HISTORY Smoking Status: Current every day smoker Drug Use: None - RESPIRATORY Hx Respiratory Disorders: Yes Hx Bronchitis: Yes Hx Pneumonia: Yes Comment:: low O2 when sleeping - CARDIOVASCULAR Hx Cardio Disorders: Yes Hx Chest Pain: Yes Comment:: HYPERLIPIDEMIA - NEURO Hx Neuro Disorders: Yes Hx Headaches: Yes (complex migrane) - GI Hx GI Disorders: Yes Hx Diverticulitis: Yes Hx Reflux: Yes (upper GI) Hx Liver Disease: (Liver biopsy 7-16) Hx Nausea/Vomiting: Yes (with pain) Hx Ulcer: Yes Comment:: fatty liver - Hx Genitourinary Disorders: Yes Comment:: polycystic ovary syndrome - ENDOCRINE Hx Endocrine Disorders: Yes Hx Diabetes: Yes Hx Thyroid Disease: No - MUSCULOSKELETAL Hx Musculoskeletal Disorders: Yes Hx Fibromyalgia: Yes Hx Gout: Yes Comment:: Buldging disc in neck - PSYCH Hx Psych Problems: Yes Hx Anxiety: Yes Hx Depression: Yes Comment:: PTSD - HEMATOLOGY/ONCOLOGY Hx Hematology/Oncology Disorders: No Family Medical History Hx Cancer: Mother, Grandparents *Diabetes Comment: aunt Hx Heart Disease: Brother/Sister *Heart Comment: Brother Hx Kidney Disease: Children Physical Exam - General General Appearance: Alert, Oriented x3, Cooperative Limitations: No limitations - Head Head exam: Atraumatic, Normocephalic, Normal inspection Head exam detail: negative: Abrasion, Contusion, Espinosa's sign, General tenderness, Hematoma, Laceration - Eye Eye exam: Normal appearance. negative: Conjunctival injection, Periorbital swelling, Periorbital tenderness, Scleral icterus - ENT Ear exam: negative: Auricular hematoma, Auricular trauma Nasal Exam: negative: Active bleeding, Discharge, Dried blood, Foreign body Mouth exam: negative: Drooling, Laceration, Muffled voice, Tongue elevation - Neck Neck exam: Normal inspection. negative: Meningismus, Tenderness - Respiratory Respiratory exam: Normal lung sounds bilaterally. negative: Rales, Respiratory distress, Rhonchi, Stridor - Cardiovascular Cardiovascular Exam: Regular rate, Normal rhythm, Normal heart sounds - GI/Abdominal GI/Abdominal exam: Soft. negative: Rebound, Rigid, Tenderness - Rectal Rectal exam: Deferred - exam: Deferred - Extremities Extremities exam: Normal inspection. negative: Calf tenderness, Pedal edema, Tenderness - Back Back exam: Reports: Paraspinal tenderness (TTP over the right side SI joint). Denies: CVA tenderness (R), CVA tenderness (L) - Neurological Neurological exam: Alert, Normal gait, Oriented X3 - Psychiatric Psychiatric exam: Normal affect, Normal mood - Skin Skin exam: Normal color. negative: Abrasion Type of lesion: negative: abrasion Course Vital Signs 04/04/17 19:26 Temperature 98.4 F Pulse Rate [ 75 Pulse Ox Probe] Respiratory 20 Rate Blood Pressure 115/72 [Left Arm] Pulse Ox 97 - Reevaluation(s) Reevaluation #1: 04/04/17 20:11 Patient reassessed and reports that her symptoms are improved, appears stable for discharge at this time. Disposition Disposition: Discharge Clinical Impression: Lumbar strain Qualifiers: Encounter type: subsequent encounter Qualified Code(s): S39.012D - Strain of muscle, fascia and tendon of lower back, subsequent encounter Disposition: Home, Self-Care Condition: (2) Stable Instructions: Low Back Strain (ED) Additional Instructions: Return to ED if your symptoms worsen or if you have any concerns. Prednisone as directed. Follow-up with your family doctor in 3-5 days as directed. Prescriptions: Prednisone [Prednisone 20Mg] 20 mg PO TID #15 tab Forms: Patient Portal Access Time of Disposition: 20:12 Quality - Quality Measures Quality Measures: N/A - Blood Pressure Screening Does Patient Have Any of the Following: No Blood Pressure Classification: Normal BP Reading Systolic Measurement: 115 Diastolic Measurement: 72 Screening for High Blood Pressure: < Normal BP, F/U Not Required > [G8783]
== END 2017-04-04 20:17 | disposition home or self-care (01) ==
LOC: ER 19:10
DX: S39.012A Strain of muscle, fascia and tendon of lower back, initial encounter (principal); F17.210 Nicotine dependence, cigarettes, uncomplicated; X50.0XXA Overexertion from strenuous movement or load, initial encounter; Y92.009 Unspecified place in unspecified non-institutional (private) residence as the place of occurrence of the external cause
CPT/HCPCS: 96374; 99284; J2930

== ENCOUNTER 2017-04-13 05:39 | Emergency (ER) | payer MEDICARE, MEDICAID ==
[2017-04-13] MEDS ORDERED: PROMETHAZINE HCL 25 MG/ML VIAL IM ONE (05:49)
[2017-04-13] MEDS ORDERED: KETOROLAC 30 MG/ML VIAL IM ONE (05:49)
--- NOTE | 2017-04-13 05:55 | Emergency Department Record ---
History of Present Illness - General Chief Complaint: Headache Migraine Stated Complaint: MIGRAINE Time Seen by Provider: 04/13/17 05:49 Source: Patient Mode of Arrival: Ambulatory Limitations: No limitations - History of Present Illness Initial Comments: 42 yo female presents to ED for evaluation of a headache that began 1.5 hours ago. Patient reports that her headache symptoms are similar to previous, denies fevers, chills, or neck stiffness symptoms. Patient reports taking Fiorcet and Ultram for her symptoms without relief. Complaint: Headache Onset/Timin -: Hour(s) Onset Description: Sudden Location: Diffuse Severity: Moderate Severity scale (1-10): 8 Quality: Similar to previous headaches Consistency: Constant Improves With: Nothing Worsens With: Light, Noise Treatments Prior to Arrival: None - Related Data Home Medications Medication Instructions Recorded Confirmed Last Taken Tramadol HCl [Tramadol HCl] 50 mg PO ASDIR PRN 04/13/17 04/13/17 Unknown Previous Rx's Medication Instructions Recorded Ibuprofen [Motrin] 800 mg PO Q6H PRN #30 tab 03/16/17 Prednisone [Prednisone 20Mg] 20 mg PO TID #15 tab 04/04/17 Allergies Allergy/AdvReac Type Severity Reaction Status Date / Time [id number] Antimigraine Allergy Severe HEADACHE Unverified 02/05/17 13:00 Agents Aceugsu-Jbz-Vwb Reductase Allergy Intermediate JOINT ACHES Unverified 02/05/17 13:00 Inhibitor medical tape AdvReac Mild RASH Uncoded 01/23/17 17:09 Travel Screening - Travel/Exposure Within Last 30 Days Have you traveled within the last 30 days?: No Review of Systems Constitutional: Denies: Chills, Fever, Malaise, Night sweats Eyes: Denies: Eye discharge, Eye pain ENT: Denies: Congestion, Ear pain, Epistaxis Respiratory: Denies: Cough, Dyspnea Cardiovascular: Denies: Chest pain, Dyspnea on exertion Endocrine: Denies: Fatigue, Heat or cold intolerance Gastrointestinal: Denies: Abdominal pain, Nausea, Vomiting Genitourinary: Denies: Incontinence, Retention Musculoskeletal: Denies: Arthralgia, Back pain, Gout, Joint swelling Skin: Denies: Bruising, Change in color Neurological: Reports: Headache. Denies: Abnormal gait, Confusion, Seizure Psychiatric: Denies: Anxiety Hematological/Lymphatic: Denies: Anemia, Blood Clots Past Medical History - SOCIAL HISTORY Smoking Status: Current every day smoker Alcohol Use: None Drug Use: None - RESPIRATORY Hx Respiratory Disorders: Yes Hx Bronchitis: Yes Hx Pneumonia: Yes Comment:: low O2 when sleeping - CARDIOVASCULAR Hx Cardio Disorders: Yes Hx Chest Pain: Yes Comment:: HYPERLIPIDEMIA - NEURO Hx Neuro Disorders: Yes Hx Headaches: Yes (complex migrane) - GI Hx GI Disorders: Yes Hx Diverticulitis: Yes Hx Reflux: Yes (upper GI) Hx Liver Disease: (Liver biopsy 7-16) Hx Nausea/Vomiting: Yes (with pain) Hx Ulcer: Yes Comment:: fatty liver - Hx Genitourinary Disorders: Yes Comment:: polycystic ovary syndrome - ENDOCRINE Hx Endocrine Disorders: Yes Hx Diabetes: Yes Hx Thyroid Disease: No - MUSCULOSKELETAL Hx Musculoskeletal Disorders: Yes Hx Fibromyalgia: Yes Hx Gout: Yes Comment:: Buldging disc in neck - PSYCH Hx Psych Problems: Yes Hx Anxiety: Yes Hx Depression: Yes Comment:: PTSD - HEMATOLOGY/ONCOLOGY Hx Hematology/Oncology Disorders: No Family Medical History Any Significant Family History?: Yes Hx Cancer: Mother, Grandparents *Diabetes Comment: aunt Hx Heart Disease: Brother/Sister *Heart Comment: Brother Hx Kidney Disease: Children Physical Exam - General General Appearance: Alert, Oriented x3, Cooperative, Mild distress, Other ( Patient appears sleepy on examination, resting calmly on exam) Limitations: No limitations - Head Head exam: Atraumatic, Normocephalic, Normal inspection Head exam detail: negative: Abrasion, Contusion, Espinosa's sign, General tenderness, Hematoma, Laceration - Eye Eye exam: Normal appearance. negative: Conjunctival injection, Periorbital swelling, Periorbital tenderness, Scleral icterus - ENT Ear exam: negative: Auricular hematoma, Auricular trauma Nasal Exam: negative: Active bleeding, Discharge, Dried blood, Foreign body Mouth exam: negative: Drooling, Laceration, Tongue elevation - Neck Neck exam: Normal inspection. negative: Meningismus, Tenderness - Respiratory Respiratory exam: Normal lung sounds bilaterally. negative: Rales, Respiratory distress, Rhonchi, Stridor - Cardiovascular Cardiovascular Exam: Regular rate, Normal rhythm, Normal heart sounds - GI/Abdominal GI/Abdominal exam: Soft. negative: Rebound, Rigid, Tenderness - Rectal Rectal exam: Deferred - exam: Deferred - Extremities Extremities exam: Normal inspection. negative: Calf tenderness, Pedal edema, Tenderness - Back Back exam: Denies: CVA tenderness (R), CVA tenderness (L) - Neurological Neurological exam: Alert, Normal gait, Oriented X3 - Psychiatric Psychiatric exam: Normal affect, Normal mood - Skin Skin exam: Normal color. negative: Abrasion Type of lesion: negative: abrasion Course Vital Signs 04/13/17 05:46 Temperature 98 F Pulse Rate [ 89 Pulse Ox Probe] Respiratory 18 Rate Blood Pressure 113/81 [Left Arm] Pulse Ox 95 - Reevaluation(s) Reevaluation #1: 04/13/17 06:21 Patient reassessed and is sleeping, easily arouses stating that her symptoms have improved. Patient appears stable for discharge at this time. Disposition Disposition: Discharge Clinical Impression: Headache Qualifiers: Headache type: unspecified Headache chronicity pattern: acute headache Intractability: not intractable Qualified Code(s): R51 - Headache Disposition: Home, Self-Care Condition: (2) Stable Instructions: Acute Headache (ED) Additional Instructions: Return to ED if your symptoms worsen or if you have any concerns. Follow-up with your family doctor in 3-5 days as directed. Forms: Patient Portal Access Time of Disposition: 05:54 Quality - Quality Measures Quality Measures: N/A - Blood Pressure Screening Does Patient Have Any of the Following: No Blood Pressure Classification: Pre-Hypertensive BP Reading Systolic Measurement: 113 Diastolic Measurement: 81 Screening for High Blood Pressure: < Pre-Hypertensive BP, F/U Documented > [ G8950] Pre-Hypertensive Follow-up Interventions: Referral to alternative/primary care provider.
== END 2017-04-13 06:28 | disposition home or self-care (01) ==
LOC: ER 05:39
DX: R51 Headache (principal); F17.210 Nicotine dependence, cigarettes, uncomplicated
CPT/HCPCS: 96372; 99283; J1885; J2550

== ENCOUNTER 2017-04-30 19:34 | Emergency (ER) | payer MEDICARE, MEDICAID ==
[2017-04-30] MEDS ORDERED: KETOROLAC 30 MG/ML VIAL IM ONE (19:53)
[2017-04-30] MEDS ORDERED: ORPHENADRINE CITRATE 60MG/2ML VIAL IM ONE (19:53)
--- NOTE | 2017-04-30 19:58 | Emergency Department Record ---
History of Present Illness - General Chief Complaint: Neck Injury/Pain Stated Complaint: NECK PAIN Time Seen by Provider: 04/30/17 19:46 Source: Patient Mode of Arrival: Ambulatory Limitations: No limitations - History of Present Illness Initial Comments: The patient is here due to worsening of her chronic neck pain. The patient states she has a long hx of chronic pain and has had epidural steroid infections in the past. Now due to her insurance changing her Nucynta was recently stopped and now her chronic neck pain is worse. The pain is in the low posterior cervical area. It is worse with any movement or twisting. She denies any fall, trauma, injury, or radiation of pain down the arms or legs. She also denies any arm or leg weakness or numbness. MD Complaint: Neck pain Onset/Timin -: Hour(s) Severity scale (1-10): 9 Consistency: Constant Improves With: None Worsens With: Movement of neck Associated Symptoms: None Treatments Prior to Arrival: Prescription pain med - Related Data Previous Rx's Medication Instructions Recorded Ibuprofen [Motrin] 800 mg PO Q6H PRN #30 tab 03/16/17 Allergies Allergy/AdvReac Type Severity Reaction Status Date / Time [id number] Antimigraine Allergy Severe HEADACHE Verified 04/30/17 19:38 Agents Mynpind-Zwu-Lps Reductase Allergy Intermediate JOINT ACHES Verified 04/30/17 19: 38 Inhibitor medical tape AdvReac Mild RASH Uncoded 01/23/17 17:09 Travel Screening - Travel/Exposure Within Last 30 Days Have you traveled within the last 30 days?: No - Travel Symptoms Symptom Screening: None Review of Systems Constitutional: Denies: Chills, Fever Eyes: Denies: Eye discharge ENT: Denies: Congestion, Dental pain Respiratory: Denies: Cough Past Medical History - SOCIAL HISTORY Smoking Status: Current every day smoker - RESPIRATORY Hx Respiratory Disorders: Yes Hx Bronchitis: Yes Hx Pneumonia: Yes Comment:: low O2 when sleeping - CARDIOVASCULAR Hx Cardio Disorders: Yes Hx Chest Pain: Yes Comment:: HYPERLIPIDEMIA - NEURO Hx Neuro Disorders: Yes Hx Headaches: Yes (complex migrane) - GI Hx GI Disorders: Yes Hx Diverticulitis: Yes Hx Reflux: Yes (upper GI) Hx Liver Disease: (Liver biopsy 7-16) Hx Nausea/Vomiting: Yes (with pain) Hx Ulcer: Yes Comment:: fatty liver - Hx Genitourinary Disorders: Yes Comment:: polycystic ovary syndrome - ENDOCRINE Hx Endocrine Disorders: Yes Hx Diabetes: Yes Hx Thyroid Disease: No - MUSCULOSKELETAL Hx Musculoskeletal Disorders: Yes Hx Fibromyalgia: Yes Hx Gout: Yes Comment:: Buldging disc in neck - PSYCH Hx Psych Problems: Yes Hx Anxiety: Yes Hx Depression: Yes Comment:: PTSD - HEMATOLOGY/ONCOLOGY Hx Hematology/Oncology Disorders: No Family Medical History Any Significant Family History?: Yes Hx Cancer: Mother, Grandparents *Diabetes Comment: aunt Hx Heart Disease: Brother/Sister *Heart Comment: Brother Hx Kidney Disease: Children Physical Exam - General General Appearance: Alert, Oriented x3, Cooperative, Mild distress (due to neck pain.) - Head Head exam: Atraumatic, Normocephalic - Eye Eye exam: Normal appearance, PERRL - Neck Neck exam: Normal inspection, Full ROM, Tenderness (There is easily reproducible tenderness to palpation over the lower posterior cervical area. There is no swelling, bruising, or erythema appreciated.). negative: Lymphadenopathy, Meningismus - Respiratory Respiratory exam: Normal lung sounds bilaterally. negative: Respiratory distress - Cardiovascular Cardiovascular Exam: Regular rate, Normal rhythm, Normal heart sounds - GI/Abdominal GI/Abdominal exam: Soft, Normal bowel sounds. negative: Tenderness - Extremities Extremities exam: Normal inspection, Full ROM, Normal capillary refill. negative: Tenderness - Neurological Neurological exam: Alert, Normal gait, Oriented X3, Reflexes normal. negative: Abnormal gait, Altered, Motor sensory deficit (The motor and sensory exams are 5 /5 bilaterally to the upper extremities.) Course Vital Signs 04/30/17 19:39 Temperature 97.5 F L Pulse Rate [ 82 Pulse Ox Probe] Respiratory 16 Rate Blood Pressure 122/75 [Left Arm] Pulse Ox 99 - Reevaluation(s) Reevaluation #1: The patient is feeling better and is resting comfortably. She states her pain is improved and she is encouraged to see her PCP to get her medicines refilled. 04/30/17 20:24 Disposition Disposition: Discharge Clinical Impression: Chronic pain Qualifiers: Chronic pain type: chronic pain syndrome Qualified Code(s): G89.4 - Chronic pain syndrome Disposition: Home, Self-Care Condition: (2) Stable Instructions: Chronic Pain (ED) Additional Instructions: Please continue your regular pain medicines. Please see your family doctor next week for recheck and to possibly get your Nucynta refilled. Forms: Patient Portal Access Time of Disposition: 20:24 Quality - Quality Measures Quality Measures: N/A - Blood Pressure Screening View Details: Yes Does Patient Have Any of the Following: No Blood Pressure Classification: Pre-Hypertensive BP Reading Systolic Measurement: 122 Diastolic Measurement: 75 Screening for High Blood Pressure: < Pre-Hypertensive BP, F/U Documented > [ G8950] Pre-Hypertensive Follow-up Interventions: Referral to alternative/primary care provider.
== END 2017-04-30 20:30 | disposition home or self-care (01) ==
LOC: ER 19:34
DX: G89.4 Chronic pain syndrome (principal); M54.2 Cervicalgia; E11.9 Type 2 diabetes mellitus without complications; F17.210 Nicotine dependence, cigarettes, uncomplicated
CPT/HCPCS: 99283 ×2; 96372; J1885; J2360

== ENCOUNTER 2017-05-08 11:14 | Emergency (ER) | payer MEDICARE, MEDICAID ==
[2017-05-08] MEDS ORDERED: ACETAMINOPHEN 325 MG TAB PO ONE (11:31)
--- NOTE | 2017-05-08 11:34 | Emergency Department Record ---
History of Present Illness - General Chief complaint: Flu Like Symptoms Stated complaint: LAW,COUGH,WEAK,SORE THROAT Time Seen by Provider: 05/08/17 11:29 Source: Patient Mode of Arrival: Ambulatory Limitations: No limitations - History of Present Illness Initial comments: The patient is here due to feeling weak for one day with a cough, runny nose, ST and body aches. She would like to be checked for Influenza. The patient denies any CP but was SOB last night. MD Complaint: Generalized weakness Onset/Timin -: Days(s) Severity scale (1-10): 5 Quality: Other Consistency: Constant Improves with: None Worsens with: None Associated Symptoms: Headaches, Shortness of breath - Related Data Previous Rx's Medication Instructions Recorded Ibuprofen [Motrin] 800 mg PO Q6H PRN #30 tab 03/16/17 Azithromycin [Zithromax] 250 mg PO ASDIR #6 tab 05/08/17 Allergies Allergy/AdvReac Type Severity Reaction Status Date / Time [id number] Antimigraine Allergy Severe HEADACHE Verified 04/30/17 19:38 Agents Ykuhoxt-Rme-Nkn Reductase Allergy Intermediate JOINT ACHES Verified 04/30/17 19: 38 Inhibitor medical tape AdvReac Mild RASH Uncoded 01/23/17 17:09 Travel Screening - Travel/Exposure Within Last 30 Days Have you traveled within the last 30 days?: No Review of Systems Constitutional: Reports: Malaise. Denies: Chills, Fever Eyes: Denies: Eye discharge ENT: Reports: Congestion Respiratory: Reports: Cough, Dyspnea Past Medical History - SOCIAL HISTORY Smoking Status: Current every day smoker Alcohol Use: None Drug Use: None - RESPIRATORY Hx Respiratory Disorders: Yes Hx Bronchitis: Yes Hx Pneumonia: Yes Comment:: low O2 when sleeping - CARDIOVASCULAR Hx Cardio Disorders: Yes Hx Chest Pain: Yes Comment:: HYPERLIPIDEMIA - NEURO Hx Neuro Disorders: Yes Hx Headaches: Yes (complex migrane) - GI Hx GI Disorders: Yes Hx Diverticulitis: Yes Hx Reflux: Yes (upper GI) Hx Liver Disease: (Liver biopsy 7-16) Hx Nausea/Vomiting: Yes (with pain) Hx Ulcer: Yes Comment:: fatty liver - Hx Genitourinary Disorders: Yes Comment:: polycystic ovary syndrome - ENDOCRINE Hx Endocrine Disorders: Yes Hx Diabetes: Yes Hx Thyroid Disease: No - MUSCULOSKELETAL Hx Musculoskeletal Disorders: Yes Hx Fibromyalgia: Yes Hx Gout: Yes Comment:: Buldging disc in neck - PSYCH Hx Psych Problems: Yes Hx Anxiety: Yes Hx Depression: Yes Comment:: PTSD - HEMATOLOGY/ONCOLOGY Hx Hematology/Oncology Disorders: No Family Medical History Any Significant Family History?: Yes Hx Cancer: Mother, Grandparents *Diabetes Comment: aunt Hx Heart Disease: Brother/Sister *Heart Comment: Brother Hx Kidney Disease: Children Physical Exam - General General Appearance: Alert, Oriented x3, Cooperative, No acute distress - Head Head exam: Atraumatic, Normocephalic, Normal inspection - Eye Eye exam: Normal appearance, PERRL - ENT Throat exam: Tonsillar erythema (very mild.). negative: Normal inspection, Tonsillomegaly, Tonsillar exudate - Neck Neck exam: Normal inspection, Full ROM. negative: Tenderness - Respiratory Respiratory exam: Normal lung sounds bilaterally. negative: Accessory muscle use, Decreased breath sounds, Rales, Respiratory distress, Rhonchi, Stridor, Wheezes - Cardiovascular Cardiovascular Exam: Regular rate, Normal rhythm, Normal heart sounds - GI/Abdominal GI/Abdominal exam: Soft, Normal bowel sounds. negative: Tenderness - Extremities Extremities exam: Normal inspection, Full ROM, Normal capillary refill. negative: Tenderness Course Vital Signs 05/08/17 11:24 Temperature 99.4 F Pulse Rate 103 H Respiratory 20 Rate Blood Pressure 118/77 Pulse Ox 94 L - Reevaluation(s) Reevaluation #1: I did discuss the neg Flu test for the patient and the positive CXR for pneumonia. We will start the patient on IV and oral Abx's and discharge if stable. 05/08/17 12:04 Reevaluation #2: The patient is doing very well at this time. She is up walking and denies any CP or LAW. I explained to plan to continue the Zithromax at home and to see her PCP this next week for recheck. 05/08/17 12:49 Medical Decision Making - Data Complexity MDM Data: Labs Ordered and/or Reviewed, X-Ray Ordered and/or Reviewed - Lab Data Result diagrams: 05/08/17 12:10 05/08/17 12:10 - Radiology Data Radiology results: Report reviewed (CXR: RUL and possibly R lower lobe infiltrate.) Disposition Disposition: Discharge Clinical Impression: Pneumonia Qualifiers: Pneumonia type: due to unspecified organism Laterality: right Lung location: unspecified part of lung Qualified Code(s): J18.9 - Pneumonia, unspecified organism Disposition: Home, Self-Care Condition: (2) Stable Instructions: Pneumonitis (ED) Additional Instructions: Please use Tylenol for fever and drink plenty of fluids. Continue the Zithromax tomorrow and also use your inhaller. Please see family doctor for recheck in 3- 4 days and return to the ER for any worsening symptoms of high fever, trouble breathing or vomiting. Prescriptions: Azithromycin [Zithromax] 250 mg PO ASDIR #6 tab Forms: Patient Portal Access Time of Disposition: 12:52 Quality - Quality Measures Quality Measures: N/A - Blood Pressure Screening View Details: Yes Does Patient Have Any of the Following: No Blood Pressure Classification: Normal BP Reading Systolic Measurement: 108 Diastolic Measurement: 67 Screening for High Blood Pressure: < Normal BP, F/U Not Required > [G8783]
[2017-05-08] MEDS ORDERED: CEFTRIAXONE SODIUM 1 GM in 0.9 % SODIUM CHLORIDE 100ML 100 ML IVPB ONE (11:58)
[2017-05-08] MEDS ORDERED: AZITHROMYCIN 500 MG TABLET PO ONE (11:59)
[2017-05-08 12:00] LABS: INFLUENZA A NEGATIVE (NEGATIVE); INFLUENZA B NEGATIVE (NEGATIVE)
[2017-05-08 12:20] LABS: BASO % 0.2 % (0-6); EOS % 0.1 % (0-6); GRAN % 79.2 % (47-80); HEMATOCRIT 36.6 % (35.0-47.0); HEMOGLOBIN 12.1 gm/dl (11.6-16.0); LYMPH % 12.1 % (16-45); MEAN CORPUSCULAR HEMOGLOBIN 29.1 pg (27-33); MEAN CORPUSCULAR HGB CONC 33.1 g/dl (32-36); MEAN PLATELET VOLUME 8.8 fl (7.4-10.4); MONO % 8.4 % (0-9); PLATELET COUNT 404 K/uL (130-400); RED BLOOD COUNT 4.16 M/uL (3.80-5.40); RED CELL DISTRIBUTION WIDTH 14.2 % (11.5-14.5); WHITE BLOOD COUNT W/O DIFF 8.8 K/uL (4.2-12.2)
[2017-05-08 12:30] LABS: BILIRUBIN,TOTAL < 0.20 mg/dL (0.2-1.0); BLOOD UREA NITROGEN 12 mg/dL (6-20); CREATININE 0.8 mg/dL (0.5-0.9); EST GLOMERULAR FILTRATION RATE > 60 mL/min
[2017-05-08 12:31] LABS: TOTAL PROTEIN 7.1 g/dL (6.6-8.7)
[2017-05-08 12:33] LABS: GLUCOSE,RANDOM 112 mg/dL (74-109)
[2017-05-08 12:35] LABS: ALB/GLOB RATIO 1.3 (1.1-1.8); ALT/SGPT 46 U/L (<33); AST/SGOT 29 U/L (10.0-35.0)
[2017-05-08 12:36] LABS: ALKALINE PHOSPHATASE 159 U/L (35-104)
--- NOTE | 2017-05-09 12:35 | RADIOLOGY REPORT ---
EXAM: CHEST 2 VIEWS HISTORY: DIFFICULTY BREATHING. TECHNIQUE: Frontal and lateral views of the chest. COMPARISON: Prior chest from 03/01/17. FINDINGS: The heart size is normal. Airspace opacities in the right upper lobe and right lung base consistent with pneumonia. Recommend follow-up to resolution. Osteopenia. No pneumothorax. IMPRESSION: RIGHT UPPER AND RIGHT LOWER LOBE AIRSPACE OPACITIES, WORRISOME FOR PNEUMONIA. JOB NUMBER: [id number] MTDD
== END 2017-05-08 13:02 | disposition home or self-care (01) ==
LOC: ER 11:14
DX: J18.1 Lobar pneumonia, unspecified organism (principal); R53.83 Other fatigue; R53.1 Weakness; R06.02 Shortness of breath; R51 Headache; E11.9 Type 2 diabetes mellitus without complications; F17.210 Nicotine dependence, cigarettes, uncomplicated
CPT/HCPCS: 71046; 80053; 85025; 87400; 94640; 99283; 99284

== ENCOUNTER 2017-05-08 19:14 | Emergency (ER) | payer MEDICARE, MEDICAID ==
[2017-05-08] MEDS ORDERED: IPRATROPIUM/ALBUTEROL (0.5MG/3MG) NEB INH ONE (20:06)
--- NOTE | 2017-05-08 20:11 | Emergency Department Record ---
History of Present Illness - General Chief Complaint: Recheck - Other Stated Complaint: UPPER RESP INFECTION Time Seen by Provider: 05/08/17 20:05 Source: Patient Mode of arrival: Ambulatory Limitations: No limitations - History of Present Illness Initial Comments: 42 yo female presents to ED for re-evaluation following diagnosis of CAP 7 hours ago in ED. Patient reports that her shortness and breath and fatigue have worsened. Patient was given IV Rocephin and Zithromax prior to discharge. Patient denies use of her inhaler today for her SOB symptoms. Patient is also concerned that her symptoms have not improved. MD Complaint: Other Onset/Timin -: Hour(s) Initial Visit For: Other Returns Today for: Other Symptoms Since Prior Visit: Other Associated Symptoms: Shortness of breath Treatments Prior to Arrival: Given antibiotics on initial visit - Related Data Previous Rx's Medication Instructions Recorded Ibuprofen [Motrin] 800 mg PO Q6H PRN #30 tab 03/16/17 Azithromycin [Zithromax] 250 mg PO ASDIR #6 tab 05/08/17 Allergies Allergy/AdvReac Type Severity Reaction Status Date / Time [id number] Antimigraine Allergy Severe HEADACHE Verified 04/30/17 19:38 Agents Wolreon-Lec-Edw Reductase Allergy Intermediate JOINT ACHES Verified 04/30/17 19: 38 Inhibitor medical tape AdvReac Mild RASH Uncoded 01/23/17 17:09 Travel Screening - Travel/Exposure Within Last 30 Days Have you traveled within the last 30 days?: No - Travel/Exposure Within Last Year Have you traveled outside the [place] in the last year?: No - Additonal Travel Details Have you been exposed to anyone with a communicable illness?: No - Travel Symptoms Symptom Screening: None Review of Systems Constitutional: Reports: Chills, Malaise. Denies: Fever, Night sweats Eyes: Denies: Eye discharge, Eye pain ENT: Denies: Congestion, Ear pain, Epistaxis Respiratory: Reports: Cough, Dyspnea Cardiovascular: Reports: Dyspnea on exertion. Denies: Chest pain, Edema Endocrine: Denies: Fatigue, Heat or cold intolerance Gastrointestinal: Denies: Abdominal pain, Nausea, Vomiting Genitourinary: Denies: Incontinence, Retention Musculoskeletal: Denies: Arthralgia, Back pain, Gout, Joint swelling Skin: Denies: Bruising, Change in color Neurological: Denies: Abnormal gait, Confusion, Headache, Seizure Psychiatric: Denies: Anxiety Hematological/Lymphatic: Denies: Anemia, Blood Clots Past Medical History - SOCIAL HISTORY Smoking Status: Current every day smoker Alcohol Use: Occasional Drug Use: None - RESPIRATORY Hx Respiratory Disorders: Yes Hx Bronchitis: Yes Hx Pneumonia: Yes Comment:: low O2 when sleeping - CARDIOVASCULAR Hx Cardio Disorders: Yes Hx Chest Pain: Yes Comment:: HYPERLIPIDEMIA - NEURO Hx Neuro Disorders: Yes Hx Headaches: Yes (complex migrane) - GI Hx GI Disorders: Yes Hx Diverticulitis: Yes Hx Reflux: Yes (upper GI) Hx Liver Disease: (Liver biopsy 7-16) Hx Nausea/Vomiting: Yes (with pain) Hx Ulcer: Yes Comment:: fatty liver - Hx Genitourinary Disorders: Yes Comment:: polycystic ovary syndrome - ENDOCRINE Hx Endocrine Disorders: Yes Hx Diabetes: Yes Hx Thyroid Disease: No - MUSCULOSKELETAL Hx Musculoskeletal Disorders: Yes Hx Fibromyalgia: Yes Hx Gout: Yes Comment:: Buldging disc in neck - PSYCH Hx Psych Problems: Yes Hx Anxiety: Yes Hx Depression: Yes Comment:: PTSD - HEMATOLOGY/ONCOLOGY Hx Hematology/Oncology Disorders: No Family Medical History Any Significant Family History?: No Hx Cancer: Mother, Grandparents *Diabetes Comment: aunt Hx Heart Disease: Brother/Sister *Heart Comment: Brother Hx Kidney Disease: Children Physical Exam - General General Appearance: Alert, Oriented x3, Cooperative, Anxious, Other (Vitals reviewed and are stable on examination.) Limitations: No limitations - Head Head exam: Atraumatic, Normocephalic, Normal inspection Head exam detail: negative: Abrasion, Contusion, Espinosa's sign, General tenderness, Hematoma, Laceration - Eye Eye exam: Normal appearance. negative: Conjunctival injection, Periorbital swelling, Periorbital tenderness, Scleral icterus - ENT Ear exam: negative: Auricular hematoma, Auricular trauma Nasal Exam: negative: Active bleeding, Discharge, Dried blood, Foreign body Mouth exam: negative: Drooling, Laceration, Muffled voice, Tongue elevation - Neck Neck exam: Normal inspection, Tenderness. negative: Meningismus - Respiratory Respiratory exam: Decreased breath sounds, Wheezes. negative: Rales, Respiratory distress, Rhonchi, Stridor - Cardiovascular Cardiovascular Exam: Regular rate, Normal rhythm, Normal heart sounds - GI/Abdominal GI/Abdominal exam: Soft. negative: Rebound, Rigid, Tenderness, Other - Rectal Rectal exam: Deferred - exam: Deferred - Extremities Extremities exam: Normal inspection. negative: Pedal edema, Tenderness - Back Back exam: Denies: CVA tenderness (R), CVA tenderness (L) - Neurological Neurological exam: Alert, Normal gait, Oriented X3 - Psychiatric Psychiatric exam: Anxious - Skin Skin exam: Normal color. negative: Abrasion Type of lesion: negative: abrasion Course Vital Signs 05/08/17 19:17 Temperature 98.1 F Pulse Rate 97 H Respiratory 20 Rate Blood Pressure 110/85 Pulse Ox 94 L - Reevaluation(s) Reevaluation #1: 05/08/17 20:12 Patient was seen and examined, reports that she has not used her albuterol inhaler since last night despite her SOB symptoms and wheezing. Will administer Duoneb in ED, patient was encouraged to use her albuterol at home as well for her treatment of her CAP. Reevaluation #2: 05/08/17 20:23 patient's BS improved following duoneb treatment, ambulating biox 95% without significant respiratory distress. Patient appears stable for discharge with instructions to use her inhaler for her bronchospasm symptoms. Disposition Disposition: Discharge Clinical Impression: CAP (community acquired pneumonia) Qualifiers: Laterality: right Lung location: unspecified part of lung Qualified Code(s): J18.9 - Pneumonia, unspecified organism Disposition: Home, Self-Care Condition: (2) Stable Instructions: Community Acquired Pneumonia (ED) Additional Instructions: Return to ED if your symptoms worsen or if you have any concerns. Continue your antibiotics as prescribed. Use your inhaler every 2-4 hours as needed. Follow-up with Dr. Friedman in 1-3 days as directed. Forms: Patient Portal Access Time of Disposition: 20:24 Quality - Quality Measures Quality Measures: N/A - Blood Pressure Screening Does Patient Have Any of the Following: No Blood Pressure Classification: Pre-Hypertensive BP Reading Systolic Measurement: 110 Diastolic Measurement: 85 Screening for High Blood Pressure: < Pre-Hypertensive BP, F/U Documented > [ G8950] Pre-Hypertensive Follow-up Interventions: Referral to alternative/primary care provider.
== END 2017-05-08 20:35 | disposition home or self-care (01) ==
LOC: ER 19:14
DX: J18.9 Pneumonia, unspecified organism (principal); R53.83 Other fatigue; R06.02 Shortness of breath; E11.9 Type 2 diabetes mellitus without complications; F17.210 Nicotine dependence, cigarettes, uncomplicated
CPT/HCPCS: 94640

== ENCOUNTER 2017-05-10 13:16 | Emergency (ER) | payer MEDICARE, MEDICAID ==
[2017-05-10 13:39] LABS: URINE APPEARANCE CLEAR; URINE BILIRUBIN NEGATIVE (NEGATIVE); URINE BLOOD TRACE-I (NEGATIVE); URINE COLOR YELLOW; URINE GLUCOSE (UA) NEGATIVE (NEGATIVE); URINE KETONE NEGATIVE (NEGATIVE); URINE LEUKOCYTE ESTERASE NEGATIVE (NEGATIVE); URINE NITRITE NEGATIVE (NEGATIVE); URINE PROTEIN NEGATIVE (NEGATIVE); URINE UROBILINOGEN 0.2 E.U./dL (0.20 - 1.00)
[2017-05-10 13:47] LABS: URINE BACTERIA NONE SEEN; URINE EPITHELIAL CELLS NONE SEEN (FEW); URINE RBC 0 - 2 (NONE SEEN); URINE WBC NONE SEEN (0-2/hpf)
[2017-05-10] MEDS ORDERED: IPRATROPIUM/ALBUTEROL (0.5MG/3MG) NEB INH ONE (14:06)
--- NOTE | 2017-05-10 14:13 | Emergency Department Record ---
History of Present Illness - General Chief Complaint: Cough Stated Complaint: LAW, DARK RED URINATION Time Seen by Provider: 05/10/17 13:30 Source: Patient Mode of Arrival: Ambulatory Limitations: No limitations - History of Present Illness Initial Comments: The patient is here due to a 4 day hx of cough. She was in the ER twice 2 days ago and was diagnosed with a small RUL pneumonia. The patient was discharged on Zithromax and an inhaller and now states she is still coughing and her is unable to sleep due to the cough. She also urinated an hour ago and thought she saw blood so she called the [facility] and was told to go directly to the ER. The patient denies any fever, AP or back pain. MD Complaint: Cough, Nasal congestion, Rhinorrhea Onset/Timin -: Days(s) Consistency: Intermittent - Related Data Previous Rx's Medication Instructions Recorded Ibuprofen [Motrin] 800 mg PO Q6H PRN #30 tab 03/16/17 Azithromycin [Zithromax] 250 mg PO ASDIR #6 tab 05/08/17 Prednisone [Prednisone 20Mg] 40 mg PO DAILY #8 tab 05/10/17 Allergies Allergy/AdvReac Type Severity Reaction Status Date / Time [id number] Antimigraine Allergy Severe HEADACHE Verified 05/10/17 13:35 Agents Raqqhwx-Toi-Nzi Reductase Allergy Intermediate JOINT ACHES Verified 05/10/17 13: 35 Inhibitor medical tape AdvReac Mild RASH Uncoded 01/23/17 17:09 Travel Screening - Travel/Exposure Within Last 30 Days Have you traveled within the last 30 days?: No Review of Systems Constitutional: Reports: Malaise. Denies: Chills, Fever Eyes: Denies: Eye discharge ENT: Reports: Congestion Respiratory: Reports: Cough, Dyspnea. Denies: Hemoptysis, Stridor, Wheezes Past Medical History - SOCIAL HISTORY Smoking Status: Former smoker Alcohol Use: None Drug Use: None - RESPIRATORY Hx Respiratory Disorders: Yes Hx Bronchitis: Yes Hx Pneumonia: Yes Comment:: low O2 when sleeping - CARDIOVASCULAR Hx Cardio Disorders: Yes Hx Chest Pain: Yes Comment:: HYPERLIPIDEMIA - NEURO Hx Neuro Disorders: Yes Hx Headaches: Yes (complex migrane) - GI Hx GI Disorders: Yes Hx Diverticulitis: Yes Hx Reflux: Yes (upper GI) Hx Liver Disease: (Liver biopsy 7-16) Hx Nausea/Vomiting: Yes (with pain) Hx Ulcer: Yes Comment:: fatty liver - Hx Genitourinary Disorders: Yes Comment:: polycystic ovary syndrome - ENDOCRINE Hx Endocrine Disorders: Yes Hx Diabetes: Yes Hx Thyroid Disease: No - MUSCULOSKELETAL Hx Musculoskeletal Disorders: Yes Hx Fibromyalgia: Yes Hx Gout: Yes Comment:: Buldging disc in neck - PSYCH Hx Psych Problems: Yes Hx Anxiety: Yes Hx Depression: Yes Comment:: PTSD - HEMATOLOGY/ONCOLOGY Hx Hematology/Oncology Disorders: No Family Medical History Any Significant Family History?: Yes Hx Cancer: Mother, Grandparents *Diabetes Comment: aunt Hx Heart Disease: Brother/Sister *Heart Comment: Brother Hx Kidney Disease: Children Physical Exam - General General Appearance: Alert, Oriented x3, Cooperative, No acute distress (The patient is speaking in full sentences with no SOB or LAW.) - Head Head exam: Atraumatic, Normocephalic, Normal inspection - Eye Eye exam: Normal appearance, PERRL - ENT Throat exam: Normal inspection. negative: Tonsillar erythema, Tonsillar exudate - Neck Neck exam: Normal inspection, Full ROM. negative: Lymphadenopathy, Tenderness - Respiratory Respiratory exam: Wheezes (minimally in the bases.). negative: Normal lung sounds bilaterally, Accessory muscle use, Decreased breath sounds, Rales, Respiratory distress, Rhonchi, Stridor - Cardiovascular Cardiovascular Exam: Regular rate, Normal rhythm, Normal heart sounds - GI/Abdominal GI/Abdominal exam: Soft, Normal bowel sounds. negative: Tenderness - Extremities Extremities exam: Normal inspection, Full ROM, Normal capillary refill. negative: Tenderness Course Vital Signs 05/10/17 13:27 Temperature 97.7 F Pulse Rate 93 H Respiratory 18 Rate Blood Pressure 129/62 Pulse Ox 94 L - Reevaluation(s) Reevaluation #1: The patient is doing well at this time. She did receive a breathing Tx and on recheck of her lungs they are clear with no wheezing. I did discuss the case with her PCP Dr. Friedman and he will see the patient tomorrow in the office. 05/10/17 14:30 Medical Decision Making - Data Complexity MDM Data: Labs Ordered and/or Reviewed (UA: normal.), X-Ray Ordered and/or Reviewed - Lab Data Lab Results 05/10/17 Range/Units 13:33 Urine Color Yellow Urine Appearance Clear Urine pH 5.5 (5.0-8.0) Ur Specific [place] <= 1.005 (1.002-1.030) Urine Protein Negative (NEGATIVE) Urine Glucose (UA) Negative (NEGATIVE) Urine Ketones Negative (NEGATIVE) Urine Blood Trace-i (NEGATIVE) Urine Nitrite Negative (NEGATIVE) Urine Bilirubin Negative (NEGATIVE) Urine Urobilinogen 0.2 (0.20 - 1.00) E.U./dL Ur Leukocyte Esterase Negative (NEGATIVE) Urine RBC 0 - 2 (NONE SEEN) Urine WBC None seen (0-2/hpf) Ur Epithelial Cells None seen (FEW) Urine Bacteria None seen - Radiology Data Radiology results: Report reviewed (CXR: small RUL infiltrate, no change from .) Disposition Disposition: Discharge Clinical Impression: CAP (community acquired pneumonia) Disposition: Home, Self-Care Condition: (2) Stable Instructions: Community Acquired Pneumonia (ED) Additional Instructions: Please continue your regular medicines and add the Prednisone as directed. Please keep your appointment with Dr. Friedman for tomorrow. Return to the ER for any worsening symptoms. Prescriptions: Prednisone [Prednisone 20Mg] 40 mg PO DAILY #8 tab Forms: Patient Portal Access Time of Disposition: 14:26 Quality - Quality Measures Quality Measures: N/A - Blood Pressure Screening View Details: Yes Does Patient Have Any of the Following: No Blood Pressure Classification: Pre-Hypertensive BP Reading Systolic Measurement: 129 Diastolic Measurement: 62 Screening for High Blood Pressure: < Pre-Hypertensive BP, F/U Documented > [ G8950] Pre-Hypertensive Follow-up Interventions: Referral to alternative/primary care provider.
--- NOTE | 2017-05-11 08:14 | RADIOLOGY REPORT ---
EXAM: CHEST, TWO VIEWS HISTORY: DIFFICULTY IN BREATHING. TECHNIQUE: Frontal and lateral views of the chest were performed. Comparison: 05/08/17. FINDINGS: The heart size is normal. No pulmonary vascular congestion. Focal infiltrate in the right upper lobe. The osseous structures are normal. IMPRESSION: RIGHT UPPER LOBE INFILTRATE. NO SIGNIFICANT INTERVAL CHANGE WHEN COMPARED TO THE PRIOR EXAMINATION. JOB NUMBER: [id number] MTDD
== END 2017-05-10 14:42 | disposition home or self-care (01) ==
LOC: ER 13:16
DX: J18.9 Pneumonia, unspecified organism (principal); R06.00 Dyspnea, unspecified; E11.9 Type 2 diabetes mellitus without complications; Z87.891 Personal history of nicotine dependence
CPT/HCPCS: 71046; 81001; 94010; 94640; 99283; 99284

== ENCOUNTER 2017-05-11 01:01 | Inpatient (IN) | payer MEDICARE, MEDICAID ==
--- NOTE | 2017-05-11 01:25 | Emergency Department Record ---
History of Present Illness - General Chief Complaint: Shortness of breath Stated Complaint: LAW Time Seen by Provider: 05/11/17 01:15 Source: Patient Mode of Arrival: Ambulatory Limitations: No limitations - History of Present Illness Initial Comments: 42 yo female presents with cough and shortness of breath. She was diagnosed with right sided pneumonia on 05/08/17. She initially became ill about 4 days prior to that with a sore throat. She was influenza negative on prior ED visit. She is in the ED for her 4th recheck since the . She still feels short of breath with activity and has the cough. She denies vomiting. She has chronic diarrhea. She is on Zithromax PO. She had a CXR at 2pm Wednesday that demonstrated no changes in the right sided infiltrate consistent with pneumonia. Her initial room air oxygen level fluctuated between 88 and 91%. She states she spoke with the education director PA for the [facility] and was directed for evaluation in the ED MD Complaint: Cough, Shortness of breath Onset/Timin -: Days(s) (4) Severity: Moderate Quality: Aching Improves With: Nothing Worsens With: Nothing Known History Of: Recurrent pneumonia Context: Recent illness, Recent URI Associated Symptoms: Cough Treatments Prior to Arrival: Bronchodilator - Related Data Home Oxygen Therapy: No Previous Rx's Medication Instructions Recorded Ibuprofen [Motrin] 800 mg PO Q6H PRN #30 tab 03/16/17 Azithromycin [Zithromax] 250 mg PO ASDIR #6 tab 05/08/17 Prednisone [Prednisone 20Mg] 40 mg PO DAILY #8 tab 05/10/17 Allergies Allergy/AdvReac Type Severity Reaction Status Date / Time Wyqtqthu-3-SS0 Antimigraine Allergy Severe HEADACHE Verified 05/10/17 13:35 Agents Baupoci-Eiq-Mwt Reductase Allergy Intermediate JOINT ACHES Verified 05/10/17 13: 35 Inhibitor medical tape AdvReac Mild RASH Uncoded 01/23/17 17:09 Travel Screening - Travel/Exposure Within Last 30 Days Have you traveled within the last 30 days?: No - Travel/Exposure Within Last Year Have you traveled outside the [place] in the last year?: No - Additonal Travel Details Have you been exposed to anyone with a communicable illness?: No Review of Systems Constitutional: Reports: Chills, Fever, Malaise, Weakness Eyes: Denies: Eye discharge, Eye pain, Photophobia, Vision change ENT: Reports: Congestion Respiratory: Reports: Cough, Dyspnea. Denies: Hemoptysis, Stridor, Wheezes Cardiovascular: Denies: Chest pain, Palpitations, Syncope Endocrine: Reports: Fatigue Gastrointestinal: Reports: As per HPI, Diarrhea. Denies: Abdominal pain, Nausea , Vomiting Genitourinary: Denies: Dysuria, Urgency Musculoskeletal: Denies: Arthralgia, Back pain, Myalgia Skin: Denies: Bruising, Change in color, Rash Neurological: Reports: Headache. Denies: Abnormal gait, Numbness, Tingling, Tremors, Weakness Psychiatric: Reports: Anxiety Hematological/Lymphatic: Denies: Blood Clots, Easy bleeding, Easy bruising, Swollen glands Past Medical History - SOCIAL HISTORY Smoking Status: Former smoker Alcohol Use: Rare Drug Use: None - RESPIRATORY Hx Respiratory Disorders: Yes Hx Bronchitis: Yes Hx Pneumonia: Yes Comment:: low O2 when sleeping - CARDIOVASCULAR Hx Cardio Disorders: Yes Hx Chest Pain: Yes Comment:: HYPERLIPIDEMIA - NEURO Hx Neuro Disorders: Yes Hx Headaches: Yes (complex migrane) - GI Hx GI Disorders: Yes Hx Diverticulitis: Yes Hx Reflux: Yes (upper GI) Hx Liver Disease: (Liver biopsy 7-16) Hx Nausea/Vomiting: Yes (with pain) Hx Ulcer: Yes Comment:: fatty liver - Hx Genitourinary Disorders: Yes Comment:: polycystic ovary syndrome - ENDOCRINE Hx Endocrine Disorders: Yes Hx Diabetes: Yes Hx Thyroid Disease: No - MUSCULOSKELETAL Hx Musculoskeletal Disorders: Yes Hx Fibromyalgia: Yes Hx Gout: Yes Comment:: Buldging disc in neck - PSYCH Hx Psych Problems: Yes Hx Anxiety: Yes Hx Depression: Yes Comment:: PTSD - HEMATOLOGY/ONCOLOGY Hx Hematology/Oncology Disorders: No Family Medical History Any Significant Family History?: No Hx Cancer: Mother, Grandparents *Diabetes Comment: aunt Hx Heart Disease: Brother/Sister *Heart Comment: Brother Hx Kidney Disease: Children Physical Exam - General General Appearance: Alert, Oriented x3, Cooperative, No acute distress Limitations: No limitations - Head Head exam: Atraumatic, Normal inspection - Eye Eye exam: Normal appearance, PERRL. negative: Conjunctival injection, Scleral icterus - ENT ENT exam: Normal exam, Mucous membranes moist, Normal orophraynx Ear exam: Normal external inspection Nasal Exam: Normal inspection Mouth exam: Normal external inspection Teeth exam: Normal inspection - Neck Neck exam: Normal inspection. negative: Lymphadenopathy - Respiratory Respiratory exam: Decreased breath sounds, Rhonchi, Wheezes (few mild), Other ( harsh cough periodically, normal work of breathing, coarse rhonchi with mild wheeze). negative: Normal lung sounds bilaterally, Accessory muscle use, Prolonged expiratory, Respiratory distress, Stridor - Cardiovascular Cardiovascular Exam: Tachycardia Peripheral Pulses: 2+: Radial (R), Radial (L) - GI/Abdominal GI/Abdominal exam: Soft. negative: Tenderness - Rectal Rectal exam: Deferred - exam: Deferred - Extremities Extremities exam: Normal inspection. negative: Calf tenderness, Pedal edema, Tenderness - Back Back exam: Reports: Normal inspection, Full ROM. Denies: CVA tenderness (R), CVA tenderness (L), Muscle spasm, Rash noted, Tenderness - Neurological Neurological exam: Alert, Oriented X3 - Psychiatric Psychiatric exam: Normal affect, Normal mood. negative: Agitated, Anxious - Skin Skin exam: Dry, Intact, Normal color, Warm Course Vital Signs 05/11/17 05/11/17 05/11/17 01:03 01:04 01:11 Temperature 97.7 F 97.8 F Pulse Rate 102 H Pulse Rate [ 104 H Pulse Ox Probe] Respiratory 32 H 22 Rate Blood Pressure 143/89 Blood Pressure 143/89 [Left Arm] Pulse Ox 92 L 89 L 91 L - Reevaluation(s) Reevaluation #1: 05/11/17 01:23 EMR reviewed from the 3 prior visits for her pneumonia The XR was reviewed for this past afternoon at 2pm. RUL pneumonia noted She is mildly tachycardic and tachypneic with oxygen levels of 88 to 91% She was placed on 2 liters She will be admitted for failed outpatient treatment of her pneumonia 05/11/17 01:46 The CBC was reviewed. No acute changes 05/11/17 01:57 The BMP was reviewed HCO3 18 with AG 18 Glucose 163 Normal Renal function IVF NS run at 100/hr Admission orders placed for pneumonia failed outpatient treatment 05/11/17 05:01 The patient was seen in her room Saturations drop to mid 80's. The patient is diffusely wheezy. A Duoneb and follow up Albuterol was ordered Portable CXR ordered as well as ABG as her nail have thick acrylic false nails and reliable wave form has been a issue. 05/11/17 05:18 The Portable CXR was reviewed. No significant changes. The RUL infiltrate is similar. 05/11/17 05:48 AFter the Albuterol treatment the patient has improved air movement, diffuse wheezing persists. ABG was attempted by RT and was unable With US guidance ABG was obtained on the L. The patient is alert, no conversational dyspnea. Saturation's 88-90% 05/11/17 05:57 ABG was reviewed. pH 7.30/ PO2 52/PCo2 32 85% on 50% Will perform CTA and likely Bipap on return. Patient 90% on simple mask 05/11/17 06:06 Akanksha Srivastavawright was updated on the case. 05/11/17 06:30 93% on NRB, tolerating well. 05/11/17 06:46 05/11/17 06:[address] was read at no PE. She has patchy ground glass opacity seen bilaterally which could be atelectasis but may be infectious or inflammatory. 05/11/17 07:00 Akanksha Evon was again updated. The patient was informed. [facility] [place] The patient is on high flow nasal canula with albuterol She is subjectively feeling improved. She is 93% on this level of care. 05/11/17 07:[address] Roberts of [facility]. We reviewed the labs, vitals, CXR and CT findings He requests additional broad spectrum antibioitcs and lactic acid prior to transfer 05/11/17 07:35 The lactic acid has been sent to the lab. The patient is 95% on current therapy 05/11/17 07:50 The Lactic Acid is 2.5 Dr Roberts was notified He will admit to the step down at [facility] She continues to get IVF, Broad Spectrum antibiotic, RT care for breathing treatments. 05/11/17 08:05 The patient care was turned over at the bedside with Jing Dietrich PAC of the admission servie The patient is much improved. Saturation 97% on current therapy. She is stable for transfer. I believe a step down bed is the appropriate bed at this time. Medical Decision Making - Lab Data Result diagrams: 05/11/17 01:25 03/20/18 01:25 Disposition Disposition: Admit Clinical Impression: Pneumonia, Hypoxia, CAP (community acquired pneumonia) Disposition: Still a Patient at [facility] Decision to Admit: Admit from ER Decision to Admit Date: 05/11/17 Decision to Admit Time: Condition: (2) Stable Time of Disposition: Quality - Quality Measures Quality Measures: N/A - Blood Pressure Screening Does Patient Have Any of the Following: Active Dx of HTN Blood Pressure Classification: Pre-Hypertensive BP Reading Systolic Measurement: 143 Diastolic Measurement: 89 Screening for High Blood Pressure: Patient Exclusion, Hx of HTN [G9744] Pre-Hypertensive Follow-up Interventions: Referral to alternative/primary care provider.
[2017-05-11] MEDS ORDERED: CEFTRIAXONE SODIUM 1 GM in 0.9 % SODIUM CHLORIDE 100ML 100 ML IVPB ONE (01:27)
[2017-05-11 01:38] LABS: BASO % 0.3 % (0-6); HEMATOCRIT 37.6 % (35.0-47.0); HEMOGLOBIN 12.4 gm/dl (11.6-16.0); LYMPH % 6.8 % (16-45); MEAN CELL VOLUME 87.9 fl (81-97); MEAN PLATELET VOLUME 9.2 fl (7.4-10.4); MONO % 5.2 % (0-9); PLATELET COUNT 445 K/uL (130-400); RED BLOOD COUNT 4.28 M/uL (3.80-5.40); RED CELL DISTRIBUTION WIDTH 14.3 % (11.5-14.5); WHITE BLOOD COUNT W/O DIFF 10.6 K/uL (4.2-12.2)
[2017-05-11 01:47] LABS: BLOOD UREA NITROGEN 12 mg/dL (6-20); CREATININE 0.7 mg/dL (0.5-0.9); EST GLOMERULAR FILTRATION RATE > 60 mL/min
[2017-05-11 01:50] LABS: GLUCOSE,RANDOM 168 mg/dL (74-109)
[2017-05-11] MEDS ORDERED: ACETAMINOPHEN 500 MG TABLET PO PRN (02:22)
[2017-05-11] MEDS ORDERED: Non-Formulary MISC (Omeprazole [Omeprazole] 40 MG) PO SCH (02:22)
[2017-05-11] MEDS ORDERED: CEFTRIAXONE SODIUM 1 GM in 0.9 % SODIUM CHLORIDE 100ML 100 ML IVPB SCH (02:22)
[2017-05-11] MEDS ORDERED: 0.9 % SODIUM CHLORIDE 1000ML 1,000 ML IV PRN (02:22)
[2017-05-11] MEDS: ALBUTEROL SULFATE (0.083%) 2.5 MG/3 ML NEB INH SCH ×3 (04:06→09:57)
[2017-05-11 05:54] LABS: ARTERIAL BLD GAS O2 SATURATION 85.4 % (95-98); ARTERIAL BLOOD GAS BASE EXCESS -9.4 mmol/L (-2 - 3); ARTERIAL BLOOD GAS HCO3 15.6 mmol/L (18-23); ARTERIAL BLOOD GAS PCO2 32.4 mmHg (35-48); CARBOXYHEMOGLOBIN 1.2 % (0-1.5); METHEMOGLOBIN 0.1 % (0.0-1.5); O2 HEMOGLOBIN 84.3 % vol (94-99); TOTAL HEMOGLOBIN 10.9 g/dl (11.6-16)
[2017-05-11] MEDS ORDERED: METHYLPREDNISOLONE PF 125MG/VIAL IVP ONE (05:56)
[2017-05-11] MEDS ORDERED: ALBUTEROL SULFATE (0.083%) 2.5 MG/3 ML NEB INH ONE ×4 (06:42→07:23)
[2017-05-11] MEDS ORDERED: IPRATROPIUM/ALBUTEROL (0.5MG/3MG) NEB INH ONE (06:46)
[2017-05-11] MEDS ORDERED: PANTOPRAZOLE SODIUM 40 MG TABLET PO SCH (07:00)
[2017-05-11] MEDS ORDERED: VANCOMYCIN HCL 1,500 MG in 0.9 % SODIUM CHLORIDE 500ML 500 ML IVPB ONE (07:23)
[2017-05-11] MEDS ORDERED: MEROPENEM 1 GM in 0.9 % SODIUM CHLORIDE 100ML 100 ML IVPB ONE (07:23)
[2017-05-11] MEDS: IPRATROPIUM/ALBUTEROL (0.5MG/3MG) NEB INH SCH ×2 (07:29→10:00)
[2017-05-11] MEDS ORDERED: 0.9 % SODIUM CHLORIDE 1,000 ML BAG IV ONE (07:33)
[2017-05-11] MEDS ORDERED: ALBUTEROL SULFATE 0.5% 5 MG/ML BTL 20ML INH SCH (08:00)
--- NOTE | 2017-05-11 08:16 | RADIOLOGY REPORT ---
EXAM: PORTABLE SEMI-ERECT CHEST HISTORY: DIFFICULTY BREATHING. TECHNIQUE: A portable semi-erect view of the chest was obtained. Comparison: 05/10/17 chest. FINDINGS: The heart size is normal. Streaky opacities in the right perihilar region as before with mild elevation of the right hemidiaphragm. Osteopenia. No pneumothorax. IMPRESSION: STREAKY OPACITIES IN THE RIGHT PERIHILAR REGION, BEFORE. JOB NUMBER: [id number] MTDD
--- NOTE | 2017-05-11 08:22 | CT ANGIOGRAM REPORT ---
EXAM: CTA OF THE CHEST HISTORY: DIFFICULTY BREATHING. TECHNIQUE: CTA of the chest was performed using pulmonary embolus protocol following IV administration of 82 ml of Omnipaque 350 contrast. Axial images were obtained with coronal and sagittal MIP reconstructions. Comparison: None. FINDINGS: The mediastinal vasculature enhances normally. There is no intraluminal filling defect to suggest pulmonary embolus. Negative for thoracic aortic aneurysm or dissection. The heart and pericardium are unremarkable. No mediastinal or hilar adenopathy. Limited evaluation of the upper abdomen shows post cholecystectomy changes. The osseous structures are grossly intact. The visualized airways are patent. There are patchy ground glass opacities bilaterally with areas of subsegmental atelectasis in the right perihilar region. No effusion. IMPRESSION: 1. PATCHY GROUND GLASS OPACITIES BILATERALLY LIKELY RELATING TO PNEUMONITIS. 2. NEGATIVE FOR PULMONARY EMBOLUS, THORACIC AORTIC ANEURYSM, OR DISSECTION. JOB NUMBER: [id number] MTDD
[2017-05-11] MEDS ORDERED: TOPIRAMATE 100MG TABLET PO SCH (10:00)
[2017-05-11] MEDS ORDERED: AZITHROMYCIN 500 MG TABLET PO SCH (10:00)
[2017-05-11] MEDS ORDERED: ARIPIPRAZOLE 2 MG PO SCH (10:00)
[2017-05-11] MEDS ORDERED: TOPIRAMATE 100 MG PO SCH (10:00)
[2017-05-11] MEDS ORDERED: ENOXAPARIN 40 MG/0.4 ML SYR SC SCH (10:00)
[2017-05-11] MEDS ORDERED: METHYLPREDNISOLONE PF 125MG/VIAL IVP SCH (10:00)
[2017-05-11] MEDS ORDERED: PRAZOSIN HCL 4 MG PO SCH (22:00)
[2017-05-11] MEDS ORDERED: GABAPENTIN 300 MG CAPSULE PO SCH (22:00)
[2017-05-11] MEDS ORDERED: METFORMIN HCL 1000 MG PO SCH (22:00)
== END 2017-05-11 09:45 | disposition short-term general hospital (02) | DRG 193 ==
LOC: ER 01:01 → MEDSURG 02:12
PROVIDERS: ADMIT Internal Medicine; ATTEND Internal Medicine
DX: R06.02 Shortness of breath (principal); R05 Cough; J18.9 Pneumonia, unspecified organism; J96.91 Respiratory failure, unspecified with hypoxia; E78.5 Hyperlipidemia, unspecified; M79.7 Fibromyalgia; E11.9 Type 2 diabetes mellitus without complications; Z79.84 Long term (current) use of oral hypoglycemic drugs; R00.0 Tachycardia, unspecified; K76.0 Fatty (change of) liver, not elsewhere classified; F41.8 Other specified anxiety disorders; F43.10 Post-traumatic stress disorder, unspecified
CPT/HCPCS: 36416; 36600; 71045; 71275; 80048; 82375; 82803; 82948; 83605; 85027; 94640; 94644; 94645; 94761; 96374; 99236; 99285; J2930; J7030; J7040; J7613

== ENCOUNTER 2017-05-19 20:36 | Emergency (ER) | payer MEDICARE, MEDICAID ==
[2017-05-19] MEDS ORDERED: ASPIRIN 81 MG CHEWABLE TABLET PO ONE (21:06)
[2017-05-19 21:22] LABS: BASO % 0.2 % (0-6); HEMATOCRIT 33.9 % (35.0-47.0); LYMPH % 4.4 % (16-45); MEAN CELL VOLUME 88.3 fl (81-97); MEAN CORPUSCULAR HEMOGLOBIN 28.6 pg (27-33); MEAN CORPUSCULAR HGB CONC 32.4 g/dl (32-36); MEAN PLATELET VOLUME 9.2 fl (7.4-10.4); MONO % 3.9 % (0-9); PLATELET COUNT 522 K/uL (130-400); RED BLOOD COUNT 3.84 M/uL (3.80-5.40); RED CELL DISTRIBUTION WIDTH 14.3 % (11.5-14.5); WHITE BLOOD COUNT W/O DIFF 16.2 K/uL (4.2-12.2)
[2017-05-19 21:34] LABS: BLOOD UREA NITROGEN 17 mg/dL (6-20); CREATININE 0.7 mg/dL (0.5-0.9); EST GLOMERULAR FILTRATION RATE > 60 mL/min
[2017-05-19 21:37] LABS: GLUCOSE,RANDOM 229 mg/dL (74-109)
[2017-05-19 21:40] LABS: CREATINE PHOSPHOKINASE 26 U/L (26-192)
[2017-05-19 21:42] LABS: CKMB 1.1 ng/mL (<3.77)
[2017-05-19] MEDS ORDERED: ONDANSETRON HCL IV 4 MG/2 ML VIAL IVP ONE (22:56)
[2017-05-19] MEDS ORDERED: IPRATROPIUM/ALBUTEROL (0.5MG/3MG) NEB INH ONE (23:17)
--- NOTE | 2017-05-19 23:57 | Emergency Department Record ---
History of Present Illness - General Chief Complaint: Chest Pain Stated Complaint: LT ARM PAIN,CHEST PAIN Time Seen by Provider: 05/19/17 20:55 Source: Patient Mode of Arrival: Wheelchair Limitations: No limitations - History of Present Illness Initial Comments: pt c/o cp this evening that is midsternal and sharp. she was just d/cd from [facility] for pneumonia w near respiratory failure. she was sent home wearing oxygen she just quit smoking. she has nausea MD Complaint: Chest pain Onset/Timin -: Hour(s) Onset: During rest Pain Location: Substernal Pain Radiation: LUE Severity scale (1-10): 6 Quality: Sharp Consistency: Constant Improves With: Nothing Worsens With: Nothing Context: Recent illness Anginal Symptoms: Nausea Treatments Prior to Arrival: None - Related Data Home Medications Medication Instructions Recorded Confirmed Last Taken Albuterol Sulfate 0.083% [Neb] 3 ml NEB .EVERY 4-6 HOURS PRN 05/19/17 05/19/17 05/19/17 Budesonide/Formoterol Fumarate 1 inh IH BID 05/19/17 05/19/17 05/19/17 [Symbicort 160-4.5 Mcg Inhaler] Levofloxacin [Levaquin] 750 mg PO DAILY 05/19/17 05/19/17 Unknown Prednisone [Prednisone 10Mg] 10 mg PO DAILY 05/19/17 05/19/17 Unknown Tiotropium Lugoff [Spiriva] 1 cap IH DAILY 05/19/17 05/19/17 05/19/17 Previous Rx's Medication Instructions Recorded Ibuprofen [Motrin] 800 mg PO Q6H PRN #30 tab 03/16/17 Allergies Allergy/AdvReac Type Severity Reaction Status Date / Time [id number] Antimigraine Allergy Severe HEADACHE Verified 05/10/17 13:35 Agents Zhkoinq-Vgu-Hix Reductase Allergy Intermediate JOINT ACHES Verified 05/10/17 13: 35 Inhibitor medical tape AdvReac Mild RASH Uncoded 01/23/17 17:09 Travel Screening - Travel/Exposure Within Last 30 Days Have you traveled within the last 30 days?: No - Travel Symptoms Symptom Screening: None Review of Systems Reviewed: No additional complaints except as noted below Constitutional: Reports: As per HPI. Denies: Chills, Fever, Malaise, Night sweats, Weakness, Weight change Eyes: Reports: As per HPI. Denies: Eye discharge, Eye pain, Photophobia, Vision change ENT: Reports: As per HPI. Denies: Congestion, Dental pain, Ear pain, Epistaxis , Hearing loss, Throat pain Respiratory: Reports: As per HPI, Cough. Denies: Dyspnea, Hemoptysis, Stridor, Wheezes Cardiovascular: Reports: As per HPI, Chest pain. Denies: Arrhythmia, Dyspnea on exertion, Edema, Murmurs, Orthopnea, Palpitations, Paroxysmal nocturnal dyspnea, Rheumatic Fever, Syncope Endocrine: Reports: As per HPI. Denies: Fatigue, Heat or cold intolerance, Polydipsia, Polyuria Gastrointestinal: Reports: As per HPI. Denies: Abdominal pain, Constipation, Diarrhea, Hematemesis, Hematochezia, Melena, Nausea, Vomiting Genitourinary: Reports: As per HPI. Denies: Abnormal menses, Discharge, Dyspareunia, Dysuria, Frequency, Hematuria, Incontinence, Retention, Urgency Musculoskeletal: Reports: As per HPI. Denies: Arthralgia, Back pain, Gout, Joint swelling, Myalgia, Neck pain Skin: Reports: As per HPI. Denies: Bruising, Change in color, Change in hair/ nails, Lesions, Pruritus, Rash Neurological: Reports: As per HPI. Denies: Abnormal gait, Confusion, Headache, Numbness, Paresthesias, Seizure, Tingling, Tremors, Vertigo, Weakness Psychiatric: Reports: As per HPI. Denies: Anxiety, Auditory hallucinations, Depression, Homicidal thoughts, Suicidal thoughts, Visual hallucinations Hematological/Lymphatic: Reports: As per HPI. Denies: Anemia, Blood Clots, Easy bleeding, Easy bruising, Swollen glands Past Medical History - SOCIAL HISTORY Smoking Status: Former smoker - RESPIRATORY Hx Respiratory Disorders: Yes Hx Bronchitis: Yes Hx Pneumonia: Yes Comment:: Home O2-3L - CARDIOVASCULAR Hx Cardio Disorders: Yes Hx Chest Pain: Yes Comment:: HYPERLIPIDEMIA - NEURO Hx Neuro Disorders: Yes Hx Headaches: Yes (complex migrane) - GI Hx GI Disorders: Yes Hx Diverticulitis: Yes Hx Reflux: Yes (upper GI) Hx Liver Disease: (Liver biopsy 7-16) Hx Nausea/Vomiting: Yes (with pain) Hx Ulcer: Yes Comment:: fatty liver - Hx Genitourinary Disorders: Yes Comment:: polycystic ovary syndrome - ENDOCRINE Hx Endocrine Disorders: Yes Hx Diabetes: Yes Hx Thyroid Disease: No - MUSCULOSKELETAL Hx Musculoskeletal Disorders: Yes Hx Fibromyalgia: Yes Hx Gout: Yes Comment:: Buldging disc in neck - PSYCH Hx Psych Problems: Yes Hx Anxiety: Yes Hx Depression: Yes Comment:: PTSD - HEMATOLOGY/ONCOLOGY Hx Hematology/Oncology Disorders: No Hx Anemia: No Hx Blood Disorders: No Hx Bruising: No Hx Cancer: No Hx Clotting Problems: No Hx Sickle Cell Disease: No Hx Unexplained Bleeding: No Hx Blood Transfusions: No Hx Blood Transfusion Reaction: No Family Medical History Any Significant Family History?: Yes Hx Cancer: Mother, Grandparents *Diabetes Comment: aunt Hx Heart Disease: Brother/Sister *Heart Comment: Brother Hx Kidney Disease: Children Physical Exam - General General Appearance: Alert, Oriented x3, Cooperative, Mild distress - Head Head exam: Normal inspection - Eye Eye exam: Normal appearance, PERRL, EOMI Pupils: Normal accommodation - ENT ENT exam: Normal exam, Mucous membranes moist, Normal external ear exam, Normal orophraynx Ear exam: Normal external inspection. negative: External canal tenderness Nasal Exam: Normal inspection. negative: Discharge, Sinus tenderness Mouth exam: Normal external inspection, Tongue normal Teeth exam: Normal inspection. negative: Dental caries Throat exam: Normal inspection. negative: Tonsillar erythema, Tonsillar exudate - Neck Neck exam: Normal inspection, Full ROM. negative: Tenderness - Respiratory Respiratory exam: Rales, Wheezes. negative: Respiratory distress - Cardiovascular Cardiovascular Exam: Regular rate, Normal rhythm, Normal heart sounds - GI/Abdominal GI/Abdominal exam: Soft, Normal bowel sounds. negative: Tenderness - Rectal Rectal exam: Deferred - exam: Deferred - Extremities Extremities exam: Normal inspection, Full ROM, Normal capillary refill. negative: Tenderness - Back Back exam: Reports: Normal inspection, Full ROM. Denies: Muscle spasm, Rash noted, Tenderness - Neurological Neurological exam: Alert, CN II-XII intact, Normal gait, Oriented X3 - Psychiatric Psychiatric exam: Normal affect, Normal mood - Skin Skin exam: Dry, Intact, Normal color, Warm Course Vital Signs 05/19/17 05/19/17 05/19/17 20:40 20:47 21:00 Temperature 97.5 F L Pulse Rate 74 Pulse Rate [ Feedmobile Driver ] Pulse Rate [ 84 84 Pulse Ox Probe] Respiratory 18 20 Rate Blood Pressure 112/59 114/63 [Left Arm] Blood Pressure [Right Arm] Pulse Ox 94 L 96 05/19/17 05/19/17 05/19/17 21:40 22:10 23:08 Temperature Pulse Rate Pulse Rate [ 70 76 Feedmobile Driver ] Pulse Rate [ 76 Pulse Ox Probe] Respiratory 12 16 18 Rate Blood Pressure 104/66 [Left Arm] Blood Pressure 94/60 99/57 [Right Arm] Pulse Ox 94 L 94 L 95 05/19/17 23:40 Temperature Pulse Rate 88 Pulse Rate [ Feedmobile Driver ] Pulse Rate [ Pulse Ox Probe] Respiratory 16 Rate Blood Pressure [Left Arm] Blood Pressure [Right Arm] Pulse Ox Medical Decision Making - Lab Data Result diagrams: 05/19/17 21:16 05/19/17 21:16 Lab Results 05/19/17 05/19/17 05/19/17 Range/Units 21:16 21:16 21:16 WBC 16.2 H (4.2-12.2) K/uL RBC 3.84 (3.80-5.40) M/uL Hgb 11.0 L (11.6-16.0) gm/dl Hct 33.9 L (35.0-47.0) % MCV 88.3 (81-97) fl MCH 28.6 (27-33) pg MCHC 32.4 (32-36) g/dl RDW 14.3 (11.5-14.5) % Plt Count 522 H (130-400) K/uL MPV 9.2 (7.4-10.4) fl Neutrophils % 92.0 H (47-80) % Lymphocytes % 4.4 L (16-45) % Monocytes % 3.9 (0-9) % Eosinophils % 0.0 (0-6) % Basophils % 0.2 (0-6) % Lymphocytes 4.0 L (16-45) % Monocytes 4.0 (0-9) % Basophils 0.0 (0-6) % Eosinophil Count 0.0 (0-6) % D-Dimer 0.79 H (0-0.59) mg/L FEU Sodium 138 (136-145) mmol/L Potassium 4.0 (3.4-4.5) mmol/L Chloride 102 (98-107) mmol/L Carbon Dioxide 20.0 L (22-29) mmol/L Anion Gap 16.0 (7-16) BUN 17 (6-20) mg/dL Creatinine 0.7 (0.5-0.9) mg/dL Estimated GFR > 60 mL/min Random Glucose 229 H (74-109) mg/dL Calcium 9.0 (8.6-10.0) mg/dL Creatine Kinase 26 (26-192) U/L CK-MB (CK-2) 1.1 (<3.77) ng/mL Troponin T < 0.010 (0-0.010) ng/mL NT-Pro-B Natriuret Pep 170.70 H (<125) pg/mL Disposition Disposition: Transfer Clinical Impression: Pneumonia Qualifiers: Pneumonia type: due to unspecified organism Laterality: bilateral Lung location : unspecified part of lung Qualified Code(s): J18.9 - Pneumonia, unspecified organism Chest pain Qualifiers: Chest pain type: unspecified Qualified Code(s): R07.9 - Chest pain, unspecified Disposition: Acute Care Hospital Transfer [facility] Reason For Transfer: pneumonia just d/c Accepting Physician: dr rivera Time Discussed w/Accepting Physician: 00:15 Forms: Patient Portal Access Quality - Quality Measures Quality Measures: N/A - Headache: Neuroimaging ICD10 Codes Entered: Yes - Blood Pressure Screening Does Patient Have Any of the Following: No Blood Pressure Classification: Normal BP Reading Systolic Measurement: 100 Diastolic Measurement: 61 Screening for High Blood Pressure: < Normal BP, F/U Not Required > [G8783]
--- NOTE | 2017-05-20 20:28 | CT ANGIOGRAM REPORT ---
EXAM: CT ANGIOGRAM CHEST CTA w contrast HISTORY: DIFFICULTY IN BREATHING. TECHNIQUE: CTA of the chest was performed after intravenous administration of 80 mL of Omnipaque-350 contrast material. Sagittal and coronal MIP images were performed on an independent workstation. FINDINGS: No mass or filling defect to suggest pulmonary embolism. There is infiltrate in the right upper, middle, and lower lobes. Findings are consistent with pneumonia. There is infiltrate in the left lower lobe. No mediastinal or hilar lymphadenopathy. Heart size is at the upper limits of normal. The visualized upper abdominal structures are normal. IMPRESSION: 1. NO CTA FINDINGS SUGGESTIVE OF PULMONARY EMBOLISM. 2. RIGHT UPPER, MIDDLE, AND BILATERAL LOWER LOBE INFILTRATES CONSISTENT WITH PNEUMONIA. JOB NUMBER: [id number] MTDD
== END 2017-05-20 01:20 | disposition short-term general hospital (02) ==
LOC: ER 20:36
DX: J18.9 Pneumonia, unspecified organism (principal); R11.0 Nausea; E11.9 Type 2 diabetes mellitus without complications; Z87.891 Personal history of nicotine dependence
CPT/HCPCS: 99284 ×2; 96374; 82550; 82553; 80048; 84484; 85379; 85027; 83880; 71275; 94640; 93005; 93010; Q9967; J2405

== ENCOUNTER 2017-06-01 23:03 | Emergency (ER) | payer MEDICARE, MEDICAID ==
[2017-06-01] MEDS ORDERED: PROMETHAZINE HCL 25 MG/ML VIAL IM ONE (23:46)
--- NOTE | 2017-06-01 23:48 | Emergency Department Record ---
History of Present Illness - General Chief Complaint: Headache Migraine Stated Complaint: HEADACHE,SHAKEY,PRESSURE BEHIND EYES,FEELS FAINT Time Seen by Provider: 06/01/17 23:42 Source: Patient Mode of Arrival: Ambulatory Limitations: No limitations - History of Present Illness Initial Comments: 42 yo female presents with frontal head pressure, nausea, feeling shaky this afternoon. No cough or shortness of breath. No vomiting. She recently was hospitalized for pneumonia. She is on home oxygen and doing very well. She has a history of migraines. She denies and abdominal pain or diarrhea. She quick smoking. No swelling or edema. PCP is Dr Friedman. Complaint: Headache, Other (Nausea) Onset/Timin -: Days(s) Onset Description: Gradual Severity: Mild Quality: Similar to previous headaches Improves With: Nothing Worsens With: None Treatments Prior to Arrival: Other - Related Data Previous Rx's Medication Instructions Recorded Ibuprofen [Motrin] 800 mg PO Q6H PRN #30 tab 03/16/17 Allergies Allergy/AdvReac Type Severity Reaction Status Date / Time [id number] Antimigraine Allergy Severe HEADACHE Verified 05/26/17 17:55 Agents Bivqygu-Jer-Ros Reductase Allergy Intermediate JOINT ACHES Verified 05/26/17 17: 55 Inhibitor medical tape AdvReac Mild RASH Uncoded 05/26/17 17:55 Travel Screening - Travel/Exposure Within Last 30 Days Have you traveled within the last 30 days?: No - Travel/Exposure Within Last Year Have you traveled outside the [place] in the last year?: No - Additonal Travel Details Have you been exposed to anyone with a communicable illness?: No - Travel Symptoms Symptom Screening: None Review of Systems Constitutional: Reports: Weakness. Denies: Chills, Fever Eyes: Denies: Eye discharge ENT: Denies: Congestion, Throat pain Respiratory: Denies: Cough, Dyspnea, Hemoptysis, Stridor, Wheezes Cardiovascular: Denies: Chest pain, Palpitations, Syncope Endocrine: Denies: Fatigue, Polydipsia, Polyuria Gastrointestinal: Reports: Nausea. Denies: Abdominal pain, Diarrhea, Vomiting Genitourinary: Denies: Dysuria, Urgency Musculoskeletal: Denies: Arthralgia, Back pain, Myalgia, Neck pain Skin: Denies: Bruising, Change in color, Rash Neurological: Reports: Headache, Tingling. Denies: Confusion, Numbness, Vertigo , Weakness Psychiatric: Reports: Anxiety Hematological/Lymphatic: Denies: Easy bleeding, Easy bruising, Swollen glands Past Medical History - SOCIAL HISTORY Smoking Status: Former smoker - RESPIRATORY Hx Respiratory Disorders: Yes Hx Bronchitis: Yes Hx Pneumonia: Yes Comment:: Home O2-3L - CARDIOVASCULAR Hx Cardio Disorders: Yes Hx Chest Pain: Yes Comment:: HYPERLIPIDEMIA - NEURO Hx Neuro Disorders: Yes Hx Headaches: Yes (complex migrane) - GI Hx GI Disorders: Yes Hx Diverticulitis: Yes Hx Reflux: Yes (upper GI) Hx Liver Disease: (Liver biopsy 7-16) Hx Nausea/Vomiting: Yes (with pain) Hx Ulcer: Yes Comment:: fatty liver - Hx Genitourinary Disorders: Yes Comment:: polycystic ovary syndrome - ENDOCRINE Hx Endocrine Disorders: Yes Hx Diabetes: Yes Hx Thyroid Disease: No - MUSCULOSKELETAL Hx Musculoskeletal Disorders: Yes Hx Fibromyalgia: Yes Hx Gout: Yes Comment:: Buldging disc in neck - PSYCH Hx Psych Problems: Yes Hx Anxiety: Yes Hx Depression: Yes Comment:: PTSD - HEMATOLOGY/ONCOLOGY Hx Hematology/Oncology Disorders: No Hx Anemia: No Hx Blood Disorders: No Hx Bruising: No Hx Cancer: No Hx Clotting Problems: No Hx Sickle Cell Disease: No Hx Unexplained Bleeding: No Hx Blood Transfusions: No Hx Blood Transfusion Reaction: No Family Medical History Any Significant Family History?: Yes Hx Cancer: Mother, Grandparents *Diabetes Comment: aunt Hx Heart Disease: Brother/Sister *Heart Comment: Brother Hx Kidney Disease: Children Physical Exam - General General Appearance: Alert, Oriented x3, Cooperative, No acute distress, Other ( No acute distress) Limitations: No limitations - Head Head exam: Normal inspection - Eye Eye exam: Normal appearance. negative: Conjunctival injection, Scleral icterus - ENT ENT exam: Normal exam, Mucous membranes moist Ear exam: Normal external inspection Nasal Exam: Normal inspection Mouth exam: Normal external inspection Teeth exam: Normal inspection Throat exam: Normal inspection - Neck Neck exam: Normal inspection, Full ROM. negative: Tenderness - Respiratory Respiratory exam: Normal lung sounds bilaterally, Other (clear lungs). negative : Respiratory distress, Rhonchi, Stridor, Wheezes - Cardiovascular Cardiovascular Exam: Regular rate, Normal rhythm, Normal heart sounds - GI/Abdominal GI/Abdominal exam: Soft. negative: Tenderness - Rectal Rectal exam: Deferred - exam: Deferred - Extremities Extremities exam: Normal inspection, Full ROM, Normal capillary refill. negative: Tenderness - Back Back exam: Reports: Normal inspection, Full ROM. Denies: Muscle spasm, Rash noted, Tenderness - Neurological Neurological exam: Alert, Oriented X3 - Psychiatric Psychiatric exam: Normal affect, Normal mood - Skin Skin exam: Dry, Intact, Normal color, Warm Course Vital Signs 06/01/17 23:28 Temperature 98.2 F Pulse Rate [ 81 Pulse Ox Probe] Respiratory 20 Rate Blood Pressure 90/68 [Left Arm] Pulse Ox 98 - Reevaluation(s) Reevaluation #1: 06/02/17 00:45 The labs were reviewed Mild anemia at 9.9 The patient was informed to recheck this with her PCP this week She was encourage to hydrate well and rest She is afebrile, no hypoxia, normal HR, well appearing. Glucose is not significantly elevated Medical Decision Making - Lab Data Result diagrams: 06/01/17 23:58 06/01/17 23:58 Disposition Disposition: Discharge Clinical Impression: Weakness Migraine Qualifiers: Migraine type: unspecified Status migrainosus presence: without status migrainosus Intractability: not intractable Qualified Code(s): G43.909 - Migraine, unspecified, not intractable, without status migrainosus Disposition: Home, Self-Care Condition: (1) Good Instructions: Migraine Headache (ED) Additional Instructions: Rest and try to stay well hydrated the next few days Call your family doctor tomorrow to discuss this ER visit and review the results Return if worse, fever, vomiting, or any new concerns You have mild anemia that your doctor will need to recheck Forms: Patient Portal Access Time of Disposition: 00:50 Quality - Quality Measures Quality Measures: N/A, Headache - Headache: Neuroimaging Quality Measure: Measure #419: Overuse of Neuroimaging ICD10 Codes Entered: Yes Neurological Exam: Patient had a normal neurological exam. [G9535] Headache: Use of Neuroimaging: < CTA, CT, MRA or MRI was NOT ordered > [G9534] - Blood Pressure Screening Does Patient Have Any of the Following: No Blood Pressure Classification: Normal BP Reading Systolic Measurement: 97 Diastolic Measurement: 64 Screening for High Blood Pressure: < Normal BP, F/U Not Required > [G8783]
[2017-06-02 00:09] LABS: BASO % 0.3 % (0-6); EOS % 1.1 % (0-6); HEMATOCRIT 32.1 % (35.0-47.0); HEMOGLOBIN 9.9 gm/dl (11.6-16.0); LYMPH % 23.6 % (16-45); MEAN CELL VOLUME 91.5 fl (81-97); MEAN CORPUSCULAR HEMOGLOBIN 28.2 pg (27-33); MEAN CORPUSCULAR HGB CONC 30.8 g/dl (32-36); MEAN PLATELET VOLUME 8.7 fl (7.4-10.4); PLATELET COUNT 406 K/uL (130-400); RED BLOOD COUNT 3.51 M/uL (3.80-5.40); WHITE BLOOD COUNT W/O DIFF 10.3 K/uL (4.2-12.2)
[2017-06-02 00:23] LABS: BILIRUBIN,TOTAL < 0.20 mg/dL (0.2-1.0); BLOOD UREA NITROGEN 7 mg/dL (6-20); CREATININE 0.7 mg/dL (0.5-0.9); EST GLOMERULAR FILTRATION RATE > 60 mL/min
[2017-06-02 00:24] LABS: TOTAL PROTEIN 6.6 g/dL (6.6-8.7)
[2017-06-02 00:26] LABS: GLUCOSE,RANDOM 167 mg/dL (74-109)
[2017-06-02 00:28] LABS: ALB/GLOB RATIO 1.3 (1.1-1.8); ALBUMIN 3.7 g/dL (4.0-5.0); ALT/SGPT 27 U/L (<33); AST/SGOT 21 U/L (10.0-35.0)
[2017-06-02 00:29] LABS: ALKALINE PHOSPHATASE 114 U/L (35-104)
== END 2017-06-02 01:00 | disposition home or self-care (01) ==
LOC: ER 23:03
DX: R53.1 Weakness (principal); G43.909 Migraine, unspecified, not intractable, without status migrainosus; R11.0 Nausea; D64.9 Anemia, unspecified; Z99.81 Dependence on supplemental oxygen; Z87.891 Personal history of nicotine dependence
CPT/HCPCS: 80053; 85025; 96372; 99283; 99284; J2550

== ENCOUNTER 2017-06-02 21:58 | Emergency (ER) | payer MEDICARE, MEDICAID ==
--- NOTE | 2017-06-02 22:38 | Emergency Department Record ---
History of Present Illness - General Chief Complaint: Headache Migraine Stated Complaint: MIGRAINE Time Seen by Provider: 06/02/17 22:30 Source: Patient Mode of Arrival: Ambulatory Limitations: No limitations - History of Present Illness Initial Comments: 42 yo female presents with a migraine. She states it has developed since being here last night. She was seen in the ED last night feeling weak, and shaky. Those symptoms are better but her migraine has developed over the day. She is light sensitive. She has some nausea. She did not call her PCP today yet for follow up of your last ED visit. She had a recent pneumonia. No shortness of breath. She has an extensive history of migraines. This is typical in location and character. No fever. No trauma. PCP Fernander. LOVETT Complaint: "Migraine" Onset/Timin -: Days(s) Onset Description: Gradual Location: Diffuse Severity: Severe Severity scale (1-10): 10 Quality: Similar to previous headaches Consistency: Constant, Getting worse Improves With: Nothing Worsens With: None Treatments Prior to Arrival: Migraine medication - Related Data Previous Rx's Medication Instructions Recorded Ibuprofen [Motrin] 800 mg PO Q6H PRN #30 tab 03/16/17 Allergies Allergy/AdvReac Type Severity Reaction Status Date / Time Zowsxmci-1-HM2 Antimigraine Allergy Severe HEADACHE Verified 05/26/17 17:55 Agents Lkayjxq-Fwn-Mbn Reductase Allergy Intermediate JOINT ACHES Verified 05/26/17 17: 55 Inhibitor medical tape AdvReac Mild RASH Uncoded 05/26/17 17:55 Travel Screening - Travel/Exposure Within Last 30 Days Have you traveled within the last 30 days?: No - Travel Symptoms Symptom Screening: None Review of Systems Constitutional: Denies: Chills, Fever, Malaise, Weakness Eyes: Reports: Photophobia. Denies: Eye discharge, Eye pain, Vision change ENT: Denies: Congestion, Throat pain Respiratory: Denies: Cough, Dyspnea, Hemoptysis, Stridor, Wheezes Cardiovascular: Denies: Chest pain, Palpitations, Syncope Endocrine: Denies: Fatigue, Polydipsia, Polyuria Gastrointestinal: Reports: Nausea. Denies: Abdominal pain, Diarrhea, Vomiting Genitourinary: Denies: Dyspareunia, Dysuria, Urgency Musculoskeletal: Denies: Arthralgia, Back pain, Joint swelling, Myalgia, Neck pain Skin: Denies: Bruising, Change in color, Rash Neurological: Reports: Headache. Denies: Abnormal gait, Confusion, Numbness, Paresthesias, Seizure, Tingling, Tremors, Vertigo, Weakness Psychiatric: Denies: Anxiety Hematological/Lymphatic: Denies: Blood Clots, Easy bleeding, Easy bruising, Swollen glands Past Medical History - SOCIAL HISTORY Smoking Status: Former smoker Alcohol Use: None Drug Use: None - RESPIRATORY Hx Respiratory Disorders: Yes Hx Bronchitis: Yes Hx Pneumonia: Yes Comment:: Home O2-3L - CARDIOVASCULAR Hx Cardio Disorders: Yes Hx Chest Pain: Yes Comment:: HYPERLIPIDEMIA - NEURO Hx Neuro Disorders: Yes Hx Headaches: Yes (complex migrane) - GI Hx GI Disorders: Yes Hx Diverticulitis: Yes Hx Reflux: Yes (upper GI) Hx Liver Disease: (Liver biopsy -16) Hx Nausea/Vomiting: Yes (with pain) Hx Ulcer: Yes Comment:: fatty liver - Hx Genitourinary Disorders: Yes Comment:: polycystic ovary syndrome - ENDOCRINE Hx Endocrine Disorders: Yes Hx Diabetes: Yes Hx Thyroid Disease: No - MUSCULOSKELETAL Hx Musculoskeletal Disorders: Yes Hx Fibromyalgia: Yes Hx Gout: Yes Comment:: Buldging disc in neck - PSYCH Hx Psych Problems: Yes Hx Anxiety: Yes Hx Depression: Yes Comment:: PTSD - HEMATOLOGY/ONCOLOGY Hx Hematology/Oncology Disorders: No Hx Anemia: No Hx Blood Disorders: No Hx Bruising: No Hx Cancer: No Hx Clotting Problems: No Hx Sickle Cell Disease: No Hx Unexplained Bleeding: No Hx Blood Transfusions: No Hx Blood Transfusion Reaction: No Family Medical History Any Significant Family History?: Yes Hx Cancer: Mother, Grandparents *Diabetes Comment: aunt Hx Heart Disease: Brother/Sister *Heart Comment: Brother Hx Kidney Disease: Children Physical Exam - General General Appearance: Alert, Oriented x3, Cooperative, No acute distress Limitations: No limitations - Head Head exam: Normal inspection - Eye Eye exam: Normal appearance, PERRL. negative: Conjunctival injection, Scleral icterus - ENT ENT exam: Normal exam, Mucous membranes moist, Normal orophraynx Ear exam: Normal external inspection Nasal Exam: Normal inspection Mouth exam: Normal external inspection Teeth exam: Normal inspection Throat exam: Normal inspection - Neck Neck exam: Normal inspection, Full ROM. negative: Tenderness - Respiratory Respiratory exam: Normal lung sounds bilaterally. negative: Accessory muscle use, Decreased breath sounds, Prolonged expiratory, Respiratory distress, Rhonchi, Stridor, Wheezes - Cardiovascular Cardiovascular Exam: Regular rate, Normal rhythm, Normal heart sounds - GI/Abdominal GI/Abdominal exam: Soft. negative: Tenderness - Rectal Rectal exam: Deferred - exam: Deferred - Extremities Extremities exam: Normal inspection - Back Back exam: Reports: Normal inspection. Denies: CVA tenderness (R), CVA tenderness (L), Paraspinal tenderness - Neurological Neurological exam: Alert, CN II-XII intact, Normal gait, Oriented X3. negative : Altered, Motor sensory deficit - Psychiatric Psychiatric exam: Anxious - Skin Skin exam: Dry, Intact, Normal color, Warm Course Vital Signs 06/02/17 22:19 Temperature 98.2 F Pulse Rate [ 93 H Pulse Ox Probe] Respiratory 24 Rate Blood Pressure 111/65 [Left Arm] Pulse Ox 98 - Reevaluation(s) Reevaluation #1: Vitals reviewed No acute changes No acute findings on examination. 06/02/17 22:36 06/02/17 23:47 The patient was doing well at DC Clinically she appears well We discussed at length the importance of close follow up with her PCP if her migraines are starting to occur more frequently. Disposition Disposition: Discharge Clinical Impression: Migraine Qualifiers: Migraine type: unspecified Status migrainosus presence: without status migrainosus Intractability: not intractable Qualified Code(s): G43.909 - Migraine, unspecified, not intractable, without status migrainosus Disposition: Home, Self-Care Condition: (1) Good Instructions: Migraine Headache (ED) Additional Instructions: Call your doctor tomorrow for close follow up of your migraines Rest and stay well hydrated Forms: Patient Portal Access Time of Disposition: 23:00 Quality - Quality Measures Quality Measures: Headache - Headache: Neuroimaging Quality Measure: Measure #419: Overuse of Neuroimaging ICD10 Codes Entered: Yes Neurological Exam: Patient had a normal neurological exam. [G9535] Headache: Use of Neuroimaging: < CTA, CT, MRA or MRI was NOT ordered > [G9534] - Blood Pressure Screening Does Patient Have Any of the Following: No Blood Pressure Classification: Normal BP Reading Systolic Measurement: 95 Diastolic Measurement: 49 Screening for High Blood Pressure: < Normal BP, F/U Not Required > [G8783]
[2017-06-02] MEDS ORDERED: KETOROLAC 30 MG/ML VIAL IM ONE (22:39)
[2017-06-02] MEDS ORDERED: PROMETHAZINE HCL 25 MG/ML VIAL IM ONE (22:39)
[2017-06-02] MEDS ORDERED: ORPHENADRINE CITRATE 60MG/2ML VIAL IM ONE (23:18)
== END 2017-06-02 23:46 | disposition home or self-care (01) ==
LOC: ER 21:58
DX: G43.909 Migraine, unspecified, not intractable, without status migrainosus (principal); R11.0 Nausea; E11.9 Type 2 diabetes mellitus without complications; Z87.891 Personal history of nicotine dependence
CPT/HCPCS: 99283 ×2; 96372; J1885; J2360; J2550

== ENCOUNTER 2017-06-06 20:48 | Emergency (ER) | payer MEDICARE, MEDICAID ==
[2017-06-06] MEDS ORDERED: ACETAMINOPHEN 325 MG TAB PO ONE (21:04)
--- NOTE | 2017-06-06 21:16 | Emergency Department Record ---
History of Present Illness - General Chief Complaint: Shortness of breath Stated Complaint: ana Time Seen by Provider: 06/06/17 20:56 Source: Patient Mode of Arrival: Ambulatory Limitations: No limitations - History of Present Illness Initial Comments: The patient is here due to developing dyspnea and sharp chest discomfort 2 hours ago after waking up from a nap. She did take a breathing tx but it did not help. Due to the sharp chest pain that is worse with breathing she did call her PCP who told her to go to the ER. The patient was recently sent to [facility] from the ER here for similar symptoms where she was diagnosed with bilateral pneumonia. She also had a chest CT done that day that was neg for PE. The patient states she took all of her Abx's after discharge. She then presented here to the ER on 05/26/17 due to R sided pleuritic CP and was evaluated and discharged. The patient has also had a neg PE study on 05/11/17 which also demonstrated pneumonia. She denies any new cough, any fever, chills, back pain, or SERVIN. The patient is on home O2 at [address] [place] [address]. MD Complaint: Shortness of breath Onset/Timin -: Hour(s) Severity scale (1-10): 6 Quality: Sharp Consistency: Constant, Intermittent Improves With: Nothing Worsens With: Nothing Known History Of: Recurrent pneumonia Associated Symptoms: Denies other symptoms Treatments Prior to Arrival: Oxygen Treatment Prior to Arrival Comment:: nebulizer albuterol - Related Data Home Oxygen Therapy: Yes Home Oxygen Amount: 3 Liters Previous Rx's Medication Instructions Recorded Ibuprofen [Motrin] 800 mg PO Q6H PRN #30 tab 03/16/17 Allergies Allergy/AdvReac Type Severity Reaction Status Date / Time [id number]-8-[id number] Antimigraine Allergy Severe HEADACHE Verified 05/26/17 17:55 Agents Gbhvcpd-Wvg-Dbs Reductase Allergy Intermediate JOINT ACHES Verified 05/26/17 17: 55 Inhibitor medical tape AdvReac Mild RASH Uncoded 05/26/17 17:55 Travel Screening - Travel/Exposure Within Last 30 Days Have you traveled within the last 30 days?: No - Travel/Exposure Within Last Year Have you traveled outside the [place] in the last year?: No - Additonal Travel Details Have you been exposed to anyone with a communicable illness?: No - Travel Symptoms Symptom Screening: None Review of Systems Constitutional: Denies: Chills, Fever Eyes: Denies: Eye discharge ENT: Denies: Congestion Respiratory: Reports: Cough, Dyspnea (chronic.). Denies: Hemoptysis Past Medical History - SOCIAL HISTORY Smoking Status: Former smoker Alcohol Use: None Drug Use: None - RESPIRATORY Hx Respiratory Disorders: Yes Hx Bronchitis: Yes Hx Pneumonia: Yes Comment:: Home O2-3L - CARDIOVASCULAR Hx Cardio Disorders: Yes Hx Chest Pain: Yes Comment:: HYPERLIPIDEMIA - NEURO Hx Neuro Disorders: Yes Hx Headaches: Yes (complex migrane) - GI Hx GI Disorders: Yes Hx Diverticulitis: Yes Hx Reflux: Yes (upper GI) Hx Liver Disease: (Liver biopsy 7-16) Hx Nausea/Vomiting: Yes (with pain) Hx Ulcer: Yes Comment:: fatty liver - Hx Genitourinary Disorders: Yes Comment:: polycystic ovary syndrome - ENDOCRINE Hx Endocrine Disorders: Yes Hx Diabetes: Yes Hx Thyroid Disease: No - MUSCULOSKELETAL Hx Musculoskeletal Disorders: Yes Hx Fibromyalgia: Yes Hx Gout: Yes Comment:: Buldging disc in neck - PSYCH Hx Psych Problems: Yes Hx Anxiety: Yes Hx Depression: Yes Comment:: PTSD - HEMATOLOGY/ONCOLOGY Hx Hematology/Oncology Disorders: No Hx Anemia: No Hx Blood Disorders: No Hx Bruising: No Hx Cancer: No Hx Clotting Problems: No Hx Sickle Cell Disease: No Hx Unexplained Bleeding: No Hx Blood Transfusions: No Hx Blood Transfusion Reaction: No Family Medical History Any Significant Family History?: No Hx Cancer: Mother, Grandparents *Diabetes Comment: aunt Hx Heart Disease: Brother/Sister *Heart Comment: Brother Hx Kidney Disease: Children Physical Exam - General General Appearance: Alert, Oriented x3, Cooperative, No acute distress - Head Head exam: Atraumatic, Normocephalic, Normal inspection - Eye Eye exam: Normal appearance, PERRL - ENT Throat exam: Normal inspection. negative: Tonsillar erythema, Tonsillar exudate - Neck Neck exam: Normal inspection, Full ROM. negative: Tenderness - Respiratory Respiratory exam: Normal lung sounds bilaterally, Chest wall tenderness (The anterior chest wall is very tender which the patient states is a chronic problem.). negative: Accessory muscle use, Decreased breath sounds, Prolonged expiratory, Respiratory distress, Rhonchi, Stridor, Wheezes - Cardiovascular Cardiovascular Exam: Regular rate, Normal rhythm, Normal heart sounds - GI/Abdominal GI/Abdominal exam: Soft, Normal bowel sounds. negative: Tenderness - Extremities Extremities exam: Normal inspection, Full ROM, Normal capillary refill. negative: Tenderness - Back Back exam: Reports: Normal inspection - Neurological Neurological exam: Alert, Normal gait. negative: Abnormal gait, Motor sensory deficit - Psychiatric Psychiatric exam: Anxious Course Vital Signs 06/06/17 06/06/17 20:50 20:51 Pulse Rate 83 Pulse Rate [ 92 H Pulse Ox Probe] Respiratory 24 24 Rate Blood Pressure 124/72 Blood Pressure 124/72 [Left Arm] Pulse Ox 99 99 - Reevaluation(s) Reevaluation #1: The patient became frustrated because she felt we were not taking her complaints seriously. I did explain to her that we very much are taking her symptoms seriously and that we will be doing lab work, CXR, and EKG along with pain medicines. I did also offer her a breathing Tx but she refused due to just taking one prior to presenting here. I also explained to her that due to the fact she has been to the ER multiple times for this and has had [address]'s for PE on 05/19/17 and 05/11/17 it is very unlikely she will need that test again. 06/06/17 21:19 Reevaluation #2: The patient did decide to leave the ED prior to full eval and would not wait for me to discuss the issues regarding leaving AMA. 06/06/17 21:23 06/06/17 21:28 Medical Decision Making - Lab Data Result diagrams: 06/06/17 21:03 06/06/17 21:03 Disposition Disposition: Discharge Clinical Impression: Chest wall pain Disposition: Against Medical Advice Condition: (2) Stable Instructions: Dyspnea (ED) Forms: Patient Portal Access Time of Disposition: 21:28 Quality - Quality Measures Quality Measures: N/A - Headache: Neuroimaging ICD10 Codes Entered: Yes - Blood Pressure Screening View Details: Yes Does Patient Have Any of the Following: No Blood Pressure Classification: Pre-Hypertensive BP Reading Systolic Measurement: 124 Diastolic Measurement: 72 Screening for High Blood Pressure: < Pre-Hypertensive BP, F/U Documented > [ G8950] Pre-Hypertensive Follow-up Interventions: Referral to alternative/primary care provider.
== END 2017-06-06 21:13 | disposition left against medical advice (07) ==
LOC: ER 20:48
DX: R07.89 Other chest pain (principal); R06.02 Shortness of breath; E11.9 Type 2 diabetes mellitus without complications; Z99.81 Dependence on supplemental oxygen; Z87.891 Personal history of nicotine dependence
CPT/HCPCS: 99282

== ENCOUNTER 2017-06-13 23:33 | Emergency (ER) | payer MEDICARE, MEDICAID ==
--- NOTE | 2017-06-13 23:47 | Emergency Department Record ---
History of Present Illness - General Stated Complaint: COLITIS,NAUSEA,ABD PAIN Time Seen by Provider: 06/13/17 23:35 Source: Patient Mode of Arrival: Ambulatory Limitations: No limitations - History of Present Illness Initial Comments: 42 yo female presents to ED for evaluation of continued abdominal pain, nausea, and vomiting symptoms since being evaluated at [facility] on 06/08 and 06/10/17. Patient underwent evaluation including CT imaging of the abdomen/pelvis on 06/08 that was negative for an acute process, returned to [facility] on 06/10 for worsening symptoms and was diagnosed with colitis (no new CT was performed). Patient was told that her WBC count was unchanged and that her Colitis symptoms were not worsening. Patient was started on Flagyl and Cipro at that time. Patient reports continued nausea and vomiting but has not taken her Zofran at home for her symptoms. Patient also reports that she has been taking Supply for her pain symptoms (last taken 5.5 hours ago) and her pain symptoms are worsening. MD Complaint: Abdominal pain Onset/Timin -: Days(s) Location: Diffuse Radiation: None Severity: Moderate Quality: Cramping Consistency: Constant Improves With: Nothing Worsens With: Nothing Associated Symptoms: Nausea, Vomiting - Related Data Hx Age of Menopause: 37 Allergies Allergy/AdvReac Type Severity Reaction Status Date / Time Vdtgunsp-1-[id number] Antimigraine Allergy Severe HEADACHE Unverified 06/10/17 11:24 Agents Hiibtqu-Xmv-Gza Reductase Allergy Intermediate JOINT ACHES Unverified 06/10/17 11:24 Inhibitor medical tape AdvReac Mild RASH Uncoded 05/26/17 17:55 Review of Systems Constitutional: Denies: Chills, Fever, Malaise, Night sweats Eyes: Denies: Eye discharge, Eye pain ENT: Denies: Congestion, Ear pain, Epistaxis Respiratory: Denies: Cough, Dyspnea Cardiovascular: Denies: Chest pain, Dyspnea on exertion Endocrine: Denies: Fatigue, Heat or cold intolerance Gastrointestinal: Reports: Abdominal pain, Nausea, Vomiting Genitourinary: Denies: Incontinence, Retention Musculoskeletal: Denies: Arthralgia, Back pain, Gout, Joint swelling Skin: Denies: Bruising, Change in color Neurological: Denies: Abnormal gait, Confusion, Headache, Seizure Psychiatric: Denies: Anxiety Hematological/Lymphatic: Denies: Anemia, Blood Clots Past Medical History - SOCIAL HISTORY Smoking Status: Former smoker Drug Use: None - RESPIRATORY Hx Respiratory Disorders: Yes Hx Bronchitis: Yes Hx Pneumonia: Yes Comment:: Home O2-3L - CARDIOVASCULAR Hx Cardio Disorders: Yes Hx Chest Pain: Yes Comment:: HYPERLIPIDEMIA - NEURO Hx Neuro Disorders: Yes Hx Headaches: Yes (complex migrane) - GI Hx GI Disorders: Yes Hx Diverticulitis: Yes Hx Reflux: Yes (upper GI) Hx Liver Disease: (Liver biopsy 7-16) Hx Nausea/Vomiting: Yes (with pain) Hx Ulcer: Yes Comment:: fatty liver - Hx Genitourinary Disorders: Yes Comment:: polycystic ovary syndrome - ENDOCRINE Hx Endocrine Disorders: Yes Hx Diabetes: Yes Hx Thyroid Disease: No - MUSCULOSKELETAL Hx Musculoskeletal Disorders: Yes Hx Fibromyalgia: Yes Hx Gout: Yes Comment:: Buldging disc in neck - PSYCH Hx Psych Problems: Yes Hx Anxiety: Yes Hx Depression: Yes Comment:: PTSD - HEMATOLOGY/ONCOLOGY Hx Hematology/Oncology Disorders: No Hx Anemia: No Hx Blood Disorders: No Hx Bruising: No Hx Cancer: No Hx Clotting Problems: No Hx Sickle Cell Disease: No Hx Unexplained Bleeding: No Hx Blood Transfusions: No Hx Blood Transfusion Reaction: No Family Medical History Hx Cancer: Mother, Grandparents *Diabetes Comment: aunt Hx Heart Disease: Brother/Sister *Heart Comment: Brother Hx Kidney Disease: Children Physical Exam - General General Appearance: Alert, Oriented x3, Cooperative, Moderate distress, Other ( Patient is tearful on examination) Limitations: No limitations - Head Head exam: Atraumatic, Normocephalic, Normal inspection Head exam detail: negative: Abrasion, Contusion, Espinosa's sign, General tenderness, Hematoma, Laceration - Eye Eye exam: Normal appearance. negative: Conjunctival injection, Periorbital swelling, Periorbital tenderness, Scleral icterus - ENT Ear exam: negative: Auricular hematoma, Auricular trauma Nasal Exam: negative: Active bleeding, Discharge, Dried blood, Foreign body Mouth exam: negative: Drooling, Laceration, Muffled voice, Tongue elevation - Neck Neck exam: Normal inspection. negative: Meningismus, Tenderness - Respiratory Respiratory exam: Normal lung sounds bilaterally. negative: Rales, Respiratory distress, Rhonchi, Stridor - Cardiovascular Cardiovascular Exam: Regular rate, Normal rhythm, Normal heart sounds - GI/Abdominal GI/Abdominal exam: Soft, Tenderness. negative: Rebound, Rigid - Rectal Rectal exam: Deferred - exam: Deferred - Extremities Extremities exam: Normal inspection. negative: Calf tenderness, Pedal edema, Tenderness - Back Back exam: Denies: CVA tenderness (R), CVA tenderness (L) - Neurological Neurological exam: Alert, Normal gait, Oriented X3 - Psychiatric Psychiatric exam: Normal affect, Normal mood - Skin Skin exam: Normal color. negative: Abrasion Type of lesion: negative: abrasion Course - Reevaluation(s) Reevaluation #1: 06/13/17 23:42 06/08/17: CT Abdomen and Pelvis Darlyn: No acute process identified recent records from [facility] were reviewed: 06/06 at [facility] for LAW symptoms 06/08 [facility] for abdominal pain 06/10 [facility] for wrist injury 06/10-06/11 [facility] for abdominal pain 06/13 this evening for re-evaluation. Reevaluation #2: 06/14/17 00:08 Laboratory studies from 06/10 were reviewed, WBC 9.6, labs are all within normal limits (CBC, Comprehensive, UA, Lipase). After reviewing the patient's records, will administer Levsin 0.25 mg SL and perform a CBC to determine any significant changes, and reassess. Reevaluation #3: 06/14/17 00:22 CBC was reviewed, WBC 8.9, Hgb 9.9 (previous 10.4/10.3). Reevaluation #4: 06/14/17 00:52 I personally spent approximately 30 minutes in discussion with the patient about her frequent ED visits and negative work-ups. I encouraged the patient to become an advocate for her own health by following up with one main health provider who should be coordinating with other consultants for her health care. I discussed that visiting numerous EDs has resulted in numerous medical opinions and countless negative work-ups to the detriment of her health (i.e. 4 blood draws in ED alone has resulted in steadily decreasing hemoglobin, diagnosis of colitis with no laboratory or CT imaging of colitis resulting in the administration of 2 antibiotics that I see no evidence for taking). I will discuss the coordination of care with Dr. Friedman in the morning as well. Medical Decision Making - Lab Data Result diagrams: 06/14/17 00:10 Disposition Disposition: Discharge Clinical Impression: Chronic pain Qualifiers: Chronic pain type: other chronic pain Qualified Code(s): G89.29 - Other chronic pain Disposition: Home, Self-Care Condition: (2) Stable Instructions: Abdominal Pain (ED) Additional Instructions: Return to ED if your symptoms worsen or if you have any concerns. Follow-up with Dr. Elder snyder tomorrow for evaluation of your abdominal pain symptoms. Time of Disposition: 00:51 Quality - Quality Measures Quality Measures: N/A - Blood Pressure Screening Does Patient Have Any of the Following: No Blood Pressure Classification: Normal BP Reading Systolic Measurement: 94 Diastolic Measurement: 58 Screening for High Blood Pressure: < Normal BP, F/U Not Required > [G8783]
[2017-06-14] MEDS ORDERED: HYOSCYAMINE SULFATE ODT 0.125 MG TAB.SUBL SL ONE (00:04)
[2017-06-14 00:18] LABS: HEMOGLOBIN 9.9 gm/dl (11.6-16.0); MEAN CELL VOLUME 89.9 fl (81-97); MEAN CORPUSCULAR HEMOGLOBIN 27.8 pg (27-33); MEAN CORPUSCULAR HGB CONC 30.9 g/dl (32-36); PLATELET COUNT 446 K/uL (130-400); RED BLOOD COUNT 3.56 M/uL (3.80-5.40); RED CELL DISTRIBUTION WIDTH 14.1 % (11.5-14.5); WHITE BLOOD COUNT W/O DIFF 8.9 K/uL (4.2-12.2)
== END 2017-06-14 00:59 | disposition home or self-care (01) ==
LOC: ER 23:33
DX: G89.29 Other chronic pain (principal); R10.9 Unspecified abdominal pain; R11.2 Nausea with vomiting, unspecified; Z87.891 Personal history of nicotine dependence
CPT/HCPCS: 99283 ×2; 85027; J1980

== ENCOUNTER 2017-06-19 08:52 | Emergency (ER) | payer MEDICARE, MEDICAID ==
--- NOTE | 2017-06-19 09:05 | Emergency Department Record ---
History of Present Illness - General Chief complaint: Extremity Problem Stated complaint: SHOOTING PAIN IN LEFT ARM Time Seen by Provider: 06/19/17 08:59 Source: Patient Mode of Arrival: Ambulatory Limitations: No limitations - History of Present Illness Initial comments: 42 yo female presents with left arm pain. The pain is sharp and shoots down the arm intermittently. It seems to occur with certain movements. No swelling , warmth, redness, weakness. No changes in angio technologist. No abnormal coolness. She has had numerous encounters in multiple ED's and the hospital recently. She states she has had pneumonia on home oxygen until June 26. She is much better and not short of breath. No procedures or interventions on the LUE. She does have chronic neck pain. No recent MRI. PCP is Dr Friedman. Complaint: Extremity pain -: Month(s) Location: Left -: Yes Arthralgia Radiation: Distal Quality: Sharp Consistency: Intermittent Improves with: Nothing Worsens with: Other (Movements) Associated Symptoms: Denies other symptoms - Related Data Home Medications Medication Instructions Recorded Confirmed Last Taken Lidocaine Visc 2% 10 ml PO ASDIR 06/19/17 06/19/17 Unknown Allergies Allergy/AdvReac Type Severity Reaction Status Date / Time [id number]-3-[id number] Antimigraine Allergy Severe HEADACHE Verified 06/19/17 09:00 Agents Oqkthzn-Lxo-Lfg Reductase Allergy Intermediate JOINT ACHES Verified 06/19/17 09: 00 Inhibitor medical tape AdvReac Mild RASH Uncoded 05/26/17 17:55 Review of Systems Constitutional: Denies: Chills, Fever, Malaise, Weakness Eyes: Denies: Eye discharge ENT: Denies: Congestion, Throat pain Respiratory: Denies: Cough, Dyspnea, Hemoptysis, Stridor, Wheezes Cardiovascular: Denies: Chest pain, Palpitations, Syncope Endocrine: Denies: Fatigue, Polydipsia, Polyuria Gastrointestinal: Denies: Abdominal pain, Diarrhea, Nausea, Vomiting Genitourinary: Denies: Dysuria, Urgency Musculoskeletal: Denies: Arthralgia, Back pain, Joint swelling, Myalgia Skin: Denies: Bruising, Change in color, Rash Neurological: Denies: Abnormal gait, Confusion, Headache, Numbness, Seizure, Tingling, Tremors, Vertigo, Weakness Psychiatric: Denies: Anxiety Hematological/Lymphatic: Denies: Easy bleeding, Easy bruising, Swollen glands Past Medical History - SOCIAL HISTORY Smoking Status: Former smoker Drug Use: None - RESPIRATORY Hx Respiratory Disorders: Yes Hx Bronchitis: Yes Hx Pneumonia: Yes Comment:: Home O2-3L - CARDIOVASCULAR Hx Cardio Disorders: Yes Hx Chest Pain: Yes Comment:: HYPERLIPIDEMIA - NEURO Hx Neuro Disorders: Yes Hx Headaches: Yes (complex migrane) - GI Hx GI Disorders: Yes Hx Diverticulitis: Yes Hx Reflux: Yes (upper GI) Hx Liver Disease: (Liver biopsy 7-16) Hx Nausea/Vomiting: Yes (with pain) Hx Ulcer: Yes Comment:: fatty liver - Hx Genitourinary Disorders: Yes Comment:: polycystic ovary syndrome - ENDOCRINE Hx Endocrine Disorders: Yes Hx Diabetes: Yes Hx Thyroid Disease: No - MUSCULOSKELETAL Hx Musculoskeletal Disorders: Yes Hx Fibromyalgia: Yes Hx Gout: Yes Comment:: Buldging disc in neck - PSYCH Hx Psych Problems: Yes Hx Anxiety: Yes Hx Depression: Yes Comment:: PTSD - HEMATOLOGY/ONCOLOGY Hx Hematology/Oncology Disorders: No Hx Anemia: No Hx Blood Disorders: No Hx Bruising: No Hx Cancer: No Hx Clotting Problems: No Hx Sickle Cell Disease: No Hx Unexplained Bleeding: No Hx Blood Transfusions: No Hx Blood Transfusion Reaction: No Family Medical History Hx Cancer: Mother, Grandparents *Diabetes Comment: aunt Hx Heart Disease: Brother/Sister *Heart Comment: Brother Hx Kidney Disease: Children Physical Exam - General General Appearance: Alert, Oriented x3, Cooperative, No acute distress Limitations: No limitations - Head Head exam: Normal inspection - Eye Eye exam: Normal appearance, PERRL. negative: Conjunctival injection, Scleral icterus - ENT ENT exam: Normal exam, Mucous membranes moist Ear exam: Normal external inspection Nasal Exam: Normal inspection Mouth exam: Normal external inspection - Neck Neck exam: Normal inspection, Full ROM. negative: Tenderness - Respiratory Respiratory exam: Normal lung sounds bilaterally, Other (Clean lungs, non labored). negative: Chest wall tenderness, Decreased breath sounds, Respiratory distress, Rhonchi, Stridor, Wheezes - Cardiovascular Cardiovascular Exam: Regular rate, Normal rhythm, Normal heart sounds - GI/Abdominal GI/Abdominal exam: Soft. negative: Tenderness - Rectal Rectal exam: Deferred - exam: Deferred - Extremities Extremities exam: Normal inspection, Full ROM, Normal capillary refill, Other ( normal inspection, no swelling, no LUE tenderness). negative: Joint swelling, Tenderness - Back Back exam: Reports: Normal inspection, Full ROM. Denies: Muscle spasm, Rash noted, Tenderness - Neurological Neurological exam: Alert, Normal gait, Oriented X3, Reflexes normal. negative: Altered, Motor sensory deficit (angio technologist, biceps, and triceps intact) - Psychiatric Psychiatric exam: Normal affect, Normal mood. negative: Agitated, Anxious - Skin Skin exam: Dry, Intact, Normal color, Warm Course - Reevaluation(s) Reevaluation #1: The EMR was reviewed Today is the 6th ED visit in May at [facility] Reviewing the record she has had at least 2 ED visits at [facility] The 3 May [facility] visits were reviewed as well. 06/19/17 09:05 The examination is normal, normal pulses of the radial, no swelling, no masses, no warmth or redness, no abnormal coolness, no signs of upper extremity DVT, no weakness, no limitation with ROM. 06/19/17 09:21 No imaging recommended. She has an extensive radiation exposure history. Prior CT of the cervical spine was normal, prior MRA of the neck was normal I recommended RICE therapy and call PCP. Consider MRI of cervical if LUE radicular symptoms continue 06/19/17 09:24 Vitals are normal She has had 2 CTA of the chest in the last month that were negative for PE and demonstrated pneumonia She had a normal abdominal CT scan per the records at [facility] this month 06/19/17 09:27 Hgb on 06/17 was 10.1. Improving. Disposition Disposition: Discharge Clinical Impression: Cervical radicular pain Disposition: Home, Self-Care Condition: (1) Good Instructions: Cervical Radiculopathy (ED) Additional Instructions: Call your doctor to be seen first of the week if your symptoms do not resolve Continue your current medications as prescribed by your doctor Forms: Patient Portal Access Time of Disposition: 09:24 Quality - Quality Measures Quality Measures: Headache (All Ages) - Headache: Neuroimaging Quality Measure: Measure #419: Overuse of Neuroimaging ICD10 Codes Entered: Yes Neurological Exam: Patient had a normal neurological exam. [G9535] Headache: Use of Neuroimaging: < CTA, CT, MRA or MRI was NOT ordered > [G9534] - Blood Pressure Screening Does Patient Have Any of the Following: No Blood Pressure Classification: Normal BP Reading Systolic Measurement: 100 Diastolic Measurement: 68 Screening for High Blood Pressure: < Normal BP, F/U Not Required > [G2574]
== END 2017-06-19 09:30 | disposition home or self-care (01) ==
LOC: ER 08:52
DX: M54.12 Radiculopathy, cervical region (principal)
CPT/HCPCS: 99283

== ENCOUNTER 2017-06-29 20:14 | Emergency (ER) | payer MEDICARE, MEDICAID ==
[2017-06-29] MEDS ORDERED: KETOROLAC 30 MG/ML VIAL IM ONE (20:20)
[2017-06-29] MEDS ORDERED: PROMETHAZINE HCL 25 MG/ML VIAL IM ONE (20:20)
[2017-06-29] MEDS ORDERED: DIPHENHYDRAMINE HCL 50 MG/ML VIAL IM ONE (20:20)
--- NOTE | 2017-06-29 20:29 | Emergency Department Record ---
History of Present Illness - General Chief Complaint: Headache Migraine Stated Complaint: MIGRAINE Time Seen by Provider: 06/29/17 20:20 Source: Patient Mode of Arrival: Ambulatory Limitations: No limitations - History of Present Illness Initial Comments: The patient is here due to a 3-4 day hx of her typical migraine SERVIN. The pain is all over and is typical for her regular migraines. There has been nausea but no vomiting, fever, or visual changes. She denies any new or unusual symptoms. MD Complaint: "Migraine" Onset/Timin -: Days(s) Onset Description: Gradual Location: Diffuse Severity: Severe Severity scale (1-10): 10 Quality: Aching, Similar to previous headaches Consistency: Constant, Getting worse Improves With: Nothing Worsens With: Light, Noise Associated Symptoms: Nausea Treatments Prior to Arrival: Antiemetic, Migraine medication Treatment Prior to Arrival Comment:: Zofran, - Related Data Allergies Allergy/AdvReac Type Severity Reaction Status Date / Time [id number] Antimigraine Allergy Severe HEADACHE Unverified 06/22/17 09:00 Agents Vagxyhl-Tdh-Rbw Reductase Allergy Intermediate JOINT ACHES Unverified 06/22/17 09:00 Inhibitor medical tape AdvReac Mild RASH Uncoded 05/26/17 17:55 Travel Screening - Travel/Exposure Within Last 30 Days Have you traveled within the last 30 days?: No - Travel Symptoms Symptom Screening: None Review of Systems Constitutional: Denies: Chills, Fever Eyes: Denies: Eye discharge ENT: Denies: Congestion Respiratory: Denies: Cough, Dyspnea Past Medical History - SOCIAL HISTORY Smoking Status: Former smoker Alcohol Use: None Drug Use: None - RESPIRATORY Hx Respiratory Disorders: Yes Hx Bronchitis: Yes Hx Pneumonia: Yes Comment:: Home O2-3L - CARDIOVASCULAR Hx Cardio Disorders: Yes Hx Chest Pain: Yes Comment:: HYPERLIPIDEMIA - NEURO Hx Neuro Disorders: Yes Hx Headaches: Yes (complex migrane) - GI Hx GI Disorders: Yes Hx Diverticulitis: Yes Hx Reflux: Yes (upper GI) Hx Liver Disease: (Liver biopsy 7-16) Hx Nausea/Vomiting: Yes (with pain) Hx Ulcer: Yes Comment:: fatty liver - Hx Genitourinary Disorders: Yes Comment:: polycystic ovary syndrome - ENDOCRINE Hx Endocrine Disorders: Yes Hx Diabetes: Yes Hx Thyroid Disease: No - MUSCULOSKELETAL Hx Musculoskeletal Disorders: Yes Hx Fibromyalgia: Yes Hx Gout: Yes Comment:: Buldging disc in neck - PSYCH Hx Psych Problems: Yes Hx Anxiety: Yes Hx Depression: Yes Comment:: PTSD - HEMATOLOGY/ONCOLOGY Hx Hematology/Oncology Disorders: No Hx Anemia: No Hx Blood Disorders: No Hx Bruising: No Hx Cancer: No Hx Clotting Problems: No Hx Sickle Cell Disease: No Hx Unexplained Bleeding: No Hx Blood Transfusions: No Hx Blood Transfusion Reaction: No Family Medical History Any Significant Family History?: Yes Hx Cancer: Mother, Grandparents *Diabetes Comment: aunt Hx Heart Disease: Brother/Sister *Heart Comment: Brother Hx Kidney Disease: Children Physical Exam - General General Appearance: Alert, Oriented x3, Cooperative, No acute distress - Head Head exam: Atraumatic, Normocephalic, Normal inspection - Eye Eye exam: Normal appearance, PERRL, EOMI - ENT ENT exam: Normal exam, Mucous membranes moist, Normal external ear exam, Normal orophraynx, TM's normal bilaterally - Neck Neck exam: Normal inspection, Full ROM. negative: Tenderness - Respiratory Respiratory exam: Normal lung sounds bilaterally. negative: Respiratory distress - Cardiovascular Cardiovascular Exam: Regular rate, Normal rhythm, Normal heart sounds - GI/Abdominal GI/Abdominal exam: Soft, Normal bowel sounds. negative: Tenderness - Extremities Extremities exam: Normal inspection, Full ROM, Normal capillary refill. negative: Tenderness - Neurological Neurological exam: Alert, Normal gait. negative: Abnormal gait, Motor sensory deficit Course Vital Signs 06/29/17 20:19 Temperature 97.9 F Pulse Rate 83 Respiratory 20 Rate Blood Pressure 118/75 Pulse Ox 97 - Reevaluation(s) Reevaluation #1: I did discuss the plan to provide her with pain and nausea medicines. She is to obtain a ride home and see her doctor for recheck. 06/29/17 20:27 Disposition Disposition: Discharge Clinical Impression: Migraine Qualifiers: Migraine type: unspecified Status migrainosus presence: without status migrainosus Intractability: not intractable Qualified Code(s): G43.909 - Migraine, unspecified, not intractable, without status migrainosus Disposition: Home, Self-Care Condition: (2) Stable Instructions: Acute Headache (ED) Additional Instructions: Please continue your regular medicines and see your family doctor for recheck later this week. Forms: Patient Portal Access Time of Disposition: 20:29 Quality - Quality Measures Quality Measures: Headache (All Ages) - Headache: Neuroimaging Quality Measure: Measure #419: Overuse of Neuroimaging ICD10 Codes Entered: Yes View Detail: Yes Neurological Exam: Patient had a normal neurological exam. [G9535] Headache: Use of Neuroimaging: < CTA, CT, MRA or MRI was NOT ordered > [G9534] - Blood Pressure Screening Does Patient Have Any of the Following: No Blood Pressure Classification: Normal BP Reading Systolic Measurement: 118 Diastolic Measurement: 75 Screening for High Blood Pressure: < Normal BP, F/U Not Required > [G8783]
== END 2017-06-29 20:47 | disposition home or self-care (01) ==
LOC: ER 20:14
DX: G43.909 Migraine, unspecified, not intractable, without status migrainosus (principal); R11.0 Nausea; E11.9 Type 2 diabetes mellitus without complications; Z87.891 Personal history of nicotine dependence
CPT/HCPCS: 96372; 99283; J1200; J1885; J2550

== ENCOUNTER 2017-07-07 21:22 | Emergency (ER) | payer MEDICARE, MEDICAID ==
[2017-07-07] MEDS ORDERED: 0.9 % SODIUM CHLORIDE 1,000 ML BAG IV ONE (22:06)
[2017-07-07] MEDS ORDERED: KETOROLAC 30 MG/ML VIAL IVP ONE (22:07)
[2017-07-07] MEDS ORDERED: PROMETHAZINE HCL 12.5 MG in 0.9 % SODIUM CHLORIDE 100ML 100 ML IVPB ONE (22:07)
[2017-07-07 22:28] LABS: URINE APPEARANCE CLEAR; URINE BILIRUBIN NEGATIVE (NEGATIVE); URINE BLOOD NEGATIVE (NEGATIVE); URINE COLOR YELLOW; URINE GLUCOSE (UA) NEGATIVE (NEGATIVE); URINE KETONE NEGATIVE (NEGATIVE); URINE LEUKOCYTE ESTERASE NEGATIVE (NEGATIVE); URINE NITRITE NEGATIVE (NEGATIVE); URINE PROTEIN NEGATIVE (NEGATIVE); URINE UROBILINOGEN 0.2 E.U./dL (0.20 - 1.00)
[2017-07-07 22:30] LABS: BASO % 0.3 % (0-6); EOS % 0.7 % (0-6); GRAN % 63.7 % (47-80); HEMATOCRIT 32.4 % (35.0-47.0); HEMOGLOBIN 10.4 gm/dl (11.6-16.0); LYMPH % 28.5 % (16-45); MEAN CORPUSCULAR HEMOGLOBIN 28.8 pg (27-33); MEAN CORPUSCULAR HGB CONC 32.1 g/dl (32-36); MONO % 6.8 % (0-9); PLATELET COUNT 449 K/uL (130-400); RED CELL DISTRIBUTION WIDTH 13.5 % (11.5-14.5); WHITE BLOOD COUNT W/O DIFF 10.2 K/uL (4.2-12.2)
[2017-07-07 22:49] LABS: ALB/GLOB RATIO 1.6 (1.1-1.8); ALBUMIN 4.4 g/dL (4.0-5.0); ALKALINE PHOSPHATASE 127 U/L (35-104); ALT/SGPT 18 U/L (<33); AST/SGOT 20 U/L (10.0-35.0); BILIRUBIN,TOTAL < 0.20 mg/dL (0.2-1.0); BLOOD UREA NITROGEN 10 mg/dL (6-20); CREATININE 0.8 mg/dL (0.5-0.9); EST GLOMERULAR FILTRATION RATE > 60 mL/min; GLUCOSE,RANDOM 134 mg/dL (74-109); LIPASE 41 U/L (13-60); TOTAL PROTEIN 7.1 g/dL (6.6-8.7)
--- NOTE | 2017-07-07 22:55 | Emergency Department Record ---
History of Present Illness - General Chief Complaint: Abdominal Pain Stated Complaint: MIGRAINE,RT ABDOMINAL PAIN Time Seen by Provider: 07/07/17 21:43 Source: Patient, Old records reviewed Mode of Arrival: Ambulatory Limitations: No limitations - History of Present Illness Initial Comments: pt is c/o rlq ap and a migraine. pt has had this pain for months. she had an upper and lower gi yesterday at b. she is scheduled for lap surgery for adhesions in [address] mackey. the pain is more severe. she has had multiple abd surgeries inc appy. LOVETT Complaint: Abdominal pain Onset/Timin -: Week(s) Location: RLQ Radiation: None Migration to: No migration Severity: Moderate Severity scale (1-10): 7 Consistency: Getting worse Improves With: Nothing Worsens With: Nothing Associated Symptoms: Denies other symptoms - Related Data LMP (females 10-50): other Hx Age of Menopause: 37 Allergies Allergy/AdvReac Type Severity Reaction Status Date / Time [id number]-[id number] Antimigraine Allergy Severe HEADACHE Unverified 06/22/17 09:00 Agents Zcvqyqs-Yuo-Gfu Reductase Allergy Intermediate JOINT ACHES Unverified 06/22/17 09:00 Inhibitor medical tape AdvReac Mild RASH Uncoded 05/26/17 17:55 Travel Screening - Travel/Exposure Within Last 30 Days Have you traveled within the last 30 days?: No - Travel/Exposure Within Last Year Have you traveled outside the [place] in the last year?: No - Additonal Travel Details Have you been exposed to anyone with a communicable illness?: No - Travel Symptoms Symptom Screening: None Review of Systems Reviewed: No additional complaints except as noted below Constitutional: Reports: As per HPI. Denies: Chills, Fever, Malaise, Night sweats, Weakness, Weight change Eyes: Reports: As per HPI. Denies: Eye discharge, Eye pain, Photophobia, Vision change ENT: Reports: As per HPI. Denies: Congestion, Dental pain, Ear pain, Epistaxis , Hearing loss, Throat pain Respiratory: Reports: As per HPI. Denies: Cough, Dyspnea, Hemoptysis, Stridor, Wheezes Cardiovascular: Reports: As per HPI. Denies: Arrhythmia, Chest pain, Dyspnea on exertion, Edema, Murmurs, Orthopnea, Palpitations, Paroxysmal nocturnal dyspnea, Rheumatic Fever, Syncope Endocrine: Reports: As per HPI. Denies: Fatigue, Heat or cold intolerance, Polydipsia, Polyuria Gastrointestinal: Reports: As per HPI, Abdominal pain. Denies: Constipation, Diarrhea, Hematemesis, Hematochezia, Melena, Nausea, Vomiting Genitourinary: Reports: As per HPI. Denies: Abnormal menses, Discharge, Dyspareunia, Dysuria, Frequency, Hematuria, Incontinence, Retention, Urgency Musculoskeletal: Reports: As per HPI. Denies: Arthralgia, Back pain, Gout, Joint swelling, Myalgia, Neck pain Skin: Reports: As per HPI. Denies: Bruising, Change in color, Change in hair/ nails, Lesions, Pruritus, Rash Neurological: Reports: As per HPI. Denies: Abnormal gait, Confusion, Headache, Numbness, Paresthesias, Seizure, Tingling, Tremors, Vertigo, Weakness Psychiatric: Reports: As per HPI. Denies: Anxiety, Auditory hallucinations, Depression, Homicidal thoughts, Suicidal thoughts, Visual hallucinations Hematological/Lymphatic: Reports: As per HPI. Denies: Anemia, Blood Clots, Easy bleeding, Easy bruising, Swollen glands Past Medical History - SOCIAL HISTORY Smoking Status: Former smoker - RESPIRATORY Hx Respiratory Disorders: Yes Hx Bronchitis: Yes Hx Pneumonia: Yes Comment:: Home O2-3L - CARDIOVASCULAR Hx Cardio Disorders: Yes Hx Chest Pain: Yes Comment:: HYPERLIPIDEMIA - NEURO Hx Neuro Disorders: Yes Hx Headaches: Yes (complex migrane) - GI Hx GI Disorders: Yes Hx Diverticulitis: Yes Hx Reflux: Yes (upper GI) Hx Liver Disease: (Liver biopsy 7-16) Hx Nausea/Vomiting: Yes (with pain) Hx Ulcer: Yes Comment:: fatty liver - Hx Genitourinary Disorders: Yes Comment:: polycystic ovary syndrome - ENDOCRINE Hx Endocrine Disorders: Yes Hx Diabetes: Yes Hx Thyroid Disease: No - MUSCULOSKELETAL Hx Musculoskeletal Disorders: Yes Hx Fibromyalgia: Yes Hx Gout: Yes Comment:: Buldging disc in neck - PSYCH Hx Psych Problems: Yes Hx Anxiety: Yes Hx Depression: Yes Comment:: PTSD - HEMATOLOGY/ONCOLOGY Hx Hematology/Oncology Disorders: No Hx Anemia: No Hx Blood Disorders: No Hx Bruising: No Hx Cancer: No Hx Clotting Problems: No Hx Sickle Cell Disease: No Hx Unexplained Bleeding: No Hx Blood Transfusions: No Hx Blood Transfusion Reaction: No Family Medical History Any Significant Family History?: Yes Hx Cancer: Mother, Grandparents *Diabetes Comment: aunt Hx Heart Disease: Brother/Sister *Heart Comment: Brother Hx Kidney Disease: Children Physical Exam - General General Appearance: Alert, Oriented x3, Cooperative, Mild distress - Head Head exam: Normal inspection - Eye Eye exam: Normal appearance, PERRL, EOMI Pupils: Normal accommodation - ENT ENT exam: Normal exam, Mucous membranes moist, Normal external ear exam, Normal orophraynx, TM's normal bilaterally Ear exam: Normal external inspection. negative: External canal tenderness Nasal Exam: Normal inspection. negative: Discharge, Sinus tenderness Mouth exam: Normal external inspection, Tongue normal Teeth exam: Normal inspection. negative: Dental caries Throat exam: Normal inspection. negative: Tonsillar erythema, Tonsillar exudate - Neck Neck exam: Normal inspection, Full ROM. negative: Tenderness - Respiratory Respiratory exam: Normal lung sounds bilaterally. negative: Respiratory distress - Cardiovascular Cardiovascular Exam: Regular rate, Normal rhythm, Normal heart sounds - GI/Abdominal GI/Abdominal exam: Soft, Normal bowel sounds, Tenderness - Rectal Rectal exam: Deferred - exam: Deferred - Extremities Extremities exam: Normal inspection, Full ROM, Normal capillary refill. negative: Tenderness - Back Back exam: Reports: Normal inspection, Full ROM. Denies: Muscle spasm, Rash noted, Tenderness - Neurological Neurological exam: Alert, CN II-XII intact, Normal gait, Oriented X3 - Psychiatric Psychiatric exam: Normal affect, Normal mood - Skin Skin exam: Dry, Intact, Normal color, Warm Course Vital Signs 07/07/17 21:27 Temperature 98.1 F Pulse Rate [ 90 Pulse Ox Probe] Respiratory 16 Rate Blood Pressure 102/69 [Left Arm] Pulse Ox 99 - Reevaluation(s) Reevaluation #1: 07/07/17 23:28 tests from hgb reviewed. all negative. Reevaluation #2: 07/07/17 23:[address] she states they are always neg Medical Decision Making - Lab Data Result diagrams: 07/07/17 22:20 07/07/17 22:20 Lab Results 07/07/17 07/07/17 07/07/17 Range/Units 22:20 22:20 22:20 WBC 10.2 (4.2-12.2) K/uL RBC 3.60 L (3.80-5.40) M/uL Hgb 10.4 L (11.6-16.0) gm/dl Hct 32.4 L (35.0-47.0) % MCV 90.0 (81-97) fl MCH 28.8 (27-33) pg MCHC 32.1 (32-36) g/dl RDW 13.5 (11.5-14.5) % Plt Count 449 H (130-400) K/uL MPV 9.0 (7.4-10.4) fl Gran % 63.7 (47-80) % Lymphocytes % 28.5 (16-45) % Monocytes % 6.8 (0-9) % Eosinophils % 0.7 (0-6) % Basophils % 0.3 (0-6) % Sodium 145 (136-145) mmol/L Potassium 3.8 (3.4-4.5) mmol/L Chloride 103 (98-107) mmol/L Carbon Dioxide 23.0 (22-29) mmol/L Anion Gap 19.0 H (7-16) BUN 10 (6-20) mg/dL Creatinine 0.8 (0.5-0.9) mg/dL Estimated GFR > 60 mL/min Random Glucose 134 H (74-109) mg/dL Lactic Acid 1.6 (0.5-2.2) mmol/L Calcium 8.9 (8.6-10.0) mg/dL Total Bilirubin < 0.20 L (0.2-1.0) mg/dL AST 20 (10.0-35.0) U/L ALT 18 (<33) U/L Alkaline Phosphatase 127 H (35-104) U/L Total Protein 7.1 (6.6-8.7) g/dL Albumin 4.4 (4.0-5.0) g/dL Globulin 2.7 (1.4-4.8) gm/dL Albumin/Globulin Ratio 1.6 (1.1-1.8) Lipase 41 (13-60) U/L Urine Color Urine Appearance Urine pH (5.0-8.0) Ur Specific [place] (1.002-1.030) Urine Protein (NEGATIVE) Urine Glucose (UA) (NEGATIVE) Urine Ketones (NEGATIVE) Urine Blood (NEGATIVE) Urine Nitrite (NEGATIVE) Urine Bilirubin (NEGATIVE) Urine Urobilinogen (0.20 - 1.00) E.U./dL Ur Leukocyte Esterase (NEGATIVE) 07/07/17 Range/Units 22:29 WBC (4.2-12.2) K/uL RBC (3.80-5.40) M/uL Hgb (11.6-16.0) gm/dl Hct (35.0-47.0) % MCV (81-97) fl MCH (27-33) pg MCHC (32-36) g/dl RDW (11.5-14.5) % Plt Count (130-400) K/uL MPV (7.4-10.4) fl Gran % (47-80) % Lymphocytes % (16-45) % Monocytes % (0-9) % Eosinophils % (0-6) % Basophils % (0-6) % Sodium (136-145) mmol/L Potassium (3.4-4.5) mmol/L Chloride (98-107) mmol/L Carbon Dioxide (22-29) mmol/L Anion Gap (7-16) BUN (6-20) mg/dL Creatinine (0.5-0.9) mg/dL Estimated GFR mL/min Random Glucose (74-109) mg/dL Lactic Acid (0.5-2.2) mmol/L Calcium (8.6-10.0) mg/dL Total Bilirubin (0.2-1.0) mg/dL AST (10.0-35.0) U/L ALT (<33) U/L Alkaline Phosphatase (35-104) U/L Total Protein (6.6-8.7) g/dL Albumin (4.0-5.0) g/dL Globulin (1.4-4.8) gm/dL Albumin/Globulin Ratio (1.1-1.8) Lipase (13-60) U/L Urine Color Yellow Urine Appearance Clear Urine pH 6.5 (5.0-8.0) Ur Specific [place] 1.010 (1.002-1.030) Urine Protein Negative (NEGATIVE) Urine Glucose (UA) Negative (NEGATIVE) Urine Ketones Negative (NEGATIVE) Urine Blood Negative (NEGATIVE) Urine Nitrite Negative (NEGATIVE) Urine Bilirubin Negative (NEGATIVE) Urine Urobilinogen 0.2 (0.20 - 1.00) E.U./dL Ur Leukocyte Esterase Negative (NEGATIVE) Disposition Disposition: Discharge Clinical Impression: Abdominal pain Qualifiers: Abdominal location: right lower quadrant Qualified Code(s): R10.31 - Right lower quadrant pain Migraine Qualifiers: Migraine type: other Status migrainosus presence: without status migrainosus Intractability: not intractable Qualified Code(s): G43.809 - Other migraine, not intractable, without status migrainosus Disposition: Home, Self-Care Condition: (1) Good Instructions: Abdominal Pain (ED), Migraine Headache (ED) Additional Instructions: follow up with family doctor and with dr mackey. return sooner if worse Forms: Patient Portal Access Quality - Quality Measures Quality Measures: Headache (All Ages) - Headache: Neuroimaging Quality Measure: Measure #419: Overuse of Neuroimaging ICD10 Codes Entered: Yes Neurological Exam: Patient had a normal neurological exam. [G9535] Headache: Use of Neuroimaging: < CTA, CT, MRA or MRI was NOT ordered > [G9534] - Blood Pressure Screening Does Patient Have Any of the Following: No Blood Pressure Classification: Normal BP Reading Systolic Measurement: 112 Diastolic Measurement: 73 Screening for High Blood Pressure: < Normal BP, F/U Not Required > [G8783]
[2017-07-07] MEDS ORDERED: ORPHENADRINE CITRATE 60MG/2ML VIAL IM ONE (23:27)
[2017-07-07] MEDS ORDERED: DIPHENHYDRAMINE HCL 50 MG/ML VIAL IVP ONE (23:27)
== END 2017-07-07 23:57 | disposition home or self-care (01) ==
LOC: ER 21:22
DX: R10.31 Right lower quadrant pain (principal); G43.809 Other migraine, not intractable, without status migrainosus
CPT/HCPCS: 80053; 81003; 83605; 83690; 85025; 96365; 96372; 96375; 99284; J1200; J1885; J2360; J2550; J7030

== ENCOUNTER 2017-07-08 23:23 | Emergency (ER) | payer MEDICARE, MEDICAID ==
[2017-07-09] MEDS ORDERED: ORPHENADRINE CITRATE 60MG/2ML VIAL IM ONE (00:29)
[2017-07-09] MEDS ORDERED: KETOROLAC 30 MG/ML VIAL IM ONE (00:29)
--- NOTE | 2017-07-09 00:36 | Emergency Department Record ---
History of Present Illness - General Chief Complaint: Neck Injury/Pain Stated Complaint: NECK PAIN Time Seen by Provider: 07/09/17 00:25 Source: Patient Mode of Arrival: Ambulatory Limitations: No limitations - History of Present Illness Initial Comments: pt states she has had increasing neck pain since sitting in the ed. she has a long hx of chronic neck pain and had injections a week ago from pain management physician, dr lenka LOVETT Complaint: Neck pain Onset/Timin -: Days(s) Place: Home Severity: Similar to prior neck pain Quality: Aching Consistency: Constant Improves With: Immobilization Worsens With: Movement of neck - Related Data Allergies Allergy/AdvReac Type Severity Reaction Status Date / Time [id number]-1-OU2 Antimigraine Allergy Severe HEADACHE Unverified 06/22/17 09:00 Agents Zgqjkhg-Wdf-Dri Reductase Allergy Intermediate JOINT ACHES Unverified 06/22/17 09:00 Inhibitor medical tape AdvReac Mild RASH Uncoded 05/26/17 17:55 Travel Screening - Travel/Exposure Within Last 30 Days Have you traveled within the last 30 days?: No Review of Systems Reviewed: No additional complaints except as noted below Constitutional: Reports: As per HPI. Denies: Chills, Fever, Malaise, Night sweats, Weakness, Weight change Eyes: Reports: As per HPI. Denies: Eye discharge, Eye pain, Photophobia, Vision change ENT: Reports: As per HPI. Denies: Congestion, Dental pain, Ear pain, Epistaxis , Hearing loss, Throat pain Respiratory: Reports: As per HPI. Denies: Cough, Dyspnea, Hemoptysis, Stridor, Wheezes Cardiovascular: Reports: As per HPI. Denies: Arrhythmia, Chest pain, Dyspnea on exertion, Edema, Murmurs, Orthopnea, Palpitations, Paroxysmal nocturnal dyspnea, Rheumatic Fever, Syncope Endocrine: Reports: As per HPI. Denies: Fatigue, Heat or cold intolerance, Polydipsia, Polyuria Gastrointestinal: Reports: As per HPI, Abdominal pain. Denies: Constipation, Diarrhea, Hematemesis, Hematochezia, Melena, Nausea, Vomiting Genitourinary: Reports: As per HPI. Denies: Abnormal menses, Discharge, Dyspareunia, Dysuria, Frequency, Hematuria, Incontinence, Retention, Urgency Musculoskeletal: Reports: As per HPI, Neck pain. Denies: Arthralgia, Back pain , Gout, Joint swelling, Myalgia Skin: Reports: As per HPI. Denies: Bruising, Change in color, Change in hair/ nails, Lesions, Pruritus, Rash Neurological: Reports: As per HPI. Denies: Abnormal gait, Confusion, Headache, Numbness, Paresthesias, Seizure, Tingling, Tremors, Vertigo, Weakness Psychiatric: Reports: As per HPI. Denies: Anxiety, Auditory hallucinations, Depression, Homicidal thoughts, Suicidal thoughts, Visual hallucinations Hematological/Lymphatic: Reports: As per HPI. Denies: Anemia, Blood Clots, Easy bleeding, Easy bruising, Swollen glands Past Medical History - SOCIAL HISTORY Smoking Status: Former smoker Alcohol Use: None Drug Use: None - RESPIRATORY Hx Respiratory Disorders: Yes Hx Bronchitis: Yes Hx Pneumonia: Yes Hx Sleep Apnea: Yes (possibly testing upcoming) Comment:: Home O2-3L at night - CARDIOVASCULAR Hx Cardio Disorders: Yes Hx Chest Pain: No (denies) Comment:: HYPERLIPIDEMIA - NEURO Hx Neuro Disorders: Yes Hx Headaches: Yes (complex migrane) Hx of Migraines: Yes (weekly) - GI Hx GI Disorders: Yes Hx Abdominal Pain: Yes Hx Diverticulitis: Yes Hx Reflux: Yes Hx Liver Disease: Yes (fatty liver denies liver bx) Hx Nausea/Vomiting: Yes (with pain) Hx Ulcer: No (denies) - Hx Genitourinary Disorders: Yes Comment:: polycystic ovary syndrome - ENDOCRINE Hx Endocrine Disorders: Yes Hx Diabetes: Yes - MUSCULOSKELETAL Hx Musculoskeletal Disorders: Yes Hx Fibromyalgia: Yes Hx Gout: Yes Comment:: Buldging disc in neck - PSYCH Hx Psych Problems: Yes Hx Anxiety: Yes Hx Depression: Yes Comment:: PTSD - HEMATOLOGY/ONCOLOGY Hx Hematology/Oncology Disorders: No Hx Anemia: No Family Medical History Any Significant Family History?: Yes Hx Cancer: Mother, Grandparents *Diabetes Comment: aunt Hx Heart Disease: Brother/Sister *Heart Comment: Brother Hx Kidney Disease: Children Physical Exam - General General Appearance: Alert, Oriented x3, Cooperative, Mild distress - Head Head exam: Normal inspection - Eye Eye exam: Normal appearance, PERRL, EOMI Pupils: Normal accommodation - ENT ENT exam: Normal exam, Mucous membranes moist, Normal external ear exam, Normal orophraynx Ear exam: Normal external inspection. negative: External canal tenderness Nasal Exam: Normal inspection. negative: Discharge, Sinus tenderness Mouth exam: Normal external inspection, Tongue normal Teeth exam: Normal inspection. negative: Dental caries Throat exam: Normal inspection. negative: Tonsillar erythema, Tonsillar exudate - Neck Neck exam: Full ROM, Tenderness (in musculature) - Respiratory Respiratory exam: Normal lung sounds bilaterally. negative: Respiratory distress - Cardiovascular Cardiovascular Exam: Regular rate, Normal rhythm, Normal heart sounds - GI/Abdominal GI/Abdominal exam: Soft, Normal bowel sounds. negative: Tenderness - Rectal Rectal exam: Deferred - exam: Deferred - Extremities Extremities exam: Normal inspection, Full ROM, Normal capillary refill. negative: Tenderness - Back Back exam: Reports: Normal inspection, Full ROM. Denies: Muscle spasm, Rash noted, Tenderness - Neurological Neurological exam: Alert, CN II-XII intact, Normal gait, Oriented X3 - Psychiatric Psychiatric exam: Normal affect, Normal mood - Skin Skin exam: Dry, Intact, Normal color, Warm Course Vital Signs 07/08/17 23:29 Temperature 98.3 F Pulse Rate [ 78 Pulse Ox Probe] Respiratory 20 Rate Blood Pressure 114/81 [Left Arm] Pulse Ox 98 Disposition Disposition: Discharge Clinical Impression: Neck pain Disposition: Home, Self-Care Condition: (1) Good Instructions: Neck Pain (ED) Additional Instructions: follow up with dr og tomorrow. return sooner if worse Quality - Quality Measures Quality Measures: N/A - Headache: Neuroimaging ICD10 Codes Entered: No - Blood Pressure Screening Does Patient Have Any of the Following: No Blood Pressure Classification: Pre-Hypertensive BP Reading Systolic Measurement: 114 Diastolic Measurement: 81 Screening for High Blood Pressure: < Pre-Hypertensive BP, F/U Documented > [ G8950] Pre-Hypertensive Follow-up Interventions: Follow-up with rescreen every year.
== END 2017-07-09 01:20 | disposition home or self-care (01) ==
LOC: ER 23:23
DX: G89.29 Other chronic pain (principal); M54.2 Cervicalgia; E11.9 Type 2 diabetes mellitus without complications
CPT/HCPCS: 99283 ×2; 96372; J1885

== ENCOUNTER 2017-07-09 13:43 | Emergency (ER) | payer MEDICARE, MEDICAID ==
--- NOTE | 2017-07-09 14:22 | Emergency Department Record ---
History of Present Illness - General Chief Complaint: Abdominal Pain Stated Complaint: PAIN IN RT SIDE Time Seen by Provider: 07/09/17 14:01 Source: Patient Mode of Arrival: Ambulatory Limitations: No limitations - History of Present Illness Initial Comments: 42 yo female presents with chronic abdominal pain. She has had a recent work up Dr Camargo with EGD, CT at [facility]. She states she has had pain for several years. She states her surgeon has stated this may be adhesions. She reports no changes in her condition. No fevers. No vomiting. No diarrhea. No rash. No change in the location or intensity of pain. She saw Dr Friedman yesterday. She states she told him the same. She called the office today and was told to go to the ED. MD Complaint: Abdominal pain Onset/Timin -: Week(s) Location: RLQ Radiation: Back, R flank, RLQ Severity: Moderate Severity scale (1-10): 7 Quality: Aching Consistency: Constant, Intermittent Improves With: Nothing Worsens With: Nothing Context: Other (Chronic pain for several years per the patient ) Associated Symptoms: Denies other symptoms - Related Data Hx Age of Menopause: 37 Allergies Allergy/AdvReac Type Severity Reaction Status Date / Time [id number] Antimigraine Allergy Severe HEADACHE Verified 07/09/17 14:04 Agents Upzpoxa-Bmx-Okn Reductase Allergy Intermediate JOINT ACHES Verified 07/09/17 14: 04 Inhibitor medical tape AdvReac Mild RASH Uncoded 07/09/17 14:04 Travel Screening - Travel/Exposure Within Last 30 Days Have you traveled within the last 30 days?: No - Travel/Exposure Within Last Year Have you traveled outside the [place] in the last year?: No - Additonal Travel Details Have you been exposed to anyone with a communicable illness?: No - Travel Symptoms Symptom Screening: None Review of Systems Constitutional: Denies: Chills, Fever, Malaise Eyes: Denies: Eye discharge, Eye pain ENT: Denies: Congestion, Throat pain Respiratory: Denies: Cough Cardiovascular: Denies: Chest pain, Palpitations, Syncope Endocrine: Denies: Fatigue Gastrointestinal: Reports: As per HPI, Abdominal pain. Denies: Diarrhea, Nausea , Vomiting Genitourinary: Denies: Dysuria Musculoskeletal: Denies: Arthralgia, Back pain, Myalgia Skin: Denies: Bruising, Change in color, Rash Neurological: Denies: Headache, Numbness, Weakness Psychiatric: Denies: Anxiety Hematological/Lymphatic: Denies: Blood Clots, Easy bleeding, Easy bruising Past Medical History - SOCIAL HISTORY Smoking Status: Former smoker Alcohol Use: None Drug Use: None - RESPIRATORY Hx Respiratory Disorders: Yes Hx Bronchitis: Yes Hx Pneumonia: Yes Hx Sleep Apnea: Yes (possibly testing upcoming) Comment:: Home O2-3L at night - CARDIOVASCULAR Hx Cardio Disorders: Yes Hx Chest Pain: No (denies) Comment:: HYPERLIPIDEMIA - NEURO Hx Neuro Disorders: Yes Hx Headaches: Yes (complex migrane) Hx of Migraines: Yes (weekly) - GI Hx GI Disorders: Yes Hx Abdominal Pain: Yes Hx Diverticulitis: Yes Hx Reflux: Yes Hx Liver Disease: Yes (fatty liver denies liver bx) Hx Nausea/Vomiting: Yes (with pain) Hx Ulcer: No (denies) - Hx Genitourinary Disorders: Yes Comment:: polycystic ovary syndrome - ENDOCRINE Hx Endocrine Disorders: Yes Hx Diabetes: Yes - MUSCULOSKELETAL Hx Musculoskeletal Disorders: Yes Hx Fibromyalgia: Yes Hx Gout: Yes Comment:: Buldging disc in neck - PSYCH Hx Psych Problems: Yes Hx Anxiety: Yes Hx Depression: Yes Comment:: PTSD - HEMATOLOGY/ONCOLOGY Hx Hematology/Oncology Disorders: No Hx Anemia: No Family Medical History Any Significant Family History?: Yes Hx Cancer: Mother, Grandparents *Diabetes Comment: aunt Hx Heart Disease: Brother/Sister *Heart Comment: Brother Hx Kidney Disease: Children Physical Exam - General General Appearance: Alert, Oriented x3, Cooperative, No acute distress Limitations: No limitations - Head Head exam: Normal inspection - Eye Eye exam: Normal appearance, PERRL. negative: Conjunctival injection, Scleral icterus - ENT ENT exam: Normal exam, Mucous membranes moist Ear exam: Normal external inspection Nasal Exam: Normal inspection Mouth exam: Normal external inspection - Neck Neck exam: Normal inspection, Full ROM. negative: Tenderness - Respiratory Respiratory exam: Normal lung sounds bilaterally. negative: Respiratory distress - Cardiovascular Cardiovascular Exam: Regular rate, Normal rhythm, Normal heart sounds - GI/Abdominal GI/Abdominal exam: Soft, Tenderness (tender lateral abdomen but very soft). negative: Distended, Guarding, Hypoactive bowel sounds, Rebound, Rigid - Rectal Rectal exam: Deferred - exam: Deferred - Back Back exam: Reports: CVA tenderness (R) - Neurological Neurological exam: Alert, Oriented X3 - Psychiatric Psychiatric exam: Normal affect, Normal mood - Skin Skin exam: Dry, Intact, Normal color, Warm Course Vital Signs 07/09/17 13:57 Temperature 98.4 F Pulse Rate 79 Respiratory 18 Rate Blood Pressure 108/82 Pulse Ox 99 - Reevaluation(s) Reevaluation #1: 07/09/17 14:[address] Friedman. The patient had called the office. He had reviewed the recent work up including CT and EGD. He states there were no acute findings. He is aware of the plan for surgery on Wednesday at [facility] with Dr Camargo. We discussed a plan for pain control until surgery given the pain is unchanged and chronic without acute findings. No new vomiting. No diarrhea. No rash. His plan with her is to get pain control through the pain clinic. We agreed to offered her [place]otin for the weekend just until surgery is completed. She states she has taken that without help. I explained to her I would need to reviewed her recent records, talk to her surgeon, and Dr Friedman again as she demands something other than Toradol or Asotin. I offered a non narcotic until I can get her records, talk with her surgeon, and her PCP again 07/09/17 14:22 I returned from the OR to see if her surgeon was still in the building and she walked out without further discussion or willingness to wait. I was able to explain that I needed to gather the outside hospital information prior to medications with narcotics. I again offered non narcotic options. She expressed she was unhappy with this and continued walking out of the hospital. She walks briskly without signs of pain or limitation. Records were still requested 07/09/17 14:29 07/09/17 14:56 Records received: CT on 06/26/17 No acute findings to explain the pain. S/P appy, regina, hyst. EGD 07/06/17 Minimal antral gastritis Colonoscopy Small internal hemorrhoid, scattered diverticula, normal colon, normal TE, 07/04/17 ED visit reviewed from [facility] 07/09/17 15:01 [facility] ED visits reviewed from 06/29, 07/07, and 07/09 at 00:30 Disposition Disposition: Discharge Clinical Impression: Abdominal pain, Left against medical advice, Chronic abdominal pain Disposition: Against Medical Advice Condition: (2) Stable Instructions: Abdominal Pain (ED), Against Medical Advice (ED) Forms: Patient Portal Access Time of Disposition: 14:25 Quality - Quality Measures Quality Measures: Headache (All Ages) - Headache: Neuroimaging Quality Measure: Measure #419: Overuse of Neuroimaging ICD10 Codes Entered: Yes Neurological Exam: Patient had a normal neurological exam. [G9535] Headache: Use of Neuroimaging: < CTA, CT, MRA or MRI was NOT ordered > [G9534] - Blood Pressure Screening Does Patient Have Any of the Following: No Blood Pressure Classification: Pre-Hypertensive BP Reading Systolic Measurement: 108 Diastolic Measurement: 82 Screening for High Blood Pressure: < Pre-Hypertensive BP, F/U Documented > [ G8950] Pre-Hypertensive Follow-up Interventions: Referral to alternative/primary care provider.
== END 2017-07-09 14:35 | disposition left against medical advice (07) ==
LOC: ER 13:43
DX: R10.31 Right lower quadrant pain (principal); G89.29 Other chronic pain; Z87.891 Personal history of nicotine dependence
CPT/HCPCS: 99283

== ENCOUNTER 2017-07-12 08:05 | Day surgery (SDC) | payer MEDICARE, MEDICAID ==
[~2017-07-12 08:05] MED LIST: ACETAMINOPHEN 1,000 MG/100 ML BTL IV ONE; CEFAZOLIN 2 Gram 2 GM/50 ML BAG IVPB ONE; FAMOTIDINE 20MG TABLET PO ONE; METOCLOPRAMIDE 10 MG TABLET PO ONE
[2017-07-12] MEDS ORDERED: SEVOFLURANE 250 ML INH ONE (08:06)
[2017-07-12] MEDS ORDERED: SUCCINYLCHOLINE 20 MG/ML 10ML IVP ONE (08:06)
[2017-07-12] MEDS ORDERED: PROPOFOL 10 MG/ML VIAL IV ONE (08:06)
[2017-07-12] MEDS ORDERED: KETOROLAC 30 MG/ML VIAL IVP ONE (08:06)
[2017-07-12] MEDS ORDERED: ONDANSETRON HCL IV 4 MG/2 ML VIAL IVP ONE (08:06)
[2017-07-12] MEDS ORDERED: FENTANYL PF 100MCG/2ML VIAL IV ONE (08:06)
[2017-07-12] MEDS ORDERED: MIDAZOLAM HCL 2MG/2ML VIAL IV ONE (08:06)
[2017-07-12] MEDS ORDERED: SCOPOLAMINE 1 PATCH TDSY TD ONE (08:06)
[2017-07-12] MEDS ORDERED: ROCURONIUM BROMIDE 50MG/5ML VIAL IV ONE (08:06)
[2017-07-12] MEDS ORDERED: LIDOCAINE 2% MDV (20MG/ML) 20ML VIAL IV ONE (08:06)
[2017-07-12] MEDS ORDERED: SUGAMMADEX SODIUM 200 MG/2 ML VIAL IV ONE (08:06)
[2017-07-12] MEDS ORDERED: BUPIVACAINE 0.25% W/EPI MPF 30ML VIAL IVP ONE (08:06)
--- NOTE | 2017-07-13 13:30 | Operative Note ---
DATE OF SURGERY: 07/12/2017 Surgeon: Darron Camargo DO PREOPERATIVE DIAGNOSIS: Chronic abdominal pain. POSTOPERATIVE DIAGNOSIS: Chronic abdominal pain. OPERATION: Laparoscopy. Indication: The patient is a 42-year-old female who has had chronic abdominal pain. This is mainly on her right side. She has been in the ER dozens and dozens of times for this. All imaging studies were essentially normal. She has undergone a cholecystectomy, appendectomy, hysterectomy, bilateral salpingo-oophorectomy. Her exam was fairly benign but could not answer for her discomfort. We discussed laparoscopy. Risks, benefits, and alternatives were discussed. Risks include but are not limited bleeding, infection, bowel injury, possible adhesion lysis. Thereafter, consent was signed and questions answered. PROCEDURE: The patient was taken to the operating room and placed in a supine position. General anesthesia was administered per the department of anesthesia. The patient's left arm was tucked to the side. Her abdomen was prepped and draped in the usual fashion. Orogastric tube inserted. At this time, left upper quadrant region was anesthetized with a total of 5 mL of 0.25% Sensorcaine with epinephrine. A 1 cm incision was made and through this an 11 mm Visiport was placed. All abdominal layers were traversed under direct visualization. Peritoneal cavity was entered. Patient then rotated into Trendelenburg position. General exam was done. All quadrants were identified. She had absolutely zero adhesions noted. There was no omentum stuck to the abdominal wall. There were no abdominal wall hernias. Both lobes of the liver did have some mild fatty infiltration but appeared normal. The patient was status post cholecystectomy and appendectomy. At this time, pneumoperitoneum was released. Port was removed. Incision was closed with 4-0 Vicryl. She was taken to the recovery room in satisfactory condition. FINDINGS AT THE TIME OF SURGERY: No acute findings for her discomfort. There were no adhesions, no hernias, no diastasis. CC: Maury Friedman MD [facility]PITALChepe
== END 2017-07-12 11:15 | disposition home or self-care (01) ==
LOC: SUR 08:05
PROVIDERS: ATTEND Surgery
DX: R10.84 Generalized abdominal pain (principal); K21.9 Gastro-esophageal reflux disease without esophagitis; E11.9 Type 2 diabetes mellitus without complications; F41.8 Other specified anxiety disorders; G43.909 Migraine, unspecified, not intractable, without status migrainosus; M79.7 Fibromyalgia
CPT/HCPCS: 36416; 82948; J0330; J1885; J2405; J3490

== ENCOUNTER 2017-07-13 12:30 | Emergency (ER) | payer MEDICARE, MEDICAID ==
[2017-07-13] MEDS ORDERED: KETOROLAC 30 MG/ML VIAL IM ONE (13:08)
[2017-07-13 13:35] LABS: BASO % 0.2 % (0-6); EOS % 0.8 % (0-6); GRAN % 74.8 % (47-80); HEMATOCRIT 33.4 % (35.0-47.0); HEMOGLOBIN 10.4 gm/dl (11.6-16.0); LYMPH % 17.8 % (16-45); MEAN CELL VOLUME 90.3 fl (81-97); MEAN CORPUSCULAR HEMOGLOBIN 28.1 pg (27-33); MEAN CORPUSCULAR HGB CONC 31.1 g/dl (32-36); MEAN PLATELET VOLUME 8.7 fl (7.4-10.4); MONO % 6.4 % (0-9); PLATELET COUNT 444 K/uL (130-400); RED CELL DISTRIBUTION WIDTH 13.6 % (11.5-14.5); WHITE BLOOD COUNT W/O DIFF 10.9 K/uL (4.2-12.2)
[2017-07-13 13:52] LABS: BLOOD UREA NITROGEN 12 mg/dL (6-20); CREATININE 0.9 mg/dL (0.5-0.9); EST GLOMERULAR FILTRATION RATE > 60 mL/min
[2017-07-13 13:54] LABS: GLUCOSE,RANDOM 98 mg/dL (74-109)
--- NOTE | 2017-07-13 14:00 | Emergency Department Record ---
History of Present Illness - General Chief complaint: Extremity Problem Stated complaint: BOTH LEG CRAMPING Time Seen by Provider: 07/13/17 13:07 Source: Patient Mode of Arrival: Ambulatory Limitations: No limitations - History of Present Illness Initial comments: pt is having bilateral leg pain that feels crampy. she had an exporatory abd lap yesterday Complaint: Extremity pain Onset/Timin -: Hour(s) Location: Bilateral, Lower Leg, Thigh History of Same: No Radiation: Distal Severity scale (1-10): 9 Quality: Aching Consistency: Constant, Intermittent Improves with: Nothing Worsens with: Walking, Weight bearing - Related Data Allergies Allergy/AdvReac Type Severity Reaction Status Date / Time [id number] Antimigraine Allergy Severe HEADACHE Verified 07/13/17 12:54 Agents Rzmfxvq-Sql-Pws Reductase Allergy Intermediate JOINT ACHES Verified 07/13/17 12: 54 Inhibitor medical tape AdvReac Mild RASH Uncoded 07/13/17 12:54 Travel Screening - Travel/Exposure Within Last 30 Days Have you traveled within the last 30 days?: No - Travel/Exposure Within Last Year Have you traveled outside the [place] in the last year?: No - Additonal Travel Details Have you been exposed to anyone with a communicable illness?: No - Travel Symptoms Symptom Screening: None Review of Systems Reviewed: No additional complaints except as noted below Constitutional: Reports: As per HPI. Denies: Chills, Fever, Malaise, Night sweats, Weakness, Weight change Eyes: Reports: As per HPI. Denies: Eye discharge, Eye pain, Photophobia, Vision change ENT: Reports: As per HPI. Denies: Congestion, Dental pain, Ear pain, Epistaxis , Hearing loss, Throat pain Respiratory: Reports: As per HPI. Denies: Cough, Dyspnea, Hemoptysis, Stridor, Wheezes Cardiovascular: Reports: As per HPI. Denies: Arrhythmia, Chest pain, Dyspnea on exertion, Edema, Murmurs, Orthopnea, Palpitations, Paroxysmal nocturnal dyspnea, Rheumatic Fever, Syncope Endocrine: Reports: As per HPI. Denies: Fatigue, Heat or cold intolerance, Polydipsia, Polyuria Gastrointestinal: Reports: As per HPI. Denies: Abdominal pain, Constipation, Diarrhea, Hematemesis, Hematochezia, Melena, Nausea, Vomiting Genitourinary: Reports: As per HPI. Denies: Abnormal menses, Discharge, Dyspareunia, Dysuria, Frequency, Hematuria, Incontinence, Retention, Urgency Musculoskeletal: Reports: As per HPI, Myalgia. Denies: Arthralgia, Back pain, Gout, Joint swelling, Neck pain Skin: Reports: As per HPI. Denies: Bruising, Change in color, Change in hair/ nails, Lesions, Pruritus, Rash Neurological: Reports: As per HPI. Denies: Abnormal gait, Confusion, Headache, Numbness, Paresthesias, Seizure, Tingling, Tremors, Vertigo, Weakness Psychiatric: Reports: As per HPI. Denies: Anxiety, Auditory hallucinations, Depression, Homicidal thoughts, Suicidal thoughts, Visual hallucinations Hematological/Lymphatic: Reports: As per HPI. Denies: Anemia, Blood Clots, Easy bleeding, Easy bruising, Swollen glands Past Medical History - SOCIAL HISTORY Smoking Status: Former smoker Alcohol Use: None Drug Use: None - RESPIRATORY Hx Respiratory Disorders: Yes Hx Bronchitis: Yes Hx Pneumonia: Yes Hx Sleep Apnea: Yes (possibly testing upcoming) Comment:: Home O2-3L at night - CARDIOVASCULAR Hx Cardio Disorders: Yes Hx Chest Pain: No (denies) Comment:: HYPERLIPIDEMIA - NEURO Hx Neuro Disorders: Yes Hx Headaches: Yes (complex migrane) Hx of Migraines: Yes (weekly) - GI Hx GI Disorders: Yes Hx Abdominal Pain: Yes Hx Diverticulitis: Yes Hx Reflux: Yes Hx Liver Disease: Yes (fatty liver denies liver bx) Hx Nausea/Vomiting: Yes (with pain) Hx Ulcer: No (denies) - Hx Genitourinary Disorders: Yes Comment:: polycystic ovary syndrome - ENDOCRINE Hx Endocrine Disorders: Yes Hx Diabetes: Yes - MUSCULOSKELETAL Hx Musculoskeletal Disorders: Yes Hx Fibromyalgia: Yes Hx Gout: Yes Comment:: Buldging disc in neck - PSYCH Hx Psych Problems: Yes Hx Anxiety: Yes Hx Depression: Yes Comment:: PTSD - HEMATOLOGY/ONCOLOGY Hx Hematology/Oncology Disorders: No Hx Anemia: No Family Medical History Any Significant Family History?: Yes Hx Cancer: Mother, Grandparents *Diabetes Comment: aunt Hx Heart Disease: Brother/Sister *Heart Comment: Brother Hx Kidney Disease: Children Physical Exam - General General Appearance: Alert, Oriented x3, Cooperative, Mild distress - Head Head exam: Normal inspection - Eye Eye exam: Normal appearance, PERRL, EOMI Pupils: Normal accommodation - ENT ENT exam: Normal exam, Mucous membranes moist, Normal external ear exam, Normal orophraynx Ear exam: Normal external inspection. negative: External canal tenderness Nasal Exam: Normal inspection. negative: Discharge, Sinus tenderness Mouth exam: Normal external inspection, Tongue normal Teeth exam: Normal inspection. negative: Dental caries Throat exam: Normal inspection. negative: Tonsillar erythema, Tonsillar exudate - Neck Neck exam: Normal inspection, Full ROM. negative: Tenderness - Respiratory Respiratory exam: Normal lung sounds bilaterally. negative: Respiratory distress - Cardiovascular Cardiovascular Exam: Regular rate, Normal rhythm, Normal heart sounds - GI/Abdominal GI/Abdominal exam: Soft, Normal bowel sounds. negative: Tenderness - Rectal Rectal exam: Deferred - exam: Deferred - Extremities Extremities exam: Normal inspection, Full ROM, Normal capillary refill, Tenderness - Back Back exam: Reports: Normal inspection, Full ROM. Denies: Muscle spasm, Rash noted, Tenderness - Neurological Neurological exam: Alert, CN II-XII intact, Normal gait, Oriented X3 - Psychiatric Psychiatric exam: Normal affect, Normal mood - Skin Skin exam: Dry, Intact, Normal color, Warm Course Vital Signs 07/13/17 12:43 Temperature 98.1 F Pulse Rate [ 81 Pulse Ox Probe] Respiratory 20 Rate Blood Pressure 107/68 [Left Arm] Pulse Ox 99 Medical Decision Making - Lab Data Result diagrams: 07/13/17 13:25 07/13/17 13:25 Lab Results 07/13/17 07/13/17 07/13/17 Range/Units 13:25 13:25 13:25 WBC 10.9 (4.2-12.2) K/uL RBC 3.70 L (3.80-5.40) M/uL Hgb 10.4 L (11.6-16.0) gm/dl Hct 33.4 L (35.0-47.0) % MCV 90.3 (81-97) fl MCH 28.1 (27-33) pg MCHC 31.1 L (32-36) g/dl RDW 13.6 (11.5-14.5) % Plt Count 444 H (130-400) K/uL MPV 8.7 (7.4-10.4) fl Gran % 74.8 (47-80) % Lymphocytes % 17.8 (16-45) % Monocytes % 6.4 (0-9) % Eosinophils % 0.8 (0-6) % Basophils % 0.2 (0-6) % D-Dimer 0.91 H (0-0.59) mg/L FEU Sodium 142 (136-145) mmol/L Potassium 4.0 (3.4-4.5) mmol/L Chloride 100 (98-107) mmol/L Carbon Dioxide 26.0 (22-29) mmol/L Anion Gap 16.0 (7-16) BUN 12 (6-20) mg/dL Creatinine 0.9 (0.5-0.9) mg/dL Estimated GFR > 60 mL/min Random Glucose 98 (74-109) mg/dL Calcium 8.8 (8.6-10.0) mg/dL Disposition Disposition: Discharge Clinical Impression: Bilateral leg pain Disposition: Home, Self-Care Condition: (1) Good Instructions: Leg Pain (ED) Additional Instructions: follow up with family doctor. return sooner if worse. moist heat to legs Forms: Patient Portal Access Quality - Quality Measures Quality Measures: N/A - Blood Pressure Screening Does Patient Have Any of the Following: No Blood Pressure Classification: Normal BP Reading Systolic Measurement: 83 Diastolic Measurement: 54 Screening for High Blood Pressure: < Normal BP, F/U Not Required > [G8783]
[2017-07-13] MEDS ORDERED: 0.9 % SODIUM CHLORIDE 1,000 ML BAG IV ONE (15:15)
--- NOTE | 2017-07-15 10:45 | US VENOUS DOPPLER REPORT ---
EXAM: EMERGENCY BILATERAL LOWER EXTREMITY VENOUS DOPPLER ULTRASOUND HISTORY: POSTOP EXPLORATORY LAPAROTOMY YESTERDAY WITH BILATERAL LEG PAIN. TECHNIQUE: Venous Doppler ultrasound of the lower extremities was performed bilaterally with color flow and spectral analysis Doppler. Compression and flow augmentation maneuvers were utilized in the thigh and popliteal regions bilaterally as well. Comparison: No prior venous Doppler ultrasound with which to compare. FINDINGS: Attention was initially directed to the right lower extremity. No DVT identified on the right. Flow is seen throughout from the inguinal region down well into the calf. There was compressibility and flow augmentation in the veins of the thigh and popliteal region as well. Attention was then directed to the left lower extremity. No DVT identified on the left as well. Flow was seen throughout from the inguinal region well down into the calf. Compressibility and flow augmentation evident in the thigh and popliteal region on the left as well. While evaluating the left popliteal region, note was made of a small oval hypoechoic area about 1.7 x 0.5 cm in size on the sagittal images and about 0.6 cm in transverse diameter which may be a small nonspecific fluid collection. This appears unrelated to the vascular structures of the popliteal region. IMPRESSION: 1. NO EVIDENCE OF DVT IDENTIFIED IN EITHER LOWER EXTREMITY. 2. THERE MAY BE A SMALL FLUID COLLECTION IN THE LEFT POPLITEAL REGION UNRELATED TO THE VASCULAR STRUCTURES. JOB NUMBER: [id number] [facility]
== END 2017-07-13 16:19 | disposition home or self-care (01) ==
LOC: ER 12:30
DX: R25.2 Cramp and spasm (principal); R79.89 Other specified abnormal findings of blood chemistry; E11.9 Type 2 diabetes mellitus without complications; M79.662 Pain in left lower leg; M79.661 Pain in right lower leg; M79.652 Pain in left thigh; M79.651 Pain in right thigh; Z87.891 Personal history of nicotine dependence; Z98.890 Other specified postprocedural states
CPT/HCPCS: 80048; 85025; 85379; 93970; 96372; 99284; J1885; J7030

== ENCOUNTER 2017-07-15 00:23 | Emergency (ER) | payer MEDICARE, MEDICAID ==
[2017-07-15] MEDS ORDERED: KETOROLAC 60 MG/2 ML VIAL IM STA (00:42)
[2017-07-15 00:59] LABS: BASO % 0.3 % (0-6); EOS % 1.7 % (0-6); GRAN % 62.2 % (47-80); HEMOGLOBIN 9.9 gm/dl (11.6-16.0); LYMPH % 28.4 % (16-45); MEAN CELL VOLUME 89.9 fl (81-97); MEAN CORPUSCULAR HEMOGLOBIN 27.8 pg (27-33); MEAN CORPUSCULAR HGB CONC 30.9 g/dl (32-36); MEAN PLATELET VOLUME 8.8 fl (7.4-10.4); MONO % 7.4 % (0-9); PLATELET COUNT 483 K/uL (130-400); RED BLOOD COUNT 3.56 M/uL (3.80-5.40); RED CELL DISTRIBUTION WIDTH 13.5 % (11.5-14.5); WHITE BLOOD COUNT W/O DIFF 9.7 K/uL (4.2-12.2)
[2017-07-15 01:12] LABS: BILIRUBIN,TOTAL < 0.20 mg/dL (0.2-1.0); BLOOD UREA NITROGEN 9 mg/dL (6-20); CREATININE 0.9 mg/dL (0.5-0.9); EST GLOMERULAR FILTRATION RATE > 60 mL/min
[2017-07-15 01:14] LABS: GLUCOSE,RANDOM 146 mg/dL (74-109)
[2017-07-15 01:17] LABS: ALB/GLOB RATIO 1.4 (1.1-1.8); ALBUMIN 4.1 g/dL (4.0-5.0); ALKALINE PHOSPHATASE 131 U/L (35-104); ALT/SGPT 20 U/L (<33); AST/SGOT 17 U/L (10.0-35.0); CREATINE PHOSPHOKINASE 43 U/L (26-192)
[2017-07-15 01:29] LABS: ERYTHROCYTE SEDIMENTATION RATE 58 mm/hr (0-20)
--- NOTE | 2017-07-15 01:31 | Emergency Department Record ---
History of Present Illness - General Chief complaint: Pain Stated complaint: LEG PAIN Time Seen by Provider: 07/15/17 00:33 Source: Patient Mode of Arrival: Ambulatory Limitations: No limitations - History of Present Illness Initial comments: pt is here for leg pain. she had a lap surgery exploratory wednesday which was negative. she was here yesterday and had neg dopplers of both legs and neg labs. she is back tonight c/o the same leg pain. it is in both legs in both the calves and thighs. she denies any falls or injuries. MD Complaint: Extremity pain Onset/Timin -: Days(s) Location: Bilateral, Thigh History of Same: Yes Radiation: Distal Severity scale (1-10): 8 Quality: Other Consistency: Other Improves with: Nothing Worsens with: Exertion, Palpation, Walking, Weight bearing Associated Symptoms: Denies other symptoms - Related Data Allergies Allergy/AdvReac Type Severity Reaction Status Date / Time [id number] Antimigraine Allergy Severe HEADACHE Verified 07/13/17 12:54 Agents Mobhyga-Uvw-Ypt Reductase Allergy Intermediate JOINT ACHES Verified 07/13/17 12: 54 Inhibitor medical tape AdvReac Mild RASH Uncoded 07/13/17 12:54 Travel Screening - Travel/Exposure Within Last 30 Days Have you traveled within the last 30 days?: No - Travel Symptoms Symptom Screening: None Review of Systems Reviewed: No additional complaints except as noted below Constitutional: Reports: As per HPI. Denies: Chills, Fever, Malaise, Night sweats, Weakness, Weight change Eyes: Reports: As per HPI. Denies: Eye discharge, Eye pain, Photophobia, Vision change ENT: Reports: As per HPI. Denies: Congestion, Dental pain, Ear pain, Epistaxis , Hearing loss, Throat pain Respiratory: Reports: As per HPI. Denies: Cough, Dyspnea, Hemoptysis, Stridor, Wheezes Cardiovascular: Reports: As per HPI. Denies: Arrhythmia, Chest pain, Dyspnea on exertion, Edema, Murmurs, Orthopnea, Palpitations, Paroxysmal nocturnal dyspnea, Rheumatic Fever, Syncope Endocrine: Reports: As per HPI. Denies: Fatigue, Heat or cold intolerance, Polydipsia, Polyuria Gastrointestinal: Reports: As per HPI. Denies: Abdominal pain, Constipation, Diarrhea, Hematemesis, Hematochezia, Melena, Nausea, Vomiting Genitourinary: Reports: As per HPI. Denies: Abnormal menses, Discharge, Dyspareunia, Dysuria, Frequency, Hematuria, Incontinence, Retention, Urgency Musculoskeletal: Reports: As per HPI, Myalgia. Denies: Arthralgia, Back pain, Gout, Joint swelling, Neck pain Skin: Reports: As per HPI. Denies: Bruising, Change in color, Change in hair/ nails, Lesions, Pruritus, Rash Neurological: Reports: As per HPI. Denies: Abnormal gait, Confusion, Headache, Numbness, Paresthesias, Seizure, Tingling, Tremors, Vertigo, Weakness Psychiatric: Reports: As per HPI. Denies: Anxiety, Auditory hallucinations, Depression, Homicidal thoughts, Suicidal thoughts, Visual hallucinations Hematological/Lymphatic: Reports: As per HPI. Denies: Anemia, Blood Clots, Easy bleeding, Easy bruising, Swollen glands Past Medical History - SOCIAL HISTORY Smoking Status: Former smoker Alcohol Use: None Drug Use: None - RESPIRATORY Hx Respiratory Disorders: Yes Hx Bronchitis: Yes Hx Pneumonia: Yes Hx Sleep Apnea: Yes (possibly testing upcoming) Comment:: Home O2-3L at night - CARDIOVASCULAR Hx Cardio Disorders: Yes Hx Chest Pain: No (denies) Comment:: HYPERLIPIDEMIA - NEURO Hx Neuro Disorders: Yes Hx Headaches: Yes (complex migrane) Hx of Migraines: Yes (weekly) - GI Hx GI Disorders: Yes Hx Abdominal Pain: Yes Hx Diverticulitis: Yes Hx Reflux: Yes Hx Liver Disease: Yes (fatty liver denies liver bx) Hx Nausea/Vomiting: Yes (with pain) Hx Ulcer: No (denies) - Hx Genitourinary Disorders: Yes Comment:: polycystic ovary syndrome - ENDOCRINE Hx Endocrine Disorders: Yes Hx Diabetes: Yes - MUSCULOSKELETAL Hx Musculoskeletal Disorders: Yes Hx Fibromyalgia: Yes Hx Gout: Yes Comment:: Buldging disc in neck - PSYCH Hx Psych Problems: Yes Hx Anxiety: Yes Hx Depression: Yes Comment:: PTSD - HEMATOLOGY/ONCOLOGY Hx Hematology/Oncology Disorders: No Hx Anemia: No Family Medical History Any Significant Family History?: Yes Hx Cancer: Mother, Grandparents *Diabetes Comment: aunt Hx Heart Disease: Brother/Sister *Heart Comment: Brother Hx Kidney Disease: Children Physical Exam - General General Appearance: Alert, Oriented x3, Cooperative, Mild distress - Head Head exam: Normal inspection - Eye Eye exam: Normal appearance, PERRL, EOMI Pupils: Normal accommodation - ENT ENT exam: Normal exam, Mucous membranes moist, Normal external ear exam, Normal orophraynx Ear exam: Normal external inspection. negative: External canal tenderness Nasal Exam: Normal inspection. negative: Discharge, Sinus tenderness Mouth exam: Normal external inspection, Tongue normal Teeth exam: Normal inspection. negative: Dental caries Throat exam: Normal inspection. negative: Tonsillar erythema, Tonsillar exudate - Neck Neck exam: Normal inspection, Full ROM. negative: Tenderness - Respiratory Respiratory exam: Normal lung sounds bilaterally. negative: Respiratory distress - Cardiovascular Cardiovascular Exam: Regular rate, Normal rhythm, Normal heart sounds - GI/Abdominal GI/Abdominal exam: Soft, Normal bowel sounds. negative: Tenderness - Rectal Rectal exam: Deferred - exam: Deferred - Extremities Extremities exam: Full ROM, Normal capillary refill, Tenderness - Back Back exam: Reports: Normal inspection, Full ROM. Denies: Muscle spasm, Rash noted, Tenderness - Neurological Neurological exam: Alert, CN II-XII intact, Normal gait, Oriented X3 - Psychiatric Psychiatric exam: Normal affect, Normal mood - Skin Skin exam: Dry, Intact, Normal color, Warm Course Vital Signs 07/15/17 00:33 Temperature 97.9 F Pulse Rate [ 73 Pulse Ox Probe] Respiratory 20 Rate Blood Pressure 109/67 [Left Arm] Pulse Ox 98 Medical Decision Making - Lab Data Result diagrams: 07/15/17 00:50 07/15/17 00:50 Lab Results 07/15/17 07/15/17 Range/Units 00:50 00:50 WBC 9.7 (4.2-12.2) K/uL RBC 3.56 L (3.80-5.40) M/uL Hgb 9.9 L (11.6-16.0) gm/dl Hct 32.0 L (35.0-47.0) % MCV 89.9 (81-97) fl MCH 27.8 (27-33) pg MCHC 30.9 L (32-36) g/dl RDW 13.5 (11.5-14.5) % Plt Count 483 H (130-400) K/uL MPV 8.8 (7.4-10.4) fl Gran % 62.2 (47-80) % Lymphocytes % 28.4 (16-45) % Monocytes % 7.4 (0-9) % Eosinophils % 1.7 (0-6) % Basophils % 0.3 (0-6) % Sodium 144 (136-145) mmol/L Potassium 3.7 (3.4-4.5) mmol/L Chloride 102 (98-107) mmol/L Carbon Dioxide 22.0 (22-29) mmol/L Anion Gap 20.0 H (7-16) BUN 9 (6-20) mg/dL Creatinine 0.9 (0.5-0.9) mg/dL Estimated GFR > 60 mL/min Random Glucose 146 H (74-109) mg/dL Calcium 9.2 (8.6-10.0) mg/dL Total Bilirubin < 0.20 L (0.2-1.0) mg/dL AST 17 (10.0-35.0) U/L ALT 20 (<33) U/L Alkaline Phosphatase 131 H (35-104) U/L Creatine Kinase 43 (26-192) U/L Total Protein 7.0 (6.6-8.7) g/dL Albumin 4.1 (4.0-5.0) g/dL Globulin 2.9 (1.4-4.8) gm/dL Albumin/Globulin Ratio 1.4 (1.1-1.8) Disposition Disposition: Discharge Clinical Impression: Leg pain Qualifiers: Laterality: bilateral Qualified Code(s): M79.604 - Pain in right leg; M79.605 - Pain in left leg Disposition: Home, Self-Care Condition: (1) Good Instructions: Leg Pain (ED) Additional Instructions: follow up with family doctor tomorrow and with fitting supervisor. return sooner if worse Forms: Patient Portal Access Quality - Quality Measures Quality Measures: N/A - Blood Pressure Screening Does Patient Have Any of the Following: No Blood Pressure Classification: Normal BP Reading Systolic Measurement: 109 Diastolic Measurement: 67 Screening for High Blood Pressure: < Normal BP, F/U Not Required > [G8783]
[2017-07-15] MEDS ORDERED: ONDANSETRON 4 MG ODT TABLET SL ONE (01:42)
[2017-07-15] MEDS ORDERED: DIAZEPAM 5 MG TABLET PO ONE (01:42)
== END 2017-07-15 01:59 | disposition home or self-care (01) ==
LOC: ER 00:23
DX: M79.661 Pain in right lower leg (principal); M79.652 Pain in left thigh; M79.651 Pain in right thigh; E11.9 Type 2 diabetes mellitus without complications; Z87.891 Personal history of nicotine dependence; Z98.890 Other specified postprocedural states
CPT/HCPCS: 99283; 96372; 99284; 82550; 85025; 85651; 80053; J3490; J1885

== ENCOUNTER 2017-07-26 20:34 | Emergency (ER) | payer MEDICARE, MEDICAID ==
[2017-07-26] MEDS ORDERED: KETOROLAC 30 MG/ML VIAL IM ONE (20:59)
--- NOTE | 2017-07-26 21:03 | Emergency Department Record ---
History of Present Illness - General Chief Complaint: Headache Migraine Stated Complaint: OBIGR[place]LOTTE Time Seen by Provider: 07/26/17 20:54 Source: Patient Mode of Arrival: Ambulatory Limitations: No limitations - History of Present Illness Initial Comments: 42 yo female presents to ED for evaluation of a "migraine headache" that began 4.5 hours ago. Patient reports that she "took all of her medications, then took a nap, but her headache symptoms returned". Patient denies fevers, chills , or recent illness. Patient denies fever, chills, or stiff neck symptoms. Patient reports numerous similar episodes with similar symptoms. MD Complaint: Headache Onset/Timin -: Hour(s) Onset Description: Gradual Location: Frontal Severity: Moderate Quality: Throbbing Consistency: Constant Improves With: Nothing Worsens With: None Treatments Prior to Arrival: Migraine medication, Prescription analgesic - Related Data Allergies Allergy/AdvReac Type Severity Reaction Status Date / Time [id number] Antimigraine Allergy Severe HEADACHE Verified 07/13/17 12:54 Agents Ypxcgmo-Rjo-Uer Reductase Allergy Intermediate JOINT ACHES Verified 07/13/17 12: 54 Inhibitor medical tape AdvReac Mild RASH Uncoded 07/13/17 12:54 Review of Systems Constitutional: Denies: Chills, Fever, Malaise, Night sweats Eyes: Denies: Eye discharge, Eye pain ENT: Denies: Congestion, Ear pain, Epistaxis Respiratory: Denies: Cough, Dyspnea Cardiovascular: Denies: Chest pain, Dyspnea on exertion Endocrine: Denies: Fatigue, Heat or cold intolerance Gastrointestinal: Denies: Abdominal pain, Nausea, Vomiting Genitourinary: Denies: Incontinence, Retention Musculoskeletal: Denies: Arthralgia, Back pain Skin: Denies: Bruising, Change in color Neurological: Reports: Headache. Denies: Abnormal gait, Confusion, Seizure Psychiatric: Denies: Anxiety Hematological/Lymphatic: Denies: Anemia, Blood Clots Past Medical History - SOCIAL HISTORY Smoking Status: Former smoker - RESPIRATORY Hx Respiratory Disorders: Yes Hx Bronchitis: Yes Hx Pneumonia: Yes Hx Sleep Apnea: Yes (possibly testing upcoming) Comment:: Home O2-3L at night - CARDIOVASCULAR Hx Cardio Disorders: Yes Hx Chest Pain: No (denies) Comment:: HYPERLIPIDEMIA - NEURO Hx Neuro Disorders: Yes Hx Headaches: Yes (complex migrane) Hx of Migraines: Yes (weekly) - GI Hx GI Disorders: Yes Hx Abdominal Pain: Yes Hx Diverticulitis: Yes Hx Reflux: Yes Hx Liver Disease: Yes (fatty liver denies liver bx) Hx Nausea/Vomiting: Yes (with pain) Hx Ulcer: No (denies) - Hx Genitourinary Disorders: Yes Comment:: polycystic ovary syndrome - ENDOCRINE Hx Endocrine Disorders: Yes Hx Diabetes: Yes - MUSCULOSKELETAL Hx Musculoskeletal Disorders: Yes Hx Fibromyalgia: Yes Hx Gout: Yes Comment:: Buldging disc in neck - PSYCH Hx Psych Problems: Yes Hx Anxiety: Yes Hx Depression: Yes Comment:: PTSD - HEMATOLOGY/ONCOLOGY Hx Hematology/Oncology Disorders: No Hx Anemia: No Family Medical History Any Significant Family History?: Yes Hx Cancer: Mother, Grandparents *Diabetes Comment: aunt Hx Heart Disease: Brother/Sister *Heart Comment: Brother Hx Kidney Disease: Children Physical Exam - General General Appearance: Alert, Oriented x3, Cooperative, Mild distress Limitations: No limitations - Head Head exam: Atraumatic, Normocephalic, Normal inspection Head exam detail: negative: Abrasion, Contusion, Espinosa's sign, General tenderness, Hematoma, Laceration - Eye Eye exam: Normal appearance. negative: Conjunctival injection, Periorbital swelling, Periorbital tenderness, Scleral icterus - ENT Ear exam: negative: Auricular hematoma, Auricular trauma Nasal Exam: negative: Active bleeding, Discharge, Dried blood, Foreign body Mouth exam: negative: Drooling, Laceration, Muffled voice, Tongue elevation - Neck Neck exam: Normal inspection. negative: Meningismus, Tenderness - Respiratory Respiratory exam: Normal lung sounds bilaterally. negative: Rales, Respiratory distress, Rhonchi, Stridor - Cardiovascular Cardiovascular Exam: Regular rate, Normal rhythm, Normal heart sounds - GI/Abdominal GI/Abdominal exam: Soft. negative: Rebound, Rigid, Tenderness - Rectal Rectal exam: Deferred - exam: Deferred - Extremities Extremities exam: Normal inspection. negative: Calf tenderness, Pedal edema, Tenderness - Back Back exam: Denies: CVA tenderness (R), CVA tenderness (L) - Neurological Neurological exam: Alert, Normal gait, Oriented X3 - Psychiatric Psychiatric exam: Normal affect, Normal mood - Skin Skin exam: Normal color. negative: Abrasion Type of lesion: negative: abrasion Course Vital Signs 07/26/17 20:43 Temperature 98.7 F Pulse Rate [ 84 Pulse Ox Probe] Respiratory 20 Rate Blood Pressure 104/58 [Left Arm] Pulse Ox 100 - Reevaluation(s) Reevaluation #1: 07/26/17 21:41 Patient reports that she is ready to head home at this time, discharged in stable condition. Disposition Disposition: Discharge Clinical Impression: Headache Qualifiers: Headache type: unspecified Headache chronicity pattern: acute headache Intractability: not intractable Qualified Code(s): R51 - Headache Disposition: Home, Self-Care Condition: (2) Stable Instructions: Migraine Headache (ED) Additional Instructions: Return to ED if your symptoms worsen or if you have any concerns. Follow-up with your family doctor in 3-5 days as directed. Forms: Patient Portal Access Time of Disposition: 21:43 Quality - Quality Measures Quality Measures: N/A, Headache (All Ages) - Headache: Neuroimaging Quality Measure: Measure #419: Overuse of Neuroimaging ICD10 Codes Entered: Yes Neurological Exam: Patient had a normal neurological exam. [G9535] Headache: Use of Neuroimaging: < CTA, CT, MRA or MRI was NOT ordered > [G9534] - Blood Pressure Screening Does Patient Have Any of the Following: No Blood Pressure Classification: Normal BP Reading Systolic Measurement: 101 Diastolic Measurement: 61 Screening for High Blood Pressure: < Normal BP, F/U Not Required > [G8783]
== END 2017-07-26 21:37 | disposition home or self-care (01) ==
LOC: ER 20:34
DX: R51 Headache (principal); Z87.891 Personal history of nicotine dependence
CPT/HCPCS: 99283 ×2; 96372; J1885

== ENCOUNTER 2017-07-31 20:48 | Emergency (ER) | payer MEDICARE, MEDICAID ==
--- NOTE | 2017-07-31 21:12 | Emergency Department Record ---
History of Present Illness - General Chief Complaint: Suicidal thoughts Stated Complaint: SUICIDAL THOUGHTS Time Seen by Provider: 07/31/17 21:03 Source: Patient Mode of Arrival: Ambulatory Limitations: No limitations Travel/Exposure to [place] Within 21 Days of Symptoms: No - History of Present Illness Initial Comments: The patient is here due to having worsening of her chronic depression and now today has had suicidal ideation. She has a plan to overdose on pills. She states she is depressed due to current health issues. The patient does have a counselor but has been unable to contact them. MD Complaint: Feels depressed, Suicidal ideation Onset/Timin -: Days(s) Associated Psychiatric Symptoms: None History of same: No Associated Symptoms: Denies other symptoms - Jing Coma Scale Eye Response: (4) Open spontaneously Motor Response: (6) Obeys commands Verbal Response: (5) Oriented Jing Total: 15 - Related Data Allergies Allergy/AdvReac Type Severity Reaction Status Date / Time [id number]-[id number] Antimigraine Allergy Severe HEADACHE Verified 07/13/17 12:54 Agents Kxlrhbj-Zuv-Cnt Reductase Allergy Intermediate JOINT ACHES Verified 07/13/17 12: 54 Inhibitor medical tape AdvReac Mild RASH Uncoded 07/13/17 12:54 Review of Systems Constitutional: Denies: Chills, Fever Past Medical History - SOCIAL HISTORY Smoking Status: Former smoker - RESPIRATORY Hx Respiratory Disorders: Yes Hx Bronchitis: Yes Hx Pneumonia: Yes Hx Sleep Apnea: Yes (possibly testing upcoming) Comment:: Home O2-3L at night - CARDIOVASCULAR Hx Cardio Disorders: Yes Hx Chest Pain: No (denies) Comment:: HYPERLIPIDEMIA - NEURO Hx Neuro Disorders: Yes Hx Headaches: Yes (complex migrane) Hx of Migraines: Yes (weekly) - GI Hx GI Disorders: Yes Hx Abdominal Pain: Yes Hx Diverticulitis: Yes Hx Reflux: Yes Hx Liver Disease: Yes (fatty liver denies liver bx) Hx Nausea/Vomiting: Yes (with pain) Hx Ulcer: No (denies) - Hx Genitourinary Disorders: Yes Comment:: polycystic ovary syndrome - ENDOCRINE Hx Endocrine Disorders: Yes Hx Diabetes: Yes - MUSCULOSKELETAL Hx Musculoskeletal Disorders: Yes Hx Fibromyalgia: Yes Hx Gout: Yes Comment:: Buldging disc in neck - PSYCH Hx Psych Problems: Yes Hx Anxiety: Yes Hx Depression: Yes Comment:: PTSD - HEMATOLOGY/ONCOLOGY Hx Hematology/Oncology Disorders: No Hx Anemia: No Family Medical History Any Significant Family History?: Yes Hx Cancer: Mother, Grandparents *Diabetes Comment: aunt Hx Heart Disease: Brother/Sister *Heart Comment: Brother Hx Kidney Disease: Children Physical Exam - General General Appearance: Alert, Oriented x3, Cooperative, No acute distress - Head Head exam: Atraumatic, Normocephalic, Normal inspection - ENT Throat exam: Normal inspection. negative: Tonsillar erythema, Tonsillar exudate - Neck Neck exam: Normal inspection, Full ROM. negative: Tenderness - Respiratory Respiratory exam: Normal lung sounds bilaterally. negative: Respiratory distress - Cardiovascular Cardiovascular Exam: Regular rate, Normal rhythm, Normal heart sounds - GI/Abdominal GI/Abdominal exam: Soft, Normal bowel sounds. negative: Tenderness - Extremities Extremities exam: Normal inspection, Full ROM, Normal capillary refill. negative: Tenderness - Neurological Neurological exam: Alert, Normal gait. negative: Abnormal gait, Motor sensory deficit - Psychiatric Psychiatric exam: Depressed Course Vital Signs 07/31/17 20:56 Temperature 98.0 F Pulse Rate 82 Respiratory 20 Rate Blood Pressure 136/84 Pulse Ox 99 - Reevaluation(s) Reevaluation #1: The patient is resting comfortably. She denies any new problems or issues and is very cooperative. Her workup has been normal so we are consulting with [facility] about a transfer. 07/31/17 23:14 Reevaluation #2: The patient is doing well. She is resting comfortably and we are trying to find psych. placement for her. 08/01/17 00:58 Reevaluation #3: The patient is doing very well at this time. We are still waiting on psych. hospital placement. The patient is very hemodynamically stable and is resting comfortably. 08/01/17 02:11 Medical Decision Making - Data Complexity MDM Data: Labs Ordered and/or Reviewed, EKG Ordered and/or Reviewed - Lab Data Result diagrams: 07/31/17 21:32 07/31/17 21:32 - EKG Data -: EKG Interpreted by Me EKG: No Acute Changes, Normal EKG Disposition Disposition: Transfer Clinical Impression: Suicidal ideation Disposition: Acute Care Hospital Transfer Transfer To: [facility] Reason For Transfer: Psych. Accepting Physician: Dr. Lamar Time Discussed w/Accepting Physician: 06:00 Condition: (2) Stable Forms: Patient Portal Access Time of Disposition: 06:00 Quality - Quality Measures Quality Measures: N/A - Blood Pressure Screening View Details: Yes Does Patient Have Any of the Following: No Blood Pressure Classification: Pre-Hypertensive BP Reading Systolic Measurement: 136 Diastolic Measurement: 84 Screening for High Blood Pressure: < Pre-Hypertensive BP, F/U Documented > [ G8950] Pre-Hypertensive Follow-up Interventions: Referral to alternative/primary care provider.
[2017-07-31 22:06] LABS: BASO % 0.5 % (0-6); EOS % 1.8 % (0-6); GRAN % 63.9 % (47-80); HEMATOCRIT 34.7 % (35.0-47.0); HEMOGLOBIN 10.9 gm/dl (11.6-16.0); LYMPH % 26.7 % (16-45); MEAN CELL VOLUME 89.2 fl (81-97); MEAN CORPUSCULAR HGB CONC 31.4 g/dl (32-36); MEAN PLATELET VOLUME 8.9 fl (7.4-10.4); MONO % 7.1 % (0-9); PLATELET COUNT 522 K/uL (130-400); RED BLOOD COUNT 3.89 M/uL (3.80-5.40); RED CELL DISTRIBUTION WIDTH 13.3 % (11.5-14.5); WHITE BLOOD COUNT W/O DIFF 8.4 K/uL (4.2-12.2)
[2017-07-31 22:13] LABS: AMPHETAMINE SCREEN URINE NOT DETECTED; BARBITURATE SCREEN URINE DETECTED; BENZODIAZEPINE SCREEN URINE NOT DETECTED; COCAINE SCREEN URINE NOT DETECTED; METHADONE SCREEN URINE NOT DETECTED; OPIATE SCREEN URINE NOT DETECTED; THC SCREEN URINE NOT DETECTED; TRICYCLIC ANTIDEPRESSANT SCRN DETECTED
[2017-07-31 22:14] LABS: BILIRUBIN,TOTAL < 0.20 mg/dL (0.2-1.0); BLOOD UREA NITROGEN 7 mg/dL (6-20); CREATININE 0.8 mg/dL (0.5-0.9); EST GLOMERULAR FILTRATION RATE > 60 mL/min; METHAMPHETAMINE SCREEN NOT DETECTED; OXYCODONE SCREEN URINE NOT DETECTED; PHENCYCLIDINE SCREEN URINE NOT DETECTED; PROPOXYPHENE SCREEN URINE NOT DETECTED
[2017-07-31 22:15] LABS: TOTAL PROTEIN 7.1 g/dL (6.6-8.7)
[2017-07-31 22:17] LABS: GLUCOSE,RANDOM 152 mg/dL (74-109)
[2017-07-31 22:19] LABS: ALB/GLOB RATIO 1.5 (1.1-1.8); ALBUMIN 4.3 g/dL (4.0-5.0); ALKALINE PHOSPHATASE 137 U/L (35-104); ALT/SGPT 29 U/L (<33); AST/SGOT 20 U/L (10.0-35.0)
[2017-07-31 22:27] LABS: ACETAMINOPHEN < 5.0 ug/mL (10.0-30.0); SALICYLATE < 0.3 mg/dL (2.8-20)
== END 2017-08-01 08:34 | disposition short-term general hospital (02) ==
LOC: ER 20:48
DX: R45.851 Suicidal ideations (principal); F32.9 Major depressive disorder, single episode, unspecified; E11.9 Type 2 diabetes mellitus without complications; Z87.891 Personal history of nicotine dependence
CPT/HCPCS: 99285 ×2; 85025; 80053; 36416; 82948; 80305; 93005; 93010; G0480 ×3; 80320; 80329

== ENCOUNTER 2017-08-31 22:15 | Emergency (ER) | payer MEDICARE, MEDICAID ==
--- NOTE | 2017-08-31 22:56 | Emergency Department Record ---
History of Present Illness - General Chief Complaint: Headache Migraine Stated Complaint: MIGRAINE Time Seen by Provider: 08/31/17 22:50 Source: Patient Mode of Arrival: Ambulatory Limitations: No limitations - History of Present Illness Initial Comments: 42 yo female presents with migraine symptoms for one day. She has associated nausea and dry heaves. She does have light sensitivity. No fever or trauma. She has a long history of migraines. This is similar. MD Complaint: "Migraine" Onset/Timin -: Hour(s) Onset Description: Gradual Location: Diffuse Severity: Moderate Severity scale (1-10): 8 Quality: Similar to previous headaches Consistency: Constant Improves With: Nothing Worsens With: None Context: Other Associated Symptoms: Other Treatments Prior to Arrival: Migraine medication - Related Data Home Medications Medication Instructions Recorded Confirmed Last Taken Ondansetron [Zofran Odt] 4 mg PO Q8HR 08/31/17 08/31/17 Unknown Prazosin HCl [Minipress] 4 mg PO QHS 08/31/17 08/31/17 Unknown Promethazine HCl [Phenergan] 1 - 2 mg PO DAILY PRN 08/31/17 08/31/17 Unknown Trazodone HCl 50 - 100 mg PO DAILY 08/31/17 08/31/17 Unknown Allergies Allergy/AdvReac Type Severity Reaction Status Date / Time [id number] Antimigraine Allergy Severe HEADACHE Unverified 08/13/17 11:58 Agents Gviwhzm-Puw-Ats Reductase Allergy Intermediate JOINT ACHES Unverified 08/13/17 11:58 Inhibitor medical tape AdvReac Mild RASH Uncoded 07/13/17 12:54 Travel Screening - Travel/Exposure Within Last 30 Days Have you traveled within the last 30 days?: No - Travel/Exposure Within Last Year Have you traveled outside the [place] in the last year?: No - Additonal Travel Details Have you been exposed to anyone with a communicable illness?: No - Travel Symptoms Symptom Screening: None Review of Systems Constitutional: Denies: Chills, Fever, Weakness Eyes: Reports: Photophobia. Denies: Eye discharge, Eye pain ENT: Denies: Congestion, Throat pain Respiratory: Denies: Cough, Dyspnea, Hemoptysis, Stridor, Wheezes Cardiovascular: Denies: Chest pain Endocrine: Denies: Fatigue Gastrointestinal: Reports: Nausea, Vomiting Genitourinary: Denies: Dysuria, Urgency Musculoskeletal: Reports: Myalgia. Denies: Arthralgia, Back pain, Joint swelling, Neck pain Skin: Denies: Bruising, Change in color, Rash Neurological: Reports: Headache. Denies: Abnormal gait, Confusion, Numbness, Paresthesias, Seizure, Tingling, Tremors, Vertigo, Weakness Psychiatric: Reports: Anxiety Hematological/Lymphatic: Denies: Easy bleeding, Easy bruising, Swollen glands Past Medical History - SOCIAL HISTORY Smoking Status: Former smoker Alcohol Use: None Drug Use: None - RESPIRATORY Hx Respiratory Disorders: Yes Hx Bronchitis: Yes Hx Pneumonia: Yes Hx Sleep Apnea: Yes (possibly testing upcoming) Comment:: Home O2-3L at night - CARDIOVASCULAR Hx Cardio Disorders: Yes Hx Chest Pain: No (denies) Comment:: HYPERLIPIDEMIA - NEURO Hx Neuro Disorders: Yes Hx Headaches: Yes (complex migrane) Hx of Migraines: Yes (weekly) - GI Hx GI Disorders: Yes Hx Abdominal Pain: Yes Hx Diverticulitis: Yes Hx Reflux: Yes Hx Liver Disease: Yes (fatty liver denies liver bx) Hx Nausea/Vomiting: Yes (with pain) Hx Ulcer: No (denies) - Hx Genitourinary Disorders: Yes Comment:: polycystic ovary syndrome - ENDOCRINE Hx Endocrine Disorders: Yes Hx Diabetes: Yes - MUSCULOSKELETAL Hx Musculoskeletal Disorders: Yes Hx Fibromyalgia: Yes Hx Gout: Yes Comment:: Buldging disc in neck - PSYCH Hx Psych Problems: Yes Hx Anxiety: Yes Hx Depression: Yes Comment:: PTSD - HEMATOLOGY/ONCOLOGY Hx Hematology/Oncology Disorders: No Hx Anemia: No Family Medical History Any Significant Family History?: Yes Hx Cancer: Mother, Grandparents *Diabetes Comment: aunt Hx Heart Disease: Brother/Sister *Heart Comment: Brother Hx Kidney Disease: Children Physical Exam - General General Appearance: Alert, Oriented x3, Cooperative, No acute distress Limitations: No limitations - Head Head exam: Normal inspection - Eye Eye exam: Normal appearance, PERRL, EOMI. negative: Conjunctival injection, Periorbital swelling, Scleral icterus - ENT ENT exam: Normal exam, Mucous membranes moist, Normal orophraynx Ear exam: Normal external inspection Nasal Exam: Normal inspection Mouth exam: Normal external inspection - Neck Neck exam: Normal inspection, Full ROM. negative: Meningismus, Tenderness - Respiratory Respiratory exam: Normal lung sounds bilaterally. negative: Respiratory distress - Cardiovascular Cardiovascular Exam: Regular rate, Normal rhythm, Normal heart sounds Peripheral Pulses: 2+: Radial (R), Radial (L) - GI/Abdominal GI/Abdominal exam: Soft. negative: Tenderness - Rectal Rectal exam: Deferred - exam: Deferred - Extremities Extremities exam: Normal inspection, Full ROM, Normal capillary refill. negative: Pedal edema, Tenderness - Back Back exam: Denies: CVA tenderness (R), CVA tenderness (L) - Neurological Neurological exam: CN II-XII intact, Normal gait, Oriented X3. negative: Abnormal gait, Alert, Altered - Psychiatric Psychiatric exam: Normal affect, Normal mood - Skin Skin exam: Dry, Intact, Normal color, Warm Course Vital Signs 08/31/17 22:32 Temperature 99.1 F Pulse Rate 85 Respiratory 20 Rate Blood Pressure 127/89 Pulse Ox 99 - Reevaluation(s) Reevaluation #1: 08/31/17 22:55 No acute changes on the vitals 08/31/17 23:58 The patient is doing much better, nausea and headache controlled Disposition Disposition: Discharge Clinical Impression: Migraine Disposition: Home, Self-Care Condition: (1) Good Instructions: Migraine Headache (ED) Additional Instructions: Take the prescriptions provided today as directed. Call your family doctor Return to ED if your symptoms worsen or if you have any new concerns. Call to schedule the next available appointment for a recheck. Review the final Emergency Record and test results with your doctor on follow up Forms: Patient Portal Access Time of Disposition: 23:58 Quality - Quality Measures Quality Measures: N/A, Headache (All Ages) - Headache: Neuroimaging Quality Measure: Measure #419: Overuse of Neuroimaging ICD10 Codes Entered: Yes Neurological Exam: Patient had a normal neurological exam. [G9535] Headache: Use of Neuroimaging: < CTA, CT, MRA or MRI was NOT ordered > [G9534] - Blood Pressure Screening Does Patient Have Any of the Following: No Blood Pressure Classification: Pre-Hypertensive BP Reading Systolic Measurement: 127 Diastolic Measurement: 89 Screening for High Blood Pressure: < Pre-Hypertensive BP, F/U Documented > [ G8950] Pre-Hypertensive Follow-up Interventions: Referral to alternative/primary care provider.
[2017-08-31] MEDS: ONDANSETRON 4 MG ODT TABLET SL ONE (23:00)
[2017-08-31] MEDS: KETOROLAC 30 MG/ML VIAL IM ONE (23:01)
[2017-08-31] MEDS: PROMETHAZINE HCL 25 MG/ML VIAL IM ONE (23:28)
== END 2017-09-01 00:08 | disposition home or self-care (01) ==
LOC: ER 22:15
DX: G43.909 Migraine, unspecified, not intractable, without status migrainosus (principal); R11.0 Nausea; E11.9 Type 2 diabetes mellitus without complications; Z87.891 Personal history of nicotine dependence
CPT/HCPCS: 96372; 99283; J1885; J2550

== ENCOUNTER 2017-09-06 00:41 | Emergency (ER) | payer MEDICARE, MEDICAID ==
[2017-09-06] MEDS ORDERED: FLUCONAZOLE 100 MG TABLET PO ONE (01:24)
[2017-09-06 01:29] LABS: URINE APPEARANCE CLEAR; URINE BILIRUBIN NEGATIVE (NEGATIVE); URINE BLOOD SMALL (NEGATIVE); URINE COLOR YELLOW; URINE GLUCOSE (UA) NEGATIVE (NEGATIVE); URINE KETONE NEGATIVE (NEGATIVE); URINE LEUKOCYTE ESTERASE NEGATIVE (NEGATIVE); URINE NITRITE NEGATIVE (NEGATIVE); URINE PROTEIN NEGATIVE (NEGATIVE); URINE UROBILINOGEN 0.2 E.U./dL (0.20 - 1.00)
[2017-09-06 01:40] LABS: URINE BACTERIA NONE SEEN; URINE EPITHELIAL CELLS 0 - 2 (FEW); URINE WBC 0 - 2 (0-2/hpf)
--- NOTE | 2017-09-06 01:47 | Emergency Department Record ---
History of Present Illness - General Chief complaint: Female Urogenital Problem Stated complaint: YEAST INFECTION Time Seen by Provider: 09/06/17 01:18 Source: Patient Mode of Arrival: Ambulatory Limitations: No limitations - History of Present Illness Initial comments: pt has irritation with itching in the vaginal area. she has some suprapubic discomfort MD Complaint: Dysuria Onset/Timin -: Days(s) Location: [place] Radiation: Non-radiating Severity: Moderate Severity scale (1-10): 6 Consistency: Constant, Getting worse Improves with: None Worsens with: Bathing Patient : No Associated Symptoms: Abdominal pain, Nausea/vomiting - Related Data Sexually active: No Allergies Allergy/AdvReac Type Severity Reaction Status Date / Time [id number] Antimigraine Allergy Severe HEADACHE Unverified 08/13/17 11:58 Agents Niyqogz-Qrh-Qfa Reductase Allergy Intermediate JOINT ACHES Unverified 08/13/17 11:58 Inhibitor medical tape AdvReac Mild RASH Uncoded 07/13/17 12:54 Travel Screening - Travel/Exposure Within Last 30 Days Have you traveled within the last 30 days?: No - Travel Symptoms Symptom Screening: None Review of Systems Reviewed: No additional complaints except as noted below Constitutional: Reports: As per HPI. Denies: Chills, Fever, Malaise, Night sweats, Weakness, Weight change Eyes: Reports: As per HPI. Denies: Eye discharge, Eye pain, Photophobia, Vision change ENT: Reports: As per HPI. Denies: Congestion, Dental pain, Ear pain, Epistaxis , Hearing loss, Throat pain Respiratory: Reports: As per HPI. Denies: Cough, Dyspnea, Hemoptysis, Stridor, Wheezes Cardiovascular: Reports: As per HPI. Denies: Arrhythmia, Chest pain, Dyspnea on exertion, Edema, Murmurs, Orthopnea, Palpitations, Paroxysmal nocturnal dyspnea, Rheumatic Fever, Syncope Endocrine: Reports: As per HPI. Denies: Fatigue, Heat or cold intolerance, Polydipsia, Polyuria Gastrointestinal: Reports: As per HPI. Denies: Abdominal pain, Constipation, Diarrhea, Hematemesis, Hematochezia, Melena, Nausea, Vomiting Genitourinary: Reports: As per HPI. Denies: Abnormal menses, Discharge, Dyspareunia, Dysuria, Frequency, Hematuria, Incontinence, Retention, Urgency Musculoskeletal: Reports: As per HPI. Denies: Arthralgia, Back pain, Gout, Joint swelling, Myalgia, Neck pain Skin: Reports: As per HPI. Denies: Bruising, Change in color, Change in hair/ nails, Lesions, Pruritus, Rash Neurological: Reports: As per HPI. Denies: Abnormal gait, Confusion, Headache, Numbness, Paresthesias, Seizure, Tingling, Tremors, Vertigo, Weakness Psychiatric: Reports: As per HPI. Denies: Anxiety, Auditory hallucinations, Depression, Homicidal thoughts, Suicidal thoughts, Visual hallucinations Hematological/Lymphatic: Reports: As per HPI. Denies: Anemia, Blood Clots, Easy bleeding, Easy bruising, Swollen glands Past Medical History - SOCIAL HISTORY Smoking Status: Former smoker Alcohol Use: None Drug Use: None - RESPIRATORY Hx Respiratory Disorders: Yes Hx Bronchitis: Yes Hx Pneumonia: Yes Hx Sleep Apnea: Yes (possibly testing upcoming) Comment:: Home O2-3L at night - CARDIOVASCULAR Hx Cardio Disorders: Yes Hx Chest Pain: No (denies) Comment:: HYPERLIPIDEMIA - NEURO Hx Neuro Disorders: Yes Hx Headaches: Yes (complex migrane) Hx of Migraines: Yes (weekly) - GI Hx GI Disorders: Yes Hx Abdominal Pain: Yes Hx Diverticulitis: Yes Hx Reflux: Yes Hx Liver Disease: Yes (fatty liver denies liver bx) Hx Nausea/Vomiting: Yes (with pain) Hx Ulcer: No (denies) - Hx Genitourinary Disorders: Yes Comment:: polycystic ovary syndrome - ENDOCRINE Hx Endocrine Disorders: Yes Hx Diabetes: Yes - MUSCULOSKELETAL Hx Musculoskeletal Disorders: Yes Hx Fibromyalgia: Yes Hx Gout: Yes Comment:: Buldging disc in neck - PSYCH Hx Psych Problems: Yes Hx Anxiety: Yes Hx Depression: Yes Comment:: PTSD - HEMATOLOGY/ONCOLOGY Hx Hematology/Oncology Disorders: No Hx Anemia: No Family Medical History Any Significant Family History?: Yes Hx Cancer: Mother, Grandparents *Diabetes Comment: aunt Hx Heart Disease: Brother/Sister *Heart Comment: Brother Hx Kidney Disease: Children Physical Exam - General General Appearance: Alert, Oriented x3, Cooperative, Mild distress - Head Head exam: Normal inspection - Eye Eye exam: Normal appearance, PERRL, EOMI Pupils: Normal accommodation - ENT ENT exam: Normal exam, Mucous membranes moist, Normal external ear exam, Normal orophraynx Ear exam: Normal external inspection. negative: External canal tenderness Nasal Exam: Normal inspection. negative: Discharge, Sinus tenderness Mouth exam: Normal external inspection, Tongue normal Teeth exam: Normal inspection. negative: Dental caries Throat exam: Normal inspection. negative: Tonsillar erythema, Tonsillar exudate - Neck Neck exam: Normal inspection, Full ROM. negative: Tenderness - Respiratory Respiratory exam: Normal lung sounds bilaterally. negative: Respiratory distress - Cardiovascular Cardiovascular Exam: Regular rate, Normal rhythm, Normal heart sounds - GI/Abdominal GI/Abdominal exam: Soft, Normal bowel sounds. negative: Tenderness - Rectal Rectal exam: Deferred - exam: Vaginal erythema - Extremities Extremities exam: Normal inspection, Full ROM, Normal capillary refill. negative: Tenderness - Back Back exam: Reports: Normal inspection, Full ROM. Denies: Muscle spasm, Rash noted, Tenderness - Neurological Neurological exam: Alert, CN II-XII intact, Normal gait, Oriented X3 - Psychiatric Psychiatric exam: Normal affect, Normal mood - Skin Skin exam: Dry, Intact, Normal color, Warm Course Vital Signs 09/06/17 00:45 Temperature 98.1 F Pulse Rate [ 86 Pulse Ox Probe] Respiratory 20 Rate Blood Pressure 125/76 [Left Arm] Pulse Ox 97 Medical Decision Making - Lab Data Lab Results 09/06/17 Range/Units 01:32 Urine Color Yellow Urine Appearance Clear Urine pH 6.0 (5.0-8.0) Ur Specific [place] 1.025 (1.002-1.030) Urine Protein Negative (NEGATIVE) Urine Glucose (UA) Negative (NEGATIVE) Urine Ketones Negative (NEGATIVE) Urine Blood Small H (NEGATIVE) Urine Nitrite Negative (NEGATIVE) Urine Bilirubin Negative (NEGATIVE) Urine Urobilinogen 0.2 (0.20 - 1.00) E.U./dL Ur Leukocyte Esterase Negative (NEGATIVE) Urine RBC 3 - 6 (NONE SEEN) Urine WBC 0 - 2 (0-2/hpf) Ur Epithelial Cells 0 - 2 (FEW) Urine Bacteria None seen Disposition Disposition: Discharge Clinical Impression: Candidal vulvovaginitis Disposition: Home, Self-Care Condition: (1) Good Instructions: Vulvovaginal Candidiasis (ED) Additional Instructions: follow up with family doctor. return sooner if worse. if abd pain worsen be rechecked. Quality - Quality Measures Quality Measures: N/A - Blood Pressure Screening Does Patient Have Any of the Following: No Blood Pressure Classification: Pre-Hypertensive BP Reading Systolic Measurement: 125 Diastolic Measurement: 76 Screening for High Blood Pressure: < Pre-Hypertensive BP, F/U Documented > [ G8950] Pre-Hypertensive Follow-up Interventions: Follow-up with rescreen every year.
== END 2017-09-06 02:03 | disposition home or self-care (01) ==
LOC: ER 00:41
DX: B37.3 Candidiasis of vulva and vagina (principal); R30.0 Dysuria; R11.2 Nausea with vomiting, unspecified; G89.29 Other chronic pain; R10.31 Right lower quadrant pain; E11.9 Type 2 diabetes mellitus without complications; Z87.891 Personal history of nicotine dependence
CPT/HCPCS: 80053; 81001; 83690; 85025; 99283

== ENCOUNTER 2017-09-06 19:09 | Emergency (ER) | payer MEDICARE, MEDICAID ==
[2017-09-06] MEDS ORDERED: ACETAMINOPHEN 325 MG TAB PO ONE (19:20)
--- NOTE | 2017-09-06 19:27 | Emergency Department Record ---
History of Present Illness - General Chief Complaint: Abdominal Pain Stated Complaint: ABDOMINAL PAIN Time Seen by Provider: 09/06/17 19:11 Source: Patient Mode of Arrival: Ambulatory Limitations: No limitations - History of Present Illness Initial Comments: The patient is here due to a one day hx of AP. The pain is in the mid abdomen and RLQ and is an aching cramping pain. She denies any nausea or vomiting but has had 3 loose stools today but with no blood. The patient was in the ER 18 hours ago here for similar issues and had a normal UA and was diagnosed with a yeast infection. Since she is still having the cramping she was told to come back to the ER if not better. The patient has had a Choly, Appy, and GILL and did have a Lap a few months ago due to adhesions. MD Complaint: Abdominal pain Onset/Timin -: Days(s) Severity scale (1-10): 5 Quality: Aching, Cramping Consistency: Constant Improves With: Nothing Worsens With: Nothing Associated Symptoms: Nausea - Related Data Hx Age of Menopause: 37 Allergies Allergy/AdvReac Type Severity Reaction Status Date / Time [id number] Antimigraine Allergy Severe HEADACHE Unverified 08/13/17 11:58 Agents Otlkrzh-Ctw-Qbv Reductase Allergy Intermediate JOINT ACHES Unverified 08/13/17 11:58 Inhibitor medical tape AdvReac Mild RASH Uncoded 07/13/17 12:54 Travel Screening - Travel/Exposure Within Last 30 Days Have you traveled within the last 30 days?: No Review of Systems Constitutional: Denies: Chills, Fever Eyes: Denies: Eye discharge ENT: Denies: Congestion Respiratory: Denies: Cough, Dyspnea Past Medical History - SOCIAL HISTORY Smoking Status: Former smoker Alcohol Use: None Drug Use: None - RESPIRATORY Hx Respiratory Disorders: Yes Hx Bronchitis: Yes Hx Pneumonia: Yes Hx Sleep Apnea: Yes (possibly testing upcoming) Comment:: Home O2-3L at night - CARDIOVASCULAR Hx Cardio Disorders: Yes Hx Chest Pain: No (denies) Comment:: HYPERLIPIDEMIA - NEURO Hx Neuro Disorders: Yes Hx Headaches: Yes (complex migrane) Hx of Migraines: Yes (weekly) - GI Hx GI Disorders: Yes Hx Abdominal Pain: Yes Hx Diverticulitis: Yes Hx Reflux: Yes Hx Liver Disease: Yes (fatty liver denies liver bx) Hx Nausea/Vomiting: Yes (with pain) Hx Ulcer: No (denies) - Hx Genitourinary Disorders: Yes Comment:: polycystic ovary syndrome - ENDOCRINE Hx Endocrine Disorders: Yes Hx Diabetes: Yes - MUSCULOSKELETAL Hx Musculoskeletal Disorders: Yes Hx Fibromyalgia: Yes Hx Gout: Yes Comment:: Buldging disc in neck - PSYCH Hx Psych Problems: Yes Hx Anxiety: Yes Hx Depression: Yes Comment:: PTSD - HEMATOLOGY/ONCOLOGY Hx Hematology/Oncology Disorders: No Hx Anemia: No Family Medical History Any Significant Family History?: Yes Hx Cancer: Mother, Grandparents *Diabetes Comment: aunt Hx Heart Disease: Brother/Sister *Heart Comment: Brother Hx Kidney Disease: Children Physical Exam - General General Appearance: Alert, Oriented x3, Cooperative, No acute distress - Head Head exam: Atraumatic, Normocephalic, Normal inspection - Eye Eye exam: Normal appearance, PERRL - Neck Neck exam: Normal inspection, Full ROM. negative: Tenderness - Respiratory Respiratory exam: Normal lung sounds bilaterally. negative: Respiratory distress - Cardiovascular Cardiovascular Exam: Regular rate, Normal rhythm, Normal heart sounds - GI/Abdominal GI/Abdominal exam: Soft, Normal bowel sounds, Tenderness (There is very mild RLQ tenderness but the abdome is very soft.), Other (The patient's tenderness is in the same site as her chronic abdominal pain has presented multiple times in the past.). negative: Distended, Guarding, Rebound, Rigid Course Vital Signs 09/06/17 19:15 Temperature 98.0 F Pulse Rate [ 84 Pulse Ox Probe] Respiratory 18 Rate Blood Pressure 119/74 [Left Arm] Pulse Ox 98 - Reevaluation(s) Reevaluation #1: The patient now states she is concerned about her possible yeast infection. She denies any vaginal discharge but states she is having mild itching. I then offered to perform a full vaginal exam including cultures and swabs but the patient then became angry. She stated that she lost trust in me so she just wanted to leave. I explained to her that by NOT doing the exam that I really do not know what issue she is having with her vagina. She then stated she wanted to leave AMA. I told her that we cannot be held liable for not properly diagnosing her issues without performing the proper testing. She understands the risks and left AMA. 09/06/17 20:00 Medical Decision Making - Data Complexity MDM Data: Labs Ordered and/or Reviewed - Lab Data Result diagrams: 09/06/17 19:27 09/06/17 19:27 Disposition Disposition: Discharge Clinical Impression: Chronic pain Qualifiers: Chronic pain type: other chronic pain Qualified Code(s): G89.29 - Other chronic pain Disposition: Home, Self-Care Condition: (2) Stable Instructions: Abdominal Pain (ED) Forms: Patient Portal Access Time of Disposition: 20:05 Quality - Quality Measures Quality Measures: N/A - Blood Pressure Screening View Details: Yes Does Patient Have Any of the Following: No Blood Pressure Classification: Normal BP Reading Systolic Measurement: 119 Diastolic Measurement: 74 Screening for High Blood Pressure: < Normal BP, F/U Not Required > [G8783]
[2017-09-06] MEDS ORDERED: ONDANSETRON 4 MG ODT TABLET SL ONE (19:31)
[2017-09-06 19:34] LABS: BASO % 0.5 % (0-6); EOS % 1.2 % (0-6); HEMATOCRIT 35.2 % (35.0-47.0); HEMOGLOBIN 11.1 gm/dl (11.6-16.0); MEAN CELL VOLUME 85.9 fl (81-97); MEAN CORPUSCULAR HGB CONC 31.5 g/dl (32-36); MEAN PLATELET VOLUME 8.7 fl (7.4-10.4); MONO % 6.3 % (0-9); PLATELET COUNT 531 K/uL (130-400); RED CELL DISTRIBUTION WIDTH 13.5 % (11.5-14.5); WHITE BLOOD COUNT W/O DIFF 10.9 K/uL (4.2-12.2)
[2017-09-06 19:46] LABS: BILIRUBIN,TOTAL 0.2 mg/dL (0.2-1.0); CREATININE 1.1 mg/dL (0.5-0.9)
[2017-09-06 19:47] LABS: TOTAL PROTEIN 7.4 g/dL (6.6-8.7)
[2017-09-06 19:52] LABS: ALB/GLOB RATIO 1.6 (1.1-1.8); ALBUMIN 4.6 g/dL (4.0-5.0)
== END 2017-09-06 20:07 | disposition home or self-care (01) ==
LOC: ER 19:09
DX: G89.29 Other chronic pain (principal); R10.31 Right lower quadrant pain; N89.8 Other specified noninflammatory disorders of vagina; R11.0 Nausea; Z87.891 Personal history of nicotine dependence
CPT/HCPCS: 80053; 83690; 85025

== ENCOUNTER 2017-09-14 15:58 | Emergency (ER) | payer MEDICARE, MEDICAID ==
[2017-09-14] MEDS: KETOROLAC 30 MG/ML VIAL IM ONE (16:33)
[2017-09-14] MEDS: PROMETHAZINE HCL 25 MG/ML VIAL IM ONE (16:33)
--- NOTE | 2017-09-14 16:37 | Emergency Department Record ---
History of Present Illness - General Chief Complaint: Headache Migraine Stated Complaint: MIGRAINE Time Seen by Provider: 09/14/17 16:09 Source: Patient Mode of Arrival: Ambulatory Limitations: No limitations - History of Present Illness Initial Comments: pt is having her typical migraine on the left side of her head. she has taken her home meds without relief MD Complaint: "Migraine" Onset Description: Gradual Location: Facial, Left Severity: Severe Quality: Aching Consistency: Constant Improves With: Nothing Worsens With: Light Associated Symptoms: Nausea Treatments Prior to Arrival: Ibuprofen, Migraine medication - Related Data Allergies Allergy/AdvReac Type Severity Reaction Status Date / Time [id number] Antimigraine Allergy Severe HEADACHE Verified 09/14/17 16:01 Agents Swrvsut-Cgx-Kkt Reductase Allergy Intermediate JOINT ACHES Verified 09/14/17 16: 01 Inhibitor medical tape AdvReac Mild RASH Uncoded 07/13/17 12:54 Travel Screening - Travel/Exposure Within Last 30 Days Have you traveled within the last 30 days?: No Review of Systems Reviewed: No additional complaints except as noted below Constitutional: Reports: As per HPI. Denies: Chills, Fever, Malaise, Night sweats, Weakness, Weight change Eyes: Reports: As per HPI. Denies: Eye discharge, Eye pain, Photophobia, Vision change ENT: Reports: As per HPI. Denies: Congestion, Dental pain, Ear pain, Epistaxis , Hearing loss, Throat pain Respiratory: Reports: As per HPI. Denies: Cough, Dyspnea, Hemoptysis, Stridor, Wheezes Cardiovascular: Reports: As per HPI. Denies: Arrhythmia, Chest pain, Dyspnea on exertion, Edema, Murmurs, Orthopnea, Palpitations, Paroxysmal nocturnal dyspnea, Rheumatic Fever, Syncope Endocrine: Reports: As per HPI. Denies: Fatigue, Heat or cold intolerance, Polydipsia, Polyuria Gastrointestinal: Reports: As per HPI. Denies: Abdominal pain, Constipation, Diarrhea, Hematemesis, Hematochezia, Melena, Nausea, Vomiting Genitourinary: Reports: As per HPI. Denies: Abnormal menses, Discharge, Dyspareunia, Dysuria, Frequency, Hematuria, Incontinence, Retention, Urgency Musculoskeletal: Reports: As per HPI. Denies: Arthralgia, Back pain, Gout, Joint swelling, Myalgia, Neck pain Skin: Reports: As per HPI. Denies: Bruising, Change in color, Change in hair/ nails, Lesions, Pruritus, Rash Neurological: Reports: As per HPI, Headache. Denies: Abnormal gait, Confusion, Numbness, Paresthesias, Seizure, Tingling, Tremors, Vertigo, Weakness Psychiatric: Reports: As per HPI. Denies: Anxiety, Auditory hallucinations, Depression, Homicidal thoughts, Suicidal thoughts, Visual hallucinations Hematological/Lymphatic: Reports: As per HPI. Denies: Anemia, Blood Clots, Easy bleeding, Easy bruising, Swollen glands Past Medical History - SOCIAL HISTORY Smoking Status: Former smoker Alcohol Use: None Drug Use: None - RESPIRATORY Hx Respiratory Disorders: Yes Hx Bronchitis: Yes Hx Pneumonia: Yes Hx Sleep Apnea: Yes (possibly testing upcoming) Comment:: Home O2-3L at night - CARDIOVASCULAR Hx Cardio Disorders: Yes Hx Chest Pain: No (denies) Comment:: HYPERLIPIDEMIA - NEURO Hx Neuro Disorders: Yes Hx Headaches: Yes (complex migrane) Hx of Migraines: Yes (weekly) - GI Hx GI Disorders: Yes Hx Abdominal Pain: Yes Hx Diverticulitis: Yes Hx Reflux: Yes Hx Liver Disease: Yes (fatty liver denies liver bx) Hx Nausea/Vomiting: Yes (with pain) Hx Ulcer: No (denies) - Hx Genitourinary Disorders: Yes Comment:: polycystic ovary syndrome - ENDOCRINE Hx Endocrine Disorders: Yes Hx Diabetes: Yes - MUSCULOSKELETAL Hx Musculoskeletal Disorders: Yes Hx Fibromyalgia: Yes Hx Gout: Yes Comment:: Buldging disc in neck - PSYCH Hx Psych Problems: Yes Hx Anxiety: Yes Hx Depression: Yes Comment:: PTSD - HEMATOLOGY/ONCOLOGY Hx Hematology/Oncology Disorders: No Hx Anemia: No Family Medical History Any Significant Family History?: Yes Hx Cancer: Mother, Grandparents *Diabetes Comment: aunt Hx Heart Disease: Brother/Sister *Heart Comment: Brother Hx Kidney Disease: Children Physical Exam - General General Appearance: Alert, Oriented x3, Cooperative, Mild distress - Head Head exam: Normal inspection - Eye Eye exam: Normal appearance, PERRL, EOMI Pupils: Normal accommodation - ENT ENT exam: Normal exam, Mucous membranes moist, Normal external ear exam, Normal orophraynx Ear exam: Normal external inspection. negative: External canal tenderness Nasal Exam: Normal inspection. negative: Discharge, Sinus tenderness Mouth exam: Normal external inspection, Tongue normal Teeth exam: Normal inspection. negative: Dental caries Throat exam: Normal inspection. negative: Tonsillar erythema, Tonsillar exudate - Neck Neck exam: Normal inspection, Full ROM. negative: Tenderness - Respiratory Respiratory exam: Normal lung sounds bilaterally. negative: Respiratory distress - Cardiovascular Cardiovascular Exam: Regular rate, Normal rhythm, Normal heart sounds - GI/Abdominal GI/Abdominal exam: Soft, Normal bowel sounds. negative: Tenderness - Rectal Rectal exam: Deferred - exam: Deferred - Extremities Extremities exam: Normal inspection, Full ROM, Normal capillary refill. negative: Tenderness - Back Back exam: Reports: Normal inspection, Full ROM. Denies: Muscle spasm, Rash noted, Tenderness - Neurological Neurological exam: Alert, CN II-XII intact, Normal gait, Oriented X3 - Psychiatric Psychiatric exam: Normal affect, Normal mood - Skin Skin exam: Dry, Intact, Normal color, Warm Course Vital Signs 09/14/17 16:01 Temperature 98.7 F Pulse Rate 98 H Respiratory 18 Rate Blood Pressure 134/102 Pulse Ox 98 Disposition Disposition: Discharge Clinical Impression: Migraine Qualifiers: Migraine type: unspecified Status migrainosus presence: without status migrainosus Intractability: not intractable Qualified Code(s): G43.909 - Migraine, unspecified, not intractable, without status migrainosus Disposition: Home, Self-Care Condition: (1) Good Instructions: Migraine Headache (ED) Additional Instructions: follow up with family doctor. return sooner if worse Forms: Patient Portal Access Quality - Quality Measures Quality Measures: Headache (All Ages) - Headache: Neuroimaging Quality Measure: Measure #419: Overuse of Neuroimaging ICD10 Codes Entered: Yes Neurological Exam: Patient had a normal neurological exam. [G9535] Headache: Use of Neuroimaging: < CTA, CT, MRA or MRI was NOT ordered > [G9534] - Blood Pressure Screening Does Patient Have Any of the Following: No Blood Pressure Classification: Hypertensive Reading Systolic Measurement: 134 Diastolic Measurement: 102 Screening for High Blood Pressure: < First Hypertensive BP, F/U Documented > [ G8950] First Hypertensive Follow-up Interventions: Follow-up with rescreen GT 1 day and LT 4 weeks.
[2017-09-14] MEDS: ORPHENADRINE CITRATE 60MG/2ML VIAL IM ONE (17:51)
[2017-09-14] MEDS: DIPHENHYDRAMINE HCL 50 MG/ML VIAL IM ONE (18:20)
== END 2017-09-14 18:45 | disposition home or self-care (01) ==
LOC: ER 15:58
DX: G43.909 Migraine, unspecified, not intractable, without status migrainosus (principal); R11.0 Nausea; E11.9 Type 2 diabetes mellitus without complications; Z87.891 Personal history of nicotine dependence
CPT/HCPCS: 99283 ×2; 96372; J1885; J1200; J2360; J2550

== ENCOUNTER 2017-09-15 14:14 | Emergency (ER) | payer MEDICARE, MEDICAID ==
[2017-09-15] MEDS ORDERED: KETOROLAC 30 MG/ML VIAL IVP ONE (15:16)
[2017-09-15] MEDS ORDERED: 0.9 % SODIUM CHLORIDE 1,000 ML BAG IV ONE (15:16)
[2017-09-15] MEDS ORDERED: PROMETHAZINE HCL 25 MG in 0.9 % SODIUM CHLORIDE 100ML 100 ML IVPB ONE (15:16)
[2017-09-15] MEDS ORDERED: DIPHENHYDRAMINE HCL 50 MG/ML VIAL IVP ONE (15:16)
[2017-09-15] MEDS ORDERED: ORPHENADRINE CITRATE 60MG/2ML VIAL IM ONE (15:50)
--- NOTE | 2017-09-15 16:16 | Emergency Department Record ---
History of Present Illness - General Chief Complaint: Headache Migraine Stated Complaint: MIGRAINE Time Seen by Provider: 09/15/17 15:12 Mode of Arrival: Ambulatory - History of Present Illness Onset/Timin -: Days(s) Onset Description: Awoke with symptoms Location: Frontal, Occipital, Retro-orbital, Right, Temporal Severity: Moderate Severity scale (1-10): 10 Quality: Throbbing Consistency: Constant Improves With: Nothing Worsens With: Light, Noise Associated Symptoms: Photophobia, Sensitivity to sound Treatments Prior to Arrival: Ibuprofen, Migraine medication, Other - Related Data Allergies Allergy/AdvReac Type Severity Reaction Status Date / Time [id number] Antimigraine Allergy Severe HEADACHE Verified 09/15/17 14:52 Agents Iiiiyhv-Sjb-Uil Reductase Allergy Intermediate JOINT ACHES Verified 09/15/17 14: 52 Inhibitor medical tape AdvReac Mild RASH Uncoded 07/13/17 12:54 Travel Screening - Travel/Exposure Within Last 30 Days Have you traveled within the last 30 days?: No - Travel/Exposure Within Last Year Have you traveled outside the [place] in the last year?: No - Additonal Travel Details Have you been exposed to anyone with a communicable illness?: No - Travel Symptoms Symptom Screening: None Past Medical History - SOCIAL HISTORY Smoking Status: Former smoker Alcohol Use: None Drug Use: None - RESPIRATORY Hx Respiratory Disorders: Yes Hx Bronchitis: Yes Hx Pneumonia: Yes Hx Sleep Apnea: Yes (possibly testing upcoming) Comment:: Home O2-3L at night - CARDIOVASCULAR Hx Cardio Disorders: Yes Hx Chest Pain: No (denies) Comment:: HYPERLIPIDEMIA - NEURO Hx Neuro Disorders: Yes Hx Headaches: Yes (complex migrane) Hx of Migraines: Yes (weekly) - GI Hx GI Disorders: Yes Hx Abdominal Pain: Yes Hx Diverticulitis: Yes Hx Reflux: Yes Hx Liver Disease: Yes (fatty liver denies liver bx) Hx Nausea/Vomiting: Yes (with pain) Hx Ulcer: No (denies) - Hx Genitourinary Disorders: Yes Comment:: polycystic ovary syndrome - ENDOCRINE Hx Endocrine Disorders: Yes Hx Diabetes: Yes - MUSCULOSKELETAL Hx Musculoskeletal Disorders: Yes Hx Fibromyalgia: Yes Hx Gout: Yes Comment:: Buldging disc in neck - PSYCH Hx Psych Problems: Yes Hx Anxiety: Yes Hx Depression: Yes Comment:: PTSD - HEMATOLOGY/ONCOLOGY Hx Hematology/Oncology Disorders: No Hx Anemia: No Family Medical History Any Significant Family History?: Yes Hx Cancer: Mother, Grandparents *Diabetes Comment: aunt Hx Heart Disease: Brother/Sister *Heart Comment: Brother Hx Kidney Disease: Children Physical Exam - General General Appearance: Alert, Oriented x3, Cooperative, No acute distress - Head Head exam: Normal inspection - Eye Eye exam: Normal appearance, PERRL Pupils: Normal accommodation - ENT ENT exam: Normal exam, Mucous membranes moist, Normal external ear exam, Normal orophraynx, TM's normal bilaterally Ear exam: Normal external inspection. negative: External canal tenderness Nasal Exam: Normal inspection. negative: Discharge, Sinus tenderness Mouth exam: Normal external inspection, Tongue normal Teeth exam: Normal inspection. negative: Dental caries Throat exam: Normal inspection. negative: Tonsillar erythema, Tonsillar exudate - Neck Neck exam: Normal inspection, Full ROM. negative: Tenderness - Respiratory Respiratory exam: Normal lung sounds bilaterally. negative: Respiratory distress - Cardiovascular Cardiovascular Exam: Regular rate, Normal rhythm, Normal heart sounds - GI/Abdominal GI/Abdominal exam: Soft, Normal bowel sounds. negative: Tenderness - Rectal Rectal exam: Deferred - exam: Deferred - Extremities Extremities exam: Normal inspection, Full ROM, Normal capillary refill. negative: Tenderness - Back Back exam: Reports: Normal inspection, Full ROM. Denies: Muscle spasm, Rash noted, Tenderness - Neurological Neurological exam: Alert, Normal gait, Oriented X3, Reflexes normal - Psychiatric Psychiatric exam: Normal affect, Normal mood - Skin Skin exam: Dry, Intact, Normal color, Warm Course Vital Signs 09/15/17 14:55 Temperature 97.8 F Pulse Rate 91 H Respiratory 18 Rate Blood Pressure 121/81 Pulse Ox 98 - Reevaluation(s) Reevaluation #1: 09/15/17 16:13 feeling some better and will have her continue to use her home meds and follow up with primary Disposition Clinical Impression: Migraine Qualifiers: Migraine type: unspecified Status migrainosus presence: without status migrainosus Intractability: not intractable Qualified Code(s): G43.909 - Migraine, unspecified, not intractable, without status migrainosus Disposition: Home, Self-Care Condition: (1) Good Instructions: Migraine Headache (ED) Additional Instructions: follow up with Primary in 1-2 day continue home meds Forms: Patient Portal Access Time of Disposition: 16:28 Quality - Quality Measures Quality Measures: N/A - Headache: Neuroimaging ICD10 Codes Entered: No - Blood Pressure Screening Does Patient Have Any of the Following: No Blood Pressure Classification: Pre-Hypertensive BP Reading Systolic Measurement: 121 Diastolic Measurement: 81 Screening for High Blood Pressure: < Pre-Hypertensive BP, F/U Documented > [ G8950] Pre-Hypertensive Follow-up Interventions: Referral to alternative/primary care provider.
== END 2017-09-15 16:39 | disposition home or self-care (01) ==
LOC: ER 14:14
DX: G43.909 Migraine, unspecified, not intractable, without status migrainosus (principal); H53.149 Visual discomfort, unspecified; Z87.891 Personal history of nicotine dependence
CPT/HCPCS: 99284 ×2; 96374; 96372; 96375; J1885; J1200; J2360; J2550; J7030

== ENCOUNTER 2017-09-23 06:26 | Emergency (ER) | payer MEDICARE, MEDICAID ==
[2017-09-23] MEDS ORDERED: DIPHENHYDRAMINE HCL 50 MG/ML VIAL IM ONE (06:39)
[2017-09-23] MEDS ORDERED: KETOROLAC 60 MG/2 ML VIAL IM STA (06:39)
--- NOTE | 2017-09-23 06:45 | Emergency Department Record ---
History of Present Illness - General Chief Complaint: Headache Migraine Stated Complaint: MIGRAINE Time Seen by Provider: 09/23/17 06:39 Source: Patient Mode of Arrival: Ambulatory Limitations: No limitations - History of Present Illness Initial Comments: 42 yo female presents to ED for evaluation of recurrent headache symptoms. Patient reports that her headache began yesterday, she did see her PCP who recommended taking Ibuprofen and her Fiorcet for her headache symptoms. Patient denies fevers, chills, or vomiting symptoms. Patient denies neck pain or stiffness symptoms. MD Complaint: Headache Onset/Timin -: Days(s) Onset Description: Gradual Location: Diffuse, Neck Severity scale (1-10): 8 Quality: Sharp, Similar to previous headaches Consistency: Constant Improves With: Medication Worsens With: Light, Movement of head/neck, Noise Associated Symptoms: Nausea, Photophobia, Sensitivity to sound Treatments Prior to Arrival: Migraine medication - Related Data Allergies Allergy/AdvReac Type Severity Reaction Status Date / Time [id number] Antimigraine Allergy Severe HEADACHE Verified 09/23/17 06:30 Agents Epagpto-Xfr-Wnq Reductase Allergy Intermediate JOINT ACHES Verified 09/23/17 06: 30 Inhibitor medical tape AdvReac Mild RASH Uncoded 07/13/17 12:54 Travel Screening - Travel/Exposure Within Last 30 Days Have you traveled within the last 30 days?: No - Travel Symptoms Symptom Screening: None Review of Systems Constitutional: Denies: Chills, Fever, Malaise, Night sweats Eyes: Denies: Eye discharge, Eye pain ENT: Denies: Congestion, Ear pain, Epistaxis Respiratory: Denies: Cough, Dyspnea Cardiovascular: Denies: Chest pain, Dyspnea on exertion Endocrine: Denies: Fatigue, Heat or cold intolerance Gastrointestinal: Reports: Nausea. Denies: Abdominal pain Genitourinary: Denies: Incontinence, Retention Musculoskeletal: Denies: Arthralgia, Back pain, Gout, Joint swelling Skin: Denies: Bruising, Change in color Neurological: Reports: Headache. Denies: Abnormal gait, Confusion, Seizure Psychiatric: Denies: Anxiety Hematological/Lymphatic: Denies: Anemia, Blood Clots Past Medical History - SOCIAL HISTORY Smoking Status: Former smoker - RESPIRATORY Hx Respiratory Disorders: Yes Hx Bronchitis: Yes Hx Pneumonia: Yes Hx Sleep Apnea: Yes (possibly testing upcoming) Comment:: Home O2-3L at night - CARDIOVASCULAR Hx Cardio Disorders: Yes Hx Chest Pain: No (denies) Comment:: HYPERLIPIDEMIA - NEURO Hx Neuro Disorders: Yes Hx Headaches: Yes (complex migrane) Hx of Migraines: Yes (weekly) - GI Hx GI Disorders: Yes Hx Abdominal Pain: Yes Hx Diverticulitis: Yes Hx Reflux: Yes Hx Liver Disease: Yes (fatty liver denies liver bx) Hx Nausea/Vomiting: Yes (with pain) Hx Ulcer: No (denies) - Hx Genitourinary Disorders: Yes Comment:: polycystic ovary syndrome - ENDOCRINE Hx Endocrine Disorders: Yes Hx Diabetes: Yes - MUSCULOSKELETAL Hx Musculoskeletal Disorders: Yes Hx Fibromyalgia: Yes Hx Gout: Yes Comment:: Buldging disc in neck - PSYCH Hx Psych Problems: Yes Hx Anxiety: Yes Hx Depression: Yes Comment:: PTSD - HEMATOLOGY/ONCOLOGY Hx Hematology/Oncology Disorders: No Hx Anemia: No Family Medical History Any Significant Family History?: Yes Hx Cancer: Mother, Grandparents *Diabetes Comment: aunt Hx Heart Disease: Brother/Sister *Heart Comment: Brother Hx Kidney Disease: Children Physical Exam - General General Appearance: Alert, Oriented x3, Cooperative, Anxious, Other (tearful on examination) Limitations: No limitations - Head Head exam: Atraumatic, Normocephalic, Normal inspection Head exam detail: negative: Abrasion, Contusion, Espinosa's sign, General tenderness, Hematoma, Laceration - Eye Eye exam: Normal appearance. negative: Conjunctival injection, Periorbital swelling, Periorbital tenderness, Scleral icterus - ENT Ear exam: negative: Auricular hematoma, Auricular trauma Nasal Exam: negative: Active bleeding, Discharge, Dried blood, Foreign body Mouth exam: negative: Drooling, Laceration, Muffled voice, Tongue elevation - Neck Neck exam: Normal inspection. negative: Meningismus, Tenderness - Respiratory Respiratory exam: Normal lung sounds bilaterally. negative: Rales, Respiratory distress, Rhonchi, Stridor - Cardiovascular Cardiovascular Exam: Regular rate, Normal rhythm, Normal heart sounds - GI/Abdominal GI/Abdominal exam: Soft. negative: Rebound, Rigid, Tenderness - Rectal Rectal exam: Deferred - exam: Deferred - Extremities Extremities exam: Normal inspection. negative: Calf tenderness, Pedal edema, Tenderness - Back Back exam: Denies: CVA tenderness (R), CVA tenderness (L) - Neurological Neurological exam: Alert, Normal gait, Oriented X3 - Psychiatric Psychiatric exam: Anxious - Skin Skin exam: Normal color. negative: Abrasion Type of lesion: negative: abrasion Course Vital Signs 09/23/17 06:36 Temperature 98.7 F Pulse Rate [ 85 Pulse Ox Probe] Respiratory 16 Rate Blood Pressure 109/74 [Left Arm] Pulse Ox 98 - Reevaluation(s) Reevaluation #1: 09/23/17 06:46 Patient was seen and examined, offered Toradol and Benadryl (per patient request ). Medications were ordered, and I went back to the patient's room to confirm that she has a delivery motorcycle driver to take her home after receiving Benadryl. Patient became very angry stating "I just live around the [place], why don't you want to help me? The other hospital gives me Benadryl and you never wnat to help me". I explained to the patient that I am willing to administer the medication requested but that she would need a ride home. Furthermore, her PCP instructed her on what she should be taking for her headache symptoms. Patient stood up and eloped at this time from the department stating "you never want to help me, I just want to leave". Disposition Disposition: Other (Eloped) Clinical Impression: Headache Qualifiers: Headache type: unspecified Headache chronicity pattern: acute headache Intractability: not intractable Qualified Code(s): R51 - Headache Disposition: Home, Self-Care Instructions: Acute Headache (ED) Time of Disposition: 06:46 Quality - Quality Measures Quality Measures: N/A, Headache (All Ages) - Headache: Neuroimaging Quality Measure: Measure #419: Overuse of Neuroimaging ICD10 Codes Entered: Yes Neurological Exam: Patient had a normal neurological exam. [G9535] Headache: Use of Neuroimaging: < CTA, CT, MRA or MRI was NOT ordered > [G9534] - Blood Pressure Screening Does Patient Have Any of the Following: No Blood Pressure Classification: Normal BP Reading Systolic Measurement: 109 Diastolic Measurement: 74 Screening for High Blood Pressure: < Normal BP, F/U Not Required > [G8783]
== END 2017-09-23 06:47 | disposition home or self-care (01) ==
LOC: ER 06:26
DX: R51 Headache (principal); M54.2 Cervicalgia; E11.9 Type 2 diabetes mellitus without complications; Z87.891 Personal history of nicotine dependence
CPT/HCPCS: 99282

== ENCOUNTER 2017-12-05 19:09 | Emergency (ER) | payer MEDICARE, MEDICAID ==
[2017-12-05 19:38] LABS: BASO % 0.3 % (0-6); EOS % 0.6 % (0-6); GRAN % 69.2 % (47-80); HEMATOCRIT 35.8 % (35.0-47.0); HEMOGLOBIN 11.6 gm/dl (11.6-16.0); MEAN CELL VOLUME 86.3 fl (81-97); MEAN CORPUSCULAR HGB CONC 32.4 g/dl (32-36); MEAN PLATELET VOLUME 8.9 fl (7.4-10.4); MONO % 6.9 % (0-9); PLATELET COUNT 484 K/uL (130-400); RED BLOOD COUNT 4.15 M/uL (3.80-5.40); RED CELL DISTRIBUTION WIDTH 15.4 % (11.5-14.5)
--- NOTE | 2017-12-05 19:41 | Emergency Department Record ---
History of Present Illness - General Chief complaint: Hypergylcemia Stated complaint: HIGH SUGAR Time Seen by Provider: 12/05/17 19:15 Source: Patient Mode of Arrival: Ambulatory Limitations: No limitations - History of Present Illness Initial comments: The patient is here due to feeling weak about an hour ago while at home eating cake frosting and drinking Mountain Dew. Because of that she thought her sugar was high. She denies any SERVIN, visual changes, arm or leg numbness, tingling or focal weakness. The patient is feeling better now. MD Complaint: Generalized weakness Onset/Timin -: Hour(s) - Jing Coma Scale Eye Response: (4) Open spontaneously Motor Response: (6) Obeys commands Verbal Response: (5) Oriented [place] Total: 15 - Symptoms of Stroke Baseline State: Baseline State - Related Data Allergies Allergy/AdvReac Type Severity Reaction Status Date / Time fenofibrate Allergy Severe MIGRAINES Verified 12/05/17 19:21 [id number] Antimigraine Allergy Severe HEADACHE Verified 12/05/17 19:21 Agents Pxvqmgi-Rsb-Pmq Reductase Allergy Intermediate JOINT ACHES Verified 12/05/17 19: 21 Inhibitor medical tape AdvReac Mild RASH Uncoded 12/05/17 19:21 Travel Screening - Travel/Exposure Within Last 30 Days Have you traveled within the last 30 days?: No - Travel/Exposure Within Last Year Have you traveled outside the [place] in the last year?: No - Additonal Travel Details Have you been exposed to anyone with a communicable illness?: No - Travel Symptoms Symptom Screening: None Review of Systems Constitutional: Denies: Chills, Fever Eyes: Denies: Eye discharge ENT: Denies: Congestion Respiratory: Denies: Cough, Dyspnea Past Medical History - SOCIAL HISTORY Smoking Status: Current every day smoker Alcohol Use: None Drug Use: None - RESPIRATORY Hx Respiratory Disorders: Yes Hx Bronchitis: Yes Hx Pneumonia: Yes Hx Sleep Apnea: Yes (possibly testing upcoming) Comment:: Home O2-3L at night - CARDIOVASCULAR Hx Cardio Disorders: Yes Hx Chest Pain: No (denies) Comment:: HYPERLIPIDEMIA - NEURO Hx Neuro Disorders: Yes Hx Headaches: Yes (complex migrane) Hx of Migraines: Yes (weekly) - GI Hx GI Disorders: Yes Hx Abdominal Pain: Yes Hx Diverticulitis: Yes Hx Reflux: Yes Hx Liver Disease: Yes (fatty liver denies liver bx) Hx Nausea/Vomiting: Yes (with pain) Hx Ulcer: No (denies) - Hx Genitourinary Disorders: Yes Comment:: polycystic ovary syndrome - ENDOCRINE Hx Endocrine Disorders: Yes Hx Diabetes: Yes - MUSCULOSKELETAL Hx Musculoskeletal Disorders: Yes Hx Fibromyalgia: Yes Hx Gout: Yes Comment:: Buldging disc in neck - PSYCH Hx Psych Problems: Yes Hx Anxiety: Yes Hx Depression: Yes Comment:: PTSD - HEMATOLOGY/ONCOLOGY Hx Hematology/Oncology Disorders: No Hx Anemia: No Family Medical History Any Significant Family History?: No Hx Cancer: Mother, Grandparents *Diabetes Comment: aunt Hx Heart Disease: Brother/Sister *Heart Comment: Brother Hx Kidney Disease: Children Physical Exam - General General Appearance: Alert, Oriented x3, Cooperative, No acute distress - Head Head exam: Atraumatic, Normocephalic, Normal inspection - Eye Eye exam: Normal appearance, PERRL, EOMI - ENT Throat exam: Normal inspection. negative: Tonsillar erythema, Tonsillar exudate - Neck Neck exam: Normal inspection, Full ROM. negative: Tenderness - Respiratory Respiratory exam: Normal lung sounds bilaterally. negative: Respiratory distress - Cardiovascular Cardiovascular Exam: Regular rate, Normal rhythm, Normal heart sounds - GI/Abdominal GI/Abdominal exam: Soft, Normal bowel sounds. negative: Tenderness - Extremities Extremities exam: Normal inspection, Full ROM, Normal capillary refill. negative: Tenderness - Back Back exam: Reports: Normal inspection - Neurological Neurological exam: Alert, Motor sensory deficit, Normal gait, Oriented X3. negative: Abnormal gait, Altered - Psychiatric Psychiatric exam: Flat affect. negative: Anxious, Depressed Course Vital Signs 12/05/17 19:18 Temperature 98.6 F Pulse Rate [ 89 Pulse Ox Probe] Respiratory 20 Rate Blood Pressure 133/85 [Left Arm] Pulse Ox 98 - Reevaluation(s) Reevaluation #1: The patient is doing better at this time. She now only feels "tired" and would like to go home. I did explain to her that her lab results are very normal compared to her past results. She is to see her family doctor this week if not better. 12/05/17 19:59 Medical Decision Making - Lab Data Result diagrams: 12/05/17 19:33 12/05/17 19:33 Lab Results 10/14/18 10/14/18 Range/Units 19:18 19:33 WBC 11.0 (4.2-12.2) K/uL RBC 4.15 (3.80-5.40) M/uL Hgb 11.6 (11.6-16.0) gm/dl Hct 35.8 (35.0-47.0) % MCV 86.3 (81-97) fl MCH 28.0 (27-33) pg MCHC 32.4 (32-36) g/dl RDW 15.4 H (11.5-14.5) % Plt Count 484 H (130-400) K/uL MPV 8.9 (7.4-10.4) fl Gran % 69.2 (47-80) % Lymphocytes % 23.0 (16-45) % Monocytes % 6.9 (0-9) % Eosinophils % 0.6 (0-6) % Basophils % 0.3 (0-6) % POC Glucose 154 H (70-110) mg/dL Disposition Disposition: Discharge Clinical Impression: Weakness Disposition: Home, Self-Care Condition: (2) Stable Instructions: Weakness (ED) Additional Instructions: Please drink plenty of water and stay away from Mountain Dew. Please see your family doctor if not better in 2 days. Return to the ER for any worsening symptoms. Forms: Patient Portal Access Time of Disposition: 20:00 Quality - Quality Measures Quality Measures: Headache (All Ages) - Headache: Neuroimaging Quality Measure: Measure #419: Overuse of Neuroimaging ICD10 Codes Entered: Yes View Detail: Yes Neurological Exam: Patient had a normal neurological exam. [G9535] Headache: Use of Neuroimaging: < CTA, CT, MRA or MRI was NOT ordered > [G9534] - Blood Pressure Screening View Details: Yes Does Patient Have Any of the Following: No Blood Pressure Classification: Pre-Hypertensive BP Reading Systolic Measurement: 133 Diastolic Measurement: 85 Screening for High Blood Pressure: < Pre-Hypertensive BP, F/U Documented > [ G8950] Pre-Hypertensive Follow-up Interventions: Referral to alternative/primary care provider.
[2017-12-05 19:53] LABS: BLOOD UREA NITROGEN 7 mg/dL (6-20); CREATININE 0.9 mg/dL (0.5-0.9); EST GLOMERULAR FILTRATION RATE > 60 mL/min
[2017-12-05 19:55] LABS: GLUCOSE,RANDOM 142 mg/dL (74-109)
== END 2017-12-05 20:05 | disposition home or self-care (01) ==
LOC: ER 19:09
DX: R53.1 Weakness (principal); E11.65 Type 2 diabetes mellitus with hyperglycemia; F17.210 Nicotine dependence, cigarettes, uncomplicated; Z99.81 Dependence on supplemental oxygen; Z79.84 Long term (current) use of oral hypoglycemic drugs
CPT/HCPCS: 36416; 80048; 82948; 85025; 99283

== ENCOUNTER 2018-01-17 19:01 | Emergency (ER) | payer MEDICARE, MEDICAID ==
[2018-01-17] MEDS ORDERED: HALOPERIDOL LACTATE 5 MG/ML VIAL IM ONE (19:21)
[2018-01-17] MEDS ORDERED: ORPHENADRINE CITRATE 60MG/2ML VIAL IM ONE (19:22)
--- NOTE | 2018-01-17 19:26 | Emergency Department Record ---
History of Present Illness - General Chief Complaint: Headache Migraine Stated Complaint: MIGRAINE Time Seen by Provider: 01/17/18 19:20 Source: Patient Mode of Arrival: Ambulatory Limitations: No limitations - History of Present Illness Initial Comments: 43 yo female presents to ED for evaluation of headache symptoms that began 2 hours ago. Patient reports taking Tylenol for her headache symptoms that has not improved her pain. Patient reports numerous monthly episodes of headaches with similar symptoms. Patient denies nausea, vomiting, fevers, chills, or neck stiffness symptoms. MD Complaint: Headache Onset/Timin -: Hour(s) Onset Description: Gradual Quality: Throbbing Consistency: Constant Improves With: Nothing Worsens With: None Treatments Prior to Arrival: Acetaminophen - Related Data Allergies Allergy/AdvReac Type Severity Reaction Status Date / Time fenofibrate Allergy Severe MIGRAINES Verified 01/17/18 19:23 [id number] Antimigraine Allergy Severe HEADACHE Verified 01/17/18 19:23 Agents Waedkph-Yci-Fuc Reductase Allergy Intermediate JOINT ACHES Verified 01/17/18 19: 23 Inhibitor medical tape AdvReac Mild RASH Uncoded 01/17/18 19:23 Review of Systems Constitutional: Denies: Chills, Fever, Malaise, Night sweats Eyes: Denies: Eye discharge, Eye pain ENT: Denies: Congestion, Ear pain, Epistaxis Respiratory: Denies: Cough, Dyspnea Cardiovascular: Denies: Chest pain, Dyspnea on exertion Endocrine: Denies: Fatigue, Heat or cold intolerance Gastrointestinal: Denies: Abdominal pain, Nausea, Vomiting Genitourinary: Denies: Incontinence, Retention Musculoskeletal: Denies: Arthralgia, Back pain Skin: Denies: Bruising, Change in color Neurological: Reports: Headache. Denies: Abnormal gait, Confusion Psychiatric: Denies: Anxiety Hematological/Lymphatic: Denies: Anemia, Blood Clots Past Medical History - SOCIAL HISTORY Smoking Status: Current every day smoker Drug Use: None - RESPIRATORY Hx Respiratory Disorders: Yes Hx Bronchitis: Yes Hx Pneumonia: Yes Hx Sleep Apnea: Yes (possibly testing upcoming) Comment:: Home O2-3L at night - CARDIOVASCULAR Hx Cardio Disorders: Yes Hx Chest Pain: No (denies) Comment:: HYPERLIPIDEMIA - NEURO Hx Neuro Disorders: Yes Hx Headaches: Yes (complex migrane) Hx of Migraines: Yes (weekly) - GI Hx GI Disorders: Yes Hx Abdominal Pain: Yes Hx Diverticulitis: Yes Hx Reflux: Yes Hx Liver Disease: Yes (fatty liver denies liver bx) Hx Nausea/Vomiting: Yes (with pain) Hx Ulcer: No (denies) - Hx Genitourinary Disorders: Yes Comment:: polycystic ovary syndrome - ENDOCRINE Hx Endocrine Disorders: Yes Hx Diabetes: Yes - MUSCULOSKELETAL Hx Musculoskeletal Disorders: Yes Hx Fibromyalgia: Yes Hx Gout: Yes Comment:: Buldging disc in neck - PSYCH Hx Psych Problems: Yes Hx Anxiety: Yes Hx Depression: Yes Comment:: PTSD - HEMATOLOGY/ONCOLOGY Hx Hematology/Oncology Disorders: No Hx Anemia: No Family Medical History Hx Cancer: Mother, Grandparents *Diabetes Comment: aunt Hx Heart Disease: Brother/Sister *Heart Comment: Brother Hx Kidney Disease: Children Physical Exam - General General Appearance: Alert, Oriented x3, Cooperative, Moderate distress, Anxious Limitations: No limitations - Head Head exam: Atraumatic, Normocephalic, Normal inspection Head exam detail: negative: Abrasion, Contusion, Espinosa's sign, General tenderness, Hematoma, Laceration - Eye Eye exam: Normal appearance. negative: Conjunctival injection, Periorbital swelling, Periorbital tenderness, Scleral icterus - ENT Ear exam: negative: Auricular hematoma, Auricular trauma Nasal Exam: negative: Active bleeding, Discharge, Dried blood, Foreign body Mouth exam: negative: Drooling, Laceration, Muffled voice, Tongue elevation - Neck Neck exam: Normal inspection. negative: Meningismus, Tenderness - Respiratory Respiratory exam: Normal lung sounds bilaterally. negative: Respiratory distress, Rhonchi, Stridor, Wheezes - Cardiovascular Cardiovascular Exam: Regular rate, Normal rhythm, Normal heart sounds - GI/Abdominal GI/Abdominal exam: Soft. negative: Distended, Rebound, Rigid, Tenderness - Rectal Rectal exam: Deferred - exam: Deferred - Extremities Extremities exam: Normal inspection. negative: Pedal edema, Tenderness - Back Back exam: Denies: CVA tenderness (R), CVA tenderness (L) - Neurological Neurological exam: Alert, Normal gait, Oriented X3 - Psychiatric Psychiatric exam: Anxious - Skin Skin exam: Normal color. negative: Abrasion Type of lesion: negative: abrasion Course Vital Signs 01/17/18 19:08 Temperature 98 F Pulse Rate [ 86 Pulse Ox Probe] Respiratory 20 Rate Blood Pressure 150/117 [Left Arm] Pulse Ox 100 - Reevaluation(s) Reevaluation #1: 01/17/18 20:13 Patient reassessed and reports that her headache symptoms are improved. Patient appears stable for discharge at this time. Disposition Disposition: Discharge Clinical Impression: Headache Qualifiers: Headache type: unspecified Headache chronicity pattern: acute headache Intractability: not intractable Qualified Code(s): R51 - Headache Disposition: Home, Self-Care Condition: (2) Stable Instructions: Acute Headache (ED) Additional Instructions: Return to ED if your symptoms worsen or if you have any concerns. Follow-up with your family doctor in 1-3 days without fail. Forms: Patient Portal Access Time of Disposition: 19:26 Quality - Quality Measures Quality Measures: N/A, Headache (All Ages) - Headache: Neuroimaging Quality Measure: Measure #419: Overuse of Neuroimaging ICD10 Codes Entered: Yes Neurological Exam: Patient had a normal neurological exam. [G9535] Headache: Use of Neuroimaging: < CTA, CT, MRA or MRI was NOT ordered > [G9534] - Blood Pressure Screening Does Patient Have Any of the Following: No Blood Pressure Classification: Hypertensive Reading Systolic Measurement: 150 Diastolic Measurement: 117 Screening for High Blood Pressure: < First Hypertensive BP, F/U Documented > [ G8950] First Hypertensive Follow-up Interventions: Referral to alternative/primary care provider.
== END 2018-01-17 20:26 | disposition home or self-care (01) ==
LOC: ER 19:01
DX: R51 Headache (principal); E11.9 Type 2 diabetes mellitus without complications; F17.210 Nicotine dependence, cigarettes, uncomplicated
CPT/HCPCS: 96372; 99283; J1630; J2360

== ENCOUNTER 2018-02-18 21:31 | Emergency (ER) | payer MEDICARE, MEDICAID ==
[2018-02-18] MEDS ORDERED: PROMETHAZINE HCL 25 MG/ML VIAL IM ONE (21:43)
--- NOTE | 2018-02-18 21:51 | Emergency Department Record ---
History of Present Illness - General Chief complaint: Nausea, Vomiting, Diarrhea Stated complaint: NAUSEA/ABD PAIN Time Seen by Provider: 02/18/18 21:39 Source: Patient Mode of Arrival: Ambulatory Limitations: No limitations - History of Present Illness Initial comments: 43 yo female presents to ED for evaluation of nausea and abdominal pain symptoms with eating for the past 2-3 weeks, reports that her symptoms have worsened over the past 2-3 days. Patient denies vomiting, fevers, chills, or urinary symptoms. Patient is s/p cholecystectomy, hysterectomy, and appendectomy. Patient called her GI specialist and PCP for an appointment earlier today, left messages. Patient reports that she has been taking her Zofran with meals due to her nausea vomiting. MD complaint: Abdominal pain, Nausea Onset/Timin -: Week(s) Location: Periumbilcal Radiation: None Severity: Mild Quality: Aching Consistency: Intermittent Improves with: None Worsens with: Eating Associated Symptoms: Denies other symptoms - Related Data Home Medications Medication Instructions Recorded Confirmed Last Taken Aripiprazole [Abilify] 10 mg PO DAILY 02/18/18 02/18/18 Unknown Gabapentin [Neurontin] 1,200 mg PO QHS 02/18/18 02/18/18 Unknown Allergies Allergy/AdvReac Type Severity Reaction Status Date / Time fenofibrate Allergy Severe MIGRAINES Verified 01/17/18 19:23 [id number] Antimigraine Allergy Severe HEADACHE Verified 01/17/18 19:23 Agents Hhmwfpp-Lym-Ktc Reductase Allergy Intermediate JOINT ACHES Verified 01/17/18 19: 23 Inhibitor medical tape AdvReac Mild RASH Uncoded 01/17/18 19:23 Review of Systems Constitutional: Denies: Chills, Fever, Malaise, Night sweats Eyes: Denies: Eye discharge, Eye pain ENT: Denies: Congestion, Ear pain Respiratory: Denies: Cough, Dyspnea Cardiovascular: Denies: Chest pain, Dyspnea on exertion Endocrine: Denies: Fatigue, Heat or cold intolerance Gastrointestinal: Reports: Abdominal pain, Nausea. Denies: Vomiting Genitourinary: Denies: Incontinence, Retention Musculoskeletal: Denies: Arthralgia, Back pain Skin: Denies: Bruising, Change in color Neurological: Denies: Abnormal gait, Confusion, Headache, Seizure Psychiatric: Denies: Anxiety Hematological/Lymphatic: Denies: Anemia, Blood Clots Past Medical History - SOCIAL HISTORY Smoking Status: Current every day smoker Drug Use: None - RESPIRATORY Hx Respiratory Disorders: Yes Hx Bronchitis: Yes Hx Pneumonia: Yes Hx Sleep Apnea: Yes (possibly testing upcoming) Comment:: Home O2-3L at night - CARDIOVASCULAR Hx Cardio Disorders: Yes Hx Chest Pain: No (denies) Comment:: HYPERLIPIDEMIA - NEURO Hx Neuro Disorders: Yes Hx Headaches: Yes (complex migrane) Hx of Migraines: Yes (weekly) - GI Hx GI Disorders: Yes Hx Abdominal Pain: Yes Hx Diverticulitis: Yes Hx Reflux: Yes Hx Liver Disease: Yes (fatty liver denies liver bx) Hx Nausea/Vomiting: Yes (with pain) Hx Ulcer: No (denies) - Hx Genitourinary Disorders: Yes Comment:: polycystic ovary syndrome - ENDOCRINE Hx Endocrine Disorders: Yes Hx Diabetes: Yes - MUSCULOSKELETAL Hx Musculoskeletal Disorders: Yes Hx Fibromyalgia: Yes Hx Gout: Yes Comment:: Buldging disc in neck - PSYCH Hx Psych Problems: Yes Hx Anxiety: Yes Hx Depression: Yes Comment:: PTSD - HEMATOLOGY/ONCOLOGY Hx Hematology/Oncology Disorders: No Hx Anemia: No Family Medical History Hx Cancer: Mother, Grandparents *Diabetes Comment: aunt Hx Heart Disease: Brother/Sister *Heart Comment: Brother Hx Kidney Disease: Children Physical Exam - General General Appearance: Alert, Oriented x3, Cooperative, No acute distress, Other ( Sitting upright, appears very comfortable on examination) Limitations: No limitations - Head Head exam: Atraumatic, Normocephalic, Normal inspection Head exam detail: negative: Abrasion, Contusion, Espinosa's sign, General tenderness, Hematoma, Laceration - Eye Eye exam: Normal appearance. negative: Conjunctival injection, Periorbital swelling, Periorbital tenderness, Scleral icterus - ENT Ear exam: negative: Auricular hematoma, Auricular trauma Nasal Exam: negative: Active bleeding, Discharge, Dried blood, Foreign body Mouth exam: negative: Drooling, Laceration, Muffled voice, Tongue elevation - Neck Neck exam: Normal inspection. negative: Meningismus, Tenderness - Respiratory Respiratory exam: Normal lung sounds bilaterally. negative: Rales, Respiratory distress, Rhonchi, Stridor - Cardiovascular Cardiovascular Exam: Regular rate, Normal rhythm, Normal heart sounds - GI/Abdominal GI/Abdominal exam: Soft, Tenderness (Mild TTP tiffany-ubilical region, no rebound, guarding, or peritoneal signs are present on examination.). negative: Rebound, Rigid - Rectal Rectal exam: Deferred - exam: Deferred - Extremities Extremities exam: Normal inspection. negative: Pedal edema, Tenderness - Back Back exam: Denies: CVA tenderness (R), CVA tenderness (L) - Neurological Neurological exam: Alert, Normal gait, Oriented X3 - Psychiatric Psychiatric exam: Normal affect, Normal mood - Skin Skin exam: Normal color. negative: Abrasion Type of lesion: negative: abrasion Course - Reevaluation(s) Reevaluation #1: 02/18/18 21:51 Patient was seen and examined, is well appearing on examination. No evidence for surgical process is present on examination of the abdomen. As a result, CT of the abdomen and pelvis does not appear indicated. Will obtain laboratory studies and administer Phenergan IM for her nausea symptoms. Reevaluation #2: 02/18/18 22:20 Laboratory studies were reviewed and are grossly unremarkable for an acute process. Patient reports improvement in her nausea symptoms, appears stable for discharge at this time. Medical Decision Making - Lab Data Result diagrams: 02/18/18 21:49 02/18/18 21:49 Disposition Disposition: Discharge Clinical Impression: Nausea Abdominal pain Qualifiers: Abdominal location: periumbilical Qualified Code(s): R10.33 - Periumbilical pain Disposition: Home, Self-Care Condition: (2) Stable Instructions: Chronic Abdominal Pain (ED) Additional Instructions: Return to ED if your symptoms worsen or if you have any concerns. Follow-up with your family doctor in 3-5 days as directed. Forms: Patient Portal Access Time of Disposition: 22:37 Quality - Quality Measures Quality Measures: N/A - Blood Pressure Screening Does Patient Have Any of the Following: No Blood Pressure Classification: Hypertensive Reading Systolic Measurement: 149 Diastolic Measurement: 74 Screening for High Blood Pressure: < First Hypertensive BP, F/U Documented > [ G8950] First Hypertensive Follow-up Interventions: Referral to alternative/primary care provider.
[2018-02-18 21:55] LABS: BASO % 0.5 % (0-6); EOS % 0.8 % (0-6); GRAN % 64.7 % (47-80); HEMATOCRIT 35.2 % (35.0-47.0); HEMOGLOBIN 11.1 gm/dl (11.6-16.0); LYMPH % 26.5 % (16-45); MEAN CELL VOLUME 88.2 fl (81-97); MEAN CORPUSCULAR HEMOGLOBIN 27.8 pg (27-33); MEAN CORPUSCULAR HGB CONC 31.5 g/dl (32-36); MEAN PLATELET VOLUME 8.8 fl (7.4-10.4); MONO % 7.5 % (0-9); PLATELET COUNT 501 K/uL (130-400); RED BLOOD COUNT 3.99 M/uL (3.80-5.40); RED CELL DISTRIBUTION WIDTH 14.5 % (11.5-14.5); WHITE BLOOD COUNT W/O DIFF 9.5 K/uL (4.2-12.2)
[2018-02-18] MEDS ORDERED: PROMETHAZINE HCL 25 MG TABLET PO ONE (21:55)
[2018-02-18 22:07] LABS: BILIRUBIN,TOTAL < 0.20 mg/dL (0.2-1.0); BLOOD UREA NITROGEN 7 mg/dL (6-20); CREATININE 0.8 mg/dL (0.5-0.9); EST GLOMERULAR FILTRATION RATE > 60 mL/min
[2018-02-18 22:10] LABS: GLUCOSE,RANDOM 122 mg/dL (74-109)
[2018-02-18 22:13] LABS: ALB/GLOB RATIO 1.5 (1.1-1.8); ALBUMIN 4.2 g/dL (4.0-5.0); ALKALINE PHOSPHATASE 115 U/L (35-104); ALT/SGPT 31 U/L (<33); AST/SGOT 23 U/L (10.0-35.0); LIPASE 47 U/L (13-60)
[2018-02-18 22:34] LABS: URINE APPEARANCE CLEAR; URINE BILIRUBIN NEGATIVE (NEGATIVE); URINE BLOOD NEGATIVE (NEGATIVE); URINE COLOR YELLOW; URINE GLUCOSE (UA) NEGATIVE (NEGATIVE); URINE KETONE NEGATIVE (NEGATIVE); URINE LEUKOCYTE ESTERASE NEGATIVE (NEGATIVE); URINE NITRITE NEGATIVE (NEGATIVE); URINE PROTEIN NEGATIVE (NEGATIVE); URINE UROBILINOGEN 0.2 E.U./dL (0.20 - 1.00)
== END 2018-02-18 22:49 | disposition home or self-care (01) ==
LOC: ER 21:31
DX: R10.33 Periumbilical pain (principal); R11.2 Nausea with vomiting, unspecified; R19.7 Diarrhea, unspecified; F17.210 Nicotine dependence, cigarettes, uncomplicated; Z99.81 Dependence on supplemental oxygen
CPT/HCPCS: 80053; 81003; 83690; 85025; 99283; Q0170

== ENCOUNTER 2018-02-26 11:43 | Emergency (ER) | payer MEDICARE, MEDICAID ==
--- NOTE | 2018-02-26 12:02 | Emergency Department Record ---
History of Present Illness - General Chief complaint: Vomiting Stated complaint: vomiting Time Seen by Provider: 02/26/18 11:53 Source: Patient Mode of Arrival: Ambulatory Limitations: No limitations - History of Present Illness Initial comments: The patient is here due to intermittent vomiting for 3 weeks. The symptoms come and go and are sometimes worse after eating. She has been evaluated multiple times for it and was recently at [facility] where she was diagnosed with a UTI. Due to the vomiting she states she has been unable to keep her Abx's down so she was told by her PCP to come to the ER for IVF and IV Abx's. The patient denies any new AP, back pain, fever, chills, or dysuria. MD complaint: Nausea, Vomiting Onset/Timin -: Week(s) - Related Data Home Medications Medication Instructions Recorded Confirmed Last Taken Ciprofloxacin HCl [Cipro] 500 mg PO DAILY 02/26/18 02/26/18 Unknown Allergies Allergy/AdvReac Type Severity Reaction Status Date / Time fenofibrate Allergy Severe MIGRAINES Unverified 02/23/18 15:08 Pesbqfvl-2-[id number] Antimigraine Allergy Severe HEADACHE Unverified 02/23/18 15:08 Agents Omfrnij-Udx-Bmc Reductase Allergy Intermediate JOINT ACHES Unverified 02/23/18 15:08 Inhibitor medical tape AdvReac Mild RASH Uncoded 01/17/18 19:23 Travel Screening - Travel/Exposure Within Last 30 Days Have you traveled within the last 30 days?: No Review of Systems Constitutional: Denies: Chills, Fever Eyes: Denies: Eye discharge ENT: Denies: Congestion Respiratory: Denies: Cough, Dyspnea Past Medical History - SOCIAL HISTORY Smoking Status: Current every day smoker Alcohol Use: None Drug Use: Rare Drug Use Detail:: Marijuana - RESPIRATORY Hx Respiratory Disorders: Yes Hx Bronchitis: Yes Hx Pneumonia: Yes Hx Sleep Apnea: Yes (possibly testing upcoming) Comment:: Home O2-3L at night - CARDIOVASCULAR Hx Cardio Disorders: Yes Hx Chest Pain: No (denies) Comment:: HYPERLIPIDEMIA - NEURO Hx Neuro Disorders: Yes Hx Headaches: Yes (complex migrane) Hx of Migraines: Yes (weekly) - GI Hx GI Disorders: Yes Hx Abdominal Pain: Yes Hx Diverticulitis: Yes Hx Reflux: Yes Hx Liver Disease: Yes (fatty liver denies liver bx) Hx Nausea/Vomiting: Yes (with pain) Hx Ulcer: No (denies) - Hx Genitourinary Disorders: Yes Comment:: polycystic ovary syndrome - ENDOCRINE Hx Endocrine Disorders: Yes Hx Diabetes: Yes - MUSCULOSKELETAL Hx Musculoskeletal Disorders: Yes Hx Fibromyalgia: Yes Hx Gout: Yes Comment:: Buldging disc in neck - PSYCH Hx Psych Problems: Yes Hx Anxiety: Yes Hx Depression: Yes Comment:: PTSD - HEMATOLOGY/ONCOLOGY Hx Hematology/Oncology Disorders: No Hx Anemia: No Family Medical History Any Significant Family History?: Yes Hx Cancer: Mother, Grandparents *Diabetes Comment: aunt Hx Heart Disease: Brother/Sister *Heart Comment: Brother Hx Kidney Disease: Children Physical Exam - General General Appearance: Alert, Oriented x3, Cooperative, No acute distress (The patient appears very healthy and pleasant and nontoxic.) - Head Head exam: Atraumatic, Normocephalic - Eye Eye exam: Normal appearance, PERRL, EOMI - Neck Neck exam: Normal inspection, Full ROM. negative: Tenderness - Respiratory Respiratory exam: Normal lung sounds bilaterally. negative: Respiratory distress - Cardiovascular Cardiovascular Exam: Regular rate, Normal rhythm, Normal heart sounds - GI/Abdominal GI/Abdominal exam: Soft, Normal bowel sounds. negative: Distended, Guarding, Rebound, Rigid, Tenderness - Extremities Extremities exam: Normal inspection, Full ROM, Normal capillary refill. negative: Tenderness - Neurological Neurological exam: Alert. negative: Motor sensory deficit Course Vital Signs 02/26/18 11:47 Temperature 97.4 F L Pulse Rate 80 Respiratory 16 Rate Blood Pressure 113/69 Pulse Ox 95 - Reevaluation(s) Reevaluation #1: The patient is doing well at this time. She denies any new symptoms and has had no pain or vomiting in the ED. I did explain that her urine is normal and she is to see her PCP this week for recheck. 02/26/18 12:58 Medical Decision Making - Data Complexity MDM Data: Labs Ordered and/or Reviewed (UA: Neg.) Disposition Disposition: Discharge Clinical Impression: Nausea Disposition: Home, Self-Care Condition: (2) Stable Instructions: Acute Nausea and Vomiting (ED) Additional Instructions: Please continue your medicines and see your family doctor in 3 days for recheck. Forms: Patient Portal Access Time of Disposition: 12:57 Quality - Quality Measures Quality Measures: Headache (All Ages) - Headache: Neuroimaging Quality Measure: Measure #419: Overuse of Neuroimaging ICD10 Codes Entered: Yes View Detail: Yes Neurological Exam: Patient had a normal neurological exam. [G9535] Headache: Use of Neuroimaging: < CTA, CT, MRA or MRI was NOT ordered > [G9534] - Blood Pressure Screening View Details: Yes Does Patient Have Any of the Following: No Blood Pressure Classification: Normal BP Reading Systolic Measurement: 113 Diastolic Measurement: 69 Screening for High Blood Pressure: < Normal BP, F/U Not Required > [G8783]
[2018-02-26 12:49] LABS: URINE APPEARANCE CLEAR; URINE BILIRUBIN SMALL (NEGATIVE); URINE BLOOD NEGATIVE (NEGATIVE); URINE COLOR YELLOW; URINE GLUCOSE (UA) NEGATIVE (NEGATIVE); URINE KETONE NEGATIVE (NEGATIVE); URINE LEUKOCYTE ESTERASE NEGATIVE (NEGATIVE); URINE NITRITE NEGATIVE (NEGATIVE)
== END 2018-02-26 13:08 | disposition home or self-care (01) ==
LOC: ER 11:43
DX: R11.2 Nausea with vomiting, unspecified (principal); E11.9 Type 2 diabetes mellitus without complications; F17.210 Nicotine dependence, cigarettes, uncomplicated
CPT/HCPCS: 81003; 99282

== ENCOUNTER 2018-03-09 12:03 | Emergency (ER) | payer MEDICARE, MEDICAID ==
[2018-03-09] MEDS ORDERED: KETOROLAC 30 MG/ML VIAL IVP ONE (13:44)
--- NOTE | 2018-03-09 13:45 | Emergency Department Record ---
History of Present Illness - General Chief Complaint: Difficulty Breathing Stated Complaint: WEAK/LAW Time Seen by Provider: 03/09/18 12:51 Source: Patient, RN notes reviewed Mode of Arrival: Ambulatory - History of Present Illness Initial Comments: sharp anterior chest wall pain and worse with palpation and reproducible and she also states SOB and no previous cardiace problems and she has had chest pain on and off since she had pneumonia about one year ago. Onset/Timin -: Days(s) Severity scale (1-10): 7 Quality: Sharp Consistency: Constant Improves With: Nothing Worsens With: Lying flat Associated Symptoms: Denies other symptoms Treatments Prior to Arrival: None - Related Data Home Oxygen Therapy: No Previous Rx's Medication Instructions Recorded Naproxen [Naprosyn] 500 mg PO BID #30 tablet 03/09/18 Allergies Allergy/AdvReac Type Severity Reaction Status Date / Time fenofibrate Allergy Severe MIGRAINES Verified 03/09/18 13:02 [id number] Antimigraine Allergy Severe HEADACHE Verified 03/09/18 13:02 Agents Cjflrcr-Tpp-Oda Reductase Allergy Intermediate JOINT ACHES Verified 03/09/18 13: 02 Inhibitor medical tape AdvReac Mild RASH Uncoded 01/17/18 19:23 Travel Screening - Travel/Exposure Within Last 30 Days Have you traveled within the last 30 days?: No - Travel/Exposure Within Last Year Have you traveled outside the [place] in the last year?: No - Additonal Travel Details Have you been exposed to anyone with a communicable illness?: No - Travel Symptoms Symptom Screening: None Past Medical History - SOCIAL HISTORY Smoking Status: Current every day smoker Alcohol Use: None Drug Use: None - RESPIRATORY Hx Respiratory Disorders: Yes Hx Bronchitis: Yes Hx Pneumonia: Yes Hx Sleep Apnea: Yes (possibly testing upcoming) Comment:: Home O2-3L at night - CARDIOVASCULAR Hx Cardio Disorders: Yes Hx Chest Pain: No (denies) Comment:: HYPERLIPIDEMIA - NEURO Hx Neuro Disorders: Yes Hx Headaches: Yes (complex migrane) Hx of Migraines: Yes (weekly) - GI Hx GI Disorders: Yes Hx Abdominal Pain: Yes Hx Diverticulitis: Yes Hx Reflux: Yes Hx Liver Disease: Yes (fatty liver denies liver bx) Hx Nausea/Vomiting: Yes (with pain) Hx Ulcer: No (denies) - Hx Genitourinary Disorders: Yes Comment:: polycystic ovary syndrome - ENDOCRINE Hx Endocrine Disorders: Yes Hx Diabetes: Yes - MUSCULOSKELETAL Hx Musculoskeletal Disorders: Yes Hx Fibromyalgia: Yes Hx Gout: Yes Comment:: Buldging disc in neck - PSYCH Hx Psych Problems: Yes Hx Anxiety: Yes Hx Depression: Yes Comment:: PTSD - HEMATOLOGY/ONCOLOGY Hx Hematology/Oncology Disorders: No Hx Anemia: No Family Medical History Any Significant Family History?: Yes Hx Cancer: Mother, Grandparents *Diabetes Comment: aunt Hx Heart Disease: Brother/Sister *Heart Comment: Brother Hx Kidney Disease: Children Course Vital Signs 03/09/18 13:03 Temperature 97.6 F Pulse Rate 87 Respiratory 18 Rate Blood Pressure 124/65 Pulse Ox 97 Medical Decision Making - Data Complexity MDM Data: Labs Ordered and/or Reviewed (trop t negative), X-Ray Ordered and/or Reviewed (chest xray negative) - Lab Data Result diagrams: 03/09/18 13:50 03/09/18 13:50 Disposition Clinical Impression: Anterior chest wall pain Disposition: Home, Self-Care Condition: (1) Good Instructions: Costochondritis (ED) Additional Instructions: follow up with family in one week Prescriptions: Naproxen [Naprosyn] 500 mg PO BID #30 tablet Forms: Patient Portal Access Time of Disposition: 15:24 Quality - Quality Measures Quality Measures: N/A - Headache: Neuroimaging ICD10 Codes Entered: No - Blood Pressure Screening Does Patient Have Any of the Following: No Blood Pressure Classification: Pre-Hypertensive BP Reading Systolic Measurement: 124 Diastolic Measurement: 65 Screening for High Blood Pressure: < Pre-Hypertensive BP, F/U Documented > [ G8950] Pre-Hypertensive Follow-up Interventions: Referral to alternative/primary care provider.
[2018-03-09 13:59] LABS: BASO % 0.6 % (0-6); GRAN % 69.8 % (47-80); HEMATOCRIT 36.6 % (35.0-47.0); HEMOGLOBIN 11.4 gm/dl (11.6-16.0); MEAN CELL VOLUME 87.1 fl (81-97); MEAN CORPUSCULAR HEMOGLOBIN 27.1 pg (27-33); MEAN CORPUSCULAR HGB CONC 31.1 g/dl (32-36); MEAN PLATELET VOLUME 8.8 fl (7.4-10.4); MONO % 6.6 % (0-9); PLATELET COUNT 474 K/uL (130-400); RED CELL DISTRIBUTION WIDTH 14.5 % (11.5-14.5); WHITE BLOOD COUNT W/O DIFF 8.1 K/uL (4.2-12.2)
[2018-03-09 14:10] LABS: BLOOD UREA NITROGEN 9 mg/dL (6-20)
[2018-03-09 14:11] LABS: CREATININE 0.7 mg/dL (0.5-0.9); EST GLOMERULAR FILTRATION RATE > 60 mL/min
[2018-03-09 14:13] LABS: GLUCOSE,RANDOM 115 mg/dL (74-109)
--- NOTE | 2018-03-11 08:15 | RADIOLOGY REPORT ---
EXAM: CHEST, TWO VIEWS HISTORY: WEAKNESS AND DIFFICULTY IN BREATHING. TECHNIQUE: Frontal and lateral views of the chest were performed. Comparison: 05/26/17. FINDINGS: The heart size is normal. The lung sifuentes are clear. No infiltrate or pleural effusion. The osseous structures are normal. IMPRESSION: NEGATIVE CHEST EXAMINATION. JOB NUMBER: [id number] [facility]
--- NOTE | 2018-03-16 17:56 | Emergency Department Record ---
History of Present Illness - General Chief Complaint: Difficulty Breathing Stated Complaint: WEAK/LAW Time Seen by Provider: 03/09/18 12:51 Source: Patient, RN notes reviewed Mode of Arrival: Ambulatory - History of Present Illness Onset/Timin -: Days(s) Severity scale (1-10): 7 Quality: Sharp Consistency: Constant Improves With: Nothing Worsens With: Lying flat Associated Symptoms: Denies other symptoms Treatments Prior to Arrival: None - Related Data Home Oxygen Therapy: No Previous Rx's Medication Instructions Recorded Naproxen [Naprosyn] 500 mg PO BID #30 tablet 03/09/18 Allergies Allergy/AdvReac Type Severity Reaction Status Date / Time fenofibrate Allergy Severe MIGRAINES Verified 03/09/18 13:02 [id number]-1-[id number] Antimigraine Allergy Severe HEADACHE Verified 03/09/18 13:02 Agents Pcoqkde-Odp-Sgk Reductase Allergy Intermediate JOINT ACHES Verified 03/09/18 13: 02 Inhibitor medical tape AdvReac Mild RASH Uncoded 01/17/18 19:23 Travel Screening - Travel/Exposure Within Last 30 Days Have you traveled within the last 30 days?: No - Travel/Exposure Within Last Year Have you traveled outside the [place] in the last year?: No - Additonal Travel Details Have you been exposed to anyone with a communicable illness?: No - Travel Symptoms Symptom Screening: None Review of Systems Reviewed: No additional complaints except as noted below Constitutional: Reports: As per HPI. Denies: Chills, Fever, Malaise, Night sweats, Weakness, Weight change Eyes: Reports: As per HPI. Denies: Eye discharge, Eye pain, Photophobia, Vision change ENT: Reports: As per HPI. Denies: Congestion, Dental pain, Ear pain, Epistaxis , Hearing loss, Throat pain Respiratory: Reports: As per HPI. Denies: Cough, Dyspnea, Hemoptysis, Stridor, Wheezes Cardiovascular: Reports: As per HPI, Chest pain. Denies: Arrhythmia, Dyspnea on exertion, Edema, Murmurs, Orthopnea, Palpitations, Paroxysmal nocturnal dyspnea, Rheumatic Fever, Syncope Endocrine: Reports: As per HPI. Denies: Fatigue, Heat or cold intolerance, Polydipsia, Polyuria Gastrointestinal: Reports: As per HPI. Denies: Abdominal pain, Constipation, Diarrhea, Hematemesis, Hematochezia, Melena, Nausea, Vomiting Genitourinary: Reports: As per HPI. Denies: Abnormal menses, Discharge, Dyspareunia, Dysuria, Frequency, Hematuria, Incontinence, Retention, Urgency Musculoskeletal: Reports: As per HPI. Denies: Arthralgia, Back pain, Gout, Joint swelling, Myalgia, Neck pain Skin: Reports: As per HPI. Denies: Bruising, Change in color, Change in hair/ nails, Lesions, Pruritus, Rash Neurological: Reports: As per HPI. Denies: Abnormal gait, Confusion, Headache, Numbness, Paresthesias, Seizure, Tingling, Tremors, Vertigo, Weakness Psychiatric: Reports: As per HPI. Denies: Anxiety, Auditory hallucinations, Depression, Homicidal thoughts, Suicidal thoughts, Visual hallucinations Hematological/Lymphatic: Reports: As per HPI. Denies: Anemia, Blood Clots, Easy bleeding, Easy bruising, Swollen glands Past Medical History - SOCIAL HISTORY Smoking Status: Current every day smoker Alcohol Use: None Drug Use: None - RESPIRATORY Hx Respiratory Disorders: Yes Hx Bronchitis: Yes Hx Pneumonia: Yes Hx Sleep Apnea: Yes (possibly testing upcoming) Comment:: Home O2-3L at night - CARDIOVASCULAR Hx Cardio Disorders: Yes Hx Chest Pain: No (denies) Comment:: HYPERLIPIDEMIA - NEURO Hx Neuro Disorders: Yes Hx Headaches: Yes (complex migrane) Hx of Migraines: Yes (weekly) - GI Hx GI Disorders: Yes Hx Abdominal Pain: Yes Hx Diverticulitis: Yes Hx Reflux: Yes Hx Liver Disease: Yes (fatty liver denies liver bx) Hx Nausea/Vomiting: Yes (with pain) Hx Ulcer: No (denies) - Hx Genitourinary Disorders: Yes Comment:: polycystic ovary syndrome - ENDOCRINE Hx Endocrine Disorders: Yes Hx Diabetes: Yes - MUSCULOSKELETAL Hx Musculoskeletal Disorders: Yes Hx Fibromyalgia: Yes Hx Gout: Yes Comment:: Buldging disc in neck - PSYCH Hx Psych Problems: Yes Hx Anxiety: Yes Hx Depression: Yes Comment:: PTSD - HEMATOLOGY/ONCOLOGY Hx Hematology/Oncology Disorders: No Hx Anemia: No Family Medical History Any Significant Family History?: Yes Hx Cancer: Mother, Grandparents *Diabetes Comment: aunt Hx Heart Disease: Brother/Sister *Heart Comment: Brother Hx Kidney Disease: Children Physical Exam - General General Appearance: Alert, Oriented x3, Cooperative, No acute distress - Head Head exam: Normal inspection - Eye Eye exam: Normal appearance, PERRL Pupils: Normal accommodation - ENT ENT exam: Normal exam, Mucous membranes moist, Normal external ear exam, Normal orophraynx, TM's normal bilaterally Ear exam: Normal external inspection. negative: External canal tenderness Nasal Exam: Normal inspection. negative: Discharge, Sinus tenderness Mouth exam: Normal external inspection, Tongue normal Teeth exam: Normal inspection. negative: Dental caries Throat exam: Normal inspection. negative: Tonsillar erythema, Tonsillar exudate - Neck Neck exam: Normal inspection, Full ROM. negative: Tenderness - Respiratory Respiratory exam: Normal lung sounds bilaterally. negative: Respiratory distress - Cardiovascular Cardiovascular Exam: Regular rate, Normal rhythm, Normal heart sounds, Other ( reproducible chest pain on palpation) - GI/Abdominal GI/Abdominal exam: Soft, Normal bowel sounds. negative: Tenderness - Rectal Rectal exam: Deferred - exam: Deferred - Extremities Extremities exam: Normal inspection, Full ROM, Normal capillary refill. negative: Tenderness - Back Back exam: Reports: Normal inspection, Full ROM. Denies: Muscle spasm, Rash noted, Tenderness - Neurological Neurological exam: Alert, Normal gait, Oriented X3, Reflexes normal - Psychiatric Psychiatric exam: Normal affect, Normal mood - Skin Skin exam: Dry, Intact, Normal color, Warm Course Vital Signs 03/09/18 03/09/18 13:03 15:58 Temperature 97.6 F Pulse Rate 87 89 Respiratory 18 18 Rate Blood Pressure 124/65 118/70 Pulse Ox 97 99 Medical Decision Making - Lab Data Result diagrams: 03/09/18 13:50 03/09/18 13:50 Lab Results 03/09/18 03/09/18 03/09/18 Range/Units 13:50 13:50 13:50 WBC 8.1 (4.2-12.2) K/uL RBC 4.20 (3.80-5.40) M/uL Hgb 11.4 L (11.6-16.0) gm/dl Hct 36.6 (35.0-47.0) % MCV 87.1 (81-97) fl MCH 27.1 (27-33) pg MCHC 31.1 L (32-36) g/dl RDW 14.5 (11.5-14.5) % Plt Count 474 H (130-400) K/uL MPV 8.8 (7.4-10.4) fl Gran % 69.8 (47-80) % Lymphocytes % 22.0 (16-45) % Monocytes % 6.6 (0-9) % Eosinophils % 1.0 (0-6) % Basophils % 0.6 (0-6) % APTT 28.3 (24.5-39.1) SECONDS Sodium 141 (136-145) mmol/L Potassium 4.4 (3.4-4.5) mmol/L Chloride 102 (98-107) mmol/L Carbon Dioxide 24.0 (22-29) mmol/L Anion Gap 15.0 (7-16) BUN 9 (6-20) mg/dL Creatinine 0.7 (0.5-0.9) mg/dL Estimated GFR > 60 mL/min Random Glucose 115 H (74-109) mg/dL Calcium 9.4 (8.6-10.0) mg/dL Troponin T < 0.010 (0-0.010) ng/mL Disposition Clinical Impression: Anterior chest wall pain Disposition: Home, Self-Care Condition: (1) Good Instructions: Costochondritis (ED) Additional Instructions: follow up with family in one week Prescriptions: Naproxen [Naprosyn] 500 mg PO BID #30 tablet Forms: Patient Portal Access Time of Disposition: 17:55 Quality - Quality Measures Quality Measures: N/A - Headache: Neuroimaging ICD10 Codes Entered: No - Blood Pressure Screening Does Patient Have Any of the Following: No Blood Pressure Classification: Normal BP Reading Systolic Measurement: 118 Diastolic Measurement: 70 Screening for High Blood Pressure: < Normal BP, F/U Not Required > [G8783]
== END 2018-03-09 15:59 | disposition home or self-care (01) ==
LOC: ER 12:03
DX: R07.89 Other chest pain (principal); R53.1 Weakness; R06.02 Shortness of breath; E11.9 Type 2 diabetes mellitus without complications; F17.210 Nicotine dependence, cigarettes, uncomplicated
CPT/HCPCS: 99284 ×2; 96374; 85025; 85730; 80048; 84484; 71046; 93005; 93010; J1885

== ENCOUNTER 2018-03-10 19:30 | Emergency (ER) | payer MEDICARE, MEDICAID ==
--- NOTE | 2018-03-10 19:57 | Emergency Department Record ---
History of Present Illness - General Chief Complaint: Headache Migraine Stated Complaint: SERVIN Time Seen by Provider: 03/10/18 19:35 Source: Patient Mode of Arrival: Ambulatory Limitations: No limitations - History of Present Illness Initial Comments: 43 yo female presents to ED for evaluation of headache symptoms that began several hours ago. Patient denies fevers, chills, neck stiffness, or anticoagulation medications, and reports that her headache symptoms are similar to previous. Patient does report vomiting symptoms. MD Complaint: Headache Onset/Timin -: Hour(s) Onset Description: Sudden Location: Left Severity: Moderate, Severe Severity scale (1-10): 8 Quality: Sharp, Similar to previous headaches Consistency: Constant Improves With: Nothing Worsens With: Light, Noise Treatment Prior to Arrival Comment:: motrin, zophran 4mg PO - Symptoms of Stroke Onset of Symptoms Date: 03/10/18 Onset of Symptoms Time: 17:30 - Related Data Previous Rx's Medication Instructions Recorded Naproxen [Naprosyn] 500 mg PO BID #30 tablet 03/09/18 Allergies Allergy/AdvReac Type Severity Reaction Status Date / Time fenofibrate Allergy Severe MIGRAINES Verified 03/09/18 13:02 [id number] Antimigraine Allergy Severe HEADACHE Verified 03/09/18 13:02 Agents Wiyqeyx-Vjh-Loh Reductase Allergy Intermediate JOINT ACHES Verified 03/09/18 13: 02 Inhibitor medical tape AdvReac Mild RASH Uncoded 01/17/18 19:23 Travel Screening - Travel/Exposure Within Last 30 Days Have you traveled within the last 30 days?: No - Travel/Exposure Within Last Year Have you traveled outside the [place] in the last year?: No - Travel Symptoms Symptom Screening: None Review of Systems Constitutional: Denies: Chills, Fever, Malaise, Night sweats Eyes: Denies: Eye discharge, Eye pain ENT: Denies: Congestion, Ear pain, Epistaxis Respiratory: Denies: Cough, Dyspnea Cardiovascular: Denies: Chest pain, Dyspnea on exertion Endocrine: Denies: Fatigue, Heat or cold intolerance Gastrointestinal: Reports: Nausea, Vomiting. Denies: Abdominal pain Genitourinary: Denies: Incontinence, Retention Musculoskeletal: Denies: Arthralgia, Back pain Skin: Denies: Bruising, Change in color Neurological: Reports: Headache. Denies: Abnormal gait, Confusion, Seizure Psychiatric: Denies: Anxiety Hematological/Lymphatic: Denies: Anemia, Blood Clots Past Medical History - SOCIAL HISTORY Smoking Status: Current every day smoker Alcohol Use: None Drug Use: None - RESPIRATORY Hx Respiratory Disorders: Yes Hx Bronchitis: Yes Hx Pneumonia: Yes Hx Sleep Apnea: Yes (possibly testing upcoming) Comment:: Home O2-3L at night - CARDIOVASCULAR Hx Cardio Disorders: Yes Hx Chest Pain: No (denies) Comment:: HYPERLIPIDEMIA - NEURO Hx Neuro Disorders: Yes Hx Headaches: Yes (complex migrane) Hx of Migraines: Yes (weekly) - GI Hx GI Disorders: Yes Hx Abdominal Pain: Yes Hx Diverticulitis: Yes Hx Reflux: Yes Hx Liver Disease: Yes (fatty liver denies liver bx) Hx Nausea/Vomiting: Yes (with pain) Hx Ulcer: No (denies) - Hx Genitourinary Disorders: Yes Comment:: polycystic ovary syndrome - ENDOCRINE Hx Endocrine Disorders: Yes Hx Diabetes: Yes - MUSCULOSKELETAL Hx Musculoskeletal Disorders: Yes Hx Fibromyalgia: Yes Hx Gout: Yes Comment:: Buldging disc in neck - PSYCH Hx Psych Problems: Yes Hx Anxiety: Yes Hx Depression: Yes Comment:: PTSD - HEMATOLOGY/ONCOLOGY Hx Hematology/Oncology Disorders: No Hx Anemia: No Family Medical History Any Significant Family History?: Yes Hx Cancer: Mother, Grandparents *Diabetes Comment: aunt Hx Heart Disease: Brother/Sister *Heart Comment: Brother Hx Kidney Disease: Children Physical Exam - General General Appearance: Alert, Oriented x3, Cooperative, Moderate distress, Other ( Tearful on examination) Limitations: No limitations - Head Head exam: Atraumatic, Normocephalic, Normal inspection Head exam detail: negative: Abrasion, Contusion, Espinosa's sign, General tenderness, Hematoma, Laceration - Eye Eye exam: Normal appearance. negative: Conjunctival injection, Periorbital swelling, Periorbital tenderness, Scleral icterus - ENT Ear exam: negative: Auricular hematoma, Auricular trauma Nasal Exam: negative: Active bleeding, Discharge, Dried blood, Foreign body Mouth exam: negative: Drooling, Laceration, Muffled voice, Tongue elevation - Neck Neck exam: Normal inspection. negative: Meningismus, Tenderness - Respiratory Respiratory exam: Normal lung sounds bilaterally. negative: Rales, Respiratory distress, Rhonchi, Stridor - Cardiovascular Cardiovascular Exam: Regular rate, Normal rhythm, Normal heart sounds - GI/Abdominal GI/Abdominal exam: Soft. negative: Rebound, Rigid, Tenderness - Rectal Rectal exam: Deferred - exam: Deferred - Extremities Extremities exam: Normal inspection. negative: Calf tenderness, Pedal edema, Tenderness - Back Back exam: Denies: CVA tenderness (R), CVA tenderness (L) - Neurological Neurological exam: Alert, Normal gait, Oriented X3 - Psychiatric Psychiatric exam: Normal affect, Normal mood - Skin Skin exam: Normal color. negative: Abrasion Type of lesion: negative: abrasion Course Vital Signs 03/10/18 19:49 Temperature 98.4 F Pulse Rate 84 Respiratory 18 Rate Pulse Ox 144 H - Reevaluation(s) Reevaluation #1: 03/10/18 20:00 Patient was seen and examined, discussed administering Benadryl, Phenergan, and Toradol per previous visits in the ED. Patient refused stating "I need an IV, the shots leave pike on me for weeks". IV does not appear indicated, patient states that she wants to leave to go to another facility. AMA paperwork was given to the patient prior to discharge. Disposition Disposition: Other (AMA) Clinical Impression: Acute headache Qualifiers: Headache type: unspecified Intractability: not intractable Qualified Code(s): R51 - Headache Disposition: Home, Self-Care Condition: (2) Stable Instructions: Acute Headache (ED) Additional Instructions: Return to ED if your symptoms worsen or if you have any concerns. Follow-up with your family doctor in 3-5 days as directed. Forms: Patient Portal Access Time of Disposition: 19:57 Quality - Quality Measures Quality Measures: N/A, Headache (All Ages) - Headache: Neuroimaging Quality Measure: Measure #419: Overuse of Neuroimaging ICD10 Codes Entered: Yes Neurological Exam: Patient had a normal neurological exam. [G9535] Headache: Use of Neuroimaging: < CTA, CT, MRA or MRI was NOT ordered > [G9534] - Blood Pressure Screening Does Patient Have Any of the Following: No Blood Pressure Classification: Hypertensive Reading Systolic Measurement: 144 Diastolic Measurement: 90 Screening for High Blood Pressure: < Second Hypertensive BP, F/U Documented > [ G8950] Second Hypertensive Follow-up Interventions: Referral to alternative/primary care provider.
== END 2018-03-10 20:07 | disposition home or self-care (01) ==
LOC: ER 19:30
DX: R51 Headache (principal); F17.210 Nicotine dependence, cigarettes, uncomplicated; Z53.21 Procedure and treatment not carried out due to patient leaving prior to being seen by health care provider
CPT/HCPCS: 99281

== ENCOUNTER 2018-04-07 22:13 | Emergency (ER) | payer MEDICARE, MEDICAID ==
[2018-04-07] MEDS ORDERED: KETOROLAC 30 MG/ML VIAL IM ONE (22:25)
--- NOTE | 2018-04-07 22:30 | Emergency Department Record ---
History of Present Illness - General Chief Complaint: Headache Migraine Stated Complaint: SERVIN Time Seen by Provider: 04/07/18 22:16 Source: Patient Mode of Arrival: Ambulatory Limitations: No limitations - History of Present Illness Initial Comments: The patient is here due to a migraine SERVIN over the last 4 hours. She states she had had a mild SERVIN all day and then it gradually got worse this evening starting about 6pm. She also has had photophobia and nausea and states she has vomited this evening. The patient has a LONG hx of migraine SERVIN's exactly like this and has been to the ER dozens of times for similar pain. The patient did drive here and does not presently have a ride home. MD Complaint: Headache Onset/Timin -: Hour(s) Onset Description: Gradual Location: Diffuse Severity scale (1-10): 9 Quality: Similar to previous headaches Consistency: Constant Improves With: Nothing Worsens With: Light, Noise Associated Symptoms: Nausea, Photophobia, Sensitivity to sound, Vomiting Treatments Prior to Arrival: Ibuprofen, Prescription analgesic - Related Data Previous Rx's Medication Instructions Recorded Naproxen [Naprosyn] 500 mg PO BID #30 tablet 03/09/18 Allergies Allergy/AdvReac Type Severity Reaction Status Date / Time fenofibrate Allergy Severe MIGRAINES Verified 04/07/18 22:17 [id number] Antimigraine Allergy Severe HEADACHE Verified 04/07/18 22:17 Agents Sehdcja-Qgl-Gvd Reductase Allergy Intermediate JOINT ACHES Verified 04/07/18 22: 17 Inhibitor medical tape AdvReac Mild RASH Uncoded 01/17/18 19:23 Travel Screening - Travel/Exposure Within Last 30 Days Have you traveled within the last 30 days?: No - Travel Symptoms Symptom Screening: Vomiting Review of Systems Constitutional: Denies: Chills, Fever Eyes: Denies: Eye discharge ENT: Denies: Congestion Respiratory: Denies: Cough, Dyspnea Past Medical History - SOCIAL HISTORY Smoking Status: Current every day smoker Alcohol Use: None - RESPIRATORY Hx Respiratory Disorders: Yes Hx Bronchitis: Yes Hx Pneumonia: Yes Hx Sleep Apnea: Yes (possibly testing upcoming) Comment:: Home O2-3L at night - CARDIOVASCULAR Hx Cardio Disorders: Yes Hx Chest Pain: No (denies) Comment:: HYPERLIPIDEMIA - NEURO Hx Neuro Disorders: Yes Hx Headaches: Yes (complex migrane) Hx of Migraines: Yes (weekly) - GI Hx GI Disorders: Yes Hx Abdominal Pain: Yes Hx Diverticulitis: Yes Hx Reflux: Yes Hx Liver Disease: Yes (fatty liver denies liver bx) Hx Nausea/Vomiting: Yes (with pain) Hx Ulcer: No (denies) - Hx Genitourinary Disorders: Yes Comment:: polycystic ovary syndrome - ENDOCRINE Hx Endocrine Disorders: Yes Hx Diabetes: Yes - MUSCULOSKELETAL Hx Musculoskeletal Disorders: Yes Hx Fibromyalgia: Yes Hx Gout: Yes Comment:: Buldging disc in neck - PSYCH Hx Psych Problems: Yes Hx Anxiety: Yes Hx Depression: Yes Comment:: PTSD - HEMATOLOGY/ONCOLOGY Hx Hematology/Oncology Disorders: No Hx Anemia: No Family Medical History Any Significant Family History?: Yes Hx Cancer: Mother, Grandparents *Diabetes Comment: aunt Hx Heart Disease: Brother/Sister *Heart Comment: Brother Hx Kidney Disease: Children Physical Exam - General General Appearance: Alert, Oriented x3, Cooperative, Mild distress (due to the head pain.) - Head Head exam: Atraumatic, Normocephalic - Eye Eye exam: Normal appearance, PERRL, EOMI. negative: Conjunctival injection - ENT Throat exam: Normal inspection. negative: Tonsillar erythema, Tonsillar exudate - Neck Neck exam: Normal inspection, Full ROM. negative: Meningismus (The neck is very supple.), Tenderness - Respiratory Respiratory exam: Normal lung sounds bilaterally. negative: Respiratory distress - Cardiovascular Cardiovascular Exam: Regular rate, Normal rhythm, Normal heart sounds - GI/Abdominal GI/Abdominal exam: Soft, Normal bowel sounds. negative: Tenderness - Extremities Extremities exam: Normal inspection, Full ROM, Normal capillary refill. negative: Tenderness - Neurological Neurological exam: Alert, Normal gait, Oriented X3, Other (Neck Drift and Rhomberg.). negative: Abnormal gait, Altered, Motor sensory deficit - Skin Skin exam: negative: Rash Course Vital Signs 04/07/18 22:18 Temperature 97.7 F Pulse Rate 88 Respiratory 18 Rate Blood Pressure 131/88 Pulse Ox 95 - Reevaluation(s) Reevaluation #1: The patient is refusing her Toradol shot and would like something else. I did explain to her that the medicines that have helped her in the past are Phenergan and Benadryl along with the Toradol. Due to the patient driving here I explained to her that she would need to get a ride home. She was unable to do that and I again explained to her that I am not able to give a patient any medicines that could impair her driving ability so I would not be able to order the Phenergan and Benadryl. She continued to refuse the Toradol and then got up and walked out. She would not wait to sign the AMA papers. 04/07/18 22:39 Disposition Disposition: Discharge Clinical Impression: Chronic pain Qualifiers: Chronic pain type: other chronic pain Qualified Code(s): G89.29 - Other chronic pain Disposition: Against Medical Advice Condition: (3) Guarded Instructions: Acute Headache (ED) Forms: Patient Portal Access Time of Disposition: 22:42 Quality - Quality Measures Quality Measures: Headache (All Ages) - Headache: Neuroimaging Quality Measure: Measure #419: Overuse of Neuroimaging ICD10 Codes Entered: Yes View Detail: Yes Neurological Exam: Patient had a normal neurological exam. [G9535] Headache: Use of Neuroimaging: < CTA, CT, MRA or MRI was NOT ordered > [G9534] - Blood Pressure Screening View Details: Yes Does Patient Have Any of the Following: No Blood Pressure Classification: Pre-Hypertensive BP Reading Systolic Measurement: 131 Diastolic Measurement: 88 Screening for High Blood Pressure: < Pre-Hypertensive BP, F/U Documented > [ G8950] Pre-Hypertensive Follow-up Interventions: Referral to alternative/primary care provider.
--- NOTE | 2018-04-07 23:00 | Emergency Department Record ---
History of Present Illness - General Chief Complaint: Headache Migraine Stated Complaint: SERVIN Time Seen by Provider: 04/07/18 22:16 Mode of Arrival: Ambulatory Limitations: No limitations - History of Present Illness Onset/Timin -: Hour(s) Onset Description: Gradual Location: Diffuse Severity scale (1-10): 9 Quality: Similar to previous headaches Consistency: Constant Improves With: Nothing Worsens With: Light, Noise Associated Symptoms: Nausea, Photophobia, Sensitivity to sound, Vomiting Treatments Prior to Arrival: Ibuprofen, Prescription analgesic - Related Data Previous Rx's Medication Instructions Recorded Naproxen [Naprosyn] 500 mg PO BID #30 tablet 03/09/18 Allergies Allergy/AdvReac Type Severity Reaction Status Date / Time fenofibrate Allergy Severe MIGRAINES Verified 04/07/18 22:17 [id number] Antimigraine Allergy Severe HEADACHE Verified 04/07/18 22:17 Agents Oypbygm-Nrw-Aoz Reductase Allergy Intermediate JOINT ACHES Verified 04/07/18 22: 17 Inhibitor medical tape AdvReac Mild RASH Uncoded 01/17/18 19:23 Travel Screening - Travel/Exposure Within Last 30 Days Have you traveled within the last 30 days?: No - Travel Symptoms Symptom Screening: Vomiting Review of Systems Constitutional: Denies: Chills, Fever Eyes: Denies: Eye discharge ENT: Denies: Congestion Respiratory: Denies: Cough, Dyspnea Past Medical History - SOCIAL HISTORY Smoking Status: Current every day smoker Alcohol Use: None - RESPIRATORY Hx Respiratory Disorders: Yes Hx Bronchitis: Yes Hx Pneumonia: Yes Hx Sleep Apnea: Yes (possibly testing upcoming) Comment:: Home O2-3L at night - CARDIOVASCULAR Hx Cardio Disorders: Yes Hx Chest Pain: No (denies) Comment:: HYPERLIPIDEMIA - NEURO Hx Neuro Disorders: Yes Hx Headaches: Yes (complex migrane) Hx of Migraines: Yes (weekly) - GI Hx GI Disorders: Yes Hx Abdominal Pain: Yes Hx Diverticulitis: Yes Hx Reflux: Yes Hx Liver Disease: Yes (fatty liver denies liver bx) Hx Nausea/Vomiting: Yes (with pain) Hx Ulcer: No (denies) - Hx Genitourinary Disorders: Yes Comment:: polycystic ovary syndrome - ENDOCRINE Hx Endocrine Disorders: Yes Hx Diabetes: Yes - MUSCULOSKELETAL Hx Musculoskeletal Disorders: Yes Hx Fibromyalgia: Yes Hx Gout: Yes Comment:: Buldging disc in neck - PSYCH Hx Psych Problems: Yes Hx Anxiety: Yes Hx Depression: Yes Comment:: PTSD - HEMATOLOGY/ONCOLOGY Hx Hematology/Oncology Disorders: No Hx Anemia: No Family Medical History Any Significant Family History?: Yes Hx Cancer: Mother, Grandparents *Diabetes Comment: aunt Hx Heart Disease: Brother/Sister *Heart Comment: Brother Hx Kidney Disease: Children Physical Exam - General Limitations: No limitations Course Vital Signs 04/07/18 22:18 Temperature 97.7 F Pulse Rate 88 Respiratory 18 Rate Blood Pressure 131/88 Pulse Ox 95 Disposition Clinical Impression: Chronic pain Qualifiers: Chronic pain type: other chronic pain Qualified Code(s): G89.29 - Other chronic pain Disposition: Against Medical Advice Condition: (2) Stable Instructions: Acute Headache (ED) Forms: Patient Portal Access Quality - Quality Measures Quality Measures: Headache (All Ages) - Headache: Neuroimaging Quality Measure: Measure #419: Overuse of Neuroimaging ICD10 Codes Entered: Yes View Detail: Yes Neurological Exam: Patient had a normal neurological exam. [G9535] Headache: Use of Neuroimaging: < CTA, CT, MRA or MRI was NOT ordered > [G9534] - Blood Pressure Screening View Details: Yes Does Patient Have Any of the Following: No Blood Pressure Classification: Pre-Hypertensive BP Reading Systolic Measurement: 131 Diastolic Measurement: 88 Screening for High Blood Pressure: < Pre-Hypertensive BP, F/U Documented > [ G8950] Pre-Hypertensive Follow-up Interventions: Referral to alternative/primary care provider.
== END 2018-04-07 22:55 | disposition left against medical advice (07) ==
LOC: ER 22:13
DX: R51 Headache (principal); G89.29 Other chronic pain; R11.2 Nausea with vomiting, unspecified; H53.149 Visual discomfort, unspecified; F17.210 Nicotine dependence, cigarettes, uncomplicated
CPT/HCPCS: 99282

== ENCOUNTER 2018-04-07 23:36 | Emergency (ER) | payer MEDICARE, MEDICAID ==
--- NOTE | 2018-04-07 23:57 | Emergency Department Record ---
History of Present Illness - General Chief Complaint: Headache Migraine Stated Complaint: HEADACHE Time Seen by Provider: 04/07/18 23:52 Source: Patient Mode of Arrival: Ambulatory Limitations: No limitations - History of Present Illness Initial Comments: The patient is here due to having a typical migraine SERVIN this evening. The onset was gradual and the pain is all over. The patient has been nauseated and did vomiting a few times earlier this evening. She did present to the ER about 2 hours ago with the same issues but eloped due to not having a ride home. She now is returning due to having a ride home. Complaint: Headache Onset/Timin -: Hour(s) Onset Description: Gradual Location: Diffuse Severity: Severe Severity scale (1-10): 10 Quality: Similar to previous headaches Consistency: Constant Improves With: Nothing Worsens With: Exertion/activity, Light, Noise Treatments Prior to Arrival: Migraine medication - Related Data Allergies Allergy/AdvReac Type Severity Reaction Status Date / Time fenofibrate Allergy Severe MIGRAINES Verified 04/07/18 22:17 [id number] Antimigraine Allergy Severe HEADACHE Verified 04/07/18 22:17 Agents Xfmhptc-Wje-Kis Reductase Allergy Intermediate JOINT ACHES Verified 04/07/18 22: 17 Inhibitor medical tape AdvReac Mild RASH Uncoded 01/17/18 19:23 Travel Screening - Travel/Exposure Within Last 30 Days Have you traveled within the last 30 days?: No - Travel Symptoms Symptom Screening: Headache, Vomiting Review of Systems Constitutional: Denies: Chills, Fever Eyes: Denies: Eye discharge ENT: Denies: Congestion Respiratory: Denies: Cough, Dyspnea Past Medical History - SOCIAL HISTORY Smoking Status: Current every day smoker - RESPIRATORY Hx Respiratory Disorders: Yes Hx Bronchitis: Yes Hx Pneumonia: Yes Hx Sleep Apnea: Yes (possibly testing upcoming) Comment:: Home O2-3L at night - CARDIOVASCULAR Hx Cardio Disorders: Yes Hx Chest Pain: No (denies) Comment:: HYPERLIPIDEMIA - NEURO Hx Neuro Disorders: Yes Hx Headaches: Yes (complex migrane) Hx of Migraines: Yes (weekly) - GI Hx GI Disorders: Yes Hx Abdominal Pain: Yes Hx Diverticulitis: Yes Hx Reflux: Yes Hx Liver Disease: Yes (fatty liver denies liver bx) Hx Nausea/Vomiting: Yes (with pain) Hx Ulcer: No (denies) - Hx Genitourinary Disorders: Yes Comment:: polycystic ovary syndrome - ENDOCRINE Hx Endocrine Disorders: Yes Hx Diabetes: Yes - MUSCULOSKELETAL Hx Musculoskeletal Disorders: Yes Hx Fibromyalgia: Yes Hx Gout: Yes Comment:: Buldging disc in neck - PSYCH Hx Psych Problems: Yes Hx Anxiety: Yes Hx Depression: Yes Comment:: PTSD - HEMATOLOGY/ONCOLOGY Hx Hematology/Oncology Disorders: No Hx Anemia: No Family Medical History Any Significant Family History?: Yes Hx Cancer: Mother, Grandparents *Diabetes Comment: aunt Hx Heart Disease: Brother/Sister *Heart Comment: Brother Hx Kidney Disease: Children Physical Exam - General General Appearance: Alert, Oriented x3, Cooperative, No acute distress - Head Head exam: Atraumatic, Normocephalic, Normal inspection - Eye Eye exam: Normal appearance, PERRL, EOMI - Neck Neck exam: Normal inspection, Full ROM. negative: Meningismus, Tenderness - Respiratory Respiratory exam: Normal lung sounds bilaterally. negative: Respiratory distress - Cardiovascular Cardiovascular Exam: Regular rate, Normal rhythm, Normal heart sounds - GI/Abdominal GI/Abdominal exam: Soft, Normal bowel sounds. negative: Tenderness - Extremities Extremities exam: Normal inspection, Full ROM, Normal capillary refill. negative: Tenderness - Neurological Neurological exam: Alert, Normal gait, Oriented X3, Other (Neg Drift and Rhomberg exams.). negative: Abnormal gait, Motor sensory deficit Course Vital Signs 04/07/18 23:41 Temperature 98.0 F Pulse Rate 84 Respiratory 22 Rate Blood Pressure 143/87 Pulse Ox 95 - Reevaluation(s) Reevaluation #1: I did explain to the patient that I would be happy to order her the SERVIN cocktail that has worked for her in the past. She usually received Toradol, Phenergan and Benadryl IM but now is demanding it be given IV. I explained to her that there is no indication for an IV at this time so she became angry and got up, put her coat on and eloped from the ED. She would not wait and signs the AMA papers. 04/07/18 23:54 Disposition Disposition: Discharge Clinical Impression: Chronic pain Qualifiers: Chronic pain type: other chronic pain Qualified Code(s): G89.29 - Other chronic pain Disposition: Left w/o service/seen Condition: (2) Stable Instructions: Acute Headache (ED) Time of Disposition: 23:57 Quality - Quality Measures Quality Measures: Headache (All Ages) - Headache: Neuroimaging Quality Measure: Measure #419: Overuse of Neuroimaging ICD10 Codes Entered: Yes View Detail: Yes Neurological Exam: Patient had a normal neurological exam. [G9535] Headache: Use of Neuroimaging: < CTA, CT, MRA or MRI was NOT ordered > [G9534] - Blood Pressure Screening View Details: Yes Does Patient Have Any of the Following: No Blood Pressure Classification: Pre-Hypertensive BP Reading Systolic Measurement: 143 Diastolic Measurement: 87 Screening for High Blood Pressure: < Pre-Hypertensive BP, F/U Documented > [ G8950] Pre-Hypertensive Follow-up Interventions: Referral to alternative/primary care provider.
== END 2018-04-07 23:55 | disposition left against medical advice (07) ==
LOC: ER 23:36
DX: R51 Headache (principal); G89.29 Other chronic pain; R11.2 Nausea with vomiting, unspecified
CPT/HCPCS: 99282

== ENCOUNTER 2018-04-30 15:07 | Emergency (ER) | payer MEDICARE, MEDICAID ==
[2018-04-30] MEDS ORDERED: IPRATROPIUM/ALBUTEROL (0.5MG/3MG) NEB INH ONE (15:12)
[2018-04-30] MEDS ORDERED: PREDNISONE 20 MG TAB PO ONE (15:12)
--- NOTE | 2018-04-30 15:19 | Emergency Department Record ---
History of Present Illness - General Chief Complaint: Difficulty Breathing Stated Complaint: LAW/COUGH/BODY ACHES Time Seen by Provider: 04/30/18 15:08 Source: Patient Mode of Arrival: Ambulatory Limitations: No limitations - History of Present Illness Initial Comments: 43 yo female presents with cough, body aches, and some wheezing. The onset was last night. She is a smoker. She has had a history of asthma and pneumonia. The sputum today is yellow. No nausea, vomiting or diarrhea. Her daughter at home is also sick with URI symptoms. She is 99% on arrival to the ED. MD Complaint: Cough, Shortness of breath -: Hour(s) Radiation: Other Severity: Moderate Quality: Aching Consistency: Constant Improves With: Nothing Worsens With: Coughing Known History Of: Asthma, Recurrent pneumonia Associated Symptoms: Cough Treatments Prior to Arrival: None - Related Data Previous Rx's Medication Instructions Recorded Azithromycin [Zithromax] 250 mg PO DAILY #6 tablet 04/30/18 Prednisone [Prednisone 20Mg] 20 mg PO BID #10 tab 04/30/18 Allergies Allergy/AdvReac Type Severity Reaction Status Date / Time fenofibrate Allergy Severe MIGRAINES Verified 04/30/18 15:14 [id number] Antimigraine Allergy Severe HEADACHE Verified 04/30/18 15:14 Agents Hvidegc-Gyg-Fsr Reductase Allergy Intermediate JOINT ACHES Verified 04/30/18 15: 14 Inhibitor medical tape AdvReac Mild RASH Uncoded 04/30/18 15:14 Review of Systems Constitutional: Reports: Chills, Fever, Malaise Eyes: Denies: Eye discharge, Eye pain, Photophobia, Vision change ENT: Reports: Congestion, Throat pain. Denies: Ear pain, Epistaxis Respiratory: Reports: Cough, Wheezes. Denies: Dyspnea, Hemoptysis, Stridor Cardiovascular: Denies: Chest pain, Palpitations, Syncope Endocrine: Denies: Fatigue Gastrointestinal: Denies: Abdominal pain, Diarrhea, Nausea, Vomiting Genitourinary: Denies: Dysuria, Urgency Musculoskeletal: Reports: Myalgia. Denies: Arthralgia, Back pain, Joint swelling Skin: Denies: Bruising, Change in color, Rash Neurological: Reports: Headache Psychiatric: Denies: Anxiety Hematological/Lymphatic: Denies: Blood Clots, Easy bleeding, Easy bruising, Swollen glands Past Medical History - SOCIAL HISTORY Smoking Status: Current every day smoker - RESPIRATORY Hx Respiratory Disorders: Yes Hx Bronchitis: Yes Hx Pneumonia: Yes Hx Sleep Apnea: Yes (possibly testing upcoming) Comment:: Home O2-3L at night - CARDIOVASCULAR Hx Cardio Disorders: Yes Hx Chest Pain: No (denies) Comment:: HYPERLIPIDEMIA - NEURO Hx Neuro Disorders: Yes Hx Headaches: Yes (complex migrane) Hx of Migraines: Yes (weekly) - GI Hx GI Disorders: Yes Hx Abdominal Pain: Yes Hx Diverticulitis: Yes Hx Reflux: Yes Hx Liver Disease: Yes (fatty liver denies liver bx) Hx Nausea/Vomiting: Yes (with pain) Hx Ulcer: No (denies) - Hx Genitourinary Disorders: Yes Comment:: polycystic ovary syndrome - ENDOCRINE Hx Endocrine Disorders: Yes Hx Diabetes: Yes - MUSCULOSKELETAL Hx Musculoskeletal Disorders: Yes Hx Fibromyalgia: Yes Hx Gout: Yes Comment:: Buldging disc in neck - PSYCH Hx Psych Problems: Yes Hx Anxiety: Yes Hx Depression: Yes Comment:: PTSD - HEMATOLOGY/ONCOLOGY Hx Hematology/Oncology Disorders: No Hx Anemia: No Family Medical History Hx Cancer: Mother, Grandparents *Diabetes Comment: aunt Hx Heart Disease: Brother/Sister *Heart Comment: Brother Hx Kidney Disease: Children Physical Exam - General General Appearance: Alert, Oriented x3, Cooperative, No acute distress Limitations: No limitations - Head Head exam: Atraumatic, Normal inspection - Eye Eye exam: Normal appearance, PERRL. negative: Conjunctival injection, Scleral icterus - ENT ENT exam: Normal exam, Mucous membranes moist, Normal orophraynx Ear exam: Normal external inspection Nasal Exam: Normal inspection Mouth exam: Normal external inspection Teeth exam: Normal inspection Throat exam: Normal inspection. negative: Tonsillar erythema, Tonsillomegaly, Tonsillar exudate, R peritonsillar mass, L peritonsillar mass - Neck Neck exam: Normal inspection, Full ROM. negative: Tenderness - Respiratory Respiratory exam: Decreased breath sounds (mildly), Wheezes (few mild scattered) , Other (Good air movement. Mild scattered wheeze. Normal work of breathing. Non labored). negative: Accessory muscle use, Chest wall tenderness, Prolonged expiratory, Rales, Respiratory distress, Rhonchi, Stridor - Cardiovascular Cardiovascular Exam: Regular rate, Normal rhythm, Normal heart sounds - Rectal Rectal exam: Deferred - exam: Deferred - Extremities Extremities exam: Normal inspection. negative: Pedal edema - Back Back exam: Denies: CVA tenderness (R), CVA tenderness (L) - Neurological Neurological exam: Alert, Oriented X3 - Psychiatric Psychiatric exam: Normal affect, Normal mood - Skin Skin exam: Dry, Intact, Normal color, Warm Course - Reevaluation(s) Reevaluation #1: 04/30/18 15:31 Vitals were reviewed on arrival. No tachycardia, hypoxia or fever. Work of breathing is normal 04/30/18 15:50 Influenza is negative The CXR was reviewed. My preliminary read is no definite focal infiltrate or acute changes. Disposition Disposition: Discharge Clinical Impression: Asthmatic bronchitis Qualifiers: Asthma severity: mild Asthma persistence: intermittent Asthma complication type : with acute exacerbation Qualified Code(s): J45.21 - Mild intermittent asthma with (acute) exacerbation Disposition: Home, Self-Care Condition: (1) Good Instructions: Wheezing (ED) Additional Instructions: Call your doctor on Wednesday for close follow up Take the prescriptions as directed Return for a recheck if worse, short of breath or any new concerns Prescriptions: Azithromycin [Zithromax] 250 mg PO DAILY #6 tablet Prednisone [Prednisone 20Mg] 20 mg PO BID #10 tab Forms: Patient Portal Access Time of Disposition: 15:53 Quality - Quality Measures Quality Measures: N/A - Blood Pressure Screening Does Patient Have Any of the Following: No Blood Pressure Classification: Normal BP Reading Systolic Measurement: 114 Diastolic Measurement: 69 Screening for High Blood Pressure: < Normal BP, F/U Not Required > [G8783]
[2018-04-30 15:31] LABS: INFLUENZA A NEGATIVE (NEGATIVE); INFLUENZA B NEGATIVE (NEGATIVE)
--- NOTE | 2018-05-04 04:36 | RADIOLOGY REPORT ---
DATE: 04/30/2018. EXAM: CHEST, TWO VIEWS. HISTORY: Cough and wheezing. TECHNIQUE: PA and lateral views of the chest. COMPARISON: 03/09/2018. FINDINGS: The cardiomediastinal silhouette is normal in size. The pulmonary vasculature is not congested. There is minimal atelectasis in the lingula. No focal consolidation, pleural effusion, or pneumothorax is seen. IMPRESSION: NO ACUTE PULMONARY PROCESS. JOB NUMBER: [id number] MTDD
== END 2018-04-30 16:01 | disposition home or self-care (01) ==
LOC: ER 15:07
DX: J45.21 Mild intermittent asthma with (acute) exacerbation (principal); R06.00 Dyspnea, unspecified; F17.210 Nicotine dependence, cigarettes, uncomplicated; E11.9 Type 2 diabetes mellitus without complications; Z99.81 Dependence on supplemental oxygen
CPT/HCPCS: 99283; 99284; 87400; 71046; 94640; J7512

== ENCOUNTER 2018-05-02 13:41 | Emergency (ER) | payer MEDICARE, MEDICAID ==
--- NOTE | 2018-05-02 13:51 | Emergency Department Record ---
History of Present Illness - General Chief Complaint: Cough Stated Complaint: LWA,COUGH Time Seen by Provider: 05/02/18 13:46 Source: Patient, Family Mode of Arrival: Ambulatory Limitations: No limitations - History of Present Illness Initial Comments: 43 yo female presents with her third day of coughing and congestion. She has some sore throat as well. Her daughter has also been sick. She was seen in the ED on 04/30. Her influenza swab was negative and her CXR was negative. She is a smoker. She has asthma and has had pneumonia in the past. MD Complaint: Cough, Nasal congestion, Sore throat -: Days(s) (3) Severity: Moderate Quality: Aching Consistency: Constant Improves With: Nothing Worsens With: Nothing Context: Sick contacts (Daughter) Associated Symptoms: Cough, Other (Wheezing) Treatments Prior to Arrival: Antibiotics, Other - Related Data Previous Rx's Medication Instructions Recorded Azithromycin [Zithromax] 250 mg PO DAILY #6 tablet 04/30/18 Prednisone [Prednisone 20Mg] 20 mg PO BID #10 tab 04/30/18 Albuterol Sulfate [Proair Hfa] 1 - 2 puff IH .EVERY 4-6 HOURS PRN 05/02/18 #1 inhaler Allergies Allergy/AdvReac Type Severity Reaction Status Date / Time fenofibrate Allergy Severe MIGRAINES Verified 04/30/18 15:14 [id number] Antimigraine Allergy Severe HEADACHE Verified 04/30/18 15:14 Agents Ipyvbaf-Awb-Zqe Reductase Allergy Intermediate JOINT ACHES Verified 04/30/18 15: 14 Inhibitor medical tape AdvReac Mild RASH Uncoded 04/30/18 15:14 Review of Systems Constitutional: Reports: Fever, Malaise. Denies: Chills Eyes: Denies: Eye discharge, Eye pain, Photophobia, Vision change ENT: Reports: Congestion, Throat pain. Denies: Ear pain Respiratory: Reports: Cough, Dyspnea, Wheezes Cardiovascular: Denies: Chest pain, Palpitations, Syncope Endocrine: Denies: Fatigue, Polydipsia, Polyuria Gastrointestinal: Denies: Abdominal pain, Diarrhea, Nausea, Vomiting Genitourinary: Denies: Dysuria, Urgency Musculoskeletal: Denies: Arthralgia, Back pain, Joint swelling, Myalgia Skin: Denies: Bruising, Change in color, Rash Neurological: Denies: Headache, Weakness Psychiatric: Denies: Anxiety Hematological/Lymphatic: Denies: Blood Clots, Easy bleeding, Easy bruising, Swollen glands Past Medical History - SOCIAL HISTORY Smoking Status: Current every day smoker - RESPIRATORY Hx Respiratory Disorders: Yes Hx Bronchitis: Yes Hx Pneumonia: Yes Hx Sleep Apnea: Yes (possibly testing upcoming) Comment:: Home O2-3L at night - CARDIOVASCULAR Hx Cardio Disorders: Yes Hx Chest Pain: No (denies) Comment:: HYPERLIPIDEMIA - NEURO Hx Neuro Disorders: Yes Hx Headaches: Yes (complex migrane) Hx of Migraines: Yes (weekly) - GI Hx GI Disorders: Yes Hx Abdominal Pain: Yes Hx Diverticulitis: Yes Hx Reflux: Yes Hx Liver Disease: Yes (fatty liver denies liver bx) Hx Nausea/Vomiting: Yes (with pain) Hx Ulcer: No (denies) - Hx Genitourinary Disorders: Yes Comment:: polycystic ovary syndrome - ENDOCRINE Hx Endocrine Disorders: Yes Hx Diabetes: Yes - MUSCULOSKELETAL Hx Musculoskeletal Disorders: Yes Hx Fibromyalgia: Yes Hx Gout: Yes Comment:: Buldging disc in neck - PSYCH Hx Psych Problems: Yes Hx Anxiety: Yes Hx Depression: Yes Comment:: PTSD - HEMATOLOGY/ONCOLOGY Hx Hematology/Oncology Disorders: No Hx Anemia: No Family Medical History Hx Cancer: Mother, Grandparents *Diabetes Comment: aunt Hx Heart Disease: Brother/Sister *Heart Comment: Brother Hx Kidney Disease: Children Physical Exam - General General Appearance: Alert, Oriented x3, Cooperative, No acute distress Limitations: No limitations - Head Head exam: Atraumatic, Normal inspection - Eye Eye exam: Normal appearance, PERRL. negative: Conjunctival injection, Scleral icterus - ENT ENT exam: Normal exam, Mucous membranes moist, Normal orophraynx Ear exam: Normal external inspection Nasal Exam: Normal inspection Mouth exam: Normal external inspection Teeth exam: Normal inspection Throat exam: Normal inspection. negative: Tonsillar erythema, Tonsillomegaly, Tonsillar exudate, R peritonsillar mass, L peritonsillar mass - Neck Neck exam: Normal inspection. negative: Tenderness - Cardiovascular Cardiovascular Exam: Regular rate, Normal rhythm, Normal heart sounds - GI/Abdominal GI/Abdominal exam: Soft. negative: Tenderness - Rectal Rectal exam: Deferred - exam: Deferred - Extremities Extremities exam: Normal inspection. negative: Pedal edema, Tenderness - Back Back exam: Denies: CVA tenderness (R), CVA tenderness (L) - Neurological Neurological exam: Alert, Oriented X3 - Psychiatric Psychiatric exam: Normal affect, Normal mood. negative: Agitated, Anxious - Skin Skin exam: Dry, Intact, Normal color, Warm Course - Reevaluation(s) Reevaluation #1: The vitals were reviewed. No abnormal vitals, no fever or hypoxia. No tachycardia. 05/02/18 13:58 Disposition Disposition: Discharge Clinical Impression: Asthmatic bronchitis Qualifiers: Asthma severity: mild Asthma persistence: intermittent Asthma complication type : with acute exacerbation Qualified Code(s): J45.21 - Mild intermittent asthma with (acute) exacerbation Disposition: Home, Self-Care Condition: (1) Good Instructions: Wheezing (ED) Additional Instructions: Follow up as scheduled with your doctor on . Return to the ER for a recheck if worse, any new concerns or questions Take the prescriptions provided as directed Review this ER visit and the tests performed with your family doctor Prescriptions: Albuterol Sulfate [Proair Hfa] 1 - 2 puff IH .EVERY 4-6 HOURS PRN #1 inhaler PRN Reason: Difficulty In Breathing Forms: Patient Portal Access Time of Disposition: 14:06 Quality - Quality Measures Quality Measures: N/A - Blood Pressure Screening Does Patient Have Any of the Following: No Blood Pressure Classification: Normal BP Reading Systolic Measurement: 116 Diastolic Measurement: 73 Screening for High Blood Pressure: < Normal BP, F/U Not Required > [G8783]
[2018-05-02] MEDS: IPRATROPIUM/ALBUTEROL (0.5MG/3MG) NEB INH ONE (14:10)
== END 2018-05-02 14:21 | disposition home or self-care (01) ==
LOC: ER 13:41
DX: J45.21 Mild intermittent asthma with (acute) exacerbation (principal); E11.9 Type 2 diabetes mellitus without complications; Z99.81 Dependence on supplemental oxygen; F17.210 Nicotine dependence, cigarettes, uncomplicated
CPT/HCPCS: 94640; 99283

== ENCOUNTER 2018-05-04 16:50 | Emergency (ER) | payer MEDICARE, MEDICAID ==
[2018-05-04] MEDS ORDERED: IPRATROPIUM/ALBUTEROL (0.5MG/3MG) NEB INH ONE (18:41)
--- NOTE | 2018-05-04 18:41 | Emergency Department Record ---
History of Present Illness - General Chief complaint: Pain Stated complaint: RT SIDE KPAIN Time Seen by Provider: 05/04/18 18:30 Source: Patient Mode of Arrival: Ambulatory - History of Present Illness Initial comments: The patient states that she has right sided pneumonia diagnosed on 05-02-18 at [facility] for which she was given a rocephin shot, levaquin and prednisone medications , as well as inhalers. She has been taking them as directed. She is here because she has increased right sided pain with deep breathing, and is fearful that she might end up in the ICU which happened in the past. She denies high fevers, but feels chilled, is eating less and urinating less. She denies hx of PE, DVT and does not have calf pain or swelling. Onset/Timin -: Days(s) Location: Right, Other History of Same: No Radiation: None Severity scale (1-10): 5 Quality: Aching Consistency: Constant Improves with: Nothing Worsens with: Nothing, Other Associated Symptoms: Denies other symptoms - Related Data Home Medications Medication Instructions Recorded Confirmed Last Taken Levofloxacin 750 mg PO DAILY 05/04/18 05/04/18 Unknown Previous Rx's Medication Instructions Recorded Azithromycin [Zithromax] 250 mg PO DAILY #6 tablet 04/30/18 Prednisone [Prednisone 20Mg] 20 mg PO BID #10 tab 04/30/18 Albuterol Sulfate [Proair Hfa] 1 - 2 puff IH .EVERY 4-6 HOURS PRN 05/02/18 #1 inhaler Allergies Allergy/AdvReac Type Severity Reaction Status Date / Time fenofibrate Allergy Severe MIGRAINES Verified 04/30/18 15:14 [id number] Antimigraine Allergy Severe HEADACHE Verified 04/30/18 15:14 Agents Owlbdbp-Ark-Pue Reductase Allergy Intermediate JOINT ACHES Verified 04/30/18 15: 14 Inhibitor medical tape AdvReac Mild RASH Uncoded 04/30/18 15:14 Travel Screening - Travel/Exposure Within Last 30 Days Have you traveled within the last 30 days?: No Review of Systems Reviewed: No additional complaints except as noted below Constitutional: Reports: As per HPI, Chills. Denies: Fever, Malaise, Night sweats, Weakness, Weight change Eyes: Reports: As per HPI. Denies: Eye discharge, Eye pain, Photophobia, Vision change ENT: Reports: As per HPI. Denies: Congestion, Dental pain, Ear pain, Epistaxis , Hearing loss, Throat pain Respiratory: Reports: As per HPI. Denies: Cough, Dyspnea, Hemoptysis, Stridor, Wheezes Cardiovascular: Reports: As per HPI. Denies: Arrhythmia, Chest pain, Dyspnea on exertion, Edema, Murmurs, Orthopnea, Palpitations, Paroxysmal nocturnal dyspnea, Rheumatic Fever, Syncope Endocrine: Reports: As per HPI. Denies: Fatigue, Heat or cold intolerance, Polydipsia, Polyuria Gastrointestinal: Reports: As per HPI. Denies: Abdominal pain, Constipation, Diarrhea, Hematemesis, Hematochezia, Melena, Nausea, Vomiting Genitourinary: Reports: As per HPI. Denies: Abnormal menses, Discharge, Dyspareunia, Dysuria, Frequency, Hematuria, Incontinence, Retention, Urgency Musculoskeletal: Reports: As per HPI. Denies: Arthralgia, Back pain, Gout, Joint swelling, Myalgia, Neck pain Skin: Reports: As per HPI. Denies: Bruising, Change in color, Change in hair/ nails, Lesions, Pruritus, Rash Neurological: Reports: As per HPI. Denies: Abnormal gait, Confusion, Headache, Numbness, Paresthesias, Seizure, Tingling, Tremors, Vertigo, Weakness Psychiatric: Reports: As per HPI. Denies: Anxiety, Auditory hallucinations, Depression, Homicidal thoughts, Suicidal thoughts, Visual hallucinations Hematological/Lymphatic: Reports: As per HPI. Denies: Anemia, Blood Clots, Easy bleeding, Easy bruising, Swollen glands Past Medical History - SOCIAL HISTORY Smoking Status: Current every day smoker - RESPIRATORY Hx Respiratory Disorders: Yes Hx Bronchitis: Yes Hx Pneumonia: Yes Hx Sleep Apnea: Yes (possibly testing upcoming) Comment:: Home O2-3L at night - CARDIOVASCULAR Hx Cardio Disorders: Yes Hx Chest Pain: No (denies) Comment:: HYPERLIPIDEMIA - NEURO Hx Neuro Disorders: Yes Hx Headaches: Yes (complex migrane) Hx of Migraines: Yes (weekly) - GI Hx GI Disorders: Yes Hx Abdominal Pain: Yes Hx Diverticulitis: Yes Hx Reflux: Yes Hx Liver Disease: Yes (fatty liver denies liver bx) Hx Nausea/Vomiting: Yes (with pain) Hx Ulcer: No (denies) - Hx Genitourinary Disorders: Yes Comment:: polycystic ovary syndrome - ENDOCRINE Hx Endocrine Disorders: Yes Hx Diabetes: Yes - MUSCULOSKELETAL Hx Musculoskeletal Disorders: Yes Hx Fibromyalgia: Yes Hx Gout: Yes Comment:: Buldging disc in neck - PSYCH Hx Psych Problems: Yes Hx Anxiety: Yes Hx Depression: Yes Comment:: PTSD - HEMATOLOGY/ONCOLOGY Hx Hematology/Oncology Disorders: No Hx Anemia: No Family Medical History Any Significant Family History?: Yes Hx Cancer: Mother, Grandparents *Diabetes Comment: aunt Hx Heart Disease: Brother/Sister *Heart Comment: Brother Hx Kidney Disease: Children Physical Exam - General General Appearance: Alert, Oriented x3, Cooperative, No acute distress (appears comfortable with no tachypnea, no retractions, speaks full sentences.) - Head Head exam: Normal inspection - Eye Eye exam: Normal appearance, PERRL, EOMI. negative: Conjunctival injection, Nystagmus Pupils: Normal accommodation - ENT ENT exam: Normal exam, Mucous membranes moist, Normal external ear exam, Normal orophraynx, TM's normal bilaterally Ear exam: Normal external inspection. negative: External canal tenderness Nasal Exam: Normal inspection. negative: Discharge, Sinus tenderness Mouth exam: Normal external inspection, Tongue normal Teeth exam: Normal inspection. negative: Dental caries Throat exam: Normal inspection. negative: Tonsillar erythema, Tonsillar exudate - Neck Neck exam: Normal inspection, Full ROM. negative: Lymphadenopathy, Meningismus , Tenderness - Respiratory Respiratory exam: Normal lung sounds bilaterally, Wheezes (basilar wheeze on right with decreased excursion). negative: Accessory muscle use, Chest wall tenderness, Decreased breath sounds, Prolonged expiratory, Rales, Respiratory distress, Stridor - Cardiovascular Cardiovascular Exam: Regular rate, Normal rhythm, Normal heart sounds. negative : Tachycardia - GI/Abdominal GI/Abdominal exam: Soft, Normal bowel sounds. negative: Tenderness - Rectal Rectal exam: Deferred - exam: Deferred - Extremities Extremities exam: Normal inspection, Full ROM, Normal capillary refill. negative: Calf tenderness, Pedal edema, Tenderness - Back Back exam: Reports: Normal inspection, Full ROM. Denies: Muscle spasm, Rash noted, Tenderness - Neurological Neurological exam: Alert, CN II-XII intact, Normal gait, Oriented X3, Reflexes normal. negative: Motor sensory deficit - Psychiatric Psychiatric exam: Normal affect, Normal mood - Skin Skin exam: Dry, Intact, Normal color, Warm Course Vital Signs 05/04/18 17:04 Temperature 97.9 F Pulse Rate 77 Respiratory 18 Rate Blood Pressure 128/92 Pulse Ox 96 - Reevaluation(s) Reevaluation #1: 05/04/18 19:17 Patient is breathing better after nebulizer with decrease in her lower chest wheezes Reevaluation #2: Offered a flexeril to take when she gets home because she is driving herself home, but patient states he has flexeril and robaxin at home which she has NOT been taking. Instructed to take the as directed if needed. Comforted patient regarding her pneumonia status as she continues to remember last year when she was in the ICU for pneumonia. Explained her normal parameters, her normal D dimer, in attempt to comfort her anxiety. All questions answered. 05/04/18 20:57 05/04/18 21:00 Medical Decision Making - Management Options MDM Management: No Additional Work-up Planned - Data Complexity MDM Data: Labs Ordered and/or Reviewed, X-Ray Ordered and/or Reviewed (CXR RUL inflitrate as seen on prior CXR report. ) - Lab Data Result diagrams: 05/04/18 19:15 05/04/18 19:15 Disposition Disposition: Discharge Clinical Impression: Pneumonia of upper lobe of lung Qualifiers: Pneumonia type: due to unspecified organism Laterality: right Qualified Code(s) : J18.1 - Lobar pneumonia, unspecified organism Disposition: Home, Self-Care Return To Work/School Note Provided: No Condition: (1) Good Instructions: Pneumonia (ED) Additional Instructions: Continue present medications" levquin, predisone, and inhalers as before. May take robaxin and flexeril which you have at home. Follow up with your PCP tomorrow as previously arranged. Tylenol alternate with ibuprofen as directed. if you develop fevers, and for pain. Quality - Quality Measures Quality Measures: Headache (All Ages) - Headache: Neuroimaging Quality Measure: Measure #419: Overuse of Neuroimaging ICD10 Codes Entered: Yes Neurological Exam: Patient had a normal neurological exam. [G9535] Headache: Use of Neuroimaging: < CTA, CT, MRA or MRI was NOT ordered > [G9534] - Blood Pressure Screening Does Patient Have Any of the Following: No Blood Pressure Classification: Hypertensive Reading Systolic Measurement: 128 Diastolic Measurement: 92 Screening for High Blood Pressure: < Normal BP, F/U Not Required > [G8783]
[2018-05-04] MEDS ORDERED: 0.9 % SODIUM CHLORIDE 1,000 ML BAG IV ONE (18:42)
[2018-05-04] MEDS ORDERED: KETOROLAC 30 MG/ML VIAL IVP ONE (19:15)
[2018-05-04 19:24] LABS: HEMATOCRIT 39.3 % (35.0-47.0); MEAN CELL VOLUME 84.5 fl (81-97); MEAN CORPUSCULAR HGB CONC 33.1 g/dl (32-36); MEAN PLATELET VOLUME 9.4 fl (7.4-10.4); PLATELET COUNT 477 K/uL (130-400); RED BLOOD COUNT 4.65 M/uL (3.80-5.40); WHITE BLOOD COUNT W/O DIFF 13.5 K/uL (4.2-12.2)
[2018-05-04 19:38] LABS: BLOOD UREA NITROGEN 12 mg/dL (6-20); CREATININE 0.7 mg/dL (0.5-0.9); EST GLOMERULAR FILTRATION RATE > 60 mL/min
[2018-05-04 19:41] LABS: GLUCOSE,RANDOM 313 mg/dL (74-109)
[2018-05-04] MEDS ORDERED: CYCLOBENZAPRINE 10MG TABLET PO ONE (20:54)
== END 2018-05-04 21:13 | disposition home or self-care (01) ==
LOC: ER 16:50
DX: J18.1 Lobar pneumonia, unspecified organism (principal); R06.2 Wheezing; E11.9 Type 2 diabetes mellitus without complications; Z99.81 Dependence on supplemental oxygen; F17.210 Nicotine dependence, cigarettes, uncomplicated
CPT/HCPCS: 71046; 80048; 85027; 85379; 94640; 96374; 99284; J1885

== ENCOUNTER 2018-05-06 18:23 | Emergency (ER) | payer MEDICARE, MEDICAID ==
--- NOTE | 2018-05-06 18:41 | Emergency Department Record ---
History of Present Illness - General Chief Complaint: Cough Stated Complaint: COUGH, SOB Time Seen by Provider: 05/06/18 18:25 Source: Patient Mode of Arrival: Ambulatory Limitations: No limitations - History of Present Illness Initial Comments: 43 yo female returns to the emergency department for evaluation stating "I can' t breath at home". Patient was diagnosed with Pneumonia at [facility] several days ago , started on Levaquin and Prednisone, patient reports that she has been utilizing her nebulizer as directed at home as well. Patient was seen in ED on 05/04/18, was evaluated and PE excluded, was seen by her PCP as well yesterday and appeared stable. Patient has not been taking her Robaxin or Flexeril that she was instructed to take for her pain symptoms 2 days ago. MD Complaint: Cough, Fever Onset/Timin -: Week(s) Severity: Mild Quality: Aching Consistency: Constant Improves With: Nothing Worsens With: Nothing Associated Symptoms: Cough Treatments Prior to Arrival: Antibiotics - Related Data Previous Rx's Medication Instructions Recorded Prednisone [Prednisone 20Mg] 20 mg PO BID #10 tab 04/30/18 Albuterol Sulfate [Proair Hfa] 1 - 2 puff IH .EVERY 4-6 HOURS PRN 05/02/18 #1 inhaler Allergies Allergy/AdvReac Type Severity Reaction Status Date / Time fenofibrate Allergy Severe MIGRAINES Verified 05/06/18 18:26 [id number] Antimigraine Allergy Severe HEADACHE Verified 05/06/18 18:26 Agents Gscgcmk-Qbn-Rnt Reductase Allergy Intermediate JOINT ACHES Verified 05/06/18 18: 26 Inhibitor medical tape AdvReac Mild RASH Uncoded 04/30/18 15:14 Travel Screening - Travel/Exposure Within Last 30 Days Have you traveled within the last 30 days?: No - Travel/Exposure Within Last Year Have you traveled outside the [place] in the last year?: No - Additonal Travel Details Have you been exposed to anyone with a communicable illness?: No - Travel Symptoms Symptom Screening: None Review of Systems Constitutional: Reports: Malaise. Denies: Chills, Fever, Night sweats Eyes: Denies: Eye discharge, Eye pain ENT: Reports: Congestion. Denies: Ear pain, Epistaxis Respiratory: Reports: Cough, Dyspnea, Wheezes Cardiovascular: Reports: Dyspnea on exertion. Denies: Chest pain, Edema Endocrine: Denies: Fatigue, Heat or cold intolerance Gastrointestinal: Denies: Abdominal pain, Nausea, Vomiting Genitourinary: Denies: Incontinence, Retention Skin: Denies: Bruising, Change in color Neurological: Denies: Abnormal gait, Confusion, Headache, Numbness, Tingling, Tremors Psychiatric: Denies: Anxiety Hematological/Lymphatic: Denies: Anemia, Blood Clots Past Medical History - SOCIAL HISTORY Smoking Status: Current every day smoker Alcohol Use: None Drug Use: None - RESPIRATORY Hx Respiratory Disorders: Yes Hx Bronchitis: Yes Hx Pneumonia: Yes Hx Sleep Apnea: Yes (possibly testing upcoming) Comment:: Home O2-3L at night - CARDIOVASCULAR Hx Cardio Disorders: Yes Hx Chest Pain: No (denies) Comment:: HYPERLIPIDEMIA - NEURO Hx Neuro Disorders: Yes Hx Headaches: Yes (complex migrane) Hx of Migraines: Yes (weekly) - GI Hx GI Disorders: Yes Hx Abdominal Pain: Yes Hx Diverticulitis: Yes Hx Reflux: Yes Hx Liver Disease: Yes (fatty liver denies liver bx) Hx Nausea/Vomiting: Yes (with pain) Hx Ulcer: No (denies) - Hx Genitourinary Disorders: Yes Comment:: polycystic ovary syndrome - ENDOCRINE Hx Endocrine Disorders: Yes Hx Diabetes: Yes - MUSCULOSKELETAL Hx Musculoskeletal Disorders: Yes Hx Fibromyalgia: Yes Hx Gout: Yes Comment:: Buldging disc in neck - PSYCH Hx Psych Problems: Yes Hx Anxiety: Yes Hx Depression: Yes Comment:: PTSD - HEMATOLOGY/ONCOLOGY Hx Hematology/Oncology Disorders: No Hx Anemia: No Family Medical History Any Significant Family History?: Yes Hx Cancer: Mother, Grandparents *Diabetes Comment: aunt Hx Heart Disease: Brother/Sister *Heart Comment: Brother Hx Kidney Disease: Children Physical Exam - General General Appearance: Alert, Oriented x3, Cooperative, No acute distress, Other ( Tearful on examination, vitals are all within normal limits.) Limitations: No limitations - Head Head exam: Atraumatic, Normocephalic, Normal inspection Head exam detail: negative: Abrasion, Contusion, Espinosa's sign, General tenderness, Hematoma - Eye Eye exam: Normal appearance. negative: Conjunctival injection, Periorbital swelling, Periorbital tenderness, Scleral icterus - ENT Ear exam: negative: Auricular hematoma, Auricular trauma Nasal Exam: negative: Active bleeding, Discharge, Dried blood, Foreign body Mouth exam: negative: Drooling, Laceration, Muffled voice, Tongue elevation - Neck Neck exam: Normal inspection. negative: Meningismus, Tenderness - Respiratory Respiratory exam: Wheezes, Other (Mild wheezes are present, patient does not exhibit decreased air movement on examination.). negative: Respiratory distress , Rhonchi, Stridor - Cardiovascular Cardiovascular Exam: Regular rate, Normal rhythm, Normal heart sounds - GI/Abdominal GI/Abdominal exam: Soft. negative: Distended, Rebound, Rigid, Tenderness - Rectal Rectal exam: Deferred - exam: Deferred - Extremities Extremities exam: Normal inspection. negative: Calf tenderness, Pedal edema, Tenderness - Back Back exam: Denies: CVA tenderness (R), CVA tenderness (L) - Neurological Neurological exam: Alert, Normal gait, Oriented X3 - Psychiatric Psychiatric exam: Depressed, Flat affect - Skin Skin exam: Normal color. negative: Abrasion Type of lesion: negative: abrasion Course Vital Signs 05/06/18 18:27 Temperature 98.4 F Pulse Rate 86 Respiratory 20 Rate Blood Pressure 111/73 Pulse Ox 97 - Reevaluation(s) Reevaluation #1: 05/06/18 18:43 Recent records were reviewed: 05/04/18 negative D-Dimer, labs unremarkable. CXR demonstrated area of atelectasis vs. infiltrate RUL CXR 04/30/12: Negative for an acute process Case was also discussed with Dr. Friedman, reviewed all of the patient's recent labs, CXR findings, recent ED evaluations, and her current medications that she is taking. Dr. Friedman has no further recommendations at this time. Patient's vitals are all normal, and she appears stable for discharge with continued treatment as prescribed. Dr. Friedman will have a member of the office all her Wednesday for a follow-up appointment as well. Patient was updated on my discussion with Dr. Friedman, and she appears stable for discharge at this time. Disposition Disposition: Discharge Clinical Impression: Asthma Qualifiers: Asthma severity: mild Asthma persistence: intermittent Asthma complication type : unspecified Qualified Code(s): J45.20 - Mild intermittent asthma, uncomplicated Pneumonia Qualifiers: Pneumonia type: due to unspecified organism Laterality: right Lung location: upper lobe of lung Qualified Code(s): J18.1 - Lobar pneumonia, unspecified organism Disposition: Home, Self-Care Condition: (2) Stable Instructions: Pneumonia (ED) Additional Instructions: Return to ED if your symptoms worsen or if you have any concerns. Continue your Levaquin, nebulizer as prescribed. Follow-up with Dr. Friedman next week. Forms: Patient Portal Access Time of Disposition: 18:47 Quality - Quality Measures Quality Measures: N/A - Blood Pressure Screening Does Patient Have Any of the Following: No Blood Pressure Classification: Normal BP Reading Systolic Measurement: 111 Diastolic Measurement: 73 Screening for High Blood Pressure: < Normal BP, F/U Not Required > [G8783]
== END 2018-05-06 18:58 | disposition home or self-care (01) ==
LOC: ER 18:23
DX: J18.1 Lobar pneumonia, unspecified organism (principal); J45.20 Mild intermittent asthma, uncomplicated; E11.9 Type 2 diabetes mellitus without complications; F17.210 Nicotine dependence, cigarettes, uncomplicated
CPT/HCPCS: 99282; 99283

== ENCOUNTER 2018-06-03 21:44 | Emergency (ER) | payer MEDICARE, MEDICAID ==
--- NOTE | 2018-06-03 21:57 | Emergency Department Record ---
History of Present Illness - General Chief Complaint: Abdominal Pain Stated Complaint: ABD PAIN Time Seen by Provider: 06/03/18 21:54 Source: Patient Mode of Arrival: Ambulatory Limitations: No limitations - History of Present Illness Initial Comments: 43 yo female presents with abdominal pain. The pain is right sided. The pain has been constant for about 4 days. She has nausea without vomiting. NO changes in stools or urination. No hematuria. No vomiting. No rash. No fever. The pain is mostly right upper quadrant. Her gall bladder and appendix are removed. Her uterus and ovaries have been removed per the patient. MD Complaint: Abdominal pain Onset/Timin -: Days(s) (4) Location: RUQ Radiation: RUQ Migration to: RUQ Severity: Moderate Severity scale (1-10): 6 Quality: Sharp Consistency: Constant Improves With: Nothing Associated Symptoms: Denies other symptoms - Related Data LMP (females 10-50): Unknown Hx Age of Menopause: 37 Home Medications Medication Instructions Recorded Confirmed Last Taken Divalproex Sodium [Depakote] 125 mg PO DAILY 06/03/18 06/03/18 06/03/18 Erenumab-Aooe [Aimovig 70 mg SQ MONTHLY 06/03/18 06/03/18 05/25/18 Autoinjector] Previous Rx's Medication Instructions Recorded Ondansetron [Zofran Odt] 4 mg PO Q8H #15 tab.rapdis 06/04/18 Allergies Allergy/AdvReac Type Severity Reaction Status Date / Time fenofibrate Allergy Severe MIGRAINES Verified 06/03/18 21:55 [id number] Antimigraine Allergy Severe HEADACHE Verified 06/03/18 21:55 Agents Craliaq-Wdn-Sxn Reductase Allergy Intermediate JOINT ACHES Verified 06/03/18 21: 55 Inhibitor medical tape AdvReac Mild RASH Uncoded 04/30/18 15:14 Travel Screening - Travel/Exposure Within Last 30 Days Have you traveled within the last 30 days?: No - Travel/Exposure Within Last Year Have you traveled outside the [place] in the last year?: No - Additonal Travel Details Have you been exposed to anyone with a communicable illness?: No - Travel Symptoms Symptom Screening: None Review of Systems Constitutional: Denies: Chills, Fever, Malaise, Weakness Eyes: Denies: Eye discharge ENT: Denies: Congestion, Throat pain Respiratory: Denies: Cough, Dyspnea, Wheezes Cardiovascular: Denies: Chest pain, Palpitations, Syncope Endocrine: Denies: Fatigue Gastrointestinal: Reports: As per HPI, Abdominal pain Genitourinary: Denies: Discharge, Dysuria Musculoskeletal: Denies: Arthralgia, Back pain, Myalgia Skin: Denies: Bruising, Change in color, Rash Neurological: Denies: Headache Psychiatric: Reports: Anxiety Hematological/Lymphatic: Denies: Blood Clots, Easy bleeding, Easy bruising, Swollen glands Past Medical History - SOCIAL HISTORY Smoking Status: Current every day smoker Alcohol Use: None Drug Use: None - RESPIRATORY Hx Respiratory Disorders: Yes Hx Bronchitis: Yes Hx Pneumonia: Yes Hx Sleep Apnea: Yes (possibly testing upcoming) Comment:: Home O2-3L at night - CARDIOVASCULAR Hx Cardio Disorders: Yes Hx Chest Pain: No (denies) Comment:: HYPERLIPIDEMIA - NEURO Hx Neuro Disorders: Yes Hx Headaches: Yes (complex migrane) Hx of Migraines: Yes (weekly) - GI Hx GI Disorders: Yes Hx Abdominal Pain: Yes Hx Diverticulitis: Yes Hx Reflux: Yes Hx Liver Disease: Yes (fatty liver denies liver bx) Hx Nausea/Vomiting: Yes (with pain) Hx Ulcer: No (denies) - Hx Genitourinary Disorders: Yes Comment:: polycystic ovary syndrome - ENDOCRINE Hx Endocrine Disorders: Yes Hx Diabetes: Yes - MUSCULOSKELETAL Hx Musculoskeletal Disorders: Yes Hx Fibromyalgia: Yes Hx Gout: Yes Comment:: Buldging disc in neck - PSYCH Hx Psych Problems: Yes Hx Anxiety: Yes Hx Depression: Yes Comment:: PTSD - HEMATOLOGY/ONCOLOGY Hx Hematology/Oncology Disorders: No Hx Anemia: No Family Medical History Any Significant Family History?: Yes Hx Cancer: Mother, Grandparents *Diabetes Comment: aunt Hx Heart Disease: Brother/Sister *Heart Comment: Brother Hx Kidney Disease: Children Physical Exam - General General Appearance: Alert, Oriented x3, Cooperative, No acute distress Limitations: No limitations - Head Head exam: Atraumatic, Normal inspection - Eye Eye exam: Normal appearance. negative: Conjunctival injection - ENT ENT exam: Normal exam Ear exam: Normal external inspection Nasal Exam: Normal inspection Mouth exam: Normal external inspection - Neck Neck exam: Normal inspection - Respiratory Respiratory exam: Normal lung sounds bilaterally. negative: Respiratory distress, Rhonchi, Stridor, Wheezes - Cardiovascular Cardiovascular Exam: Regular rate, Normal rhythm, Normal heart sounds - GI/Abdominal GI/Abdominal exam: Soft, Tenderness (tender lateral right upper quadrant otherwise very soft and non tender, very soft) - Rectal Rectal exam: Deferred - exam: Deferred - Extremities Extremities exam: Normal inspection. negative: Tenderness - Back Back exam: Reports: Full ROM. Denies: CVA tenderness (R), CVA tenderness (L), Tenderness - Neurological Neurological exam: Alert, Oriented X3 - Psychiatric Psychiatric exam: Normal affect, Normal mood - Skin Skin exam: Dry, Intact, Normal color, Warm. negative: Cyanosis, Diaphoretic, Erythema, Mottled, Rash Course Vital Signs 06/03/18 21:48 Temperature 98 F Pulse Rate [ 92 H Pulse Ox Probe] Respiratory 24 Rate Blood Pressure 140/87 [Left Arm] Pulse Ox 95 - Reevaluation(s) Reevaluation #1: The vitals were reviewed No acute significant abnormalities. No fever or tachycardia EMR reviewed. [address] scans on file at [facility] Dr Camargo removed her gall bladder for chronic pain in June of 2017. 06/03/18 21:59 06/03/18 22:51 The UA was reviewed No indicators for infection The CBC was reviewed. WBC is 14. It was 13.5 on 05.04.18 on reviewed The CMP was reviewed. Normal HCO3 and AG with glucose of 448 prior was 313 on 05.04.18 06/03/18 22:52 06/03/18 22:54 She was recently admitted to [facility]. She is aware that she was treated with Decadron for migraines in the hospital. She does not typically check her blood glucose at home. 06/03/18 23:01 06/04/18 00:02 AccuCheck 419 06/04/18 01:14 Recheck is 330 I discussed the results with the patient I do recommend that she checks her blood sugars at home and increase her Glucophage to BID for now. I will notify her doctor as well. She now informs me that she did not take her Glucophage today. 06/04/18 01:24 Medical Decision Making - Lab Data Result diagrams: 06/03/18 22:20 06/03/18 22:20 Disposition Disposition: Discharge Clinical Impression: Abdominal pain, Hyperglycemia Disposition: Home, Self-Care Condition: (1) Good Instructions: Abdominal Pain (ED), Diabetic Hyperglycemia (ED) Additional Instructions: Call your doctor for the next available follow up appointment first of the week You will need to check your blood sugars closely. Your blood sugars will elevate when you have to take steroids (decadron or prednisone) for your asthma or migraines Return to the ER for a recheck if worse, any new concerns or questions Take the prescriptions provided as directed Review this ER visit and the tests performed with your family doctor Prescriptions: Ondansetron [Zofran Odt] 4 mg PO Q8H #15 tab.rapdis Forms: Patient Portal Access Time of Disposition: 01:19 Quality - Quality Measures Quality Measures: N/A - Blood Pressure Screening Does Patient Have Any of the Following: Active Dx of HTN Blood Pressure Classification: Pre-Hypertensive BP Reading Systolic Measurement: 136 Diastolic Measurement: 75 Screening for High Blood Pressure: Patient Exclusion, Hx of HTN [G9744]
[2018-06-03] MEDS ORDERED: ONDANSETRON HCL IV 4 MG/2 ML VIAL IVP ONE (22:04)
[2018-06-03] MEDS ORDERED: 0.9 % SODIUM CHLORIDE 1,000 ML BAG IV ONE (22:04)
[2018-06-03] MEDS ORDERED: KETOROLAC 30 MG/ML VIAL IVP ONE (22:31)
[2018-06-03 22:32] LABS: URINE APPEARANCE CLEAR; URINE BILIRUBIN NEGATIVE (NEGATIVE); URINE BLOOD NEGATIVE (NEGATIVE); URINE COLOR YELLOW; URINE KETONE NEGATIVE (NEGATIVE); URINE LEUKOCYTE ESTERASE NEGATIVE (NEGATIVE); URINE NITRITE NEGATIVE (NEGATIVE); URINE PROTEIN NEGATIVE (NEGATIVE); URINE UROBILINOGEN 0.2 E.U./dL (0.20 - 1.00)
[2018-06-03 22:34] LABS: HEMATOCRIT 36.6 % (35.0-47.0); HEMOGLOBIN 11.8 gm/dl (11.6-16.0); MEAN CELL VOLUME 86.5 fl (81-97); MEAN CORPUSCULAR HEMOGLOBIN 27.9 pg (27-33); MEAN CORPUSCULAR HGB CONC 32.2 g/dl (32-36); MEAN PLATELET VOLUME 9.3 fl (7.4-10.4); PLATELET COUNT 514 K/uL (130-400); RED BLOOD COUNT 4.23 M/uL (3.80-5.40); RED CELL DISTRIBUTION WIDTH 15.2 % (11.5-14.5)
[2018-06-03 22:35] LABS: URINE GLUCOSE (UA) >=1000 mg/dL (NEGATIVE)
[2018-06-03 22:45] LABS: BLOOD UREA NITROGEN 7 mg/dL (6-20); CREATININE 0.6 mg/dL (0.5-0.9); EST GLOMERULAR FILTRATION RATE > 60 mL/min
[2018-06-03 22:46] LABS: LIPASE 37 U/L (13-60); TOTAL PROTEIN 6.9 g/dL (6.6-8.7)
[2018-06-03 22:48] LABS: GLUCOSE,RANDOM 448 mg/dL (74-109)
[2018-06-03 22:50] LABS: ALT/SGPT 26 U/L (<33); AST/SGOT 30 U/L (10.0-35.0)
[2018-06-03 22:51] LABS: ALB/GLOB RATIO 1.5 (1.1-1.8); ALBUMIN 4.1 g/dL (4.0-5.0); ALKALINE PHOSPHATASE 126 U/L (35-104)
[2018-06-03] MEDS ORDERED: HUMULIN R 100 UNIT/ML VIAL SQ ONE (22:52)
[2018-06-03] MEDS ORDERED: ACETAMINOPHEN 500 MG TABLET PO ONE (23:03)
[2018-06-04] MEDS ORDERED: HUMULIN R 100 UNIT/ML VIAL SQ ONE
[2018-06-04] MEDS ORDERED: 0.9 % SODIUM CHLORIDE 1000ML 1,000 ML IV ONE
[2018-06-04] MEDS ORDERED: POTASSIUM CHLORIDE 20 MEQ TABLET PO ONE (00:01)
[2018-06-04] MEDS ORDERED: ONDANSETRON HCL IV 4 MG/2 ML VIAL IVP ONE (00:12)
== END 2018-06-04 01:34 | disposition home or self-care (01) ==
LOC: ER 21:44
DX: R10.11 Right upper quadrant pain (principal); E11.65 Type 2 diabetes mellitus with hyperglycemia; R11.0 Nausea; Z79.84 Long term (current) use of oral hypoglycemic drugs
CPT/HCPCS: 99284 ×2; 96376; 96374; 96372; 96375; 83690; 80053; 36416; 82948; 81003; 85027; J1885; J2405 ×2; J7030

== ENCOUNTER 2018-06-04 18:14 | Emergency (ER) | payer MEDICARE, MEDICAID ==
[2018-06-04 18:33] LABS: URINE APPEARANCE CLEAR; URINE BILIRUBIN NEGATIVE (NEGATIVE); URINE BLOOD NEGATIVE (NEGATIVE); URINE COLOR YELLOW; URINE KETONE NEGATIVE (NEGATIVE); URINE LEUKOCYTE ESTERASE NEGATIVE (NEGATIVE); URINE NITRITE NEGATIVE (NEGATIVE); URINE PROTEIN NEGATIVE (NEGATIVE); URINE UROBILINOGEN 0.2 E.U./dL (0.20 - 1.00)
--- NOTE | 2018-06-04 18:38 | Emergency Department Record ---
History of Present Illness - General Chief Complaint: Abdominal Pain Stated Complaint: R SIDE ABD PAIN/HIGH BLOOD SUGAR Time Seen by Provider: 06/04/18 18:17 Source: Patient Mode of Arrival: Ambulatory Limitations: No limitations - History of Present Illness Initial Comments: 43 yo female presents for a recheck of her right sided pain for 5 days. No fevers, chills, nausea, or vomiting. Normal appetite. She is having urinary frequency. She has had her gall bladder removed, appendix removed, and hysterectomy with oopherectomy in the past. No bloody stools or urines. She has had recurrent abdominal pain over the last several years. She had her gall bladder removed last year but it did not improve her symptoms. She has had a scope for adhesions in the past as well. No signs of obstruction with normal appetite, no vomiting, normal stools, no diarrhea. She has had 12 CT scans of the abdomen at [facility] and an unknown number at multiple outside institutions. No rash in the area of pain. MD Complaint: Flank pain (right flank pain for 5 days.) Onset/Timin -: Days(s) Location: RUQ Radiation: Back Migration to: R Flank Severity: Moderate Severity scale (1-10): 8 Quality: Sharp, Stabbing Consistency: Constant Improves With: Nothing Worsens With: Nothing Associated Symptoms: Denies other symptoms - Related Data Hx Age of Menopause: 37 Previous Rx's Medication Instructions Recorded Ondansetron [Zofran Odt] 4 mg PO Q8H #15 tab.rapdis 06/04/18 Allergies Allergy/AdvReac Type Severity Reaction Status Date / Time fenofibrate Allergy Severe MIGRAINES Verified 06/03/18 21:55 Ahbdbnib-3-NO2 Antimigraine Allergy Severe HEADACHE Verified 06/03/18 21:55 Agents Exkhdgl-Xwh-Gqx Reductase Allergy Intermediate JOINT ACHES Verified 06/03/18 21: 55 Inhibitor medical tape AdvReac Mild RASH Uncoded 04/30/18 15:14 Travel Screening - Travel/Exposure Within Last 30 Days Have you traveled within the last 30 days?: No - Travel/Exposure Within Last Year Have you traveled outside the [place] in the last year?: No - Additonal Travel Details Have you been exposed to anyone with a communicable illness?: No - Travel Symptoms Symptom Screening: None Review of Systems Constitutional: Denies: Chills, Fever, Malaise, Weakness Eyes: Denies: Eye discharge ENT: Denies: Congestion, Throat pain Respiratory: Denies: Cough, Dyspnea Cardiovascular: Denies: Chest pain, Palpitations, Syncope Endocrine: Reports: Polyuria. Denies: Fatigue, Polydipsia Gastrointestinal: Reports: Abdominal pain. Denies: Constipation, Diarrhea, Hematemesis, Hematochezia, Melena, Nausea, Vomiting Genitourinary: Reports: Frequency. Denies: Dysuria, Hematuria, Incontinence, Urgency Musculoskeletal: Denies: Arthralgia, Back pain, Neck pain Skin: Denies: Bruising, Change in color, Rash Neurological: Denies: Headache Psychiatric: Denies: Anxiety Hematological/Lymphatic: Denies: Blood Clots, Easy bleeding, Easy bruising, Swollen glands Past Medical History - SOCIAL HISTORY Smoking Status: Current every day smoker Alcohol Use: None Drug Use: None - RESPIRATORY Hx Respiratory Disorders: Yes Hx Bronchitis: Yes Hx Pneumonia: Yes Hx Sleep Apnea: Yes (possibly testing upcoming) Comment:: Home O2-3L at night - CARDIOVASCULAR Hx Cardio Disorders: Yes Hx Chest Pain: No (denies) Comment:: HYPERLIPIDEMIA - NEURO Hx Neuro Disorders: Yes Hx Headaches: Yes (complex migrane) Hx of Migraines: Yes (weekly) - GI Hx GI Disorders: Yes Hx Abdominal Pain: Yes Hx Diverticulitis: Yes Hx Reflux: Yes Hx Liver Disease: Yes (fatty liver denies liver bx) Hx Nausea/Vomiting: Yes (with pain) Hx Ulcer: No (denies) - Hx Genitourinary Disorders: Yes Comment:: polycystic ovary syndrome - ENDOCRINE Hx Endocrine Disorders: Yes Hx Diabetes: Yes - MUSCULOSKELETAL Hx Musculoskeletal Disorders: Yes Hx Fibromyalgia: Yes Hx Gout: Yes Comment:: Buldging disc in neck - PSYCH Hx Psych Problems: Yes Hx Anxiety: Yes Hx Depression: Yes Comment:: PTSD - HEMATOLOGY/ONCOLOGY Hx Hematology/Oncology Disorders: No Hx Anemia: No Family Medical History Any Significant Family History?: No Hx Cancer: Mother, Grandparents *Diabetes Comment: aunt Hx Heart Disease: Brother/Sister *Heart Comment: Brother Hx Kidney Disease: Children Physical Exam - General General Appearance: Alert, Oriented x3, Cooperative, No acute distress Limitations: No limitations - Head Head exam: Atraumatic, Normal inspection - Eye Eye exam: Normal appearance. negative: Conjunctival injection - ENT ENT exam: Normal exam Ear exam: Normal external inspection Nasal Exam: Normal inspection Mouth exam: Normal external inspection - Neck Neck exam: Normal inspection - Respiratory Respiratory exam: Normal lung sounds bilaterally. negative: Respiratory distress - Cardiovascular Cardiovascular Exam: Regular rate, Normal rhythm, Normal heart sounds - GI/Abdominal GI/Abdominal exam: Soft, Tenderness (right lateral to RUQ tenderness). negative : Distended, Guarding, Hypoactive bowel sounds, Rebound, Rigid - Rectal Rectal exam: Deferred - exam: Deferred - Extremities Extremities exam: negative: Calf tenderness, Pedal edema, Tenderness - Back Back exam: Reports: CVA tenderness (R). Denies: CVA tenderness (L), Paraspinal tenderness, Rash noted, Tenderness, Vertebral tenderness - Neurological Neurological exam: Alert, Oriented X3 - Psychiatric Psychiatric exam: Normal affect, Normal mood. negative: Agitated, Anxious - Skin Skin exam: Dry, Intact, Normal color, Warm Course Vital Signs 06/04/18 18:21 Temperature 98.6 F Pulse Rate 109 H Respiratory 20 Rate Blood Pressure 137/91 Pulse Ox 95 - Reevaluation(s) Reevaluation #1: The patient's records were again reviewed from prior CTs, last nights visit, and I discussed the return with her PCP Zina Faria NP. The plan is to check labs to ensure no DKA. Her abdomen is very soft and benign. I have discussed the risks of further CT with the patient on several occasions and I do not think the examination or clinical picture warrant the risks of CT scan. No US is available at [facility] at this time. 06/04/18 18:43 06/04/18 19:04 The labs were reviewed The CBC with WBC 12.5 and Hgb of 10.8 The CMP without signs of DKA. Hyperglycemia noted Normal venous pH and no ketones 06/04/18 19:27 No acute findings on the abdominal x-ray. Non-specific no signs of obstruction. Medical Decision Making - Lab Data Result diagrams: 06/04/18 18:35 06/04/18 18:35 Disposition Disposition: Discharge Clinical Impression: Abdominal pain, Hyperglycemia Disposition: Home, Self-Care Condition: (1) Good Instructions: Abdominal Pain (ED), Diabetic Hyperglycemia (ED) Additional Instructions: Take your Glucophage twice daily including your next dose tonight I have talked to your doctor and she will see you at 10:30 am on Wednesday to help further manage your diabetes Decrease your sweets and carbohydrates See your doctor to recheck your abdominal pain as well. You may return anytime to recheck the pain. I do not recommend CT at this time due to your significant CT scan radiation exposure over your lifetime. This will lead to increase chances of a future cancer. Forms: Patient Portal Access Time of Disposition: 19:28 Quality - Quality Measures Quality Measures: N/A - Blood Pressure Screening Does Patient Have Any of the Following: Active Dx of HTN Blood Pressure Classification: Pre-Hypertensive BP Reading Systolic Measurement: 127 Diastolic Measurement: 88 Screening for High Blood Pressure: Patient Exclusion, Hx of HTN [G9744]
[2018-06-04 18:44] LABS: HEMATOCRIT 34.7 % (35.0-47.0); HEMOGLOBIN 10.8 gm/dl (11.6-16.0); MEAN CELL VOLUME 88.3 fl (81-97); MEAN CORPUSCULAR HGB CONC 31.1 g/dl (32-36); PLATELET COUNT 488 K/uL (130-400); RED BLOOD COUNT 3.93 M/uL (3.80-5.40); RED CELL DISTRIBUTION WIDTH 15.3 % (11.5-14.5); WHITE BLOOD COUNT W/O DIFF 12.3 K/uL (4.2-12.2)
[2018-06-04 18:48] LABS: MEAN CORPUSCULAR HEMOGLOBIN 27.4 pg (27-33)
[2018-06-04 18:59] LABS: BLOOD UREA NITROGEN 11 mg/dL (6-20); CREATININE 0.7 mg/dL (0.5-0.9); EST GLOMERULAR FILTRATION RATE > 60 mL/min
[2018-06-04 19:01] LABS: ACETONE,SERUM NEGATIVE (NEGATIVE)
[2018-06-04 19:02] LABS: GLUCOSE,RANDOM 373 mg/dL (74-109)
--- NOTE | 2018-06-06 12:57 | RADIOLOGY REPORT ---
EXAM: KUB HISTORY: PATIENT HAS HAD ABDOMINAL PAIN FOR FIVE DAYS. TECHNIQUE: AP view of the abdomen was provided along with the comparison study dated 10/12/16. FINDINGS: The bowel gas pattern is nonspecific and nonobstructive. There is no radiographic evidence of free intraperitoneal air. IMPRESSION: NONSPECIFIC, NONOBSTRUCTIVE BOWEL GAS PATTERN. JOB NUMBER: [id number] MTDD
== END 2018-06-04 19:41 | disposition home or self-care (01) ==
LOC: ER 18:14
DX: R10.11 Right upper quadrant pain (principal); E11.65 Type 2 diabetes mellitus with hyperglycemia; I10 Essential (primary) hypertension; F17.210 Nicotine dependence, cigarettes, uncomplicated
CPT/HCPCS: 36416; 74018; 80048; 81003; 82009; 82800; 82948; 85027; 99283; 99284

== ENCOUNTER 2018-06-10 17:42 | Emergency (ER) | payer MEDICARE, MEDICAID ==
--- NOTE | 2018-06-10 18:07 | Emergency Department Record ---
History of Present Illness - General Chief complaint: Hypergylcemia Stated complaint: HIGH BLOOD SUGAR Time Seen by Provider: 06/10/18 17:46 Source: Patient, RN notes reviewed Mode of Arrival: Ambulatory - History of Present Illness Initial comments: Patient just got her glucose meter and last week she was in the [place] and this week 225 and she has frequent urination and eating without problems and loose stool times three day. She is drinking fluid without problems some discomfort right upper quad with palpation. Onset/Timin -: Days(s) Severity: Mild Severity scale (1-10): 1 Quality: Aching Associated Symptoms: Denies other symptoms - Mills Coma Scale Eye Response: (4) Open spontaneously Motor Response: (6) Obeys commands Verbal Response: (5) Oriented Jing Total: 15 - Related Data Previous Rx's Medication Instructions Recorded Ondansetron [Zofran Odt] 4 mg PO Q8H #15 tab.rapdis 06/04/18 Allergies Allergy/AdvReac Type Severity Reaction Status Date / Time fenofibrate Allergy Severe MIGRAINES Verified 06/10/18 17:52 Xwvrwwmj-7-KH9 Antimigraine Allergy Severe HEADACHE Verified 06/10/18 17:52 Agents Blgfxng-Qmu-Aaq Reductase Allergy Intermediate JOINT ACHES Verified 06/10/18 17: 52 Inhibitor medical tape AdvReac Mild RASH Uncoded 06/10/18 17:52 Travel Screening - Travel/Exposure Within Last 30 Days Have you traveled within the last 30 days?: No - Travel/Exposure Within Last Year Have you traveled outside the [place] in the last year?: No - Additonal Travel Details Have you been exposed to anyone with a communicable illness?: No - Travel Symptoms Symptom Screening: None Review of Systems Reviewed: No additional complaints except as noted below Constitutional: Reports: As per HPI. Denies: Chills, Fever, Malaise, Night sweats, Weakness, Weight change Eyes: Reports: As per HPI. Denies: Eye discharge, Eye pain, Photophobia, Vision change ENT: Reports: As per HPI. Denies: Congestion, Dental pain, Ear pain, Epistaxis , Hearing loss, Throat pain Respiratory: Reports: As per HPI. Denies: Cough, Dyspnea, Hemoptysis, Stridor, Wheezes Cardiovascular: Reports: As per HPI. Denies: Arrhythmia, Chest pain, Dyspnea on exertion, Edema, Murmurs, Orthopnea, Palpitations, Paroxysmal nocturnal dyspnea, Rheumatic Fever, Syncope Endocrine: Reports: As per HPI. Denies: Fatigue, Heat or cold intolerance, Polydipsia, Polyuria Gastrointestinal: Reports: As per HPI. Denies: Abdominal pain, Constipation, Diarrhea, Hematemesis, Hematochezia, Melena, Nausea, Vomiting Genitourinary: Reports: As per HPI. Denies: Abnormal menses, Discharge, Dyspareunia, Dysuria, Frequency, Hematuria, Incontinence, Retention, Urgency Musculoskeletal: Reports: As per HPI. Denies: Arthralgia, Back pain, Gout, Joint swelling, Myalgia, Neck pain Skin: Reports: As per HPI. Denies: Bruising, Change in color, Change in hair/ nails, Lesions, Pruritus, Rash Neurological: Reports: As per HPI. Denies: Abnormal gait, Confusion, Headache, Numbness, Paresthesias, Seizure, Tingling, Tremors, Vertigo, Weakness Psychiatric: Reports: As per HPI. Denies: Anxiety, Auditory hallucinations, Depression, Homicidal thoughts, Suicidal thoughts, Visual hallucinations Hematological/Lymphatic: Reports: As per HPI. Denies: Anemia, Blood Clots, Easy bleeding, Easy bruising, Swollen glands Past Medical History - SOCIAL HISTORY Smoking Status: Current every day smoker Alcohol Use: None Drug Use: None - RESPIRATORY Hx Respiratory Disorders: Yes Hx Bronchitis: Yes Hx Pneumonia: Yes Hx Sleep Apnea: Yes (possibly testing upcoming) Comment:: Home O2-3L at night - CARDIOVASCULAR Hx Cardio Disorders: Yes Hx Chest Pain: No (denies) Comment:: HYPERLIPIDEMIA - NEURO Hx Neuro Disorders: Yes Hx Headaches: Yes (complex migrane) Hx of Migraines: Yes (weekly) - GI Hx GI Disorders: Yes Hx Abdominal Pain: Yes Hx Diverticulitis: Yes Hx Reflux: Yes Hx Liver Disease: Yes (fatty liver denies liver bx) Hx Nausea/Vomiting: Yes (with pain) Hx Ulcer: No (denies) - Hx Genitourinary Disorders: Yes Comment:: polycystic ovary syndrome - ENDOCRINE Hx Endocrine Disorders: Yes Hx Diabetes: Yes (oral medications) - MUSCULOSKELETAL Hx Musculoskeletal Disorders: Yes Hx Fibromyalgia: Yes Hx Gout: Yes Comment:: Buldging disc in neck - PSYCH Hx Psych Problems: Yes Hx Anxiety: Yes Hx Depression: Yes Comment:: PTSD - HEMATOLOGY/ONCOLOGY Hx Hematology/Oncology Disorders: No Hx Anemia: No Family Medical History Any Significant Family History?: Yes Hx Cancer: Mother, Grandparents *Diabetes Comment: aunt Hx Heart Disease: Brother/Sister *Heart Comment: Brother Hx Kidney Disease: Children Physical Exam - General General Appearance: Alert, Oriented x3, Cooperative, No acute distress - Head Head exam: Normal inspection - Eye Eye exam: Normal appearance, PERRL Pupils: Normal accommodation - ENT ENT exam: Normal exam, Mucous membranes moist, Normal external ear exam, Normal orophraynx, TM's normal bilaterally Ear exam: Normal external inspection. negative: External canal tenderness Nasal Exam: Normal inspection. negative: Discharge, Sinus tenderness Mouth exam: Normal external inspection, Tongue normal Teeth exam: Normal inspection. negative: Dental caries Throat exam: Normal inspection. negative: Tonsillar erythema, Tonsillar exudate - Neck Neck exam: Normal inspection, Full ROM. negative: Tenderness - Respiratory Respiratory exam: Normal lung sounds bilaterally. negative: Respiratory distress - Cardiovascular Cardiovascular Exam: Regular rate, Normal rhythm, Normal heart sounds - GI/Abdominal GI/Abdominal exam: Soft, Normal bowel sounds. negative: Tenderness - Rectal Rectal exam: Deferred - exam: Deferred - Extremities Extremities exam: Normal inspection, Full ROM, Normal capillary refill. negative: Tenderness - Back Back exam: Reports: Normal inspection, Full ROM. Denies: Muscle spasm, Rash noted, Tenderness - Neurological Neurological exam: Alert, Normal gait, Oriented X3, Reflexes normal - Psychiatric Psychiatric exam: Normal affect, Normal mood - Skin Skin exam: Dry, Intact, Normal color, Warm Course Vital Signs 06/10/18 17:46 Temperature 97.6 F Pulse Rate 86 Respiratory 20 Rate Blood Pressure 131/97 Pulse Ox 97 Medical Decision Making - Lab Data Result diagrams: 06/10/18 18:07 06/10/18 18:07 Lab Results 06/10/18 Range/Units 17:51 POC Glucose 232 H (70-110) mg/dL Disposition Clinical Impression: Diabetes mellitus Qualifiers: Diabetes mellitus type: type 2 Diabetes mellitus care home insulin use: without care home use Diabetes mellitus complication status: without complication Qualified Code(s): E11.9 - Type 2 diabetes mellitus without complications Diarrhea Qualifiers: Diarrhea type: infectious Qualified Code(s): A09 - Infectious gastroenteritis and colitis, unspecified Disposition: Home, Self-Care Condition: (1) Good Instructions: Type 2 Diabetes in Adults (ED) Additional Instructions: follow up with Cass Faria eat bland food and drink fluid Forms: Patient Portal Access Time of Disposition: 18:12 Quality - Quality Measures Quality Measures: N/A - Headache: Neuroimaging ICD10 Codes Entered: No Neurological Exam: Patient had a normal neurological exam. [G9535] Headache: Use of Neuroimaging: < CTA, CT, MRA or MRI was NOT ordered > [G9534] - Blood Pressure Screening Does Patient Have Any of the Following: No Blood Pressure Classification: Hypertensive Reading Systolic Measurement: 131 Diastolic Measurement: 97 Screening for High Blood Pressure: < Pre-Hypertensive BP, F/U Documented > [ G8950] Pre-Hypertensive Follow-up Interventions: Referral to alternative/primary care provider.
[2018-06-10 18:09] LABS: URINE APPEARANCE CLEAR; URINE BILIRUBIN NEGATIVE (NEGATIVE); URINE BLOOD TRACE-I (NEGATIVE); URINE COLOR YELLOW; URINE KETONE NEGATIVE (NEGATIVE); URINE LEUKOCYTE ESTERASE NEGATIVE (NEGATIVE); URINE NITRITE NEGATIVE (NEGATIVE); URINE PROTEIN NEGATIVE (NEGATIVE); URINE UROBILINOGEN 0.2 E.U./dL (0.20 - 1.00)
[2018-06-10 18:15] LABS: HEMATOCRIT 38.7 % (35.0-47.0); HEMOGLOBIN 12.5 gm/dl (11.6-16.0); MEAN CELL VOLUME 86.2 fl (81-97); MEAN CORPUSCULAR HEMOGLOBIN 27.8 pg (27-33); MEAN CORPUSCULAR HGB CONC 32.3 g/dl (32-36); MEAN PLATELET VOLUME 9.2 fl (7.4-10.4); PLATELET COUNT 748 K/uL (130-400); RED BLOOD COUNT 4.49 M/uL (3.80-5.40); RED CELL DISTRIBUTION WIDTH 15.5 % (11.5-14.5); WHITE BLOOD COUNT W/O DIFF 13.9 K/uL (4.2-12.2)
[2018-06-10 18:23] LABS: URINE RBC 0 - 2 (NONE SEEN); URINE WBC NONE SEEN (0-2/hpf)
[2018-06-10 18:24] LABS: URINE MUCUS LIGHT
[2018-06-10 18:25] LABS: BLOOD UREA NITROGEN 9 mg/dL (6-20); CREATININE 0.8 mg/dL (0.5-0.9); EST GLOMERULAR FILTRATION RATE > 60 mL/min
[2018-06-10 18:28] LABS: GLUCOSE,RANDOM 207 mg/dL (74-109); PLATELET ESTIMATE INCREASED (NORMAL)
== END 2018-06-10 19:00 | disposition home or self-care (01) ==
LOC: ER 17:42
DX: A09 Infectious gastroenteritis and colitis, unspecified (principal); E11.9 Type 2 diabetes mellitus without complications; R10.11 Right upper quadrant pain; F17.210 Nicotine dependence, cigarettes, uncomplicated
CPT/HCPCS: 36416; 80048; 81001; 82009; 82948; 85027; 99283

== ENCOUNTER 2018-08-15 16:13 | Emergency (ER) | payer MEDICARE, MEDICAID ==
[2018-08-15 17:21] LABS: ABSOLUTE NEUTROPHIL COUNT 7.35; BASO % 0.3 % (0-6); EOS % 1.2 % (0-6); GRAN % 70.4 % (47-80); HEMATOCRIT 35.6 % (35.0-47.0); HEMOGLOBIN 11.4 gm/dl (11.6-16.0); LYMPH % 21.9 % (16-45); MEAN CELL VOLUME 87.9 fl (81-97); MEAN CORPUSCULAR HEMOGLOBIN 28.1 pg (27-33); MEAN PLATELET VOLUME 9.2 fl (7.4-10.4); MONO % 6.2 % (0-9); PLATELET COUNT 502 K/uL (130-400); RED BLOOD COUNT 4.05 M/uL (3.80-5.40); WHITE BLOOD COUNT W/O DIFF 10.5 K/uL (4.2-12.2)
[2018-08-15 17:27] LABS: URINE APPEARANCE CLEAR; URINE BILIRUBIN NEGATIVE (NEGATIVE); URINE BLOOD NEGATIVE (NEGATIVE); URINE COLOR YELLOW; URINE GLUCOSE (UA) NEGATIVE (NEGATIVE); URINE KETONE NEGATIVE (NEGATIVE); URINE LEUKOCYTE ESTERASE NEGATIVE (NEGATIVE); URINE NITRITE NEGATIVE (NEGATIVE); URINE PROTEIN NEGATIVE (NEGATIVE); URINE UROBILINOGEN 0.2 E.U./dL (0.20 - 1.00)
[2018-08-15] MEDS ORDERED: ACETAMINOPHEN 1,000 MG/100 ML BTL IVPB ONE (17:30)
--- NOTE | 2018-08-15 17:37 | Emergency Department Record ---
History of Present Illness - General Chief Complaint: Abdominal Pain Stated Complaint: LT SIDE ABDOMINAL PAIN Time Seen by Provider: 08/15/18 17:17 Source: Patient Mode of Arrival: Ambulatory Limitations: No limitations - History of Present Illness Initial Comments: pt developed dull llq pain last pm which turned sharp today. no n/v/c/d MD Complaint: Abdominal pain Onset/Timin -: Days(s) Location: LLQ Severity: Moderate Severity scale (1-10): 7 Quality: Aching, Cramping Consistency: Constant, Intermittent - Related Data Patient : No Hx Age of Menopause: 37 Previous Rx's Medication Instructions Recorded Ondansetron [Zofran Odt] 4 mg PO Q8H #15 tab.rapdis 06/04/18 Allergies Allergy/AdvReac Type Severity Reaction Status Date / Time fenofibrate Allergy Severe MIGRAINES Verified 08/15/18 16:42 [id number] Antimigraine Allergy Severe HEADACHE Verified 08/15/18 16:42 Agents Xxzdxpm-Crm-Nlv Reductase Allergy Intermediate JOINT ACHES Verified 08/15/18 16:42 Inhibitor medical tape AdvReac Mild RASH Uncoded 08/15/18 16:42 Travel Screening - Travel/Exposure Within Last 30 Days Have you traveled within the last 30 days?: No - Travel/Exposure Within Last Year Have you traveled outside the [place] in the last year?: No - Additonal Travel Details Have you been exposed to anyone with a communicable illness?: No - Travel Symptoms Symptom Screening: None Review of Systems Reviewed: No additional complaints except as noted below Constitutional: Reports: As per HPI. Denies: Chills, Fever, Malaise, Night sweats, Weakness, Weight change Eyes: Reports: As per HPI. Denies: Eye discharge, Eye pain, Photophobia, Vision change ENT: Reports: As per HPI. Denies: Congestion, Dental pain, Ear pain, Epistaxis, Hearing loss, Throat pain Respiratory: Reports: As per HPI. Denies: Cough, Dyspnea, Hemoptysis, Stridor, Wheezes Cardiovascular: Reports: As per HPI. Denies: Arrhythmia, Chest pain, Dyspnea on exertion, Edema, Murmurs, Orthopnea, Palpitations, Paroxysmal nocturnal dyspnea, Rheumatic Fever, Syncope Endocrine: Reports: As per HPI. Denies: Fatigue, Heat or cold intolerance, Polydipsia, Polyuria Gastrointestinal: Reports: As per HPI, Abdominal pain. Denies: Constipation, Diarrhea, Hematemesis, Hematochezia, Melena, Nausea, Vomiting Genitourinary: Reports: As per HPI. Denies: Abnormal menses, Discharge, Dyspareunia, Dysuria, Frequency, Hematuria, Incontinence, Retention, Urgency Musculoskeletal: Reports: As per HPI. Denies: Arthralgia, Back pain, Gout, Joint swelling, Myalgia, Neck pain Skin: Reports: As per HPI. Denies: Bruising, Change in color, Change in hair/nails, Lesions, Pruritus, Rash Neurological: Reports: As per HPI. Denies: Abnormal gait, Confusion, Headache, Numbness, Paresthesias, Seizure, Tingling, Tremors, Vertigo, Weakness Psychiatric: Reports: As per HPI. Denies: Anxiety, Auditory hallucinations, Depression, Homicidal thoughts, Suicidal thoughts, Visual hallucinations Hematological/Lymphatic: Reports: As per HPI. Denies: Anemia, Blood Clots, Easy bleeding, Easy bruising, Swollen glands Past Medical History - SOCIAL HISTORY Smoking Status: Current every day smoker Alcohol Use: None Drug Use: None - RESPIRATORY Hx Respiratory Disorders: Yes Hx Bronchitis: Yes Hx Pneumonia: Yes Hx Sleep Apnea: Yes (possibly testing upcoming) - CARDIOVASCULAR Hx Cardio Disorders: Yes Hx Chest Pain: No (denies) Comment:: HYPERLIPIDEMIA - NEURO Hx Neuro Disorders: Yes Hx Headaches: Yes (complex migrane) Hx of Migraines: Yes (weekly) - GI Hx GI Disorders: Yes Hx Abdominal Pain: Yes Hx Diverticulitis: Yes Hx Reflux: Yes Hx Liver Disease: Yes (fatty liver denies liver bx) Hx Nausea/Vomiting: Yes (with pain) Hx Ulcer: No (denies) - Hx Genitourinary Disorders: Yes Comment:: polycystic ovary syndrome - ENDOCRINE Hx Endocrine Disorders: Yes Hx Diabetes: Yes (oral medications) - MUSCULOSKELETAL Hx Musculoskeletal Disorders: Yes Hx Fibromyalgia: Yes Hx Gout: Yes Comment:: Buldging disc in neck - PSYCH Hx Psych Problems: Yes Hx Anxiety: Yes Hx Depression: Yes Comment:: PTSD - HEMATOLOGY/ONCOLOGY Hx Hematology/Oncology Disorders: No Hx Anemia: No Family Medical History Any Significant Family History?: Yes Hx Cancer: Mother, Grandparents *Diabetes Comment: aunt Hx Heart Disease: Brother/Sister *Heart Comment: Brother Hx Kidney Disease: Children Physical Exam - General General Appearance: Alert, Oriented x3, Cooperative, No acute distress - Head Head exam: Normal inspection - Eye Eye exam: Normal appearance, PERRL, EOMI Pupils: Normal accommodation - ENT ENT exam: Normal exam, Mucous membranes moist, Normal external ear exam, Normal orophraynx Ear exam: Normal external inspection. negative: External canal tenderness Nasal Exam: Normal inspection. negative: Discharge, Sinus tenderness Mouth exam: Normal external inspection, Tongue normal Teeth exam: Normal inspection. negative: Dental caries Throat exam: Normal inspection. negative: Tonsillar erythema, Tonsillar exudate - Neck Neck exam: Normal inspection, Full ROM. negative: Tenderness - Respiratory Respiratory exam: Normal lung sounds bilaterally. negative: Respiratory distress - Cardiovascular Cardiovascular Exam: Regular rate, Normal rhythm, Normal heart sounds - GI/Abdominal GI/Abdominal exam: Soft, Normal bowel sounds, Tenderness (llq) - Rectal Rectal exam: Deferred - exam: Deferred - Extremities Extremities exam: Normal inspection, Full ROM, Normal capillary refill. negative: Tenderness - Back Back exam: Reports: Normal inspection, Full ROM. Denies: Muscle spasm, Rash noted, Tenderness - Neurological Neurological exam: Alert, CN II-XII intact, Normal gait, Oriented X3 - Psychiatric Psychiatric exam: Normal affect, Normal mood - Skin Skin exam: Dry, Intact, Normal color, Warm Course Vital Signs 08/15/18 16:36 Temperature 98.9 F Pulse Rate 80 Respiratory 20 Rate Blood Pressure 150/92 Pulse Ox 99 - Reevaluation(s) Reevaluation #1: 08/15/18 18:58 ct neg Medical Decision Making - Lab Data Result diagrams: 08/15/18 17:05 08/15/18 17:05 Lab Results 08/15/18 08/15/18 Range/Units 17:05 17:05 WBC 10.5 (4.2-12.2) K/uL RBC 4.05 (3.80-5.40) M/uL Hgb 11.4 L (11.6-16.0) gm/dl Hct 35.6 (35.0-47.0) % MCV 87.9 (81-97) fl MCH 28.1 (27-33) pg MCHC 32.0 (32-36) g/dl RDW 15.0 H (11.5-14.5) % Plt Count 502 H (130-400) K/uL MPV 9.2 (7.4-10.4) fl Gran % 70.4 (47-80) % Lymphocytes % 21.9 (16-45) % Monocytes % 6.2 (0-9) % Eosinophils % 1.2 (0-6) % Basophils % 0.3 (0-6) % Absolute Neutrophils 7.35 Urine Color Yellow Urine Appearance Clear Urine pH 6.0 (5.0-8.0) Ur Specific [place] <= 1.005 (1.002-1.030) Urine Protein Negative (NEGATIVE) Urine Glucose (UA) Negative (NEGATIVE) Urine Ketones Negative (NEGATIVE) Urine Blood Negative (NEGATIVE) Urine Nitrite Negative (NEGATIVE) Urine Bilirubin Negative (NEGATIVE) Urine Urobilinogen 0.2 (0.20 - 1.00) E.U./dL Ur Leukocyte Esterase Negative (NEGATIVE) Disposition Disposition: Discharge Clinical Impression: Abdominal pain Qualifiers: Abdominal location: left lower quadrant Qualified Code(s): R10.32 - Left lower quadrant pain Disposition: Home, Self-Care Condition: (1) Good Instructions: Abdominal Pain (ED) Additional Instructions: follow up with family doctor. return sooner if worse. Forms: Patient Portal Access Quality - Quality Measures Quality Measures: N/A - Blood Pressure Screening Does Patient Have Any of the Following: No Blood Pressure Classification: Hypertensive Reading Systolic Measurement: 150 Diastolic Measurement: 92 Screening for High Blood Pressure: < First Hypertensive BP, F/U Documented > [G8950] First Hypertensive Follow-up Interventions: Follow-up with rescreen GT 1 day and LT 4 weeks.
[2018-08-15 17:46] LABS: BLOOD UREA NITROGEN 5 mg/dL (6-20); CREATININE 0.8 mg/dL (0.5-0.9); EST GLOMERULAR FILTRATION RATE > 60 mL/min
[2018-08-15 17:49] LABS: GLUCOSE,RANDOM 163 mg/dL (74-109)
--- NOTE | 2018-08-16 21:32 | CT SCAN REPORT ---
EXAM: CT SCAN ABDOMEN/PELVIS WO CONTRAST HISTORY: LEFT LOWER QUADRANT ABDOMINAL PAIN. COMPARISON: 07/29/16. TECHNIQUE: Routine CT images of the abdomen and pelvis were obtained without contrast. FINDINGS: The visualized lung bases are unremarkable. Gallbladder is surgically absent. Liver, pancreas, spleen, and adrenals have a normal noncontrast appearance. No renal or ureteral calculi or hydronephrosis. Appendix is surgically absent. Bowel is normal in caliber. No gastrointestinal inflammatory change. Bladder is unremarkable. Uterus surgically absent. Aorta normal in caliber. No abdominal or pelvic lymphadenopathy. No free air or free fluid. Abdominal wall soft tissues are unremarkable. No acute osseous abnormality. Mild levocurvature lumbar spine. IMPRESSION: NO ACUTE INTRAABDOMINAL OR PELVIC ABNORMALITY. PREVIOUS SURGICAL CHANGES. JOB NUMBER: [id number] [facility]
== END 2018-08-15 19:09 | disposition home or self-care (01) ==
LOC: ER 16:13
DX: R10.32 Left lower quadrant pain (principal); E11.9 Type 2 diabetes mellitus without complications; Z79.84 Long term (current) use of oral hypoglycemic drugs; F17.210 Nicotine dependence, cigarettes, uncomplicated
CPT/HCPCS: 74176; 80048; 81003; 85025; 96365; 99284

== ENCOUNTER 2018-08-27 03:29 | Emergency (ER) | payer MEDICARE, MEDICAID ==
--- NOTE | 2018-08-27 03:44 | Emergency Department Record ---
History of Present Illness - General Chief Complaint: Abdominal Pain Stated Complaint: bloated, constipated hernia pain Time Seen by Provider: 08/27/18 03:42 Source: Patient Mode of Arrival: Ambulatory Limitations: No limitations - History of Present Illness Initial Comments: 43 yo female presents to ED for evaluation of pain to the RUQ/RLQ this morning, reports that she was diagnosed via physical examination with a "hernia" 48 hours ago at a [facility]. Patient reports that she has been constipated as well, reports that she looked her symptoms up on the Internet, and read that she should be seen immediately in the ED. Patient denies nausea/vomiting/fevers/chills. Patient is s/p regina, hysterectomy, and appendectomy. MD Complaint: Abdominal pain Onset/Timin -: Hour(s) Location: RUQ, RLQ Radiation: None Migration to: No migration Severity: Mild Quality: Aching Consistency: Constant Improves With: Nothing Worsens With: Nothing Associated Symptoms: Denies other symptoms - Related Data Patient : No Hx Age of Menopause: 37 Previous Rx's Medication Instructions Recorded Ondansetron [Zofran Odt] 4 mg PO Q8H #15 tab.rapdis 06/04/18 Allergies Allergy/AdvReac Type Severity Reaction Status Date / Time fenofibrate Allergy Severe MIGRAINES Verified 08/27/18 03:33 [id number] Antimigraine Allergy Severe HEADACHE Verified 08/27/18 03:33 Agents Ivmilug-Bki-Sle Reductase Allergy Intermediate JOINT ACHES Verified 08/27/18 03:33 Inhibitor medical tape AdvReac Mild RASH Uncoded 08/27/18 03:33 Travel Screening - Travel/Exposure Within Last 30 Days Have you traveled within the last 30 days?: No - Travel/Exposure Within Last Year Have you traveled outside the [place] in the last year?: No - Additonal Travel Details Have you been exposed to anyone with a communicable illness?: No - Travel Symptoms Symptom Screening: None Review of Systems Constitutional: Denies: Chills, Fever, Malaise, Night sweats Eyes: Denies: Eye discharge, Eye pain ENT: Denies: Congestion, Ear pain, Epistaxis Respiratory: Denies: Cough, Dyspnea Cardiovascular: Denies: Chest pain, Dyspnea on exertion Endocrine: Denies: Fatigue, Heat or cold intolerance Gastrointestinal: Reports: Abdominal pain, Constipation. Denies: Nausea, Vomiting Genitourinary: Denies: Incontinence, Retention Musculoskeletal: Denies: Arthralgia, Back pain Skin: Denies: Bruising, Change in color Neurological: Denies: Abnormal gait, Confusion, Headache, Seizure Psychiatric: Denies: Anxiety Hematological/Lymphatic: Denies: Anemia, Blood Clots Past Medical History - SOCIAL HISTORY Smoking Status: Current every day smoker Alcohol Use: None Drug Use: None - RESPIRATORY Hx Respiratory Disorders: Yes Hx Bronchitis: Yes Hx Pneumonia: Yes Hx Sleep Apnea: Yes (possibly testing upcoming) - CARDIOVASCULAR Hx Cardio Disorders: Yes Hx Chest Pain: No (denies) Comment:: HYPERLIPIDEMIA - NEURO Hx Neuro Disorders: Yes Hx Headaches: Yes (complex migrane) Hx of Migraines: Yes (weekly) - GI Hx GI Disorders: Yes Hx Abdominal Pain: Yes Hx Diverticulitis: Yes Hx Reflux: Yes Hx Liver Disease: Yes (fatty liver denies liver bx) Hx Nausea/Vomiting: Yes (with pain) Hx Ulcer: No (denies) - Hx Genitourinary Disorders: Yes Comment:: polycystic ovary syndrome - ENDOCRINE Hx Endocrine Disorders: Yes Hx Diabetes: Yes (oral medications) - MUSCULOSKELETAL Hx Musculoskeletal Disorders: Yes Hx Fibromyalgia: Yes Hx Gout: Yes Comment:: Buldging disc in neck - PSYCH Hx Psych Problems: Yes Hx Anxiety: Yes Hx Depression: Yes Comment:: PTSD - HEMATOLOGY/ONCOLOGY Hx Hematology/Oncology Disorders: No Hx Anemia: No Family Medical History Any Significant Family History?: No Hx Cancer: Mother, Grandparents *Diabetes Comment: aunt Hx Heart Disease: Brother/Sister *Heart Comment: Brother Hx Kidney Disease: Children Physical Exam - General General Appearance: Alert, Oriented x3, Cooperative, Mild distress, Anxious Limitations: No limitations - Head Head exam: Atraumatic, Normocephalic, Normal inspection Head exam detail: negative: Abrasion, Contusion, Espinosa's sign, General ten derness, Hematoma, Laceration - Eye Eye exam: Normal appearance. negative: Conjunctival injection, Periorbital swelling, Periorbital tenderness, Scleral icterus - ENT Ear exam: negative: Auricular hematoma, Auricular trauma Nasal Exam: negative: Active bleeding, Discharge, Dried blood, Foreign body Mouth exam: negative: Drooling, Laceration, Muffled voice, Tongue elevation - Neck Neck exam: Normal inspection. negative: Meningismus, Tenderness - Respiratory Respiratory exam: Normal lung sounds bilaterally. negative: Rales, Respiratory distress, Rhonchi, Stridor - Cardiovascular Cardiovascular Exam: Regular rate, Normal rhythm, Normal heart sounds - GI/Abdominal GI/Abdominal exam: Soft, Tenderness. negative: Distended, Guarding, Hernia (Mild TTP to the RUQ/RLQ on examination, no hernia present, no peritoneal signs are present on examination), Rebound, Rigid - Rectal Rectal exam: Deferred - exam: Deferred - Extremities Extremities exam: Normal inspection. negative: Pedal edema, Tenderness - Back Back exam: Denies: CVA tenderness (R), CVA tenderness (L) - Neurological Neurological exam: Alert, Normal gait, Oriented X3 - Psychiatric Psychiatric exam: Anxious - Skin Skin exam: Normal color. negative: Abrasion Type of lesion: negative: abrasion Course Vital Signs 08/27/18 03:37 Temperature 98.2 F Pulse Rate [ 97 H Pulse Ox Probe] Respiratory 20 Rate Blood Pressure 117/79 [Left Arm] Pulse Ox 93 L - Reevaluation(s) Reevaluation #1: 08/27/18 03:48 Patient was seen and examined No palpable hernia is present on examination. Patient is s/p appy/regina/hysterectomy CT imaging performed of the Abdomen/Pelvis 08/15/18, no acute findings present. Patient appears stable for discharge with instructions on the use of stool softeners, repeat imaging is not indicated based on the patient's physical examination and recent negative imaging study and previous surgical history. Patient appears stable for discharge at this time. Disposition Disposition: Discharge Clinical Impression: Constipation Qualifiers: Constipation type: unspecified constipation type Qualified Code(s): K59.00 - Constipation, unspecified Disposition: Home, Self-Care Condition: (2) Stable Instructions: Constipation (ED) Additional Instructions: Return to ED if your symptoms worsen or if you have any concerns. Stool softener as directed. Follow-up with your family doctor in 3-5 days as directed. Forms: Patient Portal Access Time of Disposition: 03:44 Quality - Quality Measures Quality Measures: N/A - Blood Pressure Screening Does Patient Have Any of the Following: No Blood Pressure Classification: Normal BP Reading Systolic Measurement: 117 Diastolic Measurement: 79 Screening for High Blood Pressure: < Normal BP, F/U Not Required > [G8783]
== END 2018-08-27 03:45 | disposition home or self-care (01) ==
LOC: ER 03:29
DX: K59.00 Constipation, unspecified (principal); R10.84 Generalized abdominal pain; E11.9 Type 2 diabetes mellitus without complications; Z79.84 Long term (current) use of oral hypoglycemic drugs; F17.210 Nicotine dependence, cigarettes, uncomplicated
CPT/HCPCS: 99282; 99283

== ENCOUNTER 2019-02-06 16:23 | Emergency (ER) | payer BC ==
[2019-02-06] MEDS ORDERED: HYOSCYAMINE SULFATE ODT 0.125 MG TAB.SUBL SL ONE (17:14)
--- NOTE | 2019-02-06 17:19 | Emergency Department Record ---
History of Present Illness - General Chief Complaint: Abdominal Pain Stated Complaint: RT ABD PAIN Time Seen by Provider: 02/06/19 17:12 Source: Patient Mode of Arrival: Ambulatory Limitations: No limitations - History of Present Illness Initial Comments: 44 yo female presents to ED for evaluation of RLQ pain that began 3-4 days ago associated with bloating, decreased appetite. Patient denies fevers, chills, nausea, vomiting, or urinary symptoms. Patient reports previous appendectomy, cholcystectomy, and hysterectomy as well. Patient does report a history of IBS, however reports that these symptoms "feel different". MD Complaint: Abdominal pain Onset/Timin -: Week(s) Location: RLQ Radiation: None Migration to: No migration Quality: Cramping Improves With: Nothing Worsens With: Nothing Associated Symptoms: Denies other symptoms - Related Data Hx Age of Menopause: 37 Previous Rx's Medication Instructions Recorded Hyoscyamine Sulfate [Levsin-Sl] 0.125 mg SL Q8H PRN #15 tab.subl 02/06/19 Allergies Allergy/AdvReac Type Severity Reaction Status Date / Time fenofibrate AdvReac Severe MIGRAINES Verified 02/06/19 17:06 [id number]-[id number] Antimigraine AdvReac Severe HEADACHE Verified 02/06/19 17:06 Agents Mpehfai-Trp-Iia Reductase AdvReac Intermediate JOINT ACHES Verified 02/06/19 17:06 Inhibitor medical tape AdvReac Mild RASH Uncoded 08/27/18 03:33 Travel Screening - Travel/Exposure Within Last 30 Days Have you traveled within the last 30 days?: No Review of Systems Constitutional: Denies: Chills, Fever, Malaise, Night sweats Eyes: Denies: Eye discharge, Eye pain ENT: Denies: Congestion, Ear pain, Epistaxis Respiratory: Denies: Cough, Dyspnea Cardiovascular: Denies: Chest pain, Dyspnea on exertion Endocrine: Denies: Fatigue, Heat or cold intolerance Gastrointestinal: Reports: Abdominal pain, Diarrhea. Denies: Constipation, Nausea, Vomiting Genitourinary: Denies: Incontinence, Retention Musculoskeletal: Denies: Arthralgia, Back pain Skin: Denies: Bruising, Change in color Neurological: Denies: Abnormal gait, Confusion, Headache, Tingling, Tremors Psychiatric: Denies: Anxiety Hematological/Lymphatic: Denies: Anemia, Blood Clots Past Medical History - SOCIAL HISTORY Smoking Status: Current every day smoker Alcohol Use: None Drug Use: None - RESPIRATORY Hx Respiratory Disorders: Yes Hx Bronchitis: Yes Hx Pneumonia: Yes Hx Sleep Apnea: Yes (possibly testing upcoming) - CARDIOVASCULAR Hx Cardio Disorders: Yes Hx Chest Pain: No (denies) Comment:: HYPERLIPIDEMIA - NEURO Hx Neuro Disorders: Yes Hx Headaches: Yes (complex migrane) Hx of Migraines: Yes (weekly) - GI Hx GI Disorders: Yes Hx Abdominal Pain: Yes Hx Diverticulitis: Yes Hx Reflux: Yes Hx Liver Disease: Yes (fatty liver denies liver bx) Hx Nausea/Vomiting: Yes (with pain) Hx Ulcer: No (denies) - Hx Genitourinary Disorders: Yes Comment:: polycystic ovary syndrome - ENDOCRINE Hx Endocrine Disorders: Yes Hx Diabetes: Yes (oral medications) - MUSCULOSKELETAL Hx Musculoskeletal Disorders: Yes Hx Fibromyalgia: Yes Hx Gout: Yes Comment:: Buldging disc in neck - PSYCH Hx Psych Problems: Yes Hx Anxiety: Yes Hx Depression: Yes Comment:: PTSD - HEMATOLOGY/ONCOLOGY Hx Hematology/Oncology Disorders: No Hx Anemia: No Family Medical History Any Significant Family History?: Yes Hx Cancer: Mother, Grandparents *Diabetes Comment: aunt Hx Heart Disease: Brother/Sister *Heart Comment: Brother Hx Kidney Disease: Children Physical Exam - General General Appearance: Alert, Oriented x3, Cooperative, Mild distress Limitations: No limitations - Head Head exam: Atraumatic, Normocephalic, Normal inspection Head exam detail: negative: Abrasion, Contusion, Espinosa's sign, General tenderness, Hematoma, Laceration - Eye Eye exam: Normal appearance. negative: Conjunctival injection, Periorbital swelling, Periorbital tenderness, Scleral icterus - ENT Ear exam: negative: Auricular hematoma, Auricular trauma Nasal Exam: negative: Active bleeding, Discharge, Dried blood, Foreign body Mouth exam: negative: Drooling, Laceration, Muffled voice, Tongue elevation - Neck Neck exam: Normal inspection. negative: Meningismus, Tenderness, Thyromegaly - Respiratory Respiratory exam: Normal lung sounds bilaterally. negative: Accessory muscle use, Chest wall tenderness, Rhonchi, Stridor, Wheezes - Cardiovascular Cardiovascular Exam: Regular rate, Normal rhythm, Normal heart sounds - GI/Abdominal GI/Abdominal exam: Soft, Tenderness (MIld TTP RLQ on examination, no rebound, no guarding, no peritoneal signs on examination.). negative: Pulsatile mass, Rebound, Rigid - Rectal Rectal exam: Deferred - exam: Deferred - Extremities Extremities exam: Normal inspection. negative: Pedal edema, Tenderness - Back Back exam: Denies: CVA tenderness (R), CVA tenderness (L) - Neurological Neurological exam: Alert, Normal gait, Oriented X3 - Psychiatric Psychiatric exam: Normal affect, Normal mood - Skin Skin exam: Normal color. negative: Abrasion Type of lesion: negative: abrasion Course Vital Signs 02/06/19 17:03 Temperature 98.3 F Pulse Rate 74 Respiratory 18 Rate Blood Pressure 120/75 Pulse Ox 99 - Reevaluation(s) Reevaluation #1: 02/06/19 17:49 Laboratory studies were reviewed and appear grossly unremarkable for an acute process. Based on the patient's laboratory studies, previous surgical history, and multiple CT imaging studies negative for an an acute process, repeat CT imaging is not felt to be indicated based on my examination. Patient appears stable for discharge with symptomatic treatment as discussed. Patient appears stable for discharge at this time. Medical Decision Making - Lab Data Result diagrams: 02/06/19 17:20 02/06/19 17:20 Disposition Disposition: Discharge Clinical Impression: Chronic abdominal pain Disposition: Home, Self-Care Condition: (2) Stable Instructions: Abdominal Pain (ED) Additional Instructions: Return to ED if your symptoms worsen or if you have any concerns. Follow-up with your family doctor in 3-5 days as directed. Prescriptions: Hyoscyamine Sulfate [Levsin-Sl] 0.125 mg SL Q8H PRN #15 tab.subl PRN Reason: Abdominal Pain Forms: Patient Portal Access Time of Disposition: 17:51 Quality - Quality Measures Quality Measures: N/A - Blood Pressure Screening Does Patient Have Any of the Following: No Blood Pressure Classification: Pre-Hypertensive BP Reading Systolic Measurement: 120 Diastolic Measurement: 75 Screening for High Blood Pressure: < Pre-Hypertensive BP, F/U Documented > [G8950] Pre-Hypertensive Follow-up Interventions: Referral to alternative/primary care provider.
[2019-02-06 17:31] LABS: ABSOLUTE NEUTROPHIL COUNT 6.59; BASO % 0.3 % (0-6); EOS % 0.4 % (0-6); GRAN % 66.7 % (47-80); HEMATOCRIT 36.6 % (35.0-47.0); HEMOGLOBIN 11.5 gm/dl (11.6-16.0); LYMPH % 24.2 % (16-45); MEAN CELL VOLUME 90.4 fl (81-97); MEAN CORPUSCULAR HGB CONC 31.4 g/dl (32-36); MEAN PLATELET VOLUME 9.4 fl (7.4-10.4); MONO % 8.4 % (0-9); PLATELET COUNT 412 K/uL (130-400); RED BLOOD COUNT 4.05 M/uL (3.80-5.40); RED CELL DISTRIBUTION WIDTH 13.7 % (11.5-14.5); WHITE BLOOD COUNT W/O DIFF 9.9 K/uL (4.2-12.2)
[2019-02-06 17:32] LABS: MEAN CORPUSCULAR HEMOGLOBIN 28.3 pg (27-33); URINE APPEARANCE CLEAR; URINE BILIRUBIN SMALL (NEGATIVE); URINE BLOOD NEGATIVE (NEGATIVE); URINE COLOR YELLOW; URINE GLUCOSE (UA) NEGATIVE (NEGATIVE); URINE KETONE TRACE (NEGATIVE); URINE LEUKOCYTE ESTERASE NEGATIVE (NEGATIVE); URINE NITRITE NEGATIVE (NEGATIVE); URINE PROTEIN NEGATIVE (NEGATIVE); URINE UROBILINOGEN 0.2 E.U./dL (0.20 - 1.00)
[2019-02-06 17:42] LABS: BILIRUBIN,TOTAL < 0.20 mg/dL (0.2-1.0); BLOOD UREA NITROGEN 10 mg/dL (6-20); CREATININE 0.7 mg/dL (0.5-0.9); EST GLOMERULAR FILTRATION RATE > 60 mL/min; LIPASE 51 U/L (13-60); TOTAL PROTEIN 6.8 g/dL (6.6-8.7)
[2019-02-06 17:44] LABS: GLUCOSE,RANDOM 188 mg/dL (74-109)
[2019-02-06 17:47] LABS: ALB/GLOB RATIO 1.5 (1.1-1.8); ALBUMIN 4.1 g/dL (4.0-5.0); ALKALINE PHOSPHATASE 107 U/L (35-104); ALT/SGPT 27 U/L (<33); AST/SGOT 18 U/L (10.0-35.0)
== END 2019-02-06 18:06 | disposition home or self-care (01) ==
LOC: ER 16:23
DX: R10.31 Right lower quadrant pain (principal); G89.29 Other chronic pain; R14.0 Abdominal distension (gaseous); F17.210 Nicotine dependence, cigarettes, uncomplicated; R11.0 Nausea; R35.0 Frequency of micturition
CPT/HCPCS: 80053; 81003; 83690; 85025; 99284

== ENCOUNTER 2019-03-20 17:47 | Emergency (ER) | payer MEDICARE ==
--- NOTE | 2019-03-20 18:15 | Emergency Department Record ---
History of Present Illness - General Chief Complaint: Abdominal Pain Stated Complaint: Abd pain Time Seen by Provider: 03/20/19 18:09 Source: Patient Mode of Arrival: Ambulatory Limitations: No limitations - History of Present Illness Initial Comments: 44 yo female presents with about a week of intermittent abdominal pain and intermittent changes in her stools. 8 days ago she noticed a pain in the right upper quadrant that comes and goes. She has had changes in her stools including the color. It appears whitish at times and brownish at times. She has anywhere from 1 to 4 stools a day. No fever, jaundice, blood in the stool. No rash over the painful area. No back or flank pain. She provided a stool study at the [facility]. The stool study was negative. No LLQ pain. She does not have a gall bladder. She has had exploratory surgery for pain in the last 2 years that was negative for an obvious cause. No vomiting. Zina Faria is her PCP. The patient's gall bladder, appendix, and uterus have been removed in the past. Note: [address] scans in EMR. MD Complaint: Abdominal pain Onset/Timin -: Week(s) Location: RUQ Radiation: RUQ Migration to: RUQ Quality: Aching Consistency: Intermittent Improves With: Nothing Worsens With: Nothing Associated Symptoms: Diarrhea - Related Data Hx Age of Menopause: 37 Previous Rx's Medication Instructions Recorded Hyoscyamine Sulfate [Levsin-Sl] 0.125 mg SL Q8H PRN #15 tab.subl 02/06/19 Allergies Allergy/AdvReac Type Severity Reaction Status Date / Time fenofibrate AdvReac Severe MIGRAINES Verified 03/20/19 17:59 [id number] Antimigraine AdvReac Severe HEADACHE Verified 03/20/19 17:59 Agents Rpgrcva-Ift-Ion Reductase AdvReac Intermediate JOINT ACHES Verified 03/20/19 17:59 Inhibitor medical tape AdvReac Mild RASH Uncoded 03/20/19 17:59 Travel Screening - Travel/Exposure Within Last 30 Days Have you traveled within the last 30 days?: No - Travel/Exposure Within Last Year Have you traveled outside the [place] in the last year?: No - Additonal Travel Details Have you been exposed to anyone with a communicable illness?: No Review of Systems Constitutional: Denies: Chills, Fever, Malaise, Weakness Eyes: Denies: Eye discharge ENT: Denies: Congestion Respiratory: Denies: Cough, Dyspnea, Hemoptysis, Stridor, Wheezes Cardiovascular: Denies: Arrhythmia, Chest pain, Dyspnea on exertion, Palpitations, Syncope Endocrine: Denies: Fatigue, Polydipsia, Polyuria Gastrointestinal: Reports: Abdominal pain, Diarrhea. Denies: Hematemesis, Hematochezia, Melena, Nausea, Vomiting Genitourinary: Denies: Dysuria, Frequency Musculoskeletal: Denies: Arthralgia, Back pain, Neck pain Neurological: Denies: Headache, Weakness Psychiatric: Denies: Anxiety Hematological/Lymphatic: Denies: Easy bleeding, Easy bruising Past Medical History - SOCIAL HISTORY Smoking Status: Current every day smoker Alcohol Use: None Drug Use: None - RESPIRATORY Hx Respiratory Disorders: Yes Hx Bronchitis: Yes Hx Pneumonia: Yes Hx Sleep Apnea: Yes (possibly testing upcoming) - CARDIOVASCULAR Hx Cardio Disorders: Yes Hx Chest Pain: No (denies) Comment:: HYPERLIPIDEMIA - NEURO Hx Neuro Disorders: Yes Hx Headaches: Yes (complex migrane) Hx of Migraines: Yes (weekly) - GI Hx GI Disorders: Yes Hx Abdominal Pain: Yes Hx Diverticulitis: Yes Hx Reflux: Yes Hx Liver Disease: Yes (fatty liver denies liver bx) Hx Nausea/Vomiting: Yes (with pain) Hx Ulcer: No (denies) - Hx Genitourinary Disorders: Yes Comment:: polycystic ovary syndrome - ENDOCRINE Hx Endocrine Disorders: Yes Hx Diabetes: Yes (oral medications) - MUSCULOSKELETAL Hx Musculoskeletal Disorders: Yes Hx Fibromyalgia: Yes Hx Gout: Yes Comment:: Buldging disc in neck - PSYCH Hx Psych Problems: Yes Hx Anxiety: Yes Hx Depression: Yes Comment:: PTSD - HEMATOLOGY/ONCOLOGY Hx Hematology/Oncology Disorders: No Hx Anemia: No Family Medical History Any Significant Family History?: No Hx Cancer: Mother, Grandparents *Diabetes Comment: aunt Hx Heart Disease: Brother/Sister *Heart Comment: Brother Hx Kidney Disease: Children Physical Exam - General General Appearance: Alert, Oriented x3, Cooperative, No acute distress Limitations: No limitations - Head Head exam: Atraumatic, Normal inspection - Eye Eye exam: Normal appearance, PERRL. negative: Conjunctival injection, Scleral icterus - ENT ENT exam: Normal exam, Mucous membranes moist, Normal orophraynx Ear exam: Normal external inspection Nasal Exam: Normal inspection Mouth exam: Normal external inspection - Neck Neck exam: Normal inspection - Respiratory Respiratory exam: Normal lung sounds bilaterally - Cardiovascular Cardiovascular Exam: Regular rate, Normal rhythm, Normal heart sounds - GI/Abdominal GI/Abdominal exam: Soft, Normal bowel sounds, Tenderness (Very soft and minimally tender in the RUQ, no mass, the examination at this time is very mild and benign). negative: Guarding, Hernia, Rebound, Rigid - Rectal Rectal exam: Deferred - exam: Deferred - Back Back exam: Denies: CVA tenderness (R), CVA tenderness (L) - Neurological Neurological exam: Alert, Oriented X3 - Psychiatric Psychiatric exam: Normal affect, Normal mood - Skin Skin exam: Dry, Intact, Normal color, Warm Course Vital Signs 03/20/19 17:49 Temperature 97.7 F Pulse Rate 81 Respiratory 16 Rate Blood Pressure 134/112 Pulse Ox 97 - Reevaluation(s) Reevaluation #1: The vitals were reviewed No acute abnormalities 03/20/19 18:15 03/20/19 18:41 The labs are negative for acute significant abnormality The patient has follow up scheduled with her PCP She has a GI specialist as well if needed after evaluation by her PCP Medical Decision Making - Lab Data Result diagrams: 03/20/19 18:13 03/20/19 18:13 Disposition Disposition: Discharge Clinical Impression: Abdominal pain Qualifiers: Abdominal location: unspecified location Qualified Code(s): R10.9 - Unspecified abdominal pain Diarrhea Qualifiers: Diarrhea type: unspecified type Qualified Code(s): R19.7 - Diarrhea, unspecified Disposition: Home, Self-Care Condition: (1) Good Instructions: Abdominal Pain (ED) Additional Instructions: Follow up with Zina Faria as scheduled Avoid fatty foods Return if you have fever, vomiting, bloody stools or any new concerns or symptoms Forms: Patient Portal Access Time of Disposition: 18:42 Quality - Quality Measures Quality Measures: N/A - Blood Pressure Screening Does Patient Have Any of the Following: Active Dx of HTN Blood Pressure Classification: Hypertensive Reading Systolic Measurement: 134 Diastolic Measurement: 112 Screening for High Blood Pressure: Patient Exclusion, Hx of HTN [[id number]]
[2019-03-20 18:20] LABS: BASO % 0.4 % (0-6); EOS % 0.6 % (0-6); GRAN % 65.9 % (47-80); HEMATOCRIT 38.7 % (35.0-47.0); HEMOGLOBIN 12.1 gm/dl (11.6-16.0); LYMPH % 24.9 % (16-45); MEAN CELL VOLUME 91.3 fl (81-97); MEAN CORPUSCULAR HEMOGLOBIN 28.5 pg (27-33); MEAN CORPUSCULAR HGB CONC 31.3 g/dl (32-36); MEAN PLATELET VOLUME 9.1 fl (7.4-10.4); MONO % 8.2 % (0-9); PLATELET COUNT 444 K/uL (130-400); RED BLOOD COUNT 4.24 M/uL (3.80-5.40); RED CELL DISTRIBUTION WIDTH 14.5 % (11.5-14.5); WHITE BLOOD COUNT W/O DIFF 11.4 K/uL (4.2-12.2)
[2019-03-20 18:31] LABS: BILIRUBIN,TOTAL < 0.20 mg/dL (0.2-1.0); BLOOD UREA NITROGEN 20 mg/dL (6-20); CREATININE 0.9 mg/dL (0.5-0.9); EST GLOMERULAR FILTRATION RATE > 60 mL/min
[2019-03-20 18:32] LABS: LIPASE 50 U/L (13-60); TOTAL PROTEIN 6.9 g/dL (6.6-8.7)
[2019-03-20 18:33] LABS: GLUCOSE,RANDOM 161 mg/dL (74-109)
[2019-03-20 18:36] LABS: ALB/GLOB RATIO 1.7 (1.1-1.8); ALBUMIN 4.3 g/dL (4.0-5.0); ALKALINE PHOSPHATASE 116 U/L (35-104); ALT/SGPT 15 U/L (<33); AST/SGOT 13 U/L (10.0-35.0)
== END 2019-03-20 18:57 | disposition home or self-care (01) ==
LOC: ER 17:47
DX: R10.11 Right upper quadrant pain (principal); R19.7 Diarrhea, unspecified; R11.0 Nausea; I10 Essential (primary) hypertension; F17.210 Nicotine dependence, cigarettes, uncomplicated
CPT/HCPCS: 80053; 82272; 83690; 85025; 99283

== ENCOUNTER 2019-04-06 06:57 | Day surgery (SDC) | payer MEDICARE ==
[2019-04-06] MEDS ORDERED: LIDOCAINE 2% MDV (20MG/ML) 20ML VIAL IV ONE (06:58)
[2019-04-06] MEDS ORDERED: PROPOFOL 10 MG/ML VIAL IV ONE (06:58)
--- NOTE | 2019-04-07 10:52 | Operative Note ---
OPERATION: COLONOSCOPY. PREOPERATIVE DIAGNOSIS: Change in bowel habits. POSTOPERATIVE DIAGNOSIS: Left-sided diverticulosis, otherwise normal exam. PREPARATION QUALITY: Excellent. ESTIMATED BLOOD LOSS: None. SPECIMENS: None. COMPLICATIONS: None apparent. PROCEDURE: After informed consent was obtained from the patient, she was placed in the left lateral decubitus position in the endoscopy suite, sedated and monitored by the department of anesthesia. Digital rectal exam was unremarkable. A well-lubricated [id number] colonoscope was inserted into the rectum and advanced to the cecum. The cecum, cecal bulb, ileocecal valve, appendiceal orifice, ascending colon, transverse colon, descending colon, sigmoid colon, and rectum were free of inflammatory changes, mass lesions, or polyps. There were diverticula seen in the descending colon and sigmoid colon. No inflammation was seen. The rectum was unremarkable in forward and J-turn views. The endoscope was straightened, the rectal ampulla deflated, and the endoscope was removed. RECOMMENDATIONS: The patient should follow a high-fiber diet. Recommend a repeat exam in 10 years or sooner should symptoms warrant. As always, thank you for allowing me to participate in the healthcare of your patients. LITZY
== END 2019-04-06 08:55 | disposition home or self-care (01) ==
LOC: HOP 06:57
PROVIDERS: ATTEND Internal Medicine Gastroenterology
DX: R19.4 Change in bowel habit (principal); K57.30 Diverticulosis of large intestine without perforation or abscess without bleeding; Z87.891 Personal history of nicotine dependence; F43.10 Post-traumatic stress disorder, unspecified; K21.9 Gastro-esophageal reflux disease without esophagitis; K76.0 Fatty (change of) liver, not elsewhere classified; G47.33 Obstructive sleep apnea (adult) (pediatric)